=== PATIENT | male | born 1950 | race Caucasian/White ===

== ENCOUNTER 2024-06-04 14:10 | Inpatient (IN) | payer MEDICARE, SELFPAY ==
[2024-06-04] VITALS (9 sets, daily range): BP systolic 153–212; BP diastolic 70–91
--- NOTE | 2024-06-04 12:17 | ED.GENMED ---
History of Present Illness
General
Chief Complaint: Swelling
Source: patient
Exam Limitations: none
Time Seen by Provider: 06/04/24 11:59
History of Present Illness
History of Present Illness:
74-year-old male presents from home with daughter and son. They state that his legs have been more swollen progressively worsening over the past 2 weeks with general decline and weakness. Patient lives with his brother but he has been having
difficulty taking care of himself. He has trouble getting out of the chair and he is sitting for the majority of the day. He has urinary incontinence. He has been known to be noncompliant with medicine. He was prescribed Lasix at 1 point for
lower extremity swelling but does not currently take it. He has a pacemaker history of CABG and follows with cardiology here but has not seen them in a while. Family concerned about his overall wellbeing and inability to take care of himself in
the setting of fluid retention and weakness.
Past History
Past History
ED Past Medical History: CAD, CHF, HTN, Hypercholesterolemia, IDDM and Other (CKD, spinal stenosis)
ED Past Surgical History: Appendectomy and Cardiac (01/2017 pacemaker, cardiac stents, CABG)
Social History
Tobacco: Former smoker
Alcohol: Occasional
Drug: None
Personal:
Living: with roommate
Family History
Family History: Other (reviewed and non-contributory)
Phy Exam
Physical Exam
Physical Exam:
General: Unkempt male no acute respiratory distress
HEENT: Normocephalic atraumatic
Heart: Regular rate and rhythm
Lungs: Clear no obvious wheeze
Abdomen is soft nontender nondistended
Extremities: Significant pitting edema bilateral lower extremities there is weeping at some spots.
Skin is warm no rash
Scores
Heart Failure Risk
Heart Failure Risk Score: Not Applicable
Course
Orders/Labs/Results
Orders:
Orders
06/04/24 12:17
Interrogate Pacemaker- Treatment ONCE
CR Chest - 2 Views Urgent
Comment:
Reason For Exam: weakness, sob
06/04/24 12:26
Complete Blood Count/With Diff Urgent
Comprehensive Metabolic Panel Urgent
NT-proBNP Urgent
06/04/24 13:29
Furosemide [Lasix] 40 mg IV NOW STA
Abnormal Lab Results
06/04/24
12:26
RBC 3.98 L 10^6/uL
(4.70-6.10)
Hgb 11.8 L g/dL
(13.0-18.0)
Hct 34.9 L %
(39.0-52.0)
MPV 11.4 H fL
(7.4-10.4)
Absolute Lymphs (auto) 0.9 L 10^3/uL
(1.2-3.4)
Lymphocytes % 17.1 L %
(20.5-51.1)
Chloride 108 H mmol/L
(98-107)
BUN 40 H mg/dl
(9-20)
Creatinine 2.4 H mg/dL
(0.7-1.3)
Glucose 139 H mg/dl
(70-99)
Total Protein 6.1 L g/dl
(6.3-8.2)
Albumin 3.4 L g/dl
(3.5-5.0)
06/04/24 12:26
06/04/24 12:26
Vital Signs
Initial and Last Documented VS:
Initial Vital Signs
Temp Pulse Resp BP Pulse Ox
98.2 F 60 16 212/87 100
06/04/24 11:38 06/04/24 11:38 06/04/24 11:38 06/04/24 11:38 06/04/24 11:38
Last Documented Vital Signs
Temp Pulse Resp BP Pulse Ox
98.2 F 65 15 187/85 98
06/04/24 11:38 06/04/24 13:00 06/04/24 13:00 06/04/24 13:00 06/04/24 13:00
MDM/Problems Addressed
Differential Diagnosis Includes:
Lower extremity swelling and generalized weakness. Consider CHF versus ambulatory dysfunction versus electrolyte abnormality. There is a newer urinary incontinence will check for UTI chest x-ray to check for pleural effusion or pneumonia.
*Critical Care Note
Total Time (30-74mins, 75-104mins- exclusive of procedures): Not Applicable
Update Note
Update Note:
BNP 14,500 creatinine is 2.4 at both of these are higher than baseline. Chest x-ray shows cardiomegaly with left-sided pleural effusion. Patient is volume overloaded Lasix ordered. He also has worsening kidney dysfunction. Will admit to hospital
for further evaluation.
Echocardiogram from 1 year ago demonstrating ejection fraction of around 60%
ED Attending Note
-
Portions of this chart may have been created with voice recognition software.� Occasional wrong word or��sound alike� substitutions may have occurred due to the inherent limitations of voice recognition software.
Discharge Plan
Departure
Patient Disposition: Admit
Date of Disposition: 06/04/24
Time of Disposition: 13:33
Admit to: Telemetry
Presentation/result/management discussed w/ accepting MD/DO: Hospitalist
Discharge Problem:
CHF (congestive heart failure)
Prescriptions:
No Action
metoprolol succinate 50 mg tablet extended release 24 hr
50 mg PO DAILY
furosemide [Lasix] 20 mg Tablet
20 mg PO DAILYPRN PRN (Reason: FLUID )
insulin glargine [Lantus Solostar U-100 Insulin] 100 unit/mL (3 mL) Insulin Pen
10 unit SC HS
amlodipine 10 mg Tablet
10 mg PO HS Qty: 30 0RF
atorvastatin 80 MG tablet
80 mg PO DAILY Qty: 30 0RF
clopidogrel 75 mg Tablet
75 mg PO DAILY Qty: 30 0RF
aspirin 81 MG tablet,delayed release (DR/EC)
81 mg PO DAILY Qty: 5 0RF
pantoprazole 40 MG tablet,delayed release (DR/EC)
40 mg PO DAILY Qty: 30 0RF
ezetimibe 10 MG tablet
10 mg PO DAILY Qty: 30 0RF
Referrals:
Uriah Roger NP [Family Provider] -
Interventions
Interventions:
*Risk Screen - Suicide Last Done: 06/04/24 11:38
*General Assessment Last Done: 06/04/24 11:38
*Neglect/Abuse Screening Last Done: 06/04/24 11:38
ED- Fall Risk Assessment Last Done: 06/04/24 12:56
*ED COVID-19 Vaccine History Last Done: 06/04/24 11:38
ED- Cardiac Assessment Last Done: 06/04/24 12:56
ED- Pulmonary Assessment Last Done: 06/04/24 12:56
ED-Skin Assessment Last Done: 06/04/24 12:56
Discharge Date and Time
Print Language: SENEGALESE
[2024-06-04 12:38] LABS: % Basophils 0.9 % (0-2); % Eosinophils 3.3 % (0-6); % Immature Granulocytes 0.4 % (0-0.5); % Lymphocytes 17.1 % (20.5-51.1); % Monocytes 7.3 % (1.7-9.3); Absolute Basophils 0.1 10^3/uL (0-0.2); Absolute Eosinophils 0.2 10^3/uL (0-0.7); Absolute Lymphocytes 0.9 10^3/uL (1.2-3.4); Absolute Monocytes 0.4 10^3/uL (0.1-0.6); Absolute Neutrophils 3.9 10^3/uL (1.4-6.5); Hematocrit 34.9 % (39.0-52.0); Hemoglobin 11.8 g/dL (13.0-18.0); Mean Corp Hgb Conc. 33.8 g/dL (33.0-37.0); Mean Corpuscular Hgb 29.6 pg (27.0-31.0); Mean Corpuscular Volume 87.7 fL (80.0-94.0); Mean Platelet Volume 11.4 fL (7.4-10.4); Nucleated Red Blood Cells % 0 % (-); Platelet Count 158 10^3/uL (130-400); Red Blood Cell Count 3.98 10^6/uL (4.70-6.10); Red Cell Dist. Width 14.1 % (11.5-14.5); White Blood Cell Count 5.5 10^3/uL (4.8-10.8)
[2024-06-04 12:54] LABS: ALT (SGPT) 15 U/L (0-50); AST (SGOT) 20 U/L (17-59); Albumin 3.4 g/dl (3.5-5.0); Alkaline Phosphatase 94 U/L (38-126); Blood Urea Nitrogen 40 mg/dl (9-20); Calcium 8.9 mg/dl (8.4-10.2); Carbon Dioxide 22 mmol/L (22-30); Chloride 108 mmol/L (98-107); Glucose 139 mg/dl (70-99); Potassium 5.1 mmol/L (3.5-5.1); Sodium 138 mmol/L (135-145); Total Bilirubin 1.2 mg/dl (0.2-1.3); Total Protein 6.1 g/dl (6.3-8.2); eGFR 27.28
[2024-06-04 12:58] LABS: NT-proBNP 14500 pg/ml
--- NOTE | 2024-06-04 13:51 | HPS.HSE ---
Family Physician
-
Family Physician: Uriah Roger NP
Chief Complaint
-
Weakness and Lower Extremity Edema
History of Present Illness
Patient is a 74 y/o male past medical history of CAD, CVA, CHF, HTN, DM, and CKD who presents with weakness and increasing lower extremity edema. Additional history is obtained from patient's daughter and son at the bedside. Patient has been
non-complaint with his medication for the last 6 months. Over the last few weeks patient has developed increasing lower extremity edema associated with increased weakness and low energy. Patient denies any chest pains, palpitations or shortness of
breath. He denies fevers, sweats or chills. He does not weight himself on a regular basis.
Medical History
Past Medical History
Past Medical History: Reports Other
Additional Past Medical History:
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
Coronary Artery Disease s/p CABG and stents
Chronic HFpEF
Essential Hypertension
Hyperlipidemia
Diabetes Mellitus, Type II
CKD Stage III
Chronic Lower Extremity Lymphedema
Spinal Stenosis
GERD
Mild Cognitive Impairment
Past Surgical History: Reports Other
Additional Past Surgical History:
CABG
Cardiac Stents
Permanent Pacemaker
Appendectomy
Social History
Tobacco: Former Smoker
Alcohol: Occasional
Family History
Family History: Not pertinent
Allergies / Home Medications
Allergies reflects when Allergies were last updated in [employer].
Home Medications with original date entered in [employer]
Allergy/Medication List:
Allergies
Allergy/AdvReac Type Severity Reaction Status Date / Time
No Known Allergies Allergy Verified 06/04/24 12:12
Home Medications
amlodipine 10 mg tablet 10 mg PO HS #30 tabs 03/18/23
aspirin 81 mg tablet,delayed release 81 mg PO DAILY #5 tabs 03/18/23
atorvastatin 80 mg tablet 80 mg PO DAILY High Cholesterol #30 tabs 03/18/23
clopidogrel 75 mg tablet 75 mg PO DAILY #30 tabs 03/18/23
ezetimibe 10 mg tablet 10 mg PO DAILY High Cholesterol #30 tabs 03/18/23
pantoprazole 40 mg tablet,delayed release 40 mg PO DAILY Gastrointestinal Issue #30 tabs 03/18/23
furosemide 20 mg tablet (Lasix) 20 mg PO DAILYPRN PRN FLUID 06/04/24
insulin glargine 100 unit/mL (3 mL) subcutaneous pen (Lantus Solostar U-100 Insulin) 10 unit SC HS 06/04/24
metoprolol succinate 50 mg tablet,extended release 24 hr 50 mg PO DAILY 06/04/24
Review of Systems
-
A 12 point ROS was completed and negative except as noted: Yes
Constitutional: Denies Fever or Chills
Respiratory: Denies Cough or Trouble Breathing
Cardiac: Denies Chest Pain or Palpitations
Physical Exam
Vital Signs
Vital Signs
Temp Pulse Resp BP Pulse Ox
98.2 F 65 15 187/85 98
06/04/24 11:38 06/04/24 13:00 06/04/24 13:00 06/04/24 13:00 06/04/24 13:00
Physical Exam
General: Comfortable and Conversant
HEENT: Anicteric and Moist mucous membranes
Respiratory: Rales (Left base) and Non Labored Respirations
Cardiac: S1/S2 and Regular Rhythm
GI: Soft and Non Tender
Rectal: Deferred by Provider
Musculoskeletal: No Clubbing, No Cyanosis and Other (Evidence of chronic lower extremity lymphedema with +2 pitting edema bilaterally)
Skin: Warm and Dry
Neuro: Awake, Alert and Nonfocal/grossly intact
Psych: Other (Flat Affect)
Laboratory Results
-
06/04/24 12:26
06/04/24 12:26
Laboratory Results
Total Bilirubin 1.2 mg/dl (0.2-1.3) 06/04/24 12:26
AST 20 U/L (17-59) 06/04/24 12:26
ALT 15 U/L (0-50) 06/04/24 12:26
Alkaline Phosphatase 94 U/L (38-126) 06/04/24 12:26
Chest X-Ray:
Small bilateral pleural effusions, and left basilar atelectasis versus pneumonia.
Data Reviewed
-
Diagnostic Radiology: Report Reviewed by me
Lab Data: Labs Reviewed by me
Impression/Plan
-
Acute on Chronic HFpEF
-Consult Cardiology
-Check Echocardiogram
-Continue Lasix
-Monitor Is&Os and Daily Weights
Acute Renal Insufficiency on CKD Stage IIIB (Baseline Cr 1.8-2.0)
-Monitor creatinine closely while on diuretics
-Consider Nephrology consult if Creatinine does not improve
Uncontrolled Hypertension due to non-compliance
-Resume metoprolol and amlodipine
-Add hydralazine prn
-Monitor BP closely
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
-Per outpatient records plan was to stop Plavix and continue on Aspirin alone
-Continue aspirin
Coronary Artery Disease s/p CABG and stents
-Continue aspirin
Hyperlipidemia
-Continue atorvastatin and Zetia
Diabetes Mellitus, Type II
-Unclear when patient stopped Lantus
-Hold on long acting insulin for now
-Check HgbA1c
-Monitor sugars and continue coverage insulin
Mild Cognitive Impairment, suspect continued cognitive decline
-Consult Speech Therapy for MOCA/BCAT cognitive testing
DVT proph: SC Heparin
Code Status: Full Code
[2024-06-04] MEDS: LASIX 40 MG IV (13:55)
--- NOTE | 2024-06-04 14:30 | W.PN.UPDATE ---
Update Note
Progress Note Update
This note serves as an addendum to the H&P by tenter frame back tender MARIYA , Divine BOYER
HPI
74M from home . lives with older brother, HX CAD,CABG, PPM implant, CHF, HTN, Hypercholesterolemia, IDDM, CKD3b, chr leg edema pw general debility, weakness, unable to care for himself and non adherence with Meds. On lasix PRN for chr Alok venous
stasis
PHX: as above
Reviewed VS:
Vital Signs
Temp Pulse Resp BP Pulse Ox
98.2 F 63 15 205/76 98
06/04/24 11:38 06/04/24 13:55 06/04/24 13:00 06/04/24 13:55 06/04/24 13:00
PE
Gen: Not toxic
HEENT: anicteric
Neck: supple
Lungs: DTA
Cor: RRR S1 S2 , soft SM at Lt USB
Abdomen: soft benign
MARITIME OFFICER: AA, NFND
MS: b/l large chr venous stasis edema with lymphedem chages
Psych: flat affect
Data
11/09/21 05/11/23 06/04/24
05:12 15:34 12:26
Hgb 11.8 L
BUN 40 H
Creatinine 2.0 H 2.4 H
eGFR 27.28
[id number] Pept 2009 [id number]
03/04/23 TTE
LVEF 55-60
Grade 1 diastolic dysfunction
Normal right ventricular systolic function with right-sided device wire present
Mild mitral regurgitation
Estimated pulmonary artery systolic pressure estimated 25-30 mmHg assuming a right atrial pressure 3 mmHg
CXR: Small bilateral pleural effusions, and left basilar atelectasis versus pneumonia.
ASSESSMENT & PLAN
Acute HF suspect underlying chr HFpEF
Expanded volume
Known chronic venous stasis Alok with lymphedema changes
- IV Lasix 60 daily
- daily Wt, IOs
- Daily BMP
- ECHO
- DCA card consult
HTN urgency/ emergency due to non compliance with OP Rx
Sinus Benjamin
Has PPM implant and paced
- resume Amlodipine and Metoprolol
- add IV Hydralazine PRN fro SBP > 165, DBP > 125
MAEGAN suspect cardiorenal syndrome
HX CKD3b /4
- trend Cr with IV Diuresis
HX CABG and prior stents
IDDM
- add ISS low
- Hold Lantus for now _ questionable complaince
Non adherence with OP Meds suspect cognitive decline with poor judgement
- OT to eval BCAT ( brief cognitive assessment test )
DVT Px: SQH
Code: Full
IP TLM
[2024-06-04] MEDS: TOPROL XL 50 MG PO (14:50)
[2024-06-04 16:56] LABS: Glucose - Point of Care 107 mg/dl (70-99)
[2024-06-04] MEDS: NOVOLOG FLEXPEN-LOW RESISTANCE SC (17:01)
[2024-06-04] MEDS: HEPARIN 5000 UNITS SC ×2 (17:13→23:52)
[2024-06-04] MEDS: APRESOLINE 5 MG IV (17:20)
--- NOTE | 2024-06-04 17:30 | PTCARENOTE ---
recieved pt from ED via stretcher, BP elevated slightly lower from PO Metoprolol in the ED. Asymptomatic no CUELLAR, no dizziness. Family at bedside, ordered dinner, oriented to his room. Call kim within reach.
--- NOTE | 2024-06-04 17:42 | PTOTSP ---
[facility] Cognitive Communication Evaluation
Request was made for cognitive evaluation due to suspected cognitive decline.
Previous BUDGET CLERK Tx:
- Pt had an acute CVA in 02/2023. Pt went to [facility] on d/c for therapy and received subsequently received OP BUDGET CLERK tx at from 04/07/2023 through 05/17/2023. Pt's OP BUDGET CLERK tx was discontinued at pt's request, as he was refusing additional rehab
services. At the time of discharge, pt demonstrated: 'In therapy, processing speech continues to be overall moderately slow. Mid level word retrieval and the use of compensatory strategies has improved and 90% accuracy with minimal cues. Tasks of
mid level problem solving and compensations requires moderate cues. Working memory and short term memory compensations overall requires moderate cues. Attention and concentration for multitasking and divided tasks also requires moderate cues.
Insight and awareness of deficits continues to be poor. The patient also demonstrates significantly impaired safety awareness.' Recommendations: 'Miguel Mcgrath continues to present with mild to moderate cognitive communication deficits. Moderate
deficits are noted in problem solving, safety awareness, attention/concentration, and executive functioning for insight and mental flexibility. Mild deficits are noted in the areas of working memory, recall, word retrieval, and processing speed.
Ongoing treatment to address these issues was recommended. The patient is currently being discharged secondary to his request. The patient continues to demonstrate limited insight and safety awareness. He continues to struggle with medical
management for example remembering to take medication. He requires supervision at both the household and community levels. A review of current deficits was reviewed with the patient's daughter through the outpatient neurologically impaired
rehabilitation program.'
Baseline Information:
- Pt lives at home in an apartment with his brother (80 y/o - has some health issues; fairly independent but has some back problems).
- Pt reports that he drives. Daughter clarified that he does, but that it is likely illegally because his license was reported to [facility] previously (not sure why?) - she said he doesn't forget where he's going but it's more about a concern with his
physical mobility, processing, and reaction time. Pt's family does not want him to drive anymore.
- Pt reports he gets his own groceries - daughter clarifies that this is not true, pt's brother will sometimes get things for him, he gets meals on wheels but he does not eat it, and will go out to [employer] 2x/day.
- Pt reports that he cooks independently - daughter clarified that pt does minimal cooking due to some mobility/coordination issues and reduced motivation.
- Pt reports that he and his brother split the responsibilities of cleaning their apartment - daughter clarified that pt's home was messy at baseline and that it has gotten a lot worse. She elaborated that pt is incontinent, not able to care for his
hygiene, will have soiled pants, and forgets to put on depends.
- Pt reports he does his own laundry - daughter clarified this is not true because he cannot get down the stairs; pt's brother does laundry as needed.
- Pt reports he takes his medications 'sometimes' 'if he thinks about it.' When BUDGET CLERK inquired as to whether he should take medications every day, pt stated 'I think so.' When BUDGET CLERK inquired about the potential consequences of not taking medications, pt
responded, 'nothing.' When BUDGET CLERK inquired about systems to help him remember to take medications, pt declined anything. Pt's daughter clarified that she tried filling pill boxes for him, calling him everyday to remind him, etc. - but he will say he
took them when he really didn't and that he has no interest in taking medications. Per daughter, pt reports that the pt sometimes says 'he feels worse when he takes medications.'
- Pt reports that he is independent with his finances - daughter clarified that he is primarily dependent on SSI, all of his bills are set up on auto-pay, and that his finances are managed by the pt's brother and the pt's son.
- Pt does not report any difficulties hearing, but pt's daughter clarified pt has hx hearing loss and hx of hearing aids that got washed in washing machine and thus are nonfunctional.
- Pt had vision problems previously but no longer needs glasses after cataract sx.
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
Clinical Observations:
- When BUDGET CLERK inquired as to purpose for coming to hospital, pt replied 'because my son and daughter told me to.' When BUDGET CLERK inquired as to why they were concerned, pt shared he did not know. Pt declined leg swelling and solely stated he was not walking
as well lately.
- Pt had no recall of speech/language tx. When BUDGET CLERK inquired about working with someone about his thinking/cognitive function, he replied 'sounds familiar, I'm not sure.'
- Pt was somewhat familiar with hx stroke: 'I think I did.'
- Pt was observed to have difficulties hearing and benefit from elevated vocal volume, over-articulated speech sounds, and pauses between words/phrases.
Family Report (son and daughter outside of room/pt's presence):
- Pt has reportedly been evaluated in the past by neurologist, and pt does surprisingly well on formal/objective tests (e.g. mini mental exam), but clearly has deficits - reduced insight to deficits and impaired judgment.
- Pt was recommended for a neuropsych eval, but they never pursued it.
- Pt reportedly had some difficulties with his cognitive function prior to his CVA, but his cognitive function certainly declined with the CVA. More recently, they report he has had some level of decline that is likely related to medication non
compliance. Pt's overall cognitive presentation occasionally waxes/wanes - he has some days that are better than others.
- Pt has difficulty with executive functioning tasks like managing his cell phone.
- Pt can be very resistant to receiving help - will decline assistance with meds, laundry, groceries, or general hygiene assistance. Pt can be defensive and denies any difficulties completing his ADLs. Pt's response is often mood-dependent. Pt can
become verbally aggressive, but not violent.
- Pt has not expressed/displayed and signs of depression or desire to - he just does not have iraj in/see the benefit of taking medications.
- Pt has one son and one daughter - they are unable to care for him in their homes. They would like to see pt d/c to SNF for a short stay (at least), but they would like to know more about LTC options. They report that he will improve with care
(i.e., someone being on top of him with his meds, PT, etc.), but that he will be resistant. Family mentioned concerns regarding finances - solely receives SSI - working on getting Medicaid. If pt needs to be d/c home (with brother) after SNF, the
only way they could see that happening is if he is d/c with home health care for medication management, hygiene assistance, and household task support.
- Pt does not have an POA paperwork.
Objective Assessment:
- Pt was administered the MOCA - pt received a score of 22/30, which is indicative of a mild cognitive communication impairment. Pt demonstrated deficits in the areas of registration of information, language generation, and short term recall.
- This assessment is deemed NOT an adequate representation of the extent of the pt's cognitive communication deficits and that the pt's insight/judgement are SIGNIFICANTLY impaired per clinical observations.
Pt currently presents with at least moderate cognitive communication deficits characterized by impaired registration of information, impaired short term recall, impaired language generation, impaired insight to deficits, and impaired judgment. Given
that most of these deficits were previously documented back in April of 2023, it is difficult to discern whether pt is demonstrating an acute deviation/worsening of cognitive status without conducting a more formalized/comprehensive assessment.
Recommendations:
- Consider imaging of the brain (CT vs MRI) to rule out any acute neurological conditions that could be contributing to the pt's current cognitive decline.
- Psych evaluation for capacity assessment to make medical decisions for himself/care for himself. Pt can answer most concrete questions without issue but per BUDGET CLERK's clinical observations, pt with significant impaired insight to deficits and impaired
judgment, especially as it pertains to his self-care, role of medications, and need for additional assistance.
- Consider neuropsych evaluation as an OP.
- BUDGET CLERK to f/u re: more comprehensive cognitive linguistic evaluation/tx, if the pt is receptive to receiving it.
- Consult to social work/case management for placement/dispo support.
[2024-06-04] MEDS: NORVASC 10 MG PO (21:12)
[2024-06-04] MEDS: DESENEX/MITRAZOL/ZEASORB 1 APPLIC TOPICAL (21:12)
[2024-06-04 21:35] LABS: Glucose - Point of Care 150 mg/dl (70-99)
[2024-06-05] VITALS (9 sets, daily range): BP systolic 147–170; BP diastolic 65–86; PULSE 55; O2SAT 100
[2024-06-05 06:00] LABS: Hematocrit 36.9 % (39.0-52.0); Hemoglobin 12.1 g/dL (13.0-18.0); Mean Corp Hgb Conc. 32.8 g/dL (33.0-37.0); Mean Corpuscular Hgb 29.6 pg (27.0-31.0); Mean Corpuscular Volume 90.2 fL (80.0-94.0); Mean Platelet Volume 11.7 fL (7.4-10.4); Platelet Count 142 10^3/uL (130-400); Red Blood Cell Count 4.09 10^6/uL (4.70-6.10); Red Cell Dist. Width 14.1 % (11.5-14.5); White Blood Cell Count 5.3 10^3/uL (4.8-10.8)
[2024-06-05 06:08] LABS: Blood Urea Nitrogen 42 mg/dl (9-20); Calcium 8.7 mg/dl (8.4-10.2); Carbon Dioxide 21 mmol/L (22-30); Chloride 106 mmol/L (98-107); Glucose 124 mg/dl (70-99); HDL Cholesterol 51 mg/dl; LDL Cholesterol, Calculated 182 mg/dl; Magnesium 1.9 mg/dl (1.6-2.3); Potassium 4.5 mmol/L (3.5-5.1); Sodium 139 mmol/L (135-145); Total Cholesterol 256 mg/dl (50-199); Triglyceride 118 mg/dl (10-149); Very Low Density Lipoprotein 23 mg/dl (0-30); eGFR 28.71
[2024-06-05 06:36] LABS: TSH Reflex To Free T4 2.38 uIU/ml (0.47-4.68)
--- NOTE | 2024-06-05 07:47 | CON.CAR ---
Addendum entered and electronically signed by Maria Roberts MD 06/05/24 09:20:
I saw and examined the patient.
The Database Programmer's note was reviewed and I agree with the note.
Comment: Most of the history obtained from inpatient and outpatient records given that patient has significant cognitive decline. He is pleasant but unable to give an accurate assessment. He does deny chest pain, palpitations and dizziness and
feels that his edema has been present for 1 year. He now presents with acute on chronic heart failure with preserved ejection fraction and volume overload in the setting of renal insufficiency, hypertensive urgency and coronary artery disease with
CABG. By report he has not been taking his medications for 6 months likely related to advancing cognitive decline. Cognitive decline had been noted at our last office visit in 2021 in addition. He also has pacemaker in place(2016). He has h/o CVA
02/2023 (no afib seen on PPM but poss abisai Erickson)
Heart failure with preserved ejection fraction and volume overload, proBNP 14,500 and exam consistent with heart failure with significant lower extremity edema
-Agree with diuresing with IV Lasix. Watch input/output, daily weights. Watch electrolytes and renal insufficiency.
-Echo
-EKG
-Monitor tele
-Sodium and fluid restricted diet
-Also venous insufficiency with erythema and skin changes of legs. Compression when able, leg elevation. Defer to primary service.
PPM (2017)
-Check
CVA
-Antiplt therapy per primary service
CAD s/p CABG 2017
-Check EKG
-Risk modification
-Restart lipid lowering
HTN with BP uncontrolled due to medication noncompliance.
-Continue Toprol XL 50 mg daily
-Continue amlodipine 10 mg at bedtime
-Add hydralazine 25mg TID and follow
Given continued cognitive decline and inability to consistently take medications at home and care for himself likely will need higher level care at facility.
Original Note:
Consultation
Consultation Request
Date/Time Consultation Requested: 06/04/24 at 1536
Date/Time Consultation Performed: 06/05/24 at 0725
Requesting Provider: Dr. Palomares
Performing Provider: Dr. Maria Roberts
Reason for Consultation: Acute HF
Medical History
-
History of Present Illness:
Patient came to [facility] yesterday with increased edema and was admitted with acute HF and consult to cardiology. Patient has a h/o significant noncompliance with medications and medical follow up. Patient was last seen in the cardiology office 05/15/22
and at that point his daughter was filling his pill boxes to help increase compliance. Patient then had a CVE 04/2023 and went to rehab at [place], but is now living with his brother. Patient is no longer taking Lasix. Patient had a preserved EF at
last echo 02/2023 in the setting of CVA. Patient has a h/o pAfib seen after his CABG in 2016, but then had a PPM placed in 2016 and on regular device checks there was no Afib and on device check at time of CVA there was not Afib, but he did have
episodes of Atach. Patient was not recommended OAC by neurology at that time, but was placed on aspirin and Plavix. No chest pain, but his legs are more edematous.
PMH:
Chronic HFpEF
CKD 3b
h/o HTN
Medication noncompliance
CAD s/p CABG with NESBITT-LAD and SVG-OM 2016
s/p Medtronic dual chamber PPM for 7 second conversion pause 2016
Paroxysmal Afib
seen post-CABG, but no documented recurrence on device checks since 2017
h/o CVA 04/2023
Hyperlipidemia
DM 2
h/o proteinuria
h/o venous insufficiency/lymphedema
Past Medical History
Past Medical History: Other (in HPI)
Past Surgical History: Appendectomy, Cardiac (CABG and OOM 2016) and Orthopedic
Social History
Tobacco: Former Smoker
Alcohol: Occasional
Drug: None
Personal:
Living: With Family (lives with his brother)
Family History
Family History: Other (dementia)
Allergies / Home Medications
Allergy/AdvReac Type Severity Reaction Status Date / Time
No Known Allergies Allergy Verified 06/04/24 12:12
�Medication �Instructions �Recorded �Confirmed �Type
amlodipine 10 mg tablet 10 mg PO HS #30 tabs 03/18/23 06/04/24 Rx
aspirin 81 mg tablet,delayed 81 mg PO DAILY #5 tabs 03/18/23 06/04/24 Rx
release
atorvastatin 80 mg tablet 80 mg PO DAILY High Cholesterol 03/18/23 06/04/24 Rx
#30 tabs
clopidogrel 75 mg tablet 75 mg PO DAILY #30 tabs 03/18/23 06/04/24 Rx
ezetimibe 10 mg tablet 10 mg PO DAILY High Cholesterol 03/18/23 06/04/24 Rx
#30 tabs
pantoprazole 40 mg tablet,delayed 40 mg PO DAILY Gastrointestinal 03/18/23 06/04/24 Rx
release Issue #30 tabs
furosemide 20 mg tablet (Lasix) 20 mg PO DAILYPRN PRN FLUID 06/04/24 06/04/24 History
insulin glargine 100 unit/mL (3 10 unit SC HS 06/04/24 06/04/24 History
mL) subcutaneous pen (Lantus
Solostar U-100 Insulin)
metoprolol succinate 50 mg 50 mg PO DAILY 06/04/24 06/04/24 History
tablet,extended release 24 hr
Review of Systems
-
History Source: Patient
All other systems: Negative unless noted
Physical Exam
Vital Signs
Temp Pulse Resp BP Pulse Ox
97.7 F 64 17 170/75 97
06/05/24 03:06 06/05/24 03:06 06/05/24 03:06 06/05/24 03:06 06/05/24 03:06
GEN: NAD. AAO to person, place and situation
HEENT: EOMI, MMM
LUNGS: Dull left base. No wheeze. On RA
CV: AV paced on tele. Reg, S1/S2, 1/6 BSM
ABD: soft, BS+, NT, ND
EXT: +3 pitting B/L LE edema. No clubbing, cyanosis or lesions.
NEURO: No focal or lateralizing weakness
SKIN: Warm, dry and pink. No rash
Lab Results
06/05/24 04:44
06/05/24 04:44
Kix-X-Bjptqvrdcas Pept [id number] pg/ml 06/04/24 12:26
Impression / Plan
-
PCP: Ryan White
Oracle Distribution Consultant: Moody Ortiz
Impression:
Acute on chronic HFpEF
MAEGAN on CKD 3b
HTN urgency
h/o HTN
Medication noncompliance
CAD s/p CABG with NESBITT-LAD and SVG-OM 2016
s/p Medtronic dual chamber PPM for 7 second conversion pause 2016
Paroxysmal Afib
seen post-CABG, but no documented recurrence on device checks since 2017
h/o CVA 04/2023
Hyperlipidemia
DM 2
h/o proteinuria
h/o venous insufficiency/lymphedema
Echo 11/06/2021: Ejection fraction 55% with mild LVH. Aortic valve sclerosis. Mildly dilated right ventricle with PA pressure 32 mmHg.
Echo 03/04/2023: EF 55 to 60%, grade 1 diastolic dysfunction, mild aortic regurgitation, mild to moderate TR with PAP 25 to 30 mmHg
Plan:
-Patient came to [facility] yesterday with increased edema and was admitted with acute HF and consult to cardiology. Patient has a h/o significant noncompliance with medications and medical follow up. Patient was last seen in the cardiology office
05/15/22 and at that point his daughter was filling his pill boxes to help increase compliance. Patient then had a CVE 04/2023 and went to rehab at [place], but is now living with his brother. Patient is no longer taking Lasix. Patient had a preserved
EF at last echo 02/2023 in the setting of CVA. Patient has a h/o pAfib seen after his CABG in 2017, but then had a PPM placed in 2017 and on regular device checks there was no Afib and on device check at time of CVA there was not Afib, but he did
have episodes of Atach. Patient was not recommended OAC by neurology at that time, but was placed on aspirin and Plavix. No chest pain, but his legs are more edematous.
-pro-BNP [id number], CXR with small B/L pleural effusions and patient with marked LE edema. Will diurese with Lasix 60 mg IV daily. Patient was not taking Lasix PO prior to admission due to medication noncompliance.
-EF previously preserved to 55% by echo 03/04/2023. Will recheck echo
-Check ECG, ordered by cardiology this AM. Reviewed by me, AV paced, will order device interrogation.
-BP uncontrolled due to medication noncompliance. Will change hydralazine to 25 mg TID
-Continue Toprol XL 50 mg daily
-Continue amlodipine 10 mg at bedtime
-Continue aspirin 81 mg daily
-Patient with a history of P A-fib at time of CABG in 2016, but no documented recurrence on device checks. As noted above, will recheck device now. Patient had CVA in 04/2023, but was not started on OAC at that time due to unremarkable device
check aside from some Atach. Now the patient will be going to a facility could consider starting OAC if he has any A-fib on device check as there will be a better chance of compliance and increased level of safety in a skilled care environment.
[2024-06-05 08:40] LABS: Glucose - Point of Care 136 mg/dl (70-99)
[2024-06-05] MEDS: NOVOLOG FLEXPEN-LOW RESISTANCE SC ×2 (08:43→14:10)
[2024-06-05] MEDS: LIPITOR 80 MG PO (08:45)
[2024-06-05] MEDS: LASIX 60 MG IV (08:45)
[2024-06-05] MEDS: ZETIA 10 MG PO (08:45)
[2024-06-05] MEDS: PROTONIX 40 MG PO (08:45)
[2024-06-05] MEDS: TOPROL XL 50 MG PO (08:45)
[2024-06-05] MEDS: ASPIR LOW (ENTERIC COATED) 81 MG PO (08:45)
[2024-06-05] MEDS: HEPARIN 5000 UNITS SC ×2 (08:46→16:06)
[2024-06-05] MEDS: DESENEX/MITRAZOL/ZEASORB 1 APPLIC TOPICAL ×2 (08:49→19:47)
[2024-06-05] MEDS: APRESOLINE 25 MG PO ×3 (09:16→22:26)
[2024-06-05 09:30] LABS: Glycohemoglobin (HgbA1c) 7.1 % (4.0-5.6)
--- NOTE | 2024-06-05 12:04 | WOUNDNOTE ---
[facility] RN note: Patient admitted with CHF, cognitive decline
See H&P for complete history.
PMH: CVA 02/2023, pacemaker, diabetic neuropathy, CHF, lymphedema
Wound Location and type/assessment: Patient admitted with MASD/fungal appearing skin to buttocks likely secondary to incontinence. Bilateral audible pulses with lymphedema. Patient has slow speech and is unable to answer questions. Hospitalist
present during assessment and incontinence care provided by this program writer and PCT Charly.
Pressure redistribution devices in place: Versa Care Air, pillow under calves, air cushion to chair.
Plan: Desenex has already been ordered. Barrier ointment also applied to buttocks. Recommended condom cath to RNYanna. ANGELINE compression ordered to bilateral legs by hospitalist. Care plan updated. Will follow as needed.
[2024-06-05 12:14] LABS: Glucose - Point of Care 200 mg/dl (70-99)
--- NOTE | 2024-06-05 13:45 | W.PN.HOSP.TC ---
Today's Communication/Plan
-
IV diuresis
Lower extremity Doppler.
Physical therapy assessment
Assessment / Plan
Assessment / Plan
Impression:
Acute CHF reduced EF.
Hypertensive urgency
General deconditioning and failure to thrive
Ambulatory dysfunction
Conditions prior to admission:
CKD stage IIIb with baseline creatinine 2.5
Essential hypertension
CAD status post CABG with NESBITT�LAD and SVG�OM 2016.
Status post Medtronic dual-chamber PPM 2016
Paroxysmal atrial fibrillation post CABG with no documented preference
History of CVA 05/17.
IDDM
Dyslipidemia.
Chronic lymphedema/venous insufficiency.
Medication noncompliance
Mild cognitive decline
Plan:
Acute CHF reduced EF
Echo 06/18: Mildly reduced LVEF 40-45%. Stage III diastolic dysfunction. Dilated RV with mildly reduced RV systolic function. Severe TR. LVEF reduced from 55 to 60% (03/04/2023) worsened MR and RV function.
Chest x-ray with bilateral small pleural effusion
Volume overload with lower extremity edema acute on chronic/lymphedema.
Stable respiratory status with no requirement for supplemental oxygen at rest.
Continue IV diuresis: Lasix 60 mg IV daily
Monitor renal function and output
Daily weight
Continue preadmission antihypertensive regimen including metoprolol, hydralazine, Norvasc.
With RV dysfunction? Secondary to worsening MR, TR consider pulmonary imaging
Lower extremity Doppler
CAD
Status post CABG
Chest pain-free
ECG paced with no evidence of ischemia.
Continue beta-vazquez, statin
History of CVA
Neurologic status stable.
Outpatient records indicative of discontinuation of Plavix. Continue aspirin
CKD stage IIIb baseline creatinine at baseline
Renal ultrasound 03/17 with no obstruction.
UA with 3+ proteinuria
Monitor renal function with diuresis
IDDM.
Hemoglobin A1c 7.1.
Continue Lantus/basal bolus protocol/carbide controlled diet
Mild Cognitive Impairment, suspect continued cognitive decline
-Consult Speech Therapy for MOCA/BCAT cognitive testing
Physical therapy assessment.
Placement
Anticipated Discharge: 24 - 48 hours
Subjective/Interval History
-
Date of Service: June 05, 2024
Objective Data
-
Labs:
Laboratory Results
06/05/24
04:44
WBC 5.3
Hgb 12.1 L
Hct 36.9 L
Plt Count 142
Sodium 139
Potassium 4.5
Chloride 106
Carbon Dioxide 21 L
BUN 42 H
Creatinine 2.3 H
Glucose 124 H
Calcium 8.7
Vital Signs:
Vital Signs
Temp Pulse Resp BP Pulse Ox
97.5 F 61 17 165/80 98
06/05/24 11:00 06/05/24 11:00 06/05/24 11:00 06/05/24 11:00 06/05/24 11:00
I&O
06/04/24 06/05/24 06/06/24
06:59 06:59 06:59
Intake Total 560 / 560
Balance 560 / 560
Physical Exam
-
General: Well Developed and No Apparent Distress
HEENT: Normocephalic, Atraumatic and Moist Mucous Membranes
Respiratory: Clear to Auscultation
Cardiac: Regular Rhythm and S1/S2; Negative Murmur, Rub or Gallop
GI: Soft, Nontender, Nondistended and Normal Bowel Sounds; Negative Organomegaly
Rectal: Deferred by Provider
Musculoskeletal: No Clubbing, No Cyanosis and Other (Bilateral lower extremity lymphedema with stasis skin changes.)
Skin: Negative Rash
Neuro: Awake, Alert, Oriented, AO x 3 and Nonfocal/Grossly Intact
--- NOTE | 2024-06-05 13:47 | CM ---
Patient seen at bedside. Son Isma at bedside
IA completed
Dx: CHF, cognitive decline
PMH: CVA 03/17. pacemaker, diabetic neuropathy, CHF, lymphedema
Lives with his brother, 1st floor set up, 1 step to enter
PLOF: Independent, no device
PT recommend SNF
Spoke with son Isma & daughter Dina regarding options. Daughter will call CM with referral options
They are also interested in LTC potentially.
PCP: Uriah Roger
Pharmacy: [facility]
PLAN: SNF, pending bed availability.
[2024-06-05] MEDS: NOVOLOG FLEXPEN-LOW RESISTANCE 2 UNITS SC (14:52)
[2024-06-05 17:44] LABS: Glucose - Point of Care 163 mg/dl (70-99)
[2024-06-05] MEDS: NOVOLOG FLEXPEN-LOW RESISTANCE 1 UNITS SC (17:56)
[2024-06-05 21:48] LABS: Glucose - Point of Care 123 mg/dl (70-99)
[2024-06-05] MEDS: LANTUS 0.1 UNITS SC (22:26)
[2024-06-05] MEDS: NORVASC 10 MG PO (22:27)
[2024-06-06] MEDS: HEPARIN 5000 UNITS SC ×4 (00:02→23:21)
[2024-06-06 03:01] VITALS: BP 151/73
[2024-06-06 07:00] LABS: Blood Urea Nitrogen 49 mg/dl (9-20); Calcium 8.5 mg/dl (8.4-10.2); Carbon Dioxide 20 mmol/L (22-30); Chloride 105 mmol/L (98-107); Glucose 122 mg/dl (70-99); Potassium 4.8 mmol/L (3.5-5.1); Sodium 135 mmol/L (135-145); eGFR 27.28
[2024-06-06 07:05] VITALS: BP 162/77
[2024-06-06 07:17] LABS: Glucose - Point of Care 108 mg/dl (70-99)
[2024-06-06] MEDS: NOVOLOG FLEXPEN-LOW RESISTANCE SC ×2 (07:49→13:47)
[2024-06-06] MEDS: TOPROL XL 50 MG PO (07:51)
[2024-06-06] MEDS: LIPITOR 80 MG PO (07:52)
[2024-06-06] MEDS: APRESOLINE 25 MG PO ×3 (07:52→21:04)
[2024-06-06] MEDS: ZETIA 10 MG PO (07:52)
[2024-06-06] MEDS: LASIX 60 MG IV (07:52)
[2024-06-06] MEDS: ASPIR LOW (ENTERIC COATED) 81 MG PO (07:52)
[2024-06-06] MEDS: PROTONIX 40 MG PO (07:52)
[2024-06-06] MEDS: DESENEX/MITRAZOL/ZEASORB 1 APPLIC TOPICAL ×2 (07:56→20:59)
--- NOTE | 2024-06-06 08:35 | W.PN.CARDCBS ---
Addendum entered and electronically signed by Malcolm Guevara MD 06/06/24 11:07:
I saw and examined the patient.
The Wood Car Builder's note was reviewed and I agree with the note.
Comment:
GEN: No distress, awake
HEENT: supple, anicteric, mmm
LUNGS: scatt rhonchi
CV: Reg, S1/S2, 1/6 syst LSB, S3+
ABD: soft, BS+, NT/ND
EXT: No edema
NEURO: Gross non-focal
SKIN: No rash
PLan:
He is diuresing but creatinine up to 2.4. Will continue 60 mg IV Lasix daily.
Echo was reviewed. LVEF is 40%. With his dementia I would treat this conservatively.
Continue metoprolol, amlodipine, and hydralazine. Continue to titrate hydralazine for improved blood pressure control. I encourage compliance.
Will check cost of Farxiga and add if possible.
Continue medical therapy for coronary artery disease. Continue aspirin, atorvastatin, Zetia, and metoprolol. Could add Imdur if blood pressure requires further medication.
Original Note:
Today's Communication / Plan
-
Cont Lasix 60 mg IV daily
EF 40%, adding Farxiga
Impression / Plan
-
PCP: Ryan White
Bag Machine Set Up Operator: Moody Ortiz
Impression:
Acute on chronic HFpEF
MAEGAN on CKD 3b
HTN urgency
h/o HTN
Medication noncompliance
CAD s/p CABG with NESBITT-LAD and SVG-OM 2016
s/p Medtronic dual chamber PPM for 7 second conversion pause 2016
Paroxysmal Afib
seen post-CABG, but no documented recurrence on device checks since 2016
h/o CVA 04/2023
Hyperlipidemia
DM 2
h/o proteinuria
h/o venous insufficiency/lymphedema
Echo 11/06/2021: Ejection fraction 55% with mild LVH. Aortic valve sclerosis. Mildly dilated right ventricle with PA pressure 32 mmHg.
Echo 03/04/2023: EF 55 to 60%, grade 1 diastolic dysfunction, mild aortic regurgitation, mild to moderate TR with PAP 25 to 30 mmHg
Echo 06/05/2024: EF 40 to 45%, mod conc LVH, stage III diastolic dysfunction, dilated RV with mildly reduced RV systolic function, moderate MR, mild aortic regurgitation, severe TR with PAP 35 to 40 mmHg
Plan:
-Weight is down 3 lbs overnight and patient reports improved LE edema. Dry weight unknown. Will cont to diurese with Lasix 60 mg IV daily. Follow Cre. Patient was not taking Lasix PO prior to admission due to medication noncompliance.
-Patient with h/o lymphedema and B/L LE ANGELINE wraps in place.
-EF down to 40-45% by echo 06/05/24 compared to 55% by echo 03/04/2023. This could be due to profound medication noncompliance.
-Device check by me 06/06/24, device with 2 years longevity, no AT/AF.
-Remains HTN despite addition of hydralazine 25 mg TID on 06/06/24. Will increase hydralazine to 50 mg TID.
-BP uncontrolled due to medication noncompliance. Patient was previously on the meds below, but was noncompliant, restarted same meds and doses this admission.
-Continue Toprol XL 50 mg daily
-No ANGELINE/ARB/aldosterone antagonist due to MAEGAN on CKD 3b
-Will add Farxiga 10 mg daily
-Continue amlodipine 10 mg at bedtime
-Continue aspirin 81 mg daily
-Patient with a history of pAfib at time of CABG in 2017, but no documented recurrence on device checks including now. Patient had CVA in 04/2023, but was not started on OAC at that time due to unremarkable device check aside from some Atach.
HPI: Patient [facility] yesterday with increased edema and was admitted with acute HF and consult to cardiology. Patient has a h/o significant noncompliance with medications and medical follow up. Patient was last seen in the cardiology office
05/15/22 and at that point his daughter was filling his pill boxes to help increase compliance. Patient then had a CVE 04/2023 and went to rehab at [place], but is now living with his brother. Patient is no longer taking Lasix. Patient had a preserved
EF at last echo 02/2023 in the setting of CVA. Patient has a h/o pAfib seen after his CABG in 2016, but then had a PPM placed in 2017 and on regular device checks there was no Afib and on device check at time of CVA there was not Afib, but he did
have episodes of Atach. Patient was not recommended OAC by neurology at that time, but was placed on aspirin and Plavix. No chest pain, but his legs are more edematous.
Progress Note - Bag Machine Set Up Operator
Subjective
Date of Service: June 06, 2024
Denies chest pain
Objective
Labs:
06/05/24 04:44
06/06/24 05:11
Labs
Hgb 12.1 g/dL (13.0-18.0) L 06/05/24 04:44
Hct 36.9 % (39.0-52.0) L 06/05/24 04:44
Plt Count 142 10^3/uL (130-400) 06/05/24 04:44
Sodium 135 mmol/L (135-145) 06/06/24 05:11
Potassium 4.8 mmol/L (3.5-5.1) 06/06/24 05:11
BUN 49 mg/dl (9-20) H 06/06/24 05:11
Creatinine 2.4 mg/dL (0.7-1.3) H 06/06/24 05:11
Glucose 122 mg/dl (70-99) H 06/06/24 05:11
Vital Signs and I&O:
Vital Signs
Temp Pulse Resp BP Pulse Ox
97.8 F 62 18 162/77 94
06/06/24 03:04 06/06/24 07:51 06/06/24 03:01 06/06/24 07:52 06/06/24 03:01
Vital Signs
Temp Pulse Resp BP Pulse Ox
97.8 F 62 18 162/77 94
06/06/24 03:04 06/06/24 07:51 06/06/24 03:01 06/06/24 07:52 06/06/24 03:01
Intake & Output
06/04/24 06/05/24 06/06/24 06/07/24
06:59 06:59 06:59 06:59
Intake Total 560 / 560 840 / 840
Output Total 1000 / 1000
Balance 560 / 560 -160 / -160
Physical Exam
Physical Exam
GEN: NAD.
HEENT: EOMI
LUNGS: No audible wheeze. On RA
CV: AV paced on tele.
ABD: ND
EXT: B/L LE ANGELINE wraps. +3 pitting B/L LE edema.
NEURO: No focal or lateralizing weakness
SKIN: No rash
--- NOTE | 2024-06-06 09:38 | W.CARD.DEVCH ---
Cardiac Device Check
-
Device: Pacemaker
Educational Recruiter: Medtronic
The patient's device was interrogated with assistance of the device disability representative followed by a complete physician review. The device had normal function. No abnormalities seen.
No Afib
Battery longevity 2 years
[2024-06-06] MEDS: FARXIGA 10 MG PO (09:57)
[2024-06-06 11:30] VITALS: BP 140/66
[2024-06-06 13:23] LABS: Glucose - Point of Care 153 mg/dl (70-99)
[2024-06-06 15:10] VITALS: BP 145/67
--- NOTE | 2024-06-06 15:36 | W.PN.HOSP.TC ---
Today's Communication/Plan
-
Continue IV diuresis per
Follow daily weights and creatinine.
Physical therapy assessment
Discharge planning likely to detention facility
Assessment / Plan
Assessment / Plan
Impression:
Acute CHF reduced EF.
Hypertensive urgency
General deconditioning and failure to thrive
Ambulatory dysfunction
Conditions prior to admission:
CKD stage IIIb with baseline creatinine 2.5
Essential hypertension
CAD status post CABG with NESBITT�LAD and SVG�OM 2016.
Status post Medtronic dual-chamber PPM 2016
Paroxysmal atrial fibrillation post CABG with no documented preference
History of CVA 05/17.
IDDM
Dyslipidemia.
Chronic lymphedema/venous insufficiency.
Medication noncompliance
Mild cognitive decline
Plan:
Acute CHF reduced EF
Echo 06/18: Mildly reduced LVEF 40-45%. Stage III diastolic dysfunction. Dilated RV with mildly reduced RV systolic function. Severe TR. LVEF reduced from 55 to 60% (03/04/2023) worsened MR and RV function.
Chest x-ray with bilateral small pleural effusion
Volume overload with lower extremity edema acute on chronic/lymphedema.
Stable respiratory status with no requirement for supplemental oxygen at rest.
Continue IV diuresis: Lasix 60 mg IV daily
Monitor renal function and output
Daily weight
Continue preadmission antihypertensive regimen including metoprolol, hydralazine, Norvasc.
With RV dysfunction? Secondary to worsening MR, TR consider pulmonary imaging
Lower extremity Doppler
CAD
Status post CABG
Chest pain-free
ECG paced with no evidence of ischemia.
Continue beta-vazquez, statin
History of CVA
Neurologic status stable.
Outpatient records indicative of discontinuation of Plavix. Continue aspirin
CKD stage IIIb baseline creatinine at baseline
Renal ultrasound 03/17 with no obstruction.
UA with 3+ proteinuria
Monitor renal function with diuresis
IDDM.
Hemoglobin A1c 7.1.
Continue Lantus/basal bolus protocol/carbide controlled diet
Mild Cognitive Impairment, suspect continued cognitive decline
-Consult Speech Therapy for MOCA/BCAT cognitive testing
Physical therapy assessment.
Placement
Anticipated Discharge: 24 - 48 hours
Subjective/Interval History
-
Date of Service: June 06, 2024
Objective Data
-
Labs:
Laboratory Results
06/06/24
05:11
Sodium 135
Potassium 4.8
Chloride 105
Carbon Dioxide 20 L
BUN 49 H
Creatinine 2.4 H
Glucose 122 H
Calcium 8.5
Vital Signs:
Vital Signs
Temp Pulse Resp BP Pulse Ox
98.1 F 61 16 140/66 100
06/06/24 11:30 06/06/24 11:30 06/06/24 11:30 06/06/24 11:30 06/06/24 11:30
I&O
06/05/24 06/06/24 06/07/24
06:59 06:59 06:59
Intake Total 560 / 560 840 / 840
Output Total 1000 / 1000
Balance 560 / 560 -160 / -160
Physical Exam
-
General: Well Developed and No Apparent Distress
HEENT: Normocephalic, Atraumatic and Moist Mucous Membranes
Respiratory: Clear to Auscultation
Cardiac: Regular Rhythm and S1/S2; Negative Murmur, Rub or Gallop
GI: Soft, Nontender, Nondistended and Normal Bowel Sounds; Negative Organomegaly
Rectal: Deferred by Provider
Musculoskeletal: No Clubbing, No Cyanosis and Other (Bilateral lower extremity lymphedema with stasis skin changes.)
Skin: Negative Rash
Neuro: Awake, Alert, Oriented, AO x 3 and Nonfocal/Grossly Intact
--- NOTE | 2024-06-06 16:18 | CM ---
Patient chart reviewed.
Cont diuresis
Spoke with daughter Dina & son Isma options for SNF
Referrals placed in [facility], [facility]ol[facility] Col[facility]
PLAN: SNF, pending bed availability
[2024-06-06 17:56] LABS: Glucose - Point of Care 180 mg/dl (70-99)
[2024-06-06] MEDS: NOVOLOG FLEXPEN-LOW RESISTANCE 1 UNITS SC (18:16)
[2024-06-06 19:22] VITALS: BP 115/66
[2024-06-06] MEDS: NORVASC 10 MG PO (21:06)
[2024-06-06] MEDS: LANTUS 0.1 UNITS SC (21:46)
[2024-06-06 21:48] LABS: Glucose - Point of Care 154 mg/dl (70-99)
[2024-06-06 23:26] VITALS: BP 142/70
[2024-06-07 03:19] VITALS: BP 153/69
[2024-06-07 06:19] LABS: Blood Urea Nitrogen 52 mg/dl (9-20); Calcium 9.1 mg/dl (8.4-10.2); Carbon Dioxide 22 mmol/L (22-30); Chloride 102 mmol/L (98-107); Glucose 119 mg/dl (70-99); Potassium 4.7 mmol/L (3.5-5.1); Sodium 137 mmol/L (135-145); eGFR 22.67
[2024-06-07 07:10] VITALS: BP 158/73
[2024-06-07 07:27] LABS: Glucose - Point of Care 98 mg/dl (70-99)
[2024-06-07] MEDS: NOVOLOG FLEXPEN-LOW RESISTANCE SC ×2 (07:27→16:46)
[2024-06-07] MEDS: APRESOLINE 25 MG PO ×3 (08:14→22:01)
[2024-06-07] MEDS: LIPITOR 80 MG PO (08:14)
[2024-06-07] MEDS: ZETIA 10 MG PO (08:14)
[2024-06-07] MEDS: HEPARIN 5000 UNITS SC ×3 (08:14→23:33)
[2024-06-07] MEDS: PROTONIX 40 MG PO (08:14)
[2024-06-07] MEDS: ASPIR LOW (ENTERIC COATED) 81 MG PO (08:14)
[2024-06-07] MEDS: LASIX 60 MG IV (08:15)
[2024-06-07] MEDS: TOPROL XL 50 MG PO (08:15)
[2024-06-07] MEDS: FARXIGA 10 MG PO (08:15)
[2024-06-07] MEDS: DESENEX/MITRAZOL/ZEASORB 1 APPLIC TOPICAL ×2 (08:16→19:50)
--- NOTE | 2024-06-07 09:09 | W.PN.CARDCBS ---
Addendum entered and electronically signed by Juvenal Garcia MD 06/07/24 15:19:
I saw and examined the patient.
The Photograph Tinter's note was reviewed and I agree with the note.
Comment: Briefly, 74-year-old man past medical history of ischemic cardiomyopathy with prior CABG, CHF, paroxysmal atrial fibrillation, permanent pacemaker, hypertension, CKD 3 as well as dementia presenting in decompensated heart failure. Ejection
fraction is found to be newly reduced at 40-45% this admission.
Has been treated with IV Lasix
Volume status appears reasonable today on exam, on room air at the time of my evaluation
Weight is down significantly
Creatinine has started uptrending, 2.8 today from 2.4 yesterday
Agree with holding further IV Lasix with tentative plan to transition to oral Lasix tomorrow for maintenance
Would stop SGLT2 given renal insufficiency
With reduced ejection fraction continue beta-vazquez and hydralazine. Add Imdur.
Chronic kidney disease limits additional GDMT
Original Note:
Today's Communication / Plan
-
BP 158/73 prior to morning meds of Toprol XL 50 mg and hydralazine 25 mg this AM, will follow BP
Holding Lasix due to MAEGAN, dry weight unknown
Impression / Plan
-
PCP: Ryan White
Core Drilling Supervisor: Moody Ortiz
Impression:
Acute on chronic HFpEF
MAEGAN on CKD 3b
HTN urgency
h/o HTN
Medication noncompliance
CAD s/p CABG with NESBITT-LAD and SVG-OM 2016
s/p Medtronic dual chamber PPM for 7 second conversion pause 2016
Paroxysmal Afib
seen post-CABG, but no documented recurrence on device checks since 2016
h/o CVA 04/2023
Hyperlipidemia
DM 2
h/o proteinuria
h/o venous insufficiency/lymphedema
Echo 11/06/2021: Ejection fraction 55% with mild LVH. Aortic valve sclerosis. Mildly dilated right ventricle with PA pressure 32 mmHg.
Echo 03/04/2023: EF 55 to 60%, grade 1 diastolic dysfunction, mild aortic regurgitation, mild to moderate TR with PAP 25 to 30 mmHg
Echo 06/05/2024: EF 40 to 45%, mod conc LVH, stage III diastolic dysfunction, dilated RV with mildly reduced RV systolic function, moderate MR, mild aortic regurgitation, severe TR with PAP 35 to 40 mmHg
Plan:
-Weight is down 5 lbs overnight and Cre up to 2.8 with Lasix 60 mg IV daily since admission. Will hold Lasix 06/08/24, dose already given 06/07/24 AM.
-Dry weight unknown. Patient was essentially not taking any meds prior to admission, including Lasix.
-Patient with h/o lymphedema and B/L LE ANGELINE wraps in place.
-EF down to 40-45% by echo 06/05/24 compared to 55% by echo 03/04/2023.
-Device check by mt 06/06/24, device with 2 years longevity, no AT/AF.
-BP uncontrolled due to medication noncompliance. Patient was previously on the meds below, but was noncompliant, restarted same meds and doses this admission. BP 158/73 prior to morning meds 06/07/24.
-New to hydralazine. Remains HTN despite increase of hydralazine to 50 mg TID on 06/06/24.
-Continue Toprol XL 50 mg daily. Would not go up on dose due to bradycardia.
-Continue amlodipine 10 mg at bedtime
-No ANGELINE/ARB/aldosterone antagonist due to MAEGAN on CKD 3b
-Will add Farxiga 10 mg daily
-Continue aspirin 81 mg daily
-Patient with a history of pAfib at time of CABG in 2017, but no documented recurrence on device checks including now. Patient had CVA in 04/2023, but was not started on OAC at that time due to unremarkable device check aside from some Atach.
HPI: Patient came to [facility] yesterday with increased edema and was admitted with acute HF and consult to cardiology. Patient has a h/o significant noncompliance with medications and medical follow up. Patient was last seen in the cardiology office
05/15/22 and at that point his daughter was filling his pill boxes to help increase compliance. Patient then had a CVE 04/2023 and went to rehab at [place], but is now living with his brother. Patient is no longer taking Lasix. Patient had a preserved
EF at last echo 02/2023 in the setting of CVA. Patient has a h/o pAfib seen after his CABG in 2016, but then had a PPM placed in 2016 and on regular device checks there was no Afib and on device check at time of CVA there was not Afib, but he did
have episodes of Atach. Patient was not recommended OAC by neurology at that time, but was placed on aspirin and Plavix. No chest pain, but his legs are more edematous.
Progress Note - Core Drilling Supervisor
Subjective
Date of Service: June 07, 2024
No chest pain
Objective
Labs:
06/05/24 04:44
06/07/24 05:10
Labs
Hgb 12.1 g/dL (13.0-18.0) L 06/05/24 04:44
Hct 36.9 % (39.0-52.0) L 06/05/24 04:44
Plt Count 142 10^3/uL (130-400) 06/05/24 04:44
Sodium 137 mmol/L (135-145) 06/07/24 05:10
Potassium 4.7 mmol/L (3.5-5.1) 06/07/24 05:10
BUN 52 mg/dl (9-20) H 06/07/24 05:10
Creatinine 2.8 mg/dL (0.7-1.3) H 06/07/24 05:10
Glucose 119 mg/dl (70-99) H 06/07/24 05:10
Vital Signs and I&O:
Vital Signs
Temp Pulse Resp BP Pulse Ox
97.3 F 61 16 158/73 100
06/07/24 07:10 06/07/24 08:15 06/07/24 07:10 06/07/24 08:15 06/07/24 07:10
Vital Signs
Temp Pulse Resp BP Pulse Ox
97.3 F 61 16 158/73 100
06/07/24 07:10 06/07/24 08:15 06/07/24 07:10 06/07/24 08:15 06/07/24 07:10
Intake & Output
06/05/24 06/06/24 06/07/24 06/08/24
06:59 06:59 06:59 06:59
Intake Total 560 / 560 840 / 840 1500 / 1500
Output Total 1000 / 1000 1750 / 1750
Balance 560 / 560 -160 / -160 -250 / -250
Physical Exam
Physical Exam
GEN: NAD.
HEENT: EOMI
LUNGS: No audible wheeze. On RA
CV: AV paced on tele.
ABD: ND
EXT: B/L LE ANGELINE wraps. +3 pitting B/L LE edema.
NEURO: No focal or lateralizing weakness
SKIN: No rash
[2024-06-07 11:05] VITALS: BP 149/63
--- NOTE | 2024-06-07 12:05 | CM ---
Addendum entered by Luz Maria Rubin 06/07/24 15:38:
transportation forms on chart.
Original Note:
Spoke with Margy at [facility] will accept patient, bed avail tomorrow
Called daughter Dina & updated
spoke with Dr. Palomares
PLAN: [facility]
Report #: [phone]
Fax #: [phone]
[2024-06-07 12:30] LABS: Glucose - Point of Care 261 mg/dl (70-99)
[2024-06-07] MEDS: NOVOLOG FLEXPEN-LOW RESISTANCE 3 UNITS SC (13:17)
--- NOTE | 2024-06-07 14:02 | W.PN.HOSP.TC ---
Today's Communication/Plan
-
Hold Lasix
Follow creatinine
PT.
Placement to long-term nursing facility.
Assessment / Plan
Assessment / Plan
Impression:
Acute CHF reduced EF.
Hypertensive urgency
General deconditioning and failure to thrive
Ambulatory dysfunction
Conditions prior to admission:
CKD stage IIIb with baseline creatinine 2.5
Essential hypertension
CAD status post CABG with NESBITT�LAD and SVG�OM 2016.
Status post Medtronic dual-chamber PPM 2016
Paroxysmal atrial fibrillation post CABG with no documented preference
History of CVA 05/17.
IDDM
Dyslipidemia.
Chronic lymphedema/venous insufficiency.
Medication noncompliance
Mild cognitive decline
Plan:
Acute CHF reduced EF
Echo 06/18: Mildly reduced LVEF 40-45%. Stage III diastolic dysfunction. Dilated RV with mildly reduced RV systolic function. Severe TR. LVEF reduced from 55 to 60% (03/04/2023) worsened MR and RV function.
Chest x-ray with bilateral small pleural effusion
Volume overload with lower extremity edema acute on chronic/lymphedema.
Stable respiratory status with no requirement for supplemental oxygen at rest.
Responding to diuresis with weight reduction 90-84 kg (unknown dry weight)
Bump in creatinine 2.8.
Hold further diuresis monitoring renal function
Monitor renal function and output
Daily weight
Continue preadmission antihypertensive regimen including metoprolol, hydralazine, Norvasc.
With RV dysfunction? Secondary to worsening MR, TR consider pulmonary imaging
Lower extremity Doppler
CAD
Status post CABG
Chest pain-free
ECG paced with no evidence of ischemia.
Continue beta-vazquez, statin
History of CVA
Neurologic status stable.
Outpatient records indicative of discontinuation of Plavix. Continue aspirin
CKD stage IIIb baseline creatinine at baseline
Renal ultrasound 03/17 with no obstruction.
UA with 3+ proteinuria
Monitor renal function with diuresis
IDDM.
Hemoglobin A1c 7.1.
Continue Lantus/basal bolus protocol/carbide controlled diet
Mild Cognitive Impairment, suspect continued cognitive decline
-Consult Speech Therapy for MOCA/BCAT cognitive testing
Physical therapy assessment.
Placement
Anticipated Discharge: 24 - 48 hours
Subjective/Interval History
-
Date of Service: June 07, 2024
Objective Data
-
Labs:
Laboratory Results
06/07/24
05:10
Sodium 137
Potassium 4.7
Chloride 102
Carbon Dioxide 22
BUN 52 H
Creatinine 2.8 H
Glucose 119 H
Calcium 9.1
Vital Signs:
Vital Signs
Temp Pulse Resp BP Pulse Ox
97.7 F 61 14 149/63 100
06/07/24 11:05 06/07/24 11:05 06/07/24 11:05 06/07/24 11:05 06/07/24 11:22
I&O
06/06/24 06/07/24 06/08/24
06:59 06:59 06:59
Intake Total 840 / 840 1500 / 1500
Output Total 1000 / 1000 1750 / 1750
Balance -160 / -160 -250 / -250
Physical Exam
-
General: Well Developed and No Apparent Distress
HEENT: Normocephalic, Atraumatic and Moist Mucous Membranes
Respiratory: Clear to Auscultation
Cardiac: Regular Rhythm and S1/S2; Negative Murmur, Rub or Gallop
GI: Soft, Nontender, Nondistended and Normal Bowel Sounds; Negative Organomegaly
Rectal: Deferred by Provider
Musculoskeletal: No Clubbing, No Cyanosis and Other (Bilateral lower extremity lymphedema with stasis skin changes.)
Skin: Negative Rash
Neuro: Awake, Alert, Oriented, AO x 3 and Nonfocal/Grossly Intact
[2024-06-07 15:10] VITALS: BP 160/69
[2024-06-07 16:42] LABS: Glucose - Point of Care 134 mg/dl (70-99)
[2024-06-07 19:21] VITALS: BP 159/67
[2024-06-07 22:01] LABS: Glucose - Point of Care 98 mg/dl (70-99)
[2024-06-07] MEDS: LANTUS 0.1 UNITS SC (22:01)
[2024-06-07] MEDS: NORVASC 10 MG PO (22:01)
[2024-06-07 23:30] VITALS: BP 154/64
[2024-06-08] VITALS (8 sets, daily range): BP systolic 138–160; BP diastolic 62–70; PULSE 60; O2SAT 100
[2024-06-08 06:48] LABS: Blood Urea Nitrogen 57 mg/dl (9-20); Calcium 9.4 mg/dl (8.4-10.2); Carbon Dioxide 23 mmol/L (22-30); Chloride 99 mmol/L (98-107); Glucose 69 mg/dl (70-99); Potassium 4.4 mmol/L (3.5-5.1); Sodium 137 mmol/L (135-145); eGFR 20.07
[2024-06-08 07:24] LABS: Glucose - Point of Care 73 mg/dl (70-99)
[2024-06-08] MEDS: NOVOLOG FLEXPEN-LOW RESISTANCE SC ×3 (07:24→17:11)
--- NOTE | 2024-06-08 07:25 | W.PN.CARDCBS ---
Addendum entered and electronically signed by Malcolm Guevara MD 06/08/24 10:55:
I saw and examined the patient.
The Support Dba's note was reviewed and I agree with the note.
Comment:
GEN: No distress, awake, Ox3
HEENT: supple, anicteric, mmm
LUNGS: CTA, no wheezes/rales
CV: Reg, S1/S2, 1/6 syst LSB, no gallop
ABD: soft, BS+, NT/ND
EXT: +1 edema
NEURO: Gross non-focal
SKIN: No rash
Plan:
Creatinine up to 3.1. Continue to hold diuretics. If stabilizes consider restarting 40 mg daily in AM.
Continue Toprol, amlodipine, Imdur, and hydralazine.
Continue aspirin and atorvastatin
Discussed with brother.
Original Note:
Today's Communication / Plan
-
Continue to hold lasix with creat up to 3.1
Consider transition to PO lasix 40mg daily in AM if creat improving.
BMP in 1 week
Continue hydralazine, Toprol, amlodipine, and Imdur
Continue aspirin, atorvastatin
Follow up arranged.
Impression / Plan
-
PCP: Ryan White
Theatrical Performer: Moody Ortiz
Impression:
Acute on chronic HFpEF
MAEGAN on CKD 3b
HTN urgency
h/o HTN
Medication noncompliance
CAD s/p CABG with NESBITT-LAD and SVG-OM 2016
s/p Medtronic dual chamber PPM for 7 second conversion pause 2016
Paroxysmal Afib
seen post-CABG, but no documented recurrence on device checks since 2016
h/o CVA 04/2023
Hyperlipidemia
DM 2
h/o proteinuria
h/o venous insufficiency/lymphedema
Echo 11/06/2021: Ejection fraction 55% with mild LVH. Aortic valve sclerosis. Mildly dilated right ventricle with PA pressure 32 mmHg.
Echo 03/04/2023: EF 55 to 60%, grade 1 diastolic dysfunction, mild aortic regurgitation, mild to moderate TR with PAP 25 to 30 mmHg
Echo 06/05/2024: EF 40 to 45%, mod conc LVH, stage III diastolic dysfunction, dilated RV with mildly reduced RV systolic function, moderate MR, mild aortic regurgitation, severe TR with PAP 35 to 40 mmHg
Plan:
-Presented with increased edema, admitted with acute heart failure exacerbation.
-Diuresed with IV lasix, however creat started to bump up 06/07. Now up to 3.1 06/08. Lasix on hold.
-If creat improved, would consider transitioning to PO in AM. Patient was noncompliant as OP prior to admission, not taking any medications.
-Weight down to 184 lbs, down 14 lbs this admission. Unknown dry weight.
-Known h/o lymphedema, continue ANGELINE wraps.
-EF down to 40-45% by echo 06/05/24 compared to 55% by echo 03/04/2023.
-Continue Toprol, Imdur, Hydralazine, and amlodipine
-BP remains elevated 06/08 prior to AM meds, follow throughout the day, may need to increase hydralazine to 50mg TID.
-No ANGELINE/ARB/aldosterone antagonist and Farxiga stopped due to renal insufficiency.
-Continue aspirin 81mg daily. Atorvastatin 80mg daily restarted this admission.
-Patient with a history of pAfib at time of CABG in 2017, but no documented recurrence on device checks including now. Patient had CVA in 04/2023, but was not started on OAC at that time due to unremarkable device check aside from some Atach.
-Follow up arranged.
HPI: Patient came to [facility] yesterday with increased edema and was admitted with acute HF and consult to cardiology. Patient has a h/o significant noncompliance with medications and medical follow up. Patient was last seen in the cardiology office
10/21/22 and at that point his daughter was filling his pill boxes to help increase compliance. Patient then had a CVE 04/2023 and went to rehab at [place], but is now living with his brother. Patient is no longer taking Lasix. Patient had a preserved
EF at last echo 02/2023 in the setting of CVA. Patient has a h/o pAfib seen after his CABG in 2016, but then had a PPM placed in 2017 and on regular device checks there was no Afib and on device check at time of CVA there was not Afib, but he did
have episodes of Atach. Patient was not recommended OAC by neurology at that time, but was placed on aspirin and Plavix. No chest pain, but his legs are more edematous.
Progress Note - Theatrical Performer
Subjective
Date of Service: June 08, 2024
No complaints. Denies SOB or chest pain.
Objective
Labs:
06/05/24 04:44
06/08/24 05:33
Labs
Hgb 12.1 g/dL (13.0-18.0) L 06/05/24 04:44
Hct 36.9 % (39.0-52.0) L 06/05/24 04:44
Plt Count 142 10^3/uL (130-400) 06/05/24 04:44
Sodium 137 mmol/L (135-145) 06/08/24 05:33
Potassium 4.4 mmol/L (3.5-5.1) 06/08/24 05:33
BUN 57 mg/dl (9-20) H 06/08/24 05:33
Creatinine 3.1 mg/dL (0.7-1.3) H 06/08/24 05:33
Glucose 69 mg/dl (70-99) L 06/08/24 05:33
Vital Signs and I&O:
Vital Signs
Temp Pulse Resp BP Pulse Ox
98.5 F 61 16 146/68 95
06/08/24 03:35 06/08/24 03:35 06/08/24 03:35 06/08/24 03:35 06/08/24 03:35
Vital Signs
Temp Pulse Resp BP Pulse Ox
98.5 F 61 16 146/68 95
06/08/24 03:35 06/08/24 03:35 06/08/24 03:35 06/08/24 03:35 06/08/24 03:35
Intake & Output
06/06/24 06/07/24 06/08/24 06/09/24
06:59 06:59 06:59 06:59
Intake Total 840 / 840 1500 / 1500 810 / 810
Output Total 1000 / 1000 1750 / 1750 2175 / 2175
Balance -160 / -160 -250 / -250 -1365 / -1365
Physical Exam
Physical Exam
GEN: No distress, awake, lying in bed
HEENT: supple, anicteric, mmm
LUNGS: CTA b/l, no wheezes/rales
CV: Reg, S1/S2, no murmur
EXT: No clubbing or cyanosis, +2 edema b/l LE
NEURO: Gross non-focal
SKIN: Warm, dry, no rash
[2024-06-08] MEDS: PROTONIX 40 MG PO (07:49)
[2024-06-08] MEDS: APRESOLINE 25 MG PO ×3 (07:49→22:17)
[2024-06-08] MEDS: LIPITOR 80 MG PO (07:49)
[2024-06-08] MEDS: ZETIA 10 MG PO (07:49)
[2024-06-08] MEDS: TOPROL XL 50 MG PO (07:49)
[2024-06-08] MEDS: ASPIR LOW (ENTERIC COATED) 81 MG PO (07:49)
[2024-06-08] MEDS: IMDUR (EXTENDED RELEASE) 30 MG PO (07:49)
[2024-06-08] MEDS: DESENEX/MITRAZOL/ZEASORB 1 APPLIC TOPICAL ×2 (07:50→20:25)
[2024-06-08] MEDS: HEPARIN 5000 UNITS SC ×2 (07:50→15:03)
[2024-06-08 12:01] LABS: Glucose - Point of Care 131 mg/dl (70-99)
--- NOTE | 2024-06-08 13:59 | STATUS ---
SITUATION:
BACKGROUND:
ASSESSMENT:
RECOMMENDATION:
--- NOTE | 2024-06-08 13:59 | CM ---
Patient seen at bedside.
BUN 57, Creat 3.1
Notified Tanika at [facility] & updated.
Transportation forms on chart.
PLAN: [facility]
Report #: [phone]
Fax #: [phone]
--- NOTE | 2024-06-08 16:05 | W.PN.HOSP.TC ---
Today's Communication/Plan
-
Hold diuretics.
Follow creatinine
Physical therapy
Discharge plan
Assessment / Plan
Assessment / Plan
Impression:
Acute CHF reduced EF.
Hypertensive urgency
General deconditioning and failure to thrive
Ambulatory dysfunction
Conditions prior to admission:
CKD stage IIIb with baseline creatinine 2.5
Essential hypertension
CAD status post CABG with NESBITT�LAD and SVG�OM 2016.
Status post Medtronic dual-chamber PPM 2016
Paroxysmal atrial fibrillation post CABG with no documented preference
History of CVA 05/17.
IDDM
Dyslipidemia.
Chronic lymphedema/venous insufficiency.
Medication noncompliance
Mild cognitive decline
Plan:
Acute CHF reduced EF
Echo 06/18: Mildly reduced LVEF 40-45%. Stage III diastolic dysfunction. Dilated RV with mildly reduced RV systolic function. Severe TR. LVEF reduced from 55 to 60% (03/04/2023) worsened MR and RV function.
Chest x-ray with bilateral small pleural effusion
Volume overload with lower extremity edema acute on chronic/lymphedema.
Stable respiratory status with no requirement for supplemental oxygen at rest.
Responding to diuresis with weight reduction 90-84 kg (unknown dry weight)
Bump in creatinine 2.8-3.1
Hold further diuresis monitoring renal function
Monitor renal function and output
Daily weight
Continue preadmission antihypertensive regimen including metoprolol, hydralazine, Norvasc.
With RV dysfunction? Secondary to worsening MR, TR consider pulmonary imaging
Lower extremity Doppler
CAD
Status post CABG
Chest pain-free
ECG paced with no evidence of ischemia.
Continue beta-vazquez, statin
History of CVA
Neurologic status stable.
Outpatient records indicative of discontinuation of Plavix. Continue aspirin
CKD stage IIIb baseline creatinine at baseline
Renal ultrasound 03/17 with no obstruction.
UA with 3+ proteinuria
Monitor renal function with diuresis
IDDM.
Hemoglobin A1c 7.1.
Continue Lantus/basal bolus protocol/carbide controlled diet
Mild Cognitive Impairment, suspect continued cognitive decline
-Consult Speech Therapy for MOCA/BCAT cognitive testing
Physical therapy assessment.
Placement
Anticipated Discharge: 24 - 48 hours
Subjective/Interval History
-
Date of Service: June 08, 2024
Objective Data
-
Labs:
Laboratory Results
06/08/24
05:33
Sodium 137
Potassium 4.4
Chloride 99
Carbon Dioxide 23
BUN 57 H
Creatinine 3.1 H
Glucose 69 L
Calcium 9.4
Vital Signs:
Vital Signs
Temp Pulse Resp BP Pulse Ox
98.0 F 61 16 160/70 99
06/08/24 15:10 06/08/24 15:10 06/08/24 15:10 06/08/24 15:10 06/08/24 15:10
I&O
06/07/24 06/08/24 06/09/24
06:59 06:59 06:59
Intake Total 1500 / 1500 810 / 810
Output Total 1750 / 1750 2175 / 2175
Balance -250 / -250 -1365 / -1365
Physical Exam
-
General: Well Developed and No Apparent Distress
HEENT: Normocephalic, Atraumatic and Moist Mucous Membranes
Respiratory: Clear to Auscultation
Cardiac: Regular Rhythm and S1/S2; Negative Murmur, Rub or Gallop
GI: Soft, Nontender, Nondistended and Normal Bowel Sounds; Negative Organomegaly
Rectal: Deferred by Provider
Musculoskeletal: No Clubbing, No Cyanosis and Other (Bilateral lower extremity lymphedema with stasis skin changes.)
Skin: Negative Rash
Neuro: Awake, Alert, Oriented, AO x 3 and Nonfocal/Grossly Intact
[2024-06-08 16:14] LABS: Glucose - Point of Care 131 mg/dl (70-99)
[2024-06-08 21:32] LABS: Glucose - Point of Care 162 mg/dl (70-99)
[2024-06-08] MEDS: LANTUS 0.1 UNITS SC (22:14)
[2024-06-08] MEDS: NORVASC 10 MG PO (22:17)
[2024-06-09] MEDS: HEPARIN 5000 UNITS SC ×3 (01:00→17:19)
[2024-06-09 03:08] VITALS: BP 136/65
[2024-06-09 07:12] LABS: Glucose - Point of Care 94 mg/dl (70-99)
[2024-06-09 07:15] VITALS: BP 140/63
--- NOTE | 2024-06-09 07:24 | W.PN.CARDCBS ---
Addendum entered and electronically signed by Malcolm Guevara MD 06/09/24 12:38:
I saw and examined the patient.
The Supervisor Cell Efficiency's note was reviewed and I agree with the note.
Comment:
GEN: No distress, awake, Ox3
HEENT: supple, anicteric, mmm
LUNGS: CTA, no wheezes/rales
CV: Reg, S1/S2, 1/6 syst LSB, no gallop
ABD: soft, BS+, NT/ND
EXT: No edema
NEURO: Gross non-focal
SKIN: No rash
Plan:
Creatinine overall stable at 3.0. Will continue to hold Lasix today and then restart in a.m. tomorrow 40 mg daily.
Continue metoprolol, Imdur, hydralazine, and amlodipine.
Check BMP in 1 week will arrange follow-up.
Continue medical therapy for CAD. Continue aspirin, atorvastatin, Zetia, Toprol.
Original Note:
Today's Communication / Plan
-
Continue to hold lasix today.
Creat improving. restart PO lasix 40mg daily in AM.
BMP in 1 week
Continue amlodipine, metoprolol, Imdur, hydralazine
Continue aspirin, atorvastatin, zetia
Follow up arranged
Impression / Plan
-
PCP: Ryan White
Blow Molding Machine Tender: Moody Ortiz
Impression:
Acute on chronic HFpEF
MAEGAN on CKD 3b
HTN urgency
h/o HTN
Medication noncompliance
CAD s/p CABG with NESBITT-LAD and SVG-OM 2016
s/p Medtronic dual chamber PPM for 7 second conversion pause 2016
Paroxysmal Afib
seen post-CABG, but no documented recurrence on device checks since 2016
h/o CVA 04/2023
Hyperlipidemia
DM 2
h/o proteinuria
h/o venous insufficiency/lymphedema
Echo 11/06/2021: Ejection fraction 55% with mild LVH. Aortic valve sclerosis. Mildly dilated right ventricle with PA pressure 32 mmHg.
Echo 03/04/2023: EF 55 to 60%, grade 1 diastolic dysfunction, mild aortic regurgitation, mild to moderate TR with PAP 25 to 30 mmHg
Echo 06/05/2024: EF 40 to 45%, mod conc LVH, stage III diastolic dysfunction, dilated RV with mildly reduced RV systolic function, moderate MR, mild aortic regurgitation, severe TR with PAP 35 to 40 mmHg
Plan:
-Admitted with acute heart failure exacerbation. Diuresed with IV lasix, however creat was as high as 3.1 on 06/08. Lasix now on hold.
-Creat improved 06/09, down to 3.0. Would continue to hold lasix for today and resume lasix 40mg daily in AM. Check BMP in 1 week.
-Weight stable overnight, down 14lbs this admission at 184 lbs 06/09
-EF down to 40-45% by echo 06/05/24 compared to 55% by echo 03/04/2023.
-Continue Toprol, Imdur, Hydralazine, and amlodipine. BP stable.
-No ANGELINE/ARB/aldosterone antagonist and Farxiga stopped due to renal insufficiency.
-Continue ANGELINE wraps.
-Continue aspirin 81mg daily, atorvastatin 80mg daily, and zetia 10mg daily.
-Patient with a history of pAfib at time of CABG in 2016, but no documented recurrence on device checks including now. Patient had CVA in 04/2023, but was not started on OAC at that time due to unremarkable device check aside from some Atach.
-Follow up arranged.
HPI: Patient came to [facility] yesterday with increased edema and was admitted with acute HF and consult to cardiology. Patient has a h/o significant noncompliance with medications and medical follow up. Patient was last seen in the cardiology office
05/15/22 and at that point his daughter was filling his pill boxes to help increase compliance. Patient then had a CVE 04/2023 and went to rehab at [place], but is now living with his brother. Patient is no longer taking Lasix. Patient had a preserved
EF at last echo 02/2023 in the setting of CVA. Patient has a h/o pAfib seen after his CABG in 2016, but then had a PPM placed in 2017 and on regular device checks there was no Afib and on device check at time of CVA there was not Afib, but he did
have episodes of Atach. Patient was not recommended OAC by neurology at that time, but was placed on aspirin and Plavix. No chest pain, but his legs are more edematous.
Progress Note - Blow Molding Machine Tender
Subjective
Date of Service: June 09, 2024
No complaints. No SOB
Objective
Labs:
06/05/24 04:44
Labs
Hgb 12.1 g/dL (13.0-18.0) L 06/05/24 04:44
Hct 36.9 % (39.0-52.0) L 06/05/24 04:44
Plt Count 142 10^3/uL (130-400) 06/05/24 04:44
Sodium 137 mmol/L (135-145) 06/08/24 05:33
Potassium 4.4 mmol/L (3.5-5.1) 06/08/24 05:33
BUN 57 mg/dl (9-20) H 06/08/24 05:33
Creatinine 3.1 mg/dL (0.7-1.3) H 06/08/24 05:33
Glucose 69 mg/dl (70-99) L 06/08/24 05:33
Vital Signs and I&O:
Vital Signs
Temp Pulse Resp BP Pulse Ox
98.4 F 61 19 136/65 96
06/09/24 03:08 06/09/24 03:08 06/09/24 03:08 06/09/24 03:08 06/09/24 03:08
Vital Signs
Temp Pulse Resp BP Pulse Ox
98.4 F 61 19 136/65 96
06/09/24 03:08 06/09/24 03:08 06/09/24 03:08 06/09/24 03:08 06/09/24 03:08
Intake & Output
06/07/24 06/08/24 06/09/24 06/10/24
06:59 06:59 06:59 06:59
Intake Total 1500 / 1500 810 / 810 1240 / 1240
Output Total 1750 / 1750 2175 / 2175 1150 / 1150
Balance -250 / -250 -1365 / -1365 90 / 90
Physical Exam
Physical Exam
GEN: No distress, awake, lying in bed
HEENT: supple, anicteric, mmm
LUNGS: CTA b/l, no wheezes/rales
CV: Reg, S1/S2, no murmur
EXT: No clubbing or cyanosis, +2 edema b/l LE
NEURO: Gross non-focal
SKIN: Warm, dry, no rash
[2024-06-09 07:48] LABS: Blood Urea Nitrogen 62 mg/dl (9-20); Calcium 8.7 mg/dl (8.4-10.2); Carbon Dioxide 23 mmol/L (22-30); Chloride 98 mmol/L (98-107); Glucose 88 mg/dl (70-99); Potassium 4.5 mmol/L (3.5-5.1); Sodium 134 mmol/L (135-145); eGFR 20.87
[2024-06-09] MEDS: NOVOLOG FLEXPEN-LOW RESISTANCE SC ×2 (08:57→17:23)
[2024-06-09] MEDS: IMDUR (EXTENDED RELEASE) 30 MG PO (08:57)
[2024-06-09] MEDS: TOPROL XL 50 MG PO (08:57)
[2024-06-09] MEDS: LIPITOR 80 MG PO (08:58)
[2024-06-09] MEDS: APRESOLINE 25 MG PO ×2 (08:59→17:18)
[2024-06-09] MEDS: PROTONIX 40 MG PO (08:59)
[2024-06-09] MEDS: ZETIA 10 MG PO (08:59)
[2024-06-09] MEDS: DESENEX/MITRAZOL/ZEASORB 1 APPLIC TOPICAL (08:59)
[2024-06-09] MEDS: ASPIR LOW (ENTERIC COATED) 81 MG PO (08:59)
[2024-06-09 11:05] VITALS: BP 131/59
[2024-06-09 11:52] LABS: Glucose - Point of Care 259 mg/dl (70-99)
[2024-06-09] MEDS: NOVOLOG FLEXPEN-LOW RESISTANCE 3 UNITS SC (12:57)
--- NOTE | 2024-06-09 13:44 | CM ---
Spoke with Tanika at [facility] & updated
tt Dr. Palomares who stated will discharge today.
Left message with daughter Dina
transportation forms on chart-time TBD
PLAN: [facility]
Report #: [phone]
Fax #: [phone]
--- NOTE | 2024-06-09 14:00 | W.DS.TRANS ---
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
-
Discharge Instructions:
Discharge Diagnosis/Procedures Impression:
Acute CHF reduced EF.
Hypertensive urgency
General deconditioning and failure to thrive
Ambulatory dysfunction
Conditions prior to admission:
CKD stage IIIb with baseline creatinine 2.5
Essential hypertension
CAD status post CABG with NESBITT�LAD and SVG�OM
2017.
Status post Medtronic dual-chamber PPM 2016
Paroxysmal atrial fibrillation post CABG with no
documented preference
History of CVA 05/17.
IDDM
Dyslipidemia.
Chronic lymphedema/venous insufficiency.
Medication noncompliance
Mild cognitive decline
Diet 2 Gram Sodium,Restrict fluids to 48 oz
Blood Work BMP in 1 week
Specialty Instructions Weigh Daily
Instructions: *DCA Heart Failure Instructions
Stand-Alone Forms:
Changes to Home Medications: Yes
Discharge Medications:
DC Medications w/original date entered in [facility]
amlodipine 10 mg tablet 10 mg PO HS #30 tabs 03/18/23
aspirin 81 mg tablet,delayed release 81 mg PO DAILY #5 tabs 03/18/23
atorvastatin 80 mg tablet 80 mg PO DAILY High Cholesterol #30 tabs 03/18/23
clopidogrel 75 mg tablet 75 mg PO DAILY #30 tabs 03/18/23
ezetimibe 10 mg tablet 10 mg PO DAILY High Cholesterol #30 tabs 03/18/23
pantoprazole 40 mg tablet,delayed release 40 mg PO DAILY Gastrointestinal Issue #30 tabs 03/18/23
insulin glargine 100 unit/mL (3 mL) subcutaneous pen (Lantus Solostar U-100 Insulin) 10 unit SC HS 06/04/24
metoprolol succinate 50 mg tablet,extended release 24 hr 50 mg PO DAILY 06/04/24
furosemide 40 mg tablet 40 mg PO DAILY #40 tabs 06/09/24
hydralazine 25 mg tablet 25 mg PO TID #90 tabs 06/09/24
isosorbide mononitrate 30 mg tablet,extended release 24 hr 30 mg PO DAILY #30 tabs 06/09/24
Home Medication Changes
Lasix changed to 40mg daily
Initiated on hydralazine and Imdur
Pending Results: No
[2024-06-09] MEDS: FLUAD (65 yr+) 2024-2025 FORMULA 0.5 ML IM (14:51)
[2024-06-09 15:02] VITALS: BP 146/62
[2024-06-09 17:24] LABS: Glucose - Point of Care 146 mg/dl (70-99)
--- NOTE | 2024-06-09 18:30 | PTCARENOTE ---
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
--- NOTE | 2024-06-12 09:48 | W.HF.CON ---
Heart Failure
- LV Function
Left ventricular function study result: LV Ejection fraction 41-49%
Ejection Fraction Percentage: 40-45
- ARNI
Patient already on ARNI: No
Heart Failure ARNI Not Indicated: LV Ejection Fraction >/= 40%
- ACEI/ARB
Patient already on ACEI/ARB: No
Heart Failure ACEI/ARB Not Indicated: LV Ejection Fraction > 40%
- Beta [place]
Patient already on Evidence Based Beta [place]: Yes
- Mineralocorticord Receptor Antagonist
Patient already on MRA: No
Heart Failure MRA Not Indicated: LV Ejection Fraction > 40%
- SGLT-2 Inhibitor
Patient already on SGLT-2 Inhibitor: No
Heart Failure SGLT-2 Inhibitor Not Indicated: LV Ejection Fraction >40%
- NYHA CHF Classification
NYHA CHF Classification Level: Class III - Symptoms w/ min exertion, interferes w/ nml daily activity
- ACC/AHA Stage
ACC/AHA Stage: Stage C: Symptomatic Heart Failure
== END 2024-06-09 18:49 | DRG 291 ==
LOC: 2 NORTH 14:10
PROVIDERS: Physician Assistant; Physician Assistant Medical; ADMITTING PHYSICIAN Internal Medicine; ATTENDING PHYSICIAN Internal Medicine; CONSULT PHYSICIAN Internal Medicine Cardiovascular Disease; EMERGENCY PHYSICIAN Emergency Medicine; FAMILY PHYSICIAN Nurse Practitioner Family
PROC: 3E02340 Introduction of Influenza Vaccine into Muscle, Percutaneous Approach (ICD-10-PCS; 2024-06-09)
DX: I13.0 Hypertensive heart and chronic kidney disease with heart failure and stage 1 through stage 4 chronic kidney disease, or unspecified chronic kidney disease (principal); I50.23 Acute on chronic systolic (congestive) heart failure; N17.9 Acute kidney failure, unspecified; E11.22 Type 2 diabetes mellitus with diabetic chronic kidney disease; E78.00 Pure hypercholesterolemia, unspecified; I25.10 Atherosclerotic heart disease of native coronary artery without angina pectoris; I48.0 Paroxysmal atrial fibrillation; T50.1X6A Underdosing of loop [high-ceiling] diuretics, initial encounter; N18.32 Chronic kidney disease, stage 3b; K21.9 Gastro-esophageal reflux disease without esophagitis; I89.0 Lymphedema, not elsewhere classified; R62.7 Adult failure to thrive; R32 Unspecified urinary incontinence; F01.50 Vascular dementia, unspecified severity, without behavioral disturbance, psychotic disturbance, mood disturbance, and anxiety; I87.2 Venous insufficiency (chronic) (peripheral); I16.0 Hypertensive urgency; Z87.891 Personal history of nicotine dependence; Z95.5 Presence of coronary angioplasty implant and graft; Z95.1 Presence of aortocoronary bypass graft; Z95.0 Presence of cardiac pacemaker; Z79.82 Long term (current) use of aspirin; Z79.4 Long term (current) use of insulin; Z79.02 Long term (current) use of antithrombotics/antiplatelets; Z79.899 Other long term (current) drug therapy; Z86.73 Personal history of transient ischemic attack (TIA), and cerebral infarction without residual deficits; Z91.128 Patient's intentional underdosing of medication regimen for other reason; Z23 Encounter for immunization
CPT/HCPCS: 71046; 80048; 80053; 80061; 82962; 83036; 83735; 83880; 84443; 85025; 85027; 87070; 90662; 92523; 93005; 93306; 93970; 96374; 97116; 97163; 97167; 97535; 99285; G0008

== ENCOUNTER 2024-06-13 20:46 | Inpatient (IN) | payer MEDICARE, SELFPAY ==
[2024-06-13 18:07] VITALS: BP 148/68
[2024-06-13 18:34] VITALS: BMI 28.0
[2024-06-13 18:35] VITALS: BP 184/66
--- NOTE | 2024-06-13 18:52 | ED.GENMED ---
History of Present Illness
General
Chief Complaint: Abnormal Lab Value
Source: patient and halfway records
Exam Limitations: none
Time Seen by Provider: 06/13/24 18:41
Nursing documentation reviewed up to this point in time: agreed with
History of Present Illness
History of Present Illness:
74-year-old male with history of mild cognitive impairment, CHF, CKD 3, GERD, IDDM, HTN, CVA presents from [facility] for elevated BUN and creatinine. The lab result from earlier today is with the patient and his BUN/creat 75/3.7.
Patient states 'they think there is something wrong with my kidneys or heart.' Patient states he feels 'fine.' He denies pain, shortness of breath, nausea. He denies difficulty urinating.
Past History
Past History
ED Past Medical History: CAD, CHF, HTN, Hypercholesterolemia, IDDM and Other (CKD, spinal stenosis)
ED Past Surgical History: Appendectomy and Cardiac (01/2017 pacemaker, cardiac stents, CABG)
Social History
Tobacco: Former smoker
Alcohol: Occasional
Drug: None
Personal:
Living: with roommate
Family History
Family History: Other (reviewed and non-contributory)
Review of Systems
Review of Systems
Allergies reviewed?: Yes
All Other Systems: ROS reviewed and negative except as documented in HPI and ROS
Constitutional: Denies fever or fatigue
Respiratory: Denies trouble breathing
Cardiac: Denies chest pain
ABD/GI: Denies abdominal pain, nausea, vomiting or diarrhea
: Denies dysuria or difficulty voiding
Musculoskeletal: Reports no symptoms; Denies edema
Skin: Reports no symptoms
Neurological: Reports no symptoms
Phy Exam
Physical Exam
Physical Exam:
GENERAL: No acute distress. A&Ox3.
CONSTITUTIONAL: Afebrile.
EYES: Clear, conjunctivae normal
ENMT: moist mucus membranes, Pharynx nl
RESPIRATORY: Regular respirations, nonlabored, lungs clear.
CARDIOVASCULAR: Regular rate and rhythm, no murmurs, no rubs.
GI: Soft, nontender, normal BS
MUSCULOSKELETAL: Well perfused. Devante wraps on both lower extremities from knees to feet he states for swelling.
SKIN: Warm, dry, pale
PSYCH: Normal mood and affect. Well kept, interactive and appropriate
NEUROLOGIC: Awake, alert and oriented x 3. No focal neurological deficits
Course
Orders/Labs/Results
Orders:
Orders
06/13/24 18:45
Complete Blood Count/With Diff Urgent
Comprehensive Metabolic Panel Urgent
06/13/24 18:49
Pro-BNP [NT-proBNP] Urgent
Urinalysis Reflex To Culture Urgent
Date Specimen was Collected: 06/13/24
Time Specimen was Collected: 18:47
Urine Microscopic Reflex Cult Urgent
06/13/24 20:23
Admit/Transfer Patient As Directed
Co-Sign Provider:
Level of Care: Inpatient admission
Assign to:: Telemetry
Physician / Group: kaia
Diagnosis: damion
Reason for Telemetry: Arrhythmia
Date to Stop Telemetry: 06/16/24
Time to Stop Telemetry: 11:00
Reason for Hospitalization: damion
Expected length of stay greater than two midnights?: Yes
ELOS- Estimated Length of Stay in days: 3
I certify the patient meets the requirements for IP care: Yes
06/13/24 20:25
Code Status As Directed
Resuscitation Status: Full Code
06/16/24 11:00
DC Protocol for Telemetry ONCE
Abnormal Lab Results
06/13/24 06/13/24
18:45 18:49
RBC 4.05 L 10^6/uL
(4.70-6.10)
Hgb 12.0 L g/dL
(13.0-18.0)
Hct 36.8 L %
(39.0-52.0)
MCHC 32.6 L g/dL
(33.0-37.0)
RDW 14.6 H %
(11.5-14.5)
MPV 11.8 H fL
(7.4-10.4)
Absolute Neuts (auto) 6.7 H 10^3/uL
(1.4-6.5)
Absolute Lymphs (auto) 0.8 L 10^3/uL
(1.2-3.4)
Neutrophils % 80.5 H %
(42.2-75.2)
Lymphocytes % 9.3 L %
(20.5-51.1)
Carbon Dioxide 21 L mmol/L
(22-30)
BUN 80 H mg/dl
(9-20)
Creatinine 3.7 H mg/dL
(0.7-1.3)
Glucose 292 H mg/dl
(70-99)
Alkaline Phosphatase 136 H U/L
(38-126)
Urine Bacteria (Reflex) Few A
(Negative)
Urine Glucose 3+ A
(Negative)
Urine Albumin (Reflex) 2+ A
(Neg - Trace)
06/13/24 18:45
06/13/24 18:45
Vital Signs
Initial and Last Documented VS:
Initial Vital Signs
Temp Pulse Resp BP Pulse Ox
98 F 66 20 148/68 98
06/13/24 18:07 06/13/24 18:07 06/13/24 18:07 06/13/24 18:07 06/13/24 18:07
Last Documented Vital Signs
Temp Pulse Resp BP Pulse Ox
98 F 73 14 156/61 96
06/13/24 18:07 06/13/24 22:00 06/13/24 22:00 06/13/24 21:01 06/13/24 22:00
MDM/Problems Addressed
MDM/Problems Addressed:
74-year-old male with history of mild cognitive impairment, CHF, CKD 3, GERD, IDDM, HTN, CVA presents from [facility] for elevated BUN and creatinine. The lab result from earlier today is with the patient and his BUN/creat 75/3.7.
Patient states 'they think there is something wrong with my kidneys or heart.' Patient states he feels 'fine.' He denies pain, shortness of breath, nausea. He denies difficulty urinating.
Afebrile, NAD
Admitted here 06/04-06/09 for
Acute CHF, reduced EF
Hypertensive urgency
General deconditioning, ambulatory dysfunction
According to records, Lasix was held due to Creat bumping to 3.1 from baseline 2.5, held Lasix and Creat plateaued at 3.0 and Lasix was restarted 40 mg daily to have labs checked as an out pt.
So today as out pt. BUN/Creat up
7:45 p.m.
CBC with no clinically significant abnormality
CMP: BUN/creat 88/3.7 otherwise no clinically significant abnormality. Glucose 292
U/A neg. for infection, 3+ glucose, 2+ albumin
BNP 9450 improved from last
Plan: Admit: Acute on chronic kidney failure.
Hospitalist notified of admission.
*Critical Care Note
Total Time (30-74mins, 75-104mins- exclusive of procedures): Not Applicable
ED Attending Note
-
Portions of this chart may have been created with voice recognition software.� Occasional wrong word or��sound alike� substitutions may have occurred due to the inherent limitations of voice recognition software.
Discharge Plan
Departure
Patient Disposition: Admit
Date of Disposition: 06/13/24
Time of Disposition: 19:53
Admit to: Med/Surg
Presentation/result/management discussed w/ accepting MD/DO: Hospitalist
Condition: Fair
Discharge Problem:
Acute on chronic kidney failure
Interventions
Interventions:
*Risk Screen - Suicide Last Done: 06/13/24 18:07
*General Assessment Last Done: 06/13/24 18:07
*Neglect/Abuse Screening Last Done: 06/13/24 18:07
ED- Fall Risk Assessment Last Done: 06/13/24 18:34
*ED COVID-19 Vaccine History Last Done: 06/13/24 18:34
[2024-06-13 18:57] LABS: % Basophils 0.7 % (0-2); % Eosinophils 2.1 % (0-6); % Immature Granulocytes 0.5 % (0-0.5); % Lymphocytes 9.3 % (20.5-51.1); % Monocytes 6.9 % (1.7-9.3); % Neutrophils 80.5 % (42.2-75.2); Absolute Basophils 0.1 10^3/uL (0-0.2); Absolute Eosinophils 0.2 10^3/uL (0-0.7); Absolute Lymphocytes 0.8 10^3/uL (1.2-3.4); Absolute Monocytes 0.6 10^3/uL (0.1-0.6); Absolute Neutrophils 6.7 10^3/uL (1.4-6.5); Hematocrit 36.8 % (39.0-52.0); Mean Corp Hgb Conc. 32.6 g/dL (33.0-37.0); Mean Corpuscular Hgb 29.6 pg (27.0-31.0); Mean Corpuscular Volume 90.9 fL (80.0-94.0); Mean Platelet Volume 11.8 fL (7.4-10.4); Nucleated Red Blood Cells % 0 % (-); Platelet Count 167 10^3/uL (130-400); Red Blood Cell Count 4.05 10^6/uL (4.70-6.10); Red Cell Dist. Width 14.6 % (11.5-14.5); White Blood Cell Count 8.3 10^3/uL (4.8-10.8)
[2024-06-13 19:00] VITALS: BP 172/68
[2024-06-13 19:11] LABS: ALT (SGPT) 28 U/L (0-50); AST (SGOT) 30 U/L (17-59); Alkaline Phosphatase 136 U/L (38-126); Blood Urea Nitrogen 80 mg/dl (9-20); Calcium 8.6 mg/dl (8.4-10.2); Carbon Dioxide 21 mmol/L (22-30); Chloride 107 mmol/L (98-107); Estimated Creatinine Clearance 18 ml/min; Glucose 292 mg/dl (70-99); Sodium 143 mmol/L (135-145); Total Bilirubin 0.6 mg/dl (0.2-1.3); Total Protein 6.7 g/dl (6.3-8.2); eGFR 16.23
[2024-06-13 19:20] LABS: NT-proBNP 9450 pg/ml
--- NOTE | 2024-06-13 19:53 | HPS.HSE ---
Family Physician
-
Family Physician: NOT KNOW UNKNOWN - PT DOES
Chief Complaint
-
abnormal labs
History of Present Illness
74-year-old male with history of mild cognitive impairment, CHF, CKD 3, GERD, IDDM, HTN, CVA presents from [facility] for elevated BUN and creatinine. patient denied any CUELLAR,dizzy or syncopal episode.denied fever, chills, chest pain,
sob. denied abdominal pain,n,v,d. denied dysuria or hematuria.
upon arrival cr of 3.7. admitting for further management.
Medical History
Past Medical History
Past Medical History: Reports Other
Additional Past Medical History:
Paroxysmal A-fib
Coronary artery disease
Type 2 diabetes
Lipidemia
GERD
Stage III BC
Hypertension
Hyperlipidemia
His venous stasis dermatitis
Past Surgical History: Reports Other
Additional Past Surgical History:
Appendectomy
coronary artery bypass
Pacemaker
Social History
Tobacco: Former Smoker
Alcohol: Occasional
Drug: None
Personal: Single
Living: Assisted Living
Family History
Family History: Not pertinent
Allergies / Home Medications
Allergies reflects when Allergies were last updated in [facility].
Home Medications with original date entered in [facility]
Allergy/Medication List:
Allergies
Allergy/AdvReac Type Severity Reaction Status Date / Time
No Known Allergies Allergy Verified 06/13/24 18:10
Home Medications
amlodipine 10 mg tablet 10 mg PO HS #30 tabs 03/18/23
aspirin 81 mg tablet,delayed release 81 mg PO DAILY #5 tabs 03/18/23
atorvastatin 80 mg tablet 80 mg PO DAILY High Cholesterol #30 tabs 03/18/23
clopidogrel 75 mg tablet 75 mg PO DAILY #30 tabs 03/18/23
ezetimibe 10 mg tablet 10 mg PO DAILY High Cholesterol #30 tabs 03/18/23
pantoprazole 40 mg tablet,delayed release 40 mg PO DAILY Gastrointestinal Issue #30 tabs 03/18/23
insulin glargine 100 unit/mL (3 mL) subcutaneous pen (Lantus Solostar U-100 Insulin) 10 unit SC HS 06/04/24
metoprolol succinate 50 mg tablet,extended release 24 hr 50 mg PO DAILY 06/04/24
furosemide 40 mg tablet 40 mg PO DAILY #40 tabs 06/09/24
hydralazine 25 mg tablet 25 mg PO TID #90 tabs 06/09/24
isosorbide mononitrate 30 mg tablet,extended release 24 hr 30 mg PO DAILY #30 tabs 06/09/24
Review of Systems
-
Constitutional: Reports No Symptoms
EENT: Reports No Symptoms
Respiratory: Reports No Symptoms
Cardiac: Reports No Symptoms
Abdomen/GI: Reports No Symptoms
: Reports No Symptoms
Musculoskeletal: Reports No Symptoms
Skin: Reports No Symptoms
Neurological: Reports No Symptoms
Endocrine: Reports No Symptoms
Hematologic/Lymphatic: Reports No Symptoms
Psych: Reports No Symptoms
Physical Exam
Vital Signs
Vital Signs
Temp Pulse Resp BP Pulse Ox
98 F 61 16 172/68 98
06/13/24 18:07 06/13/24 19:41 06/13/24 19:41 06/13/24 19:00 06/13/24 19:45
Physical Exam
General: Well Developed, Well Nourished and No Apparent Distress
HEENT: NormoCephalic, Moist mucous membranes and Atraumatic
Respiratory: Clear
Cardiac: S1/S2 and Regular Rhythm; No Murmur or Rub
GI: Soft, Non Tender, Non Distended and Normal Bowel Sounds; No Organomegaly
Rectal: Deferred by Provider
Musculoskeletal: No Clubbing, No Cyanosis and Other (chronic lymphedema)
Skin: No Rash
Neuro: Nonfocal/grossly intact
Psych: Calm
Laboratory Results
-
06/13/24 18:45
06/13/24 18:45
Laboratory Results
Total Bilirubin 0.6 mg/dl (0.2-1.3) 06/13/24 18:45
AST 30 U/L (17-59) 06/13/24 18:45
ALT 28 U/L (0-50) 06/13/24 18:45
Alkaline Phosphatase 136 U/L (38-126) H 06/13/24 18:45
Data Reviewed
-
Lab Data: Labs Reviewed by me
Impression/Plan
-
#acute kidney injury superimposed on CKD3b likely from recent diuretics
-cr 3.7
-hold Lasix
-nephrology consulted
# Chronic heart failure
-Echo 06/05/2024: EF 40 to 45%, mod conc LVH, stage III diastolic dysfunction, dilated RV with mildly reduced RV systolic function, moderate MR, mild aortic regurgitation, severe TR with PAP 35 to 40 mmHg
-not in acute exacerbation
-strict I &O
-daily weight
-fluid restriction
-hold Lasix
#Hypertension
-hydralazine, Imdur, Neovasc continued with hold parameter
#CAD s/p CABG
-asa continued
#s/p Medtronic dual chamber PPM
#Paroxysmal Afib
-metoprolol continued
#h/o CVA 04/2023
#Hyperlipidemia
-Zetia and statin continued
#DM 2
-Lantus 10u at hs
sliding scale
-cho diet
#h/o venous insufficiency/lymphedema
#Mild Cognitive Impairment, suspect continued cognitive decline
#DVT prophylaxis
-heparin sq
#CODE status
-full code
[2024-06-13 20:00] VITALS: BP 121/49
[2024-06-13 20:05] LABS: Urine Albumin 2+ (Neg - Trace); Urine Bilirubin Negative (Negative); Urine Character Clear (Clear); Urine Color Yellow; Urine Glucose 3+ (Negative); Urine Ketone Negative (Negative); Urine Leukocyte Negative (Negative); Urine Nitrite Negative (Negative); Urine Occult Blood Negative (Negative); Urine Specific Gravity 1.015 (<1.030); Urine Urobilinogen Negative (Neg - 1+)
[2024-06-13 20:17] LABS: Urine Bacteria Few (Negative); Urine Red Blood Cell 0-2 /HPF (0-2); Urine White Cell 0-2 /HPF (0-5)
--- NOTE | 2024-06-13 20:29 | W.PN.UPDATE ---
Update Note
Progress Note Update
This is addendum to the H&P written by Ashley Naidu on 06/13/2024. Patient seen and examined independently with [employer].
74-year-old male past medical history of CAD status post CABG, HFrEF, paroxysmal atrial fibrillation with Medtronic dual-chamber pacemaker, hypertension, CKD 3B baseline creatinine 2.5, CVA, diabetes, hyperlipidemia, chronic lymphedema with venous
insufficiency, dementia, sent in for normal labs with creatinine of 3.
Patient was recently admitted for CHF exacerbation. He was diuresed with increase in his creatinine up to 3. Outpatient labs today creatinine 3.7.
Patient appears euvolemic on examination. He denies any symptoms. No historical events to suggest prerenal component of MAEGAN. Worsening of renal function likely from recent diuretics. Hold Lasix. Nephrology consulted.
[2024-06-13 21:01] VITALS: BP 156/61
[2024-06-13 22:53] VITALS: BP 162/70
[2024-06-13 22:54] VITALS: BMI 26.9
[2024-06-13 23:30] VITALS: BMI 26.9
[2024-06-13 23:48] LABS: Glucose - Point of Care 187 mg/dl (70-99)
[2024-06-13] MEDS: NORVASC 10 MG PO (23:48)
[2024-06-13] MEDS: LANTUS 0.1 UNITS SC (23:48)
[2024-06-13] MEDS: LIPITOR 80 MG PO (23:48)
[2024-06-13] MEDS: APRESOLINE 25 MG PO (23:48)
[2024-06-14 03:55] VITALS: BP 172/73
[2024-06-14 06:00] VITALS: BMI 26.3
--- NOTE | 2024-06-14 06:28 | PTCARENOTE ---
Patient arrive on unit @2230 via stretcher from ED. Patient stand and pivot at bedside with assist x1 to get into bed. Patient forgetful, denies any pain or discomfort. Skin assessment completed, med rec incomplete, patient is forgetful. Patient
oriented to unit, call kim within reach.
[2024-06-14 06:52] LABS: Hematocrit 36.7 % (39.0-52.0); Mean Corp Hgb Conc. 32.7 g/dL (33.0-37.0); Mean Corpuscular Hgb 29.5 pg (27.0-31.0); Mean Corpuscular Volume 90.2 fL (80.0-94.0); Mean Platelet Volume 11.5 fL (7.4-10.4); Platelet Count 144 10^3/uL (130-400); Red Blood Cell Count 4.07 10^6/uL (4.70-6.10); Red Cell Dist. Width 14.3 % (11.5-14.5); White Blood Cell Count 10.3 10^3/uL (4.8-10.8)
[2024-06-14 07:10] VITALS: BP 149/67
[2024-06-14 07:21] LABS: Glucose - Point of Care 145 mg/dl (70-99)
[2024-06-14 07:46] LABS: Blood Urea Nitrogen 85 mg/dl (9-20); Calcium 8.4 mg/dl (8.4-10.2); Carbon Dioxide 22 mmol/L (22-30); Chloride 108 mmol/L (98-107); Estimated Creatinine Clearance 18 ml/min; Glucose 155 mg/dl (70-99); Potassium 4.7 mmol/L (3.5-5.1); Sodium 144 mmol/L (135-145); eGFR 16.23
[2024-06-14] MEDS: NOVOLOG FLEXPEN-LOW RESISTANCE SC ×3 (08:36→16:32)
[2024-06-14] MEDS: ASPIR LOW (ENTERIC COATED) 81 MG PO (08:38)
[2024-06-14] MEDS: PROTONIX 40 MG PO (08:38)
[2024-06-14] MEDS: ZETIA 10 MG PO (08:39)
[2024-06-14] MEDS: TOPROL XL 50 MG PO (08:39)
[2024-06-14] MEDS: PLAVIX 75 MG PO (08:39)
[2024-06-14] MEDS: IMDUR (EXTENDED RELEASE) 30 MG PO (08:39)
[2024-06-14] MEDS: APRESOLINE 25 MG PO ×3 (08:39→23:27)
[2024-06-14] MEDS: HEPARIN 5000 UNITS SC ×2 (08:39→23:25)
--- NOTE | 2024-06-14 10:48 | W.CON.NEPH ---
Consultation
-
Date/Time Consultation Requested: 06/14/2024 7 AM
Date/Time Consultation Performed: 06/14/2024 10 AM
Requesting Provider: Dr. Shah
Performing Provider: Dr. Preciado
Reason for Consultation: MAEAGN
Medical History
-
Chief Complaint: Abnormal labs
History of Present Illness:
This is a 74-year-old gentleman who lives at [facility] and was sent to the emergency room because of abnormal blood work that was performed yesterday. His creatinine was noted to be 3.7 up from a baseline of 2.0. He does have heart
failure with reduced ejection fraction presumably on diuretic therapy, hypertension on a multidrug regimen, coronary disease on antiplatelet therapy. He was recently in the hospital a little over a week ago with presumed heart failure. At that
time it was noted that while he was living with his brother he was not taking his medications. He was treated for his heart failure and subsequently discharged to [facility]. His creatinine at the time of discharge however was 3.1 up
from his baseline already at that time.
Past Medical History
CKD 3B/4, heart failure reduced ejection fraction, coronary artery disease, bypass grafting, pacemaker, paroxysmal atrial fibrillation, stroke, hyperlipidemia, diabetes mellitus type II, venous insufficiency, appendectomy
Social History
Tobacco: Non-Smoker and Former Smoker
Alcohol: None
Family History
Family History: Not Pertinent
Allergies / Home Medications
Allergy/AdvReac Type Severity Reaction Status Date / Time
No Known Allergies Allergy Verified 06/13/24 18:10
�Medication �Instructions �Recorded �Confirmed �Type
amlodipine 10 mg tablet 10 mg PO HS #30 tabs 03/18/23 06/13/24 Rx
aspirin 81 mg tablet,delayed 81 mg PO DAILY #5 tabs 03/18/23 06/13/24 Rx
release
clopidogrel 75 mg tablet 75 mg PO DAILY #30 tabs 03/18/23 06/13/24 Rx
ezetimibe 10 mg tablet 10 mg PO DAILY High Cholesterol 03/18/23 06/13/24 Rx
#30 tabs
pantoprazole 40 mg tablet,delayed 40 mg PO DAILY Gastrointestinal 03/18/23 06/13/24 Rx
release Issue #30 tabs
insulin glargine 100 unit/mL (3 10 unit SC HS 06/04/24 06/13/24 History
mL) subcutaneous pen (Lantus
Solostar U-100 Insulin)
metoprolol succinate 50 mg 50 mg PO DAILY 06/04/24 06/13/24 History
tablet,extended release 24 hr
furosemide 40 mg tablet 40 mg PO DAILY #40 tabs 06/09/24 06/13/24 Rx
hydralazine 25 mg tablet 25 mg PO TID #90 tabs 06/09/24 06/13/24 Rx
isosorbide mononitrate 30 mg 30 mg PO DAILY #30 tabs 06/09/24 06/13/24 Rx
tablet,extended release 24 hr
acetaminophen 325 mg tablet 650 mg PO Q6HPRN PRN mild 06/13/24 06/13/24 History
pain/temp>100
atorvastatin 80 mg tablet 80 mg PO HS High Cholesterol 06/13/24 06/13/24 History
bisacodyl 10 mg rectal suppository 10 mg IN DAILYPRN PRN no bm 3 days 06/13/24 06/13/24 History
(Dulcolax (bisacodyl))
magnesium hydroxide 400 mg/5 mL 30 ml PO Y70PRPP PRN no bm 2 days 06/13/24 06/13/24 History
oral suspension (Milk of Magnesia)
sodium phosphates 19 gram-7 118 ml IN DAILYPRN PRN no bm 4 days 06/13/24 06/13/24 History
gram/118 mL enema (Fleet Enema)
Review of Systems
-
He denies shortness of breath, chest pain, worsening edema. He has no problems with appetite by his report.
Unable to obtain full review of systems at this time due to: Other (Unreliable historian)
All other systems: Negative unless noted
Physical Exam
Vital Signs
Vital Signs
Temp Pulse Resp BP Pulse Ox
99.2 F 69 16 149/67 96
06/14/24 07:10 06/14/24 08:39 06/14/24 07:10 06/14/24 08:39 06/14/24 07:10
Lab Results
WBC 10.3 10^3/uL (4.8-10.8) 06/14/24 06:23
RBC 4.07 10^6/uL (4.70-6.10) L 06/14/24 06:23
Hgb 12.0 g/dL (13.0-18.0) L 06/14/24 06:23
Hct 36.7 % (39.0-52.0) L 06/14/24 06:23
Plt Count 144 10^3/uL (130-400) 06/14/24 06:23
Sodium 144 mmol/L (135-145) 06/14/24 06:23
Potassium 4.7 mmol/L (3.5-5.1) 06/14/24 06:23
Chloride 108 mmol/L (98-107) H 06/14/24 06:23
Carbon Dioxide 22 mmol/L (22-30) 06/14/24 06:23
BUN 85 mg/dl (9-20) H 06/14/24 06:23
Creatinine 3.7 mg/dL (0.7-1.3) H 06/14/24 06:23
eGFR 16.23 06/14/24 06:23
Glucose 155 mg/dl (70-99) H 06/14/24 06:23
Calcium 8.4 mg/dl (8.4-10.2) 06/14/24 06:23
Lsp-V-[id number] Pept 9450 pg/ml 06/13/24 18:49
Albumin 4.0 g/dl (3.5-5.0) 06/13/24 18:45
Laboratory Tests
05/11/23 06/13/24
15:34 06:30
Hgb 10.9 L
BUN 75 H
Creatinine 2.0 H 3.7 H
Physical Exam
Patient is awake alert oriented and in no distress. Mood and affect were pleasant, insight and judgment were good. Pupils are equal round and reactive to light, extraocular movements are intact, sclera were anicteric. Hearing was normal, ears and
nose are intact. Oropharynx was clear. Neck was supple with trachea midline and no thyromegaly. Heart was regular rate and rhythm without rubs. Lower extremities without edema. Lungs were clear to auscultation bilaterally and with normal
excursion. Abdomen was soft, nontender, with normal active bowel sounds, and no hepatosplenomegaly. Skin was without rash and with normal turgor.
Data Reviewed
-
Radiology: Image Personally Visualized and interpreted (Chest x-ray on 06/04/2024 by my reading shows left lower lung opacity)
Medical Tests (Nuc Med, Echo etc): Image Personally Visualized and interpreted (EKG on 06/05/2024 by reading shows AV paced rhythm)
Labs: Labs Reviewed by me
Old Records: Reviewed
Assessment/Plan
-
Assessment
MAEGAN
CKD4, progressive
Coronary artery disease with bypass
Paroxysmal atrial fibrillation
Hypertension
Edema/venous stasis diabetes mellitus type 2
Cognitive impairment
Plan
He does not appear to be in overt heart failure.
Repeat chest x-ray
Check BNP
Follow BMP
Check urine studies
Check renal ultrasound
Check bladder scan
Hold Lasix for now
Urine with hyaline casts as well as albumin. He likely has underlying diabetic nephropathy which has been progressive over time
[2024-06-14 11:21] VITALS: BP 175/55
[2024-06-14 11:31] LABS: Glucose - Point of Care 131 mg/dl (70-99)
[2024-06-14 14:37] LABS: Body Fluid for Eosinophils No Eosinophils seen
--- NOTE | 2024-06-14 14:44 | W.PN.HOSP.TC ---
Today's Communication/Plan
-
Hold Lasix
Monitor volume status closely
Follow BMP
Assessment / Plan
Assessment / Plan
Impression:
MAEGAN.
CKD stage IV progressive
Diarrhea
Conditions prior to admission:
CHF reduced EF.
-Echo 06/18: Mildly reduced LVEF 40-45%. Stage III diastolic dysfunction. Dilated RV with mildly reduced RV systolic function. Severe TR. LVEF reduced from 55 to 60% (03/04/2023) worsened MR and RV function.
CKD stage IV.
Essential hypertension
CAD with history of CABG 2016
Paroxysmal atrial fibrillation
AICD
History of CVA in 2022
Insulin requiring diabetes
Dyslipidemia
Chronic lower extremity edema due to lymphedema and venous insufficiency
Dementia suspected vascular type.
Plan
MAEGAN on CKD 4
Likely due to diuresis
UA consistent with proteinuria suspected diabetic nephropathy
Recent sonogram with no obstruction
Noted with intermittent retention requiring straight cath upon admission.
Hold Lasix.
Bladder scan.
Follow BMP.
Nephrology input appreciated
Diarrheal illness.
Check stool for C. difficile
Monitor oral intake
Keep I's and O's even
CHF reduced EF.
CAD
Ischemic anemia
No evidence for decompensation.
Stable respiratory status.
Pro CHF BNP below baseline
Chest x-ray with no evidence of pulmonary edema.
Monitor volume status closely while off Lasix
Continue preadmission regimen including metoprolol, Imdur, hydralazine, Lipitor, Norvasc, aspirin
IDDM.
Recent hemoglobin A one 7.1 to
Continue Lantus 10 units
Continue basal protocol.
Monitor for hypoglycemia in the settings of decreased renal clearance.
Physical therapy assessment
Anticipated Discharge: 24 - 48 hours
Subjective/Interval History
-
Date of Service: June 14, 2024
Objective Data
-
Labs:
Laboratory Results
06/14/24
06:23
WBC 10.3
Hgb 12.0 L
Hct 36.7 L
Plt Count 144
Sodium 144
Potassium 4.7
Chloride 108 H
Carbon Dioxide 22
BUN 85 H
Creatinine 3.7 H
Glucose 155 H
Calcium 8.4
Vital Signs:
Vital Signs
Temp Pulse Resp BP Pulse Ox
99.6 F 60 16 175/55 96
06/14/24 11:21 06/14/24 11:21 06/14/24 11:21 06/14/24 11:21 06/14/24 11:21
I&O
06/13/24 06/14/24 06/15/24
06:59 06:59 06:59
Output Total 580 / 580
Balance -580 / -580
Physical Exam
-
General: Well Developed and No Apparent Distress
HEENT: Normocephalic, Atraumatic and Moist Mucous Membranes
Respiratory: Clear to Auscultation
Cardiac: Regular Rhythm and S1/S2; Negative Murmur, Rub or Gallop
GI: Soft, Nontender, Nondistended and Normal Bowel Sounds; Negative Organomegaly
Rectal: Deferred by Provider
Musculoskeletal: No Clubbing, No Cyanosis and No Edema
Skin: Negative Rash
Neuro: Nonfocal/Grossly Intact
[2024-06-14 15:28] VITALS: BP 158/59
[2024-06-14 15:56] LABS: Urine Sodium 31 mmol/L (30-90)
[2024-06-14 16:12] LABS: Protein/creatinine Ratio 4.9; Urine Protein 419 mg/dl
[2024-06-14 16:24] LABS: Glucose - Point of Care 113 mg/dl (70-99)
[2024-06-14 19:05] VITALS: BP 146/59
[2024-06-14 21:21] LABS: Glucose - Point of Care 97 mg/dl (70-99)
[2024-06-14 23:24] VITALS: BP 142/60
[2024-06-14] MEDS: LIPITOR 80 MG PO (23:28)
[2024-06-14] MEDS: NORVASC 10 MG PO (23:30)
[2024-06-14] MEDS: LANTUS 0.1 UNITS SC (23:36)
[2024-06-15 03:08] VITALS: BP 146/58
[2024-06-15 03:09] LABS: Glucose - Point of Care 124 mg/dl (70-99)
[2024-06-15 05:39] VITALS: BMI 26.3
[2024-06-15 06:41] LABS: Hematocrit 35.1 % (39.0-52.0); Hemoglobin 11.1 g/dL (13.0-18.0); Mean Corp Hgb Conc. 31.6 g/dL (33.0-37.0); Mean Corpuscular Hgb 29.1 pg (27.0-31.0); Mean Corpuscular Volume 91.9 fL (80.0-94.0); Platelet Count 117 10^3/uL (130-400); Red Blood Cell Count 3.82 10^6/uL (4.70-6.10); Red Cell Dist. Width 14.6 % (11.5-14.5); White Blood Cell Count 4.6 10^3/uL (4.8-10.8)
[2024-06-15 07:07] LABS: Blood Urea Nitrogen 87 mg/dl (9-20); Calcium 8.7 mg/dl (8.4-10.2); Carbon Dioxide 21 mmol/L (22-30); Chloride 109 mmol/L (98-107); Estimated Creatinine Clearance 19 ml/min; Glucose 104 mg/dl (70-99); Potassium 4.2 mmol/L (3.5-5.1); Sodium 145 mmol/L (135-145); eGFR 17.96
[2024-06-15 07:42] VITALS: BP 157/65
[2024-06-15 07:55] LABS: Glucose - Point of Care 140 mg/dl (70-99)
[2024-06-15] MEDS: NOVOLOG FLEXPEN-LOW RESISTANCE SC ×3 (08:46→16:37)
[2024-06-15] MEDS: ZETIA 10 MG PO (08:46)
[2024-06-15] MEDS: PROTONIX 40 MG PO (08:46)
[2024-06-15] MEDS: IMDUR (EXTENDED RELEASE) 30 MG PO (08:46)
[2024-06-15] MEDS: ASPIR LOW (ENTERIC COATED) 81 MG PO (08:46)
[2024-06-15] MEDS: APRESOLINE 25 MG PO ×3 (08:47→21:52)
[2024-06-15] MEDS: PLAVIX 75 MG PO (08:47)
[2024-06-15] MEDS: TOPROL XL 50 MG PO (08:47)
[2024-06-15] MEDS: HEPARIN 5000 UNITS SC ×2 (08:48→21:53)
[2024-06-15 11:28] VITALS: BP 147/69
--- NOTE | 2024-06-15 11:29 | W.PN.NEPH.PH ---
Today's Communication / Plan
-
follow BMP
Assessment/Plan
-
Assessment
MAEGAN
CKD4, progressive
Coronary artery disease with bypass
Paroxysmal atrial fibrillation
Hypertension
Edema/venous stasis diabetes mellitus type 2
Cognitive impairment
Plan
holding lasix
follow BMP
check serologies
-
-
Date of Service: June 15, 2024
CC / HPI / ROS
-
Chief Complaint:
MAEGAN
History of Present Illness:
MAEGAN/Cr down to 3.4
BP stable high
hgb stable
Review of Systems:
no CP/SOB
Labs
-
Labs:
WBC 4.6 10^3/uL (4.8-10.8) L 06/15/24 06:08
RBC 3.82 10^6/uL (4.70-6.10) L 06/15/24 06:08
Hgb 11.1 g/dL (13.0-18.0) L 06/15/24 06:08
Hct 35.1 % (39.0-52.0) L 06/15/24 06:08
Plt Count 117 10^3/uL (130-400) L 06/15/24 06:08
Sodium 145 mmol/L (135-145) 06/15/24 06:08
Potassium 4.2 mmol/L (3.5-5.1) 06/15/24 06:08
Chloride 109 mmol/L (98-107) H 06/15/24 06:08
Carbon Dioxide 21 mmol/L (22-30) L 06/15/24 06:08
BUN 87 mg/dl (9-20) H 06/15/24 06:08
Creatinine 3.4 mg/dL (0.7-1.3) H 06/15/24 06:08
eGFR 17.96 06/15/24 06:08
Glucose 104 mg/dl (70-99) H 06/15/24 06:08
Calcium 8.7 mg/dl (8.4-10.2) 06/15/24 06:08
Iwz-B-Iheoeorzwmr Pept 9450 pg/ml 06/13/24 18:49
Albumin 4.0 g/dl (3.5-5.0) 06/13/24 18:45
Physical Exam
-
Vital Signs:
Vital Signs
Temp Pulse Resp BP Pulse Ox
98.1 F 61 17 147/69 96
06/15/24 11:28 06/15/24 11:28 06/15/24 11:28 06/15/24 11:28 06/15/24 11:28
Cardiovascular:: Regular rate and rhythm
Respiratory:: Bilateral: Coarse
Lung Excursion:: Normal
Abdomen:: Nontender and Soft
Bowel Sounds:: Normal
Extremity Edema:: +3: Bilateral:
[2024-06-15 11:42] LABS: Glucose - Point of Care 109 mg/dl (70-99)
[2024-06-15 13:01] LABS: Complement C3 118 mg/dl (88-165)
[2024-06-15 14:26] LABS: Anti Streptolysin Negative (Negative)
--- NOTE | 2024-06-15 14:35 | CM ---
Reviewed chart, placed a call to patient's daughter to obtain information for discharge. Patients daughter answered and stated that patient has been at [facility] for the past almost week since she was discharged from a week ago.
Patient's daughter stated that patient is not a bed hold currently but she would like for patient to return to [facility] if bed is still available. She stated that she will talk to patient's son, and determine what alternate facilities he feels patient
can transfer if [facility] is unable to provide a bed.
Patient's daughter stated that currently patient is receiving assistance with ADLs and personal care.
He is ambulating with a walker short distances and needs assistance with transfers.
Will send referral to [facility] and await alternate choices.
Plan: Case management will continue to follow and assist with discharge planning. Back to [facility] upon medical clearance.
[2024-06-15 15:43] VITALS: BP 135/58
--- NOTE | 2024-06-15 15:49 | W.PN.HOSP.TC ---
Today's Communication/Plan
-
Creatinine improving
Continue holding Lasix.
Follow BMP.
Assessment / Plan
Assessment / Plan
Impression:
MAEGAN.
CKD stage IV progressive
Diarrhea
Conditions prior to admission:
CHF reduced EF.
-Echo 06/18: Mildly reduced LVEF 40-45%. Stage III diastolic dysfunction. Dilated RV with mildly reduced RV systolic function. Severe TR. LVEF reduced from 55 to 60% (03/04/2023) worsened MR and RV function.
CKD stage IV.
Essential hypertension
CAD with history of CABG 2016
Paroxysmal atrial fibrillation
AICD
History of CVA in 2022
Insulin requiring diabetes
Dyslipidemia
Chronic lower extremity edema due to lymphedema and venous insufficiency
Dementia suspected vascular type.
Plan
MAEGAN on CKD 4
Likely due to diuresis
UA consistent with proteinuria suspected diabetic nephropathy
Recent sonogram with no obstruction
Noted with intermittent retention requiring straight cath upon admission.
Hold Lasix.
Bladder scan.
Follow BMP.
Nephrology input appreciated
Diarrheal illness.
Check stool for C. difficile
Monitor oral intake
Keep I's and O's even
CHF reduced EF.
CAD
Ischemic anemia
No evidence for decompensation.
Stable respiratory status.
Pro CHF BNP below baseline
Chest x-ray with no evidence of pulmonary edema.
Monitor volume status closely while off Lasix
Continue preadmission regimen including metoprolol, Imdur, hydralazine, Lipitor, Norvasc, aspirin
IDDM.
Recent hemoglobin A one 7.1 to
Continue Lantus 10 units
Continue basal protocol.
Monitor for hypoglycemia in the settings of decreased renal clearance.
Physical therapy assessment
Anticipated Discharge: 24 - 48 hours
Subjective/Interval History
-
Date of Service: June 15, 2024
Objective Data
-
Labs:
Laboratory Results
06/15/24
06:08
WBC 4.6 L
Hgb 11.1 L
Hct 35.1 L
Plt Count 117 L
Sodium 145
Potassium 4.2
Chloride 109 H
Carbon Dioxide 21 L
BUN 87 H
Creatinine 3.4 H
Glucose 104 H
Calcium 8.7
Vital Signs:
Vital Signs
Temp Pulse Resp BP Pulse Ox
98.2 F 61 17 135/58 95
06/15/24 15:43 06/15/24 15:43 06/15/24 15:43 06/15/24 15:43 06/15/24 15:43
I&O
06/14/24 06/15/24 06/16/24
06:59 06:59 06:59
Intake Total 1060 / 1060
Output Total 580 / 580
Balance 480 / 480
Physical Exam
-
General: Well Developed and No Apparent Distress
HEENT: Normocephalic, Atraumatic and Moist Mucous Membranes
Respiratory: Clear to Auscultation
Cardiac: Regular Rhythm and S1/S2; Negative Murmur, Rub or Gallop
GI: Soft, Nontender, Nondistended and Normal Bowel Sounds; Negative Organomegaly
Rectal: Deferred by Provider
Musculoskeletal: No Clubbing, No Cyanosis and No Edema
Skin: Negative Rash
Neuro: Awake, Alert, Oriented and Nonfocal/Grossly Intact
[2024-06-15 16:30] LABS: Glucose - Point of Care 91 mg/dl (70-99)
--- NOTE | 2024-06-15 16:39 | PTCARENOTE ---
patient confused to time and place, forgetful, tolerating diet, incontinent of urine and stool, not able to obtain stool specimen, turned with assist x2, vss, will continue to monitor.
[2024-06-15 19:45] VITALS: BP 141/59
[2024-06-15 21:10] LABS: Glucose - Point of Care 99 mg/dl (70-99)
[2024-06-15] MEDS: LIPITOR 80 MG PO (21:52)
[2024-06-15] MEDS: NORVASC 10 MG PO (21:54)
[2024-06-15] MEDS: LANTUS 0.1 UNITS SC (23:37)
[2024-06-16] VITALS (9 sets, daily range): BP systolic 132–158; BP diastolic 57–69; PULSE 61; O2SAT 97; BMI 26.3
[2024-06-16 07:52] LABS: Hematocrit 34.3 % (39.0-52.0); Hemoglobin 11.3 g/dL (13.0-18.0); Mean Corp Hgb Conc. 32.9 g/dL (33.0-37.0); Mean Platelet Volume 11.6 fL (7.4-10.4); Platelet Count 121 10^3/uL (130-400); Red Blood Cell Count 3.77 10^6/uL (4.70-6.10); Red Cell Dist. Width 14.6 % (11.5-14.5); White Blood Cell Count 6.3 10^3/uL (4.8-10.8)
[2024-06-16 07:59] LABS: Glucose - Point of Care 71 mg/dl (70-99)
[2024-06-16] MEDS: NOVOLOG FLEXPEN-LOW RESISTANCE SC ×3 (08:05→16:59)
[2024-06-16 08:23] LABS: Blood Urea Nitrogen 88 mg/dl (9-20); Calcium 8.2 mg/dl (8.4-10.2); Carbon Dioxide 20 mmol/L (22-30); Chloride 111 mmol/L (98-107); Estimated Creatinine Clearance 18 ml/min; Glucose 72 mg/dl (70-99); Potassium 4.2 mmol/L (3.5-5.1); Sodium 145 mmol/L (135-145); eGFR 16.77
[2024-06-16] MEDS: PLAVIX 75 MG PO (09:42)
[2024-06-16] MEDS: HEPARIN 5000 UNITS SC ×2 (09:42→20:32)
[2024-06-16] MEDS: ASPIR LOW (ENTERIC COATED) 81 MG PO (09:42)
[2024-06-16] MEDS: IMDUR (EXTENDED RELEASE) 30 MG PO (09:42)
[2024-06-16] MEDS: ZETIA 10 MG PO (09:42)
[2024-06-16] MEDS: APRESOLINE 25 MG PO ×3 (09:42→21:17)
[2024-06-16] MEDS: PROTONIX 40 MG PO (09:42)
[2024-06-16] MEDS: TOPROL XL 50 MG PO (09:43)
--- NOTE | 2024-06-16 10:46 | W.PN.NEPH.PH ---
Today's Communication / Plan
-
Observe off Lasix
Follow BMP
Serologies pending
Assessment/Plan
-
Assessment
MAEGAN
CKD4, progressive
Coronary artery disease with bypass
Paroxysmal atrial fibrillation
Hypertension
Edema/venous stasis diabetes mellitus type 2
Cognitive impairment
Plan
holding lasix
uop not recorded,weights unchanged
creatinine at 3.6/BUN 88
follow BMP
Hemodynamically stable
check serologies
Urine eosinophils negative
-
-
Date of Service: June 16, 2024
CC / HPI / ROS
-
Chief Complaint:
MAEGAN
History of Present Illness:
MAEGAN/Cr to 3.6
BUN at 88
BP stable high
hgb stable
Review of Systems:
no CP/SOB
uop not recorded
weighs stable
Labs
-
Labs:
WBC 6.3 10^3/uL (4.8-10.8) 06/16/24 07:00
RBC 3.77 10^6/uL (4.70-6.10) L 06/16/24 07:00
Hgb 11.3 g/dL (13.0-18.0) L 06/16/24 07:00
Hct 34.3 % (39.0-52.0) L 06/16/24 07:00
Plt Count 121 10^3/uL (130-400) L 06/16/24 07:00
Sodium 145 mmol/L (135-145) 06/16/24 07:00
Potassium 4.2 mmol/L (3.5-5.1) 06/16/24 07:00
Chloride 111 mmol/L (98-107) H 06/16/24 07:00
Carbon Dioxide 20 mmol/L (22-30) L 06/16/24 07:00
BUN 88 mg/dl (9-20) H 06/16/24 07:00
Creatinine 3.6 mg/dL (0.7-1.3) H 06/16/24 07:00
eGFR 16.77 06/16/24 07:00
Glucose 72 mg/dl (70-99) 06/16/24 07:00
Calcium 8.2 mg/dl (8.4-10.2) L 06/16/24 07:00
Odc-I-Obaubckvagh Pept 9450 pg/ml 06/13/24 18:49
Albumin 4.0 g/dl (3.5-5.0) 06/13/24 18:45
Physical Exam
-
Vital Signs:
Vital Signs
Temp Pulse Resp BP Pulse Ox
98.5 F 62 17 158/69 96
06/16/24 07:15 06/16/24 09:43 06/16/24 07:15 06/16/24 09:43 06/16/24 07:15
Cardiovascular:: Regular rate and rhythm
Respiratory:: Bilateral: Coarse
Lung Excursion:: Normal
Abdomen:: Nontender and Soft
Bowel Sounds:: Normal
Extremity Edema:: +3: Bilateral:
--- NOTE | 2024-06-16 11:42 | CM ---
Chart reviewed. Pt admitted from [facility]
Per CM yesterday, pt's daughter would like for pt to return to [place] at d/c to resume rehab
Spoke w/ Tanika/Ramone, pt's daughter has been noncooperative w/ signing paperwork and nonresponsive w/ outreach since pt left facility. Considering this, the facility is unable to accept pt back
CM attempted call to pt daughter to explore other facilities for d/c planning. No answer, left vm
PT/OT pending for updated eval
Plan: SNF- Will send additional referrals once decided
CM will cont. to follow up w/ family
[2024-06-16 11:51] LABS: Glucose - Point of Care 106 mg/dl (70-99)
[2024-06-16 16:51] LABS: Glucose - Point of Care 102 mg/dl (70-99)
--- NOTE | 2024-06-16 17:00 | W.PN.HOSP.TC ---
Today's Communication/Plan
-
Hold Lasix baseline monitor volume status closely
Assessment / Plan
Assessment / Plan
Impression:
MAEGAN.
CKD stage IV progressive
Diarrhea
Conditions prior to admission:
CHF reduced EF.
-Echo 06/18: Mildly reduced LVEF 40-45%. Stage III diastolic dysfunction. Dilated RV with mildly reduced RV systolic function. Severe TR. LVEF reduced from 55 to 60% (03/04/2023) worsened MR and RV function.
CKD stage IV.
Essential hypertension
CAD with history of CABG 2016
Paroxysmal atrial fibrillation
AICD
History of CVA in 2022
Insulin requiring diabetes
Dyslipidemia
Chronic lower extremity edema due to lymphedema and venous insufficiency
Dementia suspected vascular type.
Plan
MAEGAN on CKD 4
Likely due to diuresis
Suspect cardiorenal state
UA consistent with proteinuria suspected diabetic nephropathy
Recent sonogram with no obstruction
Noted with intermittent retention requiring straight cath upon admission. Continue to monitor closely for recurrence.
Creatinine up to 3.6
Continue hold Lasix.
Bladder scan.
Follow BMP.
If rising creatinine with evidence of volume overload, cardiorenal state should be suspected with consideration of resumption of diuresis
Diarrheal illness reported.
Currently no symptoms.
CHF reduced EF.
CAD
Ischemic anemia
No evidence for decompensation.
Stable respiratory status.
Pro CHF BNP below baseline
Chest x-ray with no evidence of pulmonary edema, although with small to moderate left pleural effusion
Monitor volume status closely while off Lasix
Continue preadmission regimen including metoprolol, Imdur, hydralazine, Lipitor, Norvasc, aspirin
IDDM.
Recent hemoglobin A one 7.1
Euglycemic with fasting blood glucose at 71
Reduce Lantus to 5 units at bedtime
Continue basal protocol.
Monitor for hypoglycemia in the settings of decreased renal clearance.
Physical therapy assessment
Anticipated Discharge: 24 - 48 hours
Subjective/Interval History
-
Date of Service: June 16, 2024
Objective Data
-
Labs:
Laboratory Results
06/16/24
07:00
WBC 6.3
Hgb 11.3 L
Hct 34.3 L
Plt Count 121 L
Sodium 145
Potassium 4.2
Chloride 111 H
Carbon Dioxide 20 L
BUN 88 H
Creatinine 3.6 H
Glucose 72
Calcium 8.2 L
Vital Signs:
Vital Signs
Temp Pulse Resp BP Pulse Ox
97.5 F 61 17 137/57 99
06/16/24 15:06 06/16/24 15:06 06/16/24 15:06 06/16/24 15:06 06/16/24 15:06
I&O
06/15/24 06/16/24 06/17/24
06:59 06:59 06:59
Intake Total 1060 / 1060 460 / 460
Output Total 580 / 580
Balance 480 / 480 460 / 460
Physical Exam
-
General: Well Developed and No Apparent Distress
HEENT: Normocephalic, Atraumatic and Moist Mucous Membranes
Respiratory: Clear to Auscultation
Cardiac: Regular Rhythm and S1/S2; Negative Murmur, Rub or Gallop
GI: Soft, Nontender, Nondistended and Normal Bowel Sounds; Negative Organomegaly
Rectal: Deferred by Provider
Musculoskeletal: No Clubbing, No Cyanosis and No Edema
Skin: Negative Rash
Neuro: Awake, Alert, Oriented and Nonfocal/Grossly Intact
[2024-06-16 21:11] LABS: Glucose - Point of Care 125 mg/dl (70-99)
[2024-06-16] MEDS: LIPITOR 80 MG PO (21:16)
[2024-06-16] MEDS: LANTUS 0.05 UNITS SC (21:16)
[2024-06-16] MEDS: NORVASC 10 MG PO (21:17)
[2024-06-17 03:00] VITALS: BP 142/60
[2024-06-17 06:00] VITALS: BMI 26.4
[2024-06-17 07:12] LABS: Hematocrit 34.5 % (39.0-52.0); Mean Corp Hgb Conc. 31.9 g/dL (33.0-37.0); Mean Corpuscular Hgb 28.9 pg (27.0-31.0); Mean Corpuscular Volume 90.6 fL (80.0-94.0); Mean Platelet Volume 10.7 fL (7.4-10.4); Platelet Count 122 10^3/uL (130-400); Red Blood Cell Count 3.81 10^6/uL (4.70-6.10); Red Cell Dist. Width 14.5 % (11.5-14.5); White Blood Cell Count 6.2 10^3/uL (4.8-10.8)
[2024-06-17 07:53] LABS: Blood Urea Nitrogen 83 mg/dl (9-20); Calcium 8.2 mg/dl (8.4-10.2); Carbon Dioxide 22 mmol/L (22-30); Chloride 109 mmol/L (98-107); Estimated Creatinine Clearance 19 ml/min; Glucose 86 mg/dl (70-99); Potassium 4.2 mmol/L (3.5-5.1); Sodium 142 mmol/L (135-145); eGFR 17.96
[2024-06-17 08:09] LABS: Glucose - Point of Care 88 mg/dl (70-99)
[2024-06-17] MEDS: TOPROL XL 50 MG PO (08:22)
[2024-06-17] MEDS: NOVOLOG FLEXPEN-LOW RESISTANCE SC ×3 (08:23→18:11)
[2024-06-17] MEDS: HEPARIN 5000 UNITS SC ×2 (08:23→20:29)
[2024-06-17] MEDS: ASPIR LOW (ENTERIC COATED) 81 MG PO (08:23)
[2024-06-17] MEDS: APRESOLINE 25 MG PO ×3 (08:23→22:00)
[2024-06-17] MEDS: PROTONIX 40 MG PO (08:23)
[2024-06-17] MEDS: PLAVIX 75 MG PO (08:23)
[2024-06-17] MEDS: IMDUR (EXTENDED RELEASE) 30 MG PO (08:25)
[2024-06-17 08:26] VITALS: BP 143/64
[2024-06-17] MEDS: ZETIA 10 MG PO (08:26)
--- NOTE | 2024-06-17 11:16 | W.PN.NEPH.PH ---
Today's Communication / Plan
-
follow labs
Assessment/Plan
-
Assessment
MAEGAN
CKD4, progressive
Coronary artery disease with bypass
Paroxysmal atrial fibrillation
Hypertension
Edema/venous stasis diabetes mellitus type 2
Cognitive impairment
Plan
holding lasix
uop not recorded,weights relatively stable
creatinine improving slowly 3.4/BUN 83
UA bland, U PCR 4.9gm/gm of cr, neg U eosinophils, pending serologies, normal complements
follow BMP
Hemodynamically stable
monitor bladder scan, had SC before
avoid nephrotoxins
lasix on hold, resume if needed
-
-
Date of Service: June 17, 2024
CC / HPI / ROS
-
Chief Complaint:
MAEGAN
History of Present Illness:
MAEGAN/Cr to 3.4
BUN at 83
BP stable
hgb stable
Review of Systems:
no CP/SOB
uop not recorded
weighs stable
Labs
-
Labs:
WBC 6.2 10^3/uL (4.8-10.8) 06/17/24 06:57
RBC 3.81 10^6/uL (4.70-6.10) L 06/17/24 06:57
Hgb 11.0 g/dL (13.0-18.0) L 06/17/24 06:57
Hct 34.5 % (39.0-52.0) L 06/17/24 06:57
Plt Count 122 10^3/uL (130-400) L 06/17/24 06:57
Sodium 142 mmol/L (135-145) 06/17/24 06:57
Potassium 4.2 mmol/L (3.5-5.1) 06/17/24 06:57
Chloride 109 mmol/L (98-107) H 06/17/24 06:57
Carbon Dioxide 22 mmol/L (22-30) 06/17/24 06:57
BUN 83 mg/dl (9-20) H 06/17/24 06:57
Creatinine 3.4 mg/dL (0.7-1.3) H 06/17/24 06:57
eGFR 17.96 06/17/24 06:57
Glucose 86 mg/dl (70-99) 06/17/24 06:57
Calcium 8.2 mg/dl (8.4-10.2) L 06/17/24 06:57
Bpw-O-Ixuqckobtxu Pept 9450 pg/ml 06/13/24 18:49
Albumin 4.0 g/dl (3.5-5.0) 06/13/24 18:45
Physical Exam
-
Vital Signs:
Vital Signs
Temp Pulse Resp BP Pulse Ox
97.6 F 61 19 143/64 96
06/17/24 08:26 06/17/24 08:26 06/17/24 08:26 06/17/24 08:26 06/17/24 08:26
Cardiovascular:: Regular rate and rhythm
Respiratory:: Bilateral: CTA (decreased)
Lung Excursion:: Normal
Abdomen:: Nontender and Soft
Extremity Edema:: +2: Bilateral: (chr skin changes)
Haas Catheter: No
--- NOTE | 2024-06-17 12:17 | W.PN.HOSP.TC ---
Today's Communication/Plan
-
PT/OT
apprec renal
check C. diff
Assessment / Plan
Assessment / Plan
Impression:
MAEGAN.
CKD stage IV progressive
Diarrhea
Conditions prior to admission:
CHF reduced EF.
-Echo 06/18: Mildly reduced LVEF 40-45%. Stage III diastolic dysfunction. Dilated RV with mildly reduced RV systolic function. Severe TR. LVEF reduced from 55 to 60% (03/04/2023) worsened MR and RV function.
CKD stage IV.
Essential hypertension
CAD with history of CABG 2016
Paroxysmal atrial fibrillation
AICD
History of CVA in 2022
Insulin requiring diabetes
Dyslipidemia
Chronic lower extremity edema due to lymphedema and venous insufficiency
Dementia suspected vascular type.
Plan
06/17/24 --pt c/o diarrhea--on precautions--would check C. diff if not done--does not appear to be checked--anemia of chronic disease--no signs of bleeding--creat without improvement--holding lasix, apprec renal, cardiorenal state suspected
MAEGAN on CKD 4
Likely due to diuresis
Suspect cardiorenal state
UA consistent with proteinuria suspected diabetic nephropathy
Recent sonogram with no obstruction
Noted with intermittent retention requiring straight cath upon admission. Continue to monitor closely for recurrence.
Creatinine up to 3.6
Continue hold Lasix.
Bladder scan.
Follow BMP.
If rising creatinine with evidence of volume overload, cardiorenal state should be suspected with consideration of resumption of diuresis
Diarrheal illness reported.
Currently no symptoms.
CHF reduced EF.
CAD
Ischemic anemia
No evidence for decompensation.
Stable respiratory status.
Pro CHF BNP below baseline
Chest x-ray with no evidence of pulmonary edema, although with small to moderate left pleural effusion
Monitor volume status closely while off Lasix
Continue preadmission regimen including metoprolol, Imdur, hydralazine, Lipitor, Norvasc, aspirin
IDDM.
Recent hemoglobin A one 7.1
Euglycemic with fasting blood glucose at 71
Reduce Lantus to 5 units at bedtime
Continue basal protocol.
Monitor for hypoglycemia in the settings of decreased renal clearance.
Physical therapy assessment
Anticipated Discharge: > 48 hours
Subjective/Interval History
-
Date of Service: June 17, 2024
pt does not want to get out of bed per nursing
he is c/o diarrhea
Objective Data
-
Labs:
Laboratory Results
06/17/24
06:57
WBC 6.2
Hgb 11.0 L
Hct 34.5 L
Plt Count 122 L
Sodium 142
Potassium 4.2
Chloride 109 H
Carbon Dioxide 22
BUN 83 H
Creatinine 3.4 H
Glucose 86
Calcium 8.2 L
Vital Signs:
max temp for 24 hours
06/16/24
23:00
Temp 98.7 F
Vital Signs
Temp Pulse Resp BP Pulse Ox
97.6 F 61 19 143/64 96
06/17/24 08:26 06/17/24 08:26 06/17/24 08:26 06/17/24 08:26 06/17/24 08:26
I&O
06/16/24 06/17/24 06/18/24
06:59 06:59 06:59
Intake Total 460 / 460 1370 / 1370
Balance 460 / 460 1370 / 1370
Review of Systems
-
All other systems: Reviewed and negative
Abdomen/GI: Reports Diarrhea
Physical Exam
-
General: Well Developed, Well Nourished and No Apparent Distress
HEENT: Normocephalic and Atraumatic
Respiratory: Clear to Auscultation; Negative Wheezes or Rhonchi
Cardiac: Regular Rhythm and S1/S2; Negative Murmur
GI: Soft, Nontender, Nondistended and Normal Bowel Sounds
Musculoskeletal: No Clubbing and No Cyanosis; Negative No Edema (2+ LE edema bilaterally)
Skin: Warm
Neuro: Awake
Psych: Calm
[2024-06-17 13:17] VITALS: BP 145/64
[2024-06-17 13:26] LABS: Glucose - Point of Care 69 mg/dl (70-99)
[2024-06-17 13:52] LABS: Glucose - Point of Care 96 mg/dl (70-99)
--- NOTE | 2024-06-17 14:48 | PTCARENOTE ---
patient continues to have episodes of diarrhea, however, stool dante into diaper and unable to be collected for specimen, tolerating diet, turns with max assist x2, refusing to get oob, vss, will continue to monitor.
--- NOTE | 2024-06-17 14:50 | PTCARENOTE ---
at 1338, patient's accucheck 69, on s/s of hypoglycemia. a: 4 ounces juice administered per hypoglycemic protocol. r: at 1350, accucheck rechecked and was 96, will continue to monitor.
--- NOTE | 2024-06-17 15:00 | PTCARENOTE ---
patient refusing to wear scd's as ordered. on sq heparin. Dr. Cruz made aware, no new orders obtained, will continue to monitor.
[2024-06-17 16:15] VITALS: BP 140/63
[2024-06-17 18:07] LABS: Glucose - Point of Care 138 mg/dl (70-99)
[2024-06-17 19:28] LABS: ANA, IgG Reflex to HEp-2 None Detected (None Detected)
[2024-06-17 19:56] VITALS: BP 148/62
[2024-06-17] MEDS: LANTUS 0.05 UNITS SC (22:00)
[2024-06-17] MEDS: LIPITOR 80 MG PO (22:00)
[2024-06-17] MEDS: NORVASC 10 MG PO (22:03)
[2024-06-17 22:08] LABS: Glucose - Point of Care 113 mg/dl (70-99)
[2024-06-17 23:33] VITALS: BP 152/65
[2024-06-18] VITALS (7 sets, daily range): BP systolic 135–155; BP diastolic 58–70; PULSE 61; BMI 26.5
[2024-06-18 03:12] LABS: Glucose - Point of Care 80 mg/dl (70-99)
[2024-06-18 06:43] LABS: Hematocrit 35.7 % (39.0-52.0); Hemoglobin 11.6 g/dL (13.0-18.0); Mean Corp Hgb Conc. 32.5 g/dL (33.0-37.0); Mean Corpuscular Hgb 29.3 pg (27.0-31.0); Mean Corpuscular Volume 90.2 fL (80.0-94.0); Mean Platelet Volume 11.3 fL (7.4-10.4); Platelet Count 130 10^3/uL (130-400); Red Blood Cell Count 3.96 10^6/uL (4.70-6.10); White Blood Cell Count 7.3 10^3/uL (4.8-10.8)
[2024-06-18 07:14] LABS: ALT (SGPT) 23 U/L (0-50); AST (SGOT) 37 U/L (17-59); Albumin 3.1 g/dl (3.5-5.0); Alkaline Phosphatase 94 U/L (38-126); Blood Urea Nitrogen 75 mg/dl (9-20); Calcium 8.1 mg/dl (8.4-10.2); Carbon Dioxide 21 mmol/L (22-30); Chloride 106 mmol/L (98-107); Estimated Creatinine Clearance 20 ml/min; Glucose 69 mg/dl (70-99); Magnesium 2.4 mg/dl (1.6-2.3); Potassium 4.2 mmol/L (3.5-5.1); Sodium 138 mmol/L (135-145); Total Bilirubin 0.7 mg/dl (0.2-1.3); Total Protein 5.6 g/dl (6.3-8.2); eGFR 19.32
[2024-06-18 08:26] LABS: Glucose - Point of Care 67 mg/dl (70-99)
[2024-06-18 08:55] LABS: Glucose - Point of Care 92 mg/dl (70-99)
--- NOTE | 2024-06-18 09:00 | PTCARENOTE ---
BG 67. 4 oz orange juice given per protocol. BG 92 after 15 min check. pt breakfast arrived. will continue to monitor per hypoglycemic protocol.
[2024-06-18] MEDS: NOVOLOG FLEXPEN-LOW RESISTANCE SC (09:58)
[2024-06-18] MEDS: HEPARIN 5000 UNITS SC ×2 (10:01→20:41)
[2024-06-18] MEDS: IMDUR (EXTENDED RELEASE) 30 MG PO (10:01)
[2024-06-18] MEDS: PROTONIX 40 MG PO (10:01)
[2024-06-18] MEDS: APRESOLINE 25 MG PO ×3 (10:02→21:59)
[2024-06-18] MEDS: ZETIA 10 MG PO (10:02)
[2024-06-18] MEDS: PLAVIX 75 MG PO (10:03)
[2024-06-18] MEDS: TOPROL XL 50 MG PO (10:03)
[2024-06-18] MEDS: ASPIR LOW (ENTERIC COATED) 81 MG PO (10:03)
[2024-06-18 11:06] LABS: Glucose - Point of Care 171 mg/dl (70-99)
--- NOTE | 2024-06-18 11:42 | W.PN.NEPH.PH ---
Today's Communication / Plan
-
follow labs
Assessment/Plan
-
Assessment
MAEGAN
CKD4, progressive
Coronary artery disease with bypass
Paroxysmal atrial fibrillation
Hypertension
Edema/venous stasis diabetes mellitus type 2
Cognitive impairment
Plan
holding lasix
uop not recorded,weights relatively stable
creatinine improving slowly 3.2/BUN 75
UA bland, U PCR 4.9gm/gm of cr, neg U eosinophils, pending serologies, normal complements
follow BMP
Hemodynamically stable
monitor bladder scan, had SC before
avoid nephrotoxins
lasix on hold, resume if needed
-
-
Date of Service: June 18, 2024
CC / HPI / ROS
-
Chief Complaint:
MAEGAN
History of Present Illness:
MAEGAN/Cr to 3.2
BUN at 75
BP stable
hgb stable
Review of Systems:
no CP/SOB
uop not recorded
diarrhea still ?
weighs stable, not weighed today
Labs
-
Labs:
WBC 7.3 10^3/uL (4.8-10.8) 06/18/24 06:11
RBC 3.96 10^6/uL (4.70-6.10) L 06/18/24 06:11
Hgb 11.6 g/dL (13.0-18.0) L 06/18/24 06:11
Hct 35.7 % (39.0-52.0) L 06/18/24 06:11
Plt Count 130 10^3/uL (130-400) 06/18/24 06:11
Sodium 138 mmol/L (135-145) 06/18/24 06:11
Potassium 4.2 mmol/L (3.5-5.1) 06/18/24 06:11
Chloride 106 mmol/L (98-107) 06/18/24 06:11
Carbon Dioxide 21 mmol/L (22-30) L 06/18/24 06:11
BUN 75 mg/dl (9-20) H 06/18/24 06:11
Creatinine 3.2 mg/dL (0.7-1.3) H 06/18/24 06:11
eGFR 19.32 06/18/24 06:11
Glucose 69 mg/dl (70-99) L 06/18/24 06:11
Calcium 8.1 mg/dl (8.4-10.2) L 06/18/24 06:11
Cdh-A-Edijlqzyrgb Pept 9450 pg/ml 06/13/24 18:49
Albumin 3.1 g/dl (3.5-5.0) L 06/18/24 06:11
Physical Exam
-
Vital Signs:
Vital Signs
Temp Pulse Resp BP Pulse Ox
97.5 F 61 18 155/66 95
06/18/24 08:33 06/18/24 10:03 06/18/24 08:33 06/18/24 10:03 06/18/24 08:33
Cardiovascular:: Regular rate and rhythm
Respiratory:: Bilateral: CTA (anteriorly)
Lung Excursion:: Normal
Abdomen:: Nontender and Soft
Extremity Edema:: +2: Bilateral:
Haas Catheter: No
[2024-06-18 13:23] LABS: Glucose - Point of Care 158 mg/dl (70-99)
[2024-06-18] MEDS: NOVOLOG FLEXPEN-LOW RESISTANCE 1 UNITS SC ×2 (13:41→17:39)
--- NOTE | 2024-06-18 15:23 | W.PN.HOSP.TC ---
Today's Communication/Plan
-
unclear d/c plan.....
Assessment / Plan
Assessment / Plan
Impression:
MAEGAN.
CKD stage IV progressive
Diarrhea
Conditions prior to admission:
CHF reduced EF.
-Echo 06/18: Mildly reduced LVEF 40-45%. Stage III diastolic dysfunction. Dilated RV with mildly reduced RV systolic function. Severe TR. LVEF reduced from 55 to 60% (03/04/2023) worsened MR and RV function.
CKD stage IV.
Essential hypertension
CAD with history of CABG 2016
Paroxysmal atrial fibrillation
AICD
History of CVA in 2022
Insulin requiring diabetes
Dyslipidemia
Chronic lower extremity edema due to lymphedema and venous insufficiency
Dementia suspected vascular type.
Plan
06/18/24--pt now is in denial he was having diarrhea despite telling me to the contrary yesterday--C. diff ordered but not resulted--perhaps if NO diarrhea can take off Enhanced precautions.....no improvement of creat...
06/17/24 --pt c/o diarrhea--on precautions--would check C. diff if not done--does not appear to be checked--anemia of chronic disease--no signs of bleeding--creat without improvement--holding lasix, apprec renal, cardiorenal state suspected
MAEGAN on CKD 4
Likely due to diuresis
Suspect cardiorenal state
UA consistent with proteinuria suspected diabetic nephropathy
Recent sonogram with no obstruction
Noted with intermittent retention requiring straight cath upon admission. Continue to monitor closely for recurrence.
Creatinine up to 3.6
Continue hold Lasix.
Bladder scan.
Follow BMP.
If rising creatinine with evidence of volume overload, cardiorenal state should be suspected with consideration of resumption of diuresis
Diarrheal illness reported.
Currently no symptoms.
CHF reduced EF.
CAD
Ischemic anemia
No evidence for decompensation.
Stable respiratory status.
Pro CHF BNP below baseline
Chest x-ray with no evidence of pulmonary edema, although with small to moderate left pleural effusion
Monitor volume status closely while off Lasix
Continue preadmission regimen including metoprolol, Imdur, hydralazine, Lipitor, Norvasc, aspirin
IDDM.
Recent hemoglobin A one 7.1
Euglycemic with fasting blood glucose at 71
Reduce Lantus to 5 units at bedtime
Continue basal protocol.
Monitor for hypoglycemia in the settings of decreased renal clearance.
Physical therapy assessment
Anticipated Discharge: > 48 hours
Subjective/Interval History
-
Date of Service: June 18, 2024
suspect some dementia--asked how his diarrhea was, he said 'I am having diarrhea?', then asked why he isn't wearing his SCDs (nursing has reported he is refusing), he then said, 'I am wearing them.'
Objective Data
-
Labs:
Laboratory Results
06/18/24
06:11
WBC 7.3
Hgb 11.6 L
Hct 35.7 L
Plt Count 130
Sodium 138
Potassium 4.2
Chloride 106
Carbon Dioxide 21 L
BUN 75 H
Creatinine 3.2 H
Glucose 69 L
Calcium 8.1 L
Total Bilirubin 0.7
AST 37
ALT 23
Alkaline Phosphatase 94
Vital Signs:
max temp for 24 hours
06/17/24
23:33
Temp 98.2 F
Vital Signs
Temp Pulse Resp BP Pulse Ox
97.3 F 63 18 151/68 96
06/18/24 12:45 06/18/24 12:45 06/18/24 12:45 06/18/24 12:45 06/18/24 12:45
I&O
06/17/24 06/18/24 06/19/24
06:59 06:59 06:59
Intake Total 1370 / 1370
Balance 1370 / 1370
Review of Systems
-
All other systems: Reviewed and negative
Physical Exam
-
General: Well Developed, Well Nourished and No Apparent Distress
HEENT: Normocephalic and Atraumatic
Respiratory: Clear to Auscultation; Negative Wheezes or Rhonchi
Cardiac: Regular Rhythm and S1/S2; Negative Murmur
GI: Soft, Nontender, Nondistended and Normal Bowel Sounds
Musculoskeletal: No Clubbing and No Cyanosis; Negative No Edema (3+ LE edema)
Neuro: Awake and Alert
Psych: Calm
[2024-06-18 16:20] LABS: Myeloperoxidase Antibody 0 AU/mL (0-19); Serine Protease-3, IgG 0 AU/mL (0-19)
[2024-06-18 21:41] LABS: Glucose - Point of Care 187 mg/dl (70-99)
[2024-06-18] MEDS: NORVASC 10 MG PO (22:03)
[2024-06-18] MEDS: LIPITOR 80 MG PO (22:03)
[2024-06-18] MEDS: LANTUS 0.05 UNITS SC (22:03)
[2024-06-19 03:02] LABS: Glucose - Point of Care 153 mg/dl (70-99)
[2024-06-19 06:00] VITALS: BMI 26.2
[2024-06-19 07:03] LABS: Hematocrit 35.5 % (39.0-52.0); Hemoglobin 11.8 g/dL (13.0-18.0); Mean Corp Hgb Conc. 33.2 g/dL (33.0-37.0); Mean Corpuscular Hgb 29.7 pg (27.0-31.0); Mean Corpuscular Volume 89.4 fL (80.0-94.0); Mean Platelet Volume 11.1 fL (7.4-10.4); Platelet Count 111 10^3/uL (130-400); Red Blood Cell Count 3.97 10^6/uL (4.70-6.10); Red Cell Dist. Width 13.9 % (11.5-14.5); White Blood Cell Count 6.6 10^3/uL (4.8-10.8)
[2024-06-19 07:15] VITALS: BP 148/59
[2024-06-19 07:24] LABS: NT-proBNP 9940 pg/ml
[2024-06-19 07:51] LABS: Glucose - Point of Care 131 mg/dl (70-99)
[2024-06-19] MEDS: NOVOLOG FLEXPEN-LOW RESISTANCE SC (08:18)
[2024-06-19 08:33] LABS: ALT (SGPT) 31 U/L (0-50); AST (SGOT) 42 U/L (17-59); Albumin 3.2 g/dl (3.5-5.0); Alkaline Phosphatase 107 U/L (38-126); Blood Urea Nitrogen 72 mg/dl (9-20); Calcium 8.1 mg/dl (8.4-10.2); Carbon Dioxide 21 mmol/L (22-30); Chloride 105 mmol/L (98-107); Estimated Creatinine Clearance 20 ml/min; Glucose 130 mg/dl (70-99); Magnesium 2.4 mg/dl (1.6-2.3); Potassium 4.4 mmol/L (3.5-5.1); Sodium 136 mmol/L (135-145); Total Bilirubin 0.8 mg/dl (0.2-1.3); Total Protein 5.7 g/dl (6.3-8.2); eGFR 19.32
[2024-06-19] MEDS: PLAVIX 75 MG PO (10:42)
[2024-06-19] MEDS: IMDUR (EXTENDED RELEASE) 30 MG PO (10:42)
[2024-06-19] MEDS: APRESOLINE 25 MG PO ×3 (10:42→22:22)
[2024-06-19] MEDS: ZETIA 10 MG PO (10:42)
[2024-06-19] MEDS: ASPIR LOW (ENTERIC COATED) 81 MG PO (10:42)
[2024-06-19] MEDS: HEPARIN 5000 UNITS SC ×2 (10:43→20:34)
[2024-06-19] MEDS: PROTONIX 40 MG PO (10:45)
[2024-06-19] MEDS: TOPROL XL 50 MG PO (10:45)
--- NOTE | 2024-06-19 11:03 | W.PN.NEPH.PH ---
Today's Communication / Plan
-
Observe
Holding lasix
Assessment/Plan
-
Assessment
MAEGAN
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
Coronary artery disease with bypass
Paroxysmal atrial fibrillation
Hypertension
Edema/venous stasis diabetes mellitus type 2
Cognitive impairment
Plan
holding lasix
uop not recorded,weights relatively stable
creatinine improving slowly 3.2/BUN 72
UA bland, U PCR 4.9gm/gm of cr, neg U eosinophils, pending serologies, normal complements
follow BMP
Hemodynamically stable
monitor bladder scan, had SC before
avoid nephrotoxins
lasix on hold, resume if needed , re: weights increase
There are no further interventions in regards to his acute kidney injury
-
-
Date of Service: June 19, 2024
CC / HPI / ROS
-
Chief Complaint:
MAEGAN
History of Present Illness:
MAEGAN/Cr to 3.2
BUN at 72
BP stable
hgb stable
Review of Systems:
no CP/SOB
uop not recorded
diarrhea still ?, patient denies ever having diarrhea
weights stable
Labs
-
Labs:
WBC 6.6 10^3/uL (4.8-10.8) 06/19/24 06:23
RBC 3.97 10^6/uL (4.70-6.10) L 06/19/24 06:23
Hgb 11.8 g/dL (13.0-18.0) L 06/19/24 06:23
Hct 35.5 % (39.0-52.0) L 06/19/24 06:23
Plt Count 111 10^3/uL (130-400) L 06/19/24 06:23
Sodium 136 mmol/L (135-145) 11/25/24 06:24
Potassium 4.4 mmol/L (3.5-5.1) 06/19/24 06:24
Chloride 105 mmol/L (98-107) 06/19/24 06:24
Carbon Dioxide 21 mmol/L (22-30) L 06/19/24 06:24
BUN 72 mg/dl (9-20) H 06/19/24 06:24
Creatinine 3.2 mg/dL (0.7-1.3) H 06/19/24 06:24
eGFR 19.32 06/19/24 06:24
Glucose 130 mg/dl (70-99) H 06/19/24 06:24
Calcium 8.1 mg/dl (8.4-10.2) L 06/19/24 06:24
Kta-H-Vivtoxmjtuo Pept 9940 pg/ml 06/19/24 06:24
Albumin 3.2 g/dl (3.5-5.0) L 06/19/24 06:24
Physical Exam
-
Vital Signs:
Vital Signs
Temp Pulse Resp BP Pulse Ox
98.3 F 61 17 148/59 97
06/19/24 07:15 06/19/24 10:45 06/19/24 07:15 06/19/24 10:45 06/19/24 07:15
Cardiovascular:: Regular rate and rhythm
Respiratory:: Bilateral: CTA (anteriorly)
Lung Excursion:: Normal
Abdomen:: Nontender and Soft
Extremity Edema:: +2: Bilateral:
Haas Catheter: No
[2024-06-19 11:41] LABS: Glucose - Point of Care 155 mg/dl (70-99)
[2024-06-19] MEDS: NOVOLOG FLEXPEN-LOW RESISTANCE 1 UNITS SC ×2 (13:41→17:48)
--- NOTE | 2024-06-19 14:51 | CM ---
Reviewed chart, still no return call has been received from patient's daughter. Placed a call back to patient's daughter however there was no answer. Left voice mail. Encouraged return call. Placed a call to patient's brother however had to leave a
voice mail message. Will attempt to get a hold of family so that new SNF can be chosen as patient is unable to return to [place].
Plan: Case management will continue to follow and assist with discharge planning. SNF once family returns communication and patient is stable.
[2024-06-19 15:15] VITALS: BP 150/72
[2024-06-19 16:38] LABS: Glucose - Point of Care 152 mg/dl (70-99)
--- NOTE | 2024-06-19 16:55 | W.PN.HOSP.TC ---
Today's Communication/Plan
-
Creatinine has been improving and plateau at 3.2
Stable respiratory status.
Monitor.
Ongoing disposition efforts
Assessment / Plan
Assessment / Plan
Impression:
MAEGAN.
CKD stage IV progressive
Diarrhea
Conditions prior to admission:
CHF reduced EF.
-Echo 06/18: Mildly reduced LVEF 40-45%. Stage III diastolic dysfunction. Dilated RV with mildly reduced RV systolic function. Severe TR. LVEF reduced from 55 to 60% (03/04/2023) worsened MR and RV function.
CKD stage IV.
Essential hypertension
CAD with history of CABG 2016
Paroxysmal atrial fibrillation
AICD
History of CVA in 2022
Insulin requiring diabetes
Dyslipidemia
Chronic lower extremity edema due to lymphedema and venous insufficiency
Dementia suspected vascular type.
Plan
MAEGAN on CKD 4
Likely due to diuresis
Suspect cardiorenal state
UA consistent with proteinuria suspected diabetic nephropathy
Recent sonogram with no obstruction
Noted with intermittent retention requiring straight cath upon admission. Continue to monitor closely for recurrence.
Creatinine up to 3.6-3.2
Continue hold Lasix.
Bladder scan.
Follow BMP.
If rising creatinine with evidence of volume overload, cardiorenal state should be suspected with consideration of resumption of diuresis
Diarrheal illness reported.
If recurrent, check stool for C. difficile
CHF reduced EF.
CAD
Ischemic anemia
No evidence for decompensation.
Stable respiratory status.
Pro CHF BNP below baseline
Chest x-ray with no evidence of pulmonary edema, although with small to moderate left pleural effusion
Monitor volume status closely while off Lasix
Continue preadmission regimen including metoprolol, Imdur, hydralazine, Lipitor, Norvasc, aspirin
IDDM.
Recent hemoglobin A one 7.1
Euglycemic with fasting blood glucose at 71
Reduce Lantus to 5 units at bedtime
Continue basal protocol.
Monitor for hypoglycemia in the settings of decreased renal clearance.
Physical therapy assessment
Anticipated Discharge: 24 - 48 hours
Subjective/Interval History
-
Date of Service: June 19, 2024
Objective Data
-
Labs:
Laboratory Results
06/19/24 06/19/24
06:23 06:24
WBC 6.6
Hgb 11.8 L
Hct 35.5 L
Plt Count 111 L
Sodium 136
Potassium 4.4
Chloride 105
Carbon Dioxide 21 L
BUN 72 H
Creatinine 3.2 H
Glucose 130 H
Calcium 8.1 L
Total Bilirubin 0.8
AST 42
ALT 31
Alkaline Phosphatase 107
Vital Signs:
Vital Signs
Temp Pulse Resp BP Pulse Ox
97.8 F 61 17 150/72 99
06/19/24 15:15 06/19/24 15:15 06/19/24 15:15 06/19/24 15:15 06/19/24 15:15
I&O
06/18/24 06/19/24 06/20/24
06:59 06:59 06:59
Intake Total 240 / 240
Balance 240 / 240
Physical Exam
-
General: Well Developed, Well Nourished and No Apparent Distress
HEENT: Normocephalic and Atraumatic
Respiratory: Clear to Auscultation; Negative Wheezes or Rhonchi
Cardiac: Regular Rhythm and S1/S2; Negative Murmur
GI: Soft, Nontender, Nondistended and Normal Bowel Sounds
Musculoskeletal: No Clubbing, No Cyanosis and No Edema (3+ LE edema)
Neuro: Awake and Alert
Psych: Calm
[2024-06-19 21:19] LABS: Glucose - Point of Care 177 mg/dl (70-99)
[2024-06-19] MEDS: LIPITOR 80 MG PO (22:19)
[2024-06-19] MEDS: NORVASC 10 MG PO (22:19)
[2024-06-19] MEDS: LANTUS 0.05 UNITS SC (22:19)
[2024-06-19 22:26] VITALS: BP 144/59
[2024-06-20 06:00] VITALS: BMI 27.1
[2024-06-20 07:10] VITALS: BP 147/61
[2024-06-20 07:21] LABS: Glucose - Point of Care 116 mg/dl (70-99)
[2024-06-20 07:26] LABS: Blood Urea Nitrogen 68 mg/dl (9-20); Calcium 8.2 mg/dl (8.4-10.2); Carbon Dioxide 19 mmol/L (22-30); Chloride 105 mmol/L (98-107); Estimated Creatinine Clearance 22 ml/min; Glucose 114 mg/dl (70-99); Potassium 4.3 mmol/L (3.5-5.1); Sodium 136 mmol/L (135-145); eGFR 20.87
[2024-06-20] MEDS: NOVOLOG FLEXPEN-LOW RESISTANCE SC ×2 (08:08→13:09)
[2024-06-20] MEDS: IMDUR (EXTENDED RELEASE) 30 MG PO (08:09)
[2024-06-20] MEDS: APRESOLINE 25 MG PO ×3 (08:09→20:21)
[2024-06-20] MEDS: ZETIA 10 MG PO (08:09)
[2024-06-20] MEDS: PLAVIX 75 MG PO (08:09)
[2024-06-20] MEDS: PROTONIX 40 MG PO (08:09)
[2024-06-20] MEDS: ASPIR LOW (ENTERIC COATED) 81 MG PO (08:09)
[2024-06-20] MEDS: TOPROL XL 50 MG PO (08:10)
[2024-06-20] MEDS: HEPARIN 5000 UNITS SC ×2 (08:10→20:19)
[2024-06-20 12:44] LABS: Albumin 2.97 g/dL (3.75-5.01); Alpha 1 Globulin 0.38 g/dL (0.19-0.46); Alpha 2 Globulin 0.75 g/dL (0.48-1.05); SPEP IFE Reflex Not Done; Total Protein-Electrophoresis 5.6 g/dL (6.3-8.2)
[2024-06-20 12:52] LABS: Glucose - Point of Care 111 mg/dl (70-99)
--- NOTE | 2024-06-20 15:05 | W.PN.NEPH.PH ---
Today's Communication / Plan
-
Add Lasix 20 mg daily
Follow BMP
Assessment/Plan
-
Assessment
MAEGAN
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
Coronary artery disease with bypass
Paroxysmal atrial fibrillation
Hypertension
Edema/venous stasis diabetes mellitus type 2
Cognitive impairment
Plan
Will add back Lasix at 20 mg for rising weight (outpatient dose is 40mg daily)
creatinine improving slowly 3.0/BUN 68
UA bland, U PCR 4.9gm/gm of cr, neg U eosinophils, pending serologies, normal complements
follow BMP
Hemodynamically stable
monitor bladder scan, had SC before
avoid nephrotoxins
There are no further interventions in regards to his acute kidney injury
I think the patient is having progressive CKD
Discussed with primary team
-
-
Date of Service: June 20, 2024
CC / HPI / ROS
-
Chief Complaint:
MAEGAN
History of Present Illness:
MAEGAN/Cr to 3.
BUN at 68
BP stable
hgb stable
Review of Systems:
no CP/SOB
uop not recorded
diarrhea still ?, patient denies ever having diarrhea
weights up
Patient eating some of his meal
Labs
-
Labs:
WBC 6.6 10^3/uL (4.8-10.8) 06/19/24 06:23
RBC 3.97 10^6/uL (4.70-6.10) L 06/19/24 06:23
Hgb 11.8 g/dL (13.0-18.0) L 06/19/24 06:23
Hct 35.5 % (39.0-52.0) L 06/19/24 06:23
Plt Count 111 10^3/uL (130-400) L 06/19/24 06:23
Sodium 136 mmol/L (135-145) 06/20/24 06:30
Potassium 4.3 mmol/L (3.5-5.1) 06/20/24 06:30
Chloride 105 mmol/L (98-107) 06/20/24 06:30
Carbon Dioxide 19 mmol/L (22-30) L 06/20/24 06:30
BUN 68 mg/dl (9-20) H 06/20/24 06:30
Creatinine 3.0 mg/dL (0.7-1.3) H 06/20/24 06:30
eGFR 20.87 06/20/24 06:30
Glucose 114 mg/dl (70-99) H 06/20/24 06:30
Calcium 8.2 mg/dl (8.4-10.2) L 06/20/24 06:30
Llc-H-Rlktqpvblqj Pept 9940 pg/ml 06/19/24 06:24
Albumin 3.2 g/dl (3.5-5.0) L 06/19/24 06:24
Physical Exam
-
Vital Signs:
Vital Signs
Temp Pulse Resp BP Pulse Ox
97.5 F 61 16 147/61 96
06/20/24 07:10 06/20/24 08:09 06/20/24 07:10 06/20/24 08:09 06/20/24 07:10
Cardiovascular:: Regular rate and rhythm
Respiratory:: Bilateral: CTA (anteriorly)
Lung Excursion:: Normal
Abdomen:: Nontender and Soft
Extremity Edema:: +2: Bilateral:
Haas Catheter: No
[2024-06-20 15:20] VITALS: BP 142/64
--- NOTE | 2024-06-20 16:02 | W.PN.HOSP.TC ---
Today's Communication/Plan
-
Reinstated on oral Lasix
Follow BMP
Placement
Assessment / Plan
Assessment / Plan
Impression:
MAEGAN.
CKD stage IV progressive
Diarrhea
Conditions prior to admission:
CHF reduced EF.
-Echo 06/18: Mildly reduced LVEF 40-45%. Stage III diastolic dysfunction. Dilated RV with mildly reduced RV systolic function. Severe TR. LVEF reduced from 55 to 60% (03/04/2023) worsened MR and RV function.
CKD stage IV.
Essential hypertension
CAD with history of CABG 2016
Paroxysmal atrial fibrillation
AICD
History of CVA in 2022
Insulin requiring diabetes
Dyslipidemia
Chronic lower extremity edema due to lymphedema and venous insufficiency
Dementia suspected vascular type.
Plan
MAEGAN on CKD 4
Likely due to diuresis
Suspect cardiorenal state
UA consistent with proteinuria suspected diabetic nephropathy
Recent sonogram with no obstruction
Noted with intermittent retention requiring straight cath upon admission. Continue to monitor closely for recurrence.
Creatinine up to 3.6-3.0
Bladder scan.
Follow BMP.
Reinstated on oral Lasix. Follow BMP
Diarrheal illness reported.
If recurrent, check stool for C. difficile
CHF reduced EF.
CAD
Ischemic anemia
No evidence for decompensation.
Stable respiratory status.
Pro CHF BNP below baseline
Chest x-ray with no evidence of pulmonary edema, although with small to moderate left pleural effusion
Monitor volume status closely while off Lasix
Continue preadmission regimen including metoprolol, Imdur, hydralazine, Lipitor, Norvasc, aspirin
IDDM.
Recent hemoglobin A one 7.1
Euglycemic with fasting blood glucose at 71
Reduce Lantus to 5 units at bedtime
Continue basal protocol.
Monitor for hypoglycemia in the settings of decreased renal clearance.
Physical therapy assessment
Anticipated Discharge: 24 - 48 hours
Subjective/Interval History
-
Date of Service: June 20, 2024
Objective Data
-
Labs:
Laboratory Results
06/20/24
06:30
Sodium 136
Potassium 4.3
Chloride 105
Carbon Dioxide 19 L
BUN 68 H
Creatinine 3.0 H
Glucose 114 H
Calcium 8.2 L
Vital Signs:
Vital Signs
Temp Pulse Resp BP Pulse Ox
97.5 F 61 16 147/61 96
06/20/24 07:10 06/20/24 08:09 06/20/24 07:10 06/20/24 08:09 06/20/24 07:10
I&O
06/19/24 06/20/24 06/21/24
06:59 06:59 06:59
Intake Total 240 / 240 1740 / 1740
Balance 240 / 240 1740 / 1740
Physical Exam
-
General: Well Developed, Well Nourished and No Apparent Distress
HEENT: Normocephalic and Atraumatic
Respiratory: Clear to Auscultation; Negative Wheezes or Rhonchi
Cardiac: Regular Rhythm and S1/S2; Negative Murmur
GI: Soft, Nontender, Nondistended and Normal Bowel Sounds
Musculoskeletal: No Clubbing, No Cyanosis and No Edema (3+ LE edema)
Neuro: Awake and Alert
Psych: Calm
[2024-06-20 16:48] VITALS: BP 136/55; PULSE 61; O2SAT 94
--- NOTE | 2024-06-20 17:05 | CM ---
[facility] said no bed.
LM with with dgt Dina to request more SNF to [facility] in [facility].
Medicare pt.
PLAN To SNf after located and medically ready
[2024-06-20] MEDS: LASIX 20 MG PO (17:18)
[2024-06-20 17:21] LABS: Glucose - Point of Care 155 mg/dl (70-99)
[2024-06-20] MEDS: NOVOLOG FLEXPEN-LOW RESISTANCE 1 UNITS SC (17:23)
[2024-06-20] MEDS: NORVASC 10 MG PO (20:18)
[2024-06-20] MEDS: LIPITOR 80 MG PO (20:18)
[2024-06-20 21:33] LABS: Glucose - Point of Care 162 mg/dl (70-99)
[2024-06-20] MEDS: LANTUS 0.05 UNITS SC (22:43)
[2024-06-20 23:58] VITALS: BP 152/64
--- NOTE | 2024-06-21 04:11 | DOWNTIME ---
There was a [employer] Client Gate Operator Downtime on 06/21/2024 from 0100 to 06/21/2024 at 0350. Downtime documentation of patient's care, including medication administrations, has been reconciled in the electronic record per guidelines. Refer to the
patient's paper chart under the miscellaneous tab to see printed paper medication records and downtime forms.
[2024-06-21 05:37] VITALS: BMI 27.3
[2024-06-21 07:00] VITALS: BP 144/70
[2024-06-21 07:25] LABS: Glucose - Point of Care 92 mg/dl (70-99)
[2024-06-21] MEDS: NOVOLOG FLEXPEN-LOW RESISTANCE SC ×3 (08:34→17:03)
[2024-06-21] MEDS: TOPROL XL 50 MG PO (08:35)
[2024-06-21] MEDS: IMDUR (EXTENDED RELEASE) 30 MG PO (08:36)
[2024-06-21] MEDS: LASIX 20 MG PO ×2 (08:36→13:03)
[2024-06-21] MEDS: PLAVIX 75 MG PO (08:36)
[2024-06-21] MEDS: APRESOLINE 25 MG PO ×3 (08:36→20:39)
[2024-06-21] MEDS: ZETIA 10 MG PO (08:36)
[2024-06-21] MEDS: PROTONIX 40 MG PO (08:36)
[2024-06-21] MEDS: HEPARIN 5000 UNITS SC ×2 (08:37→20:39)
[2024-06-21] MEDS: ASPIR LOW (ENTERIC COATED) 81 MG PO (08:37)
[2024-06-21 11:20] LABS: Blood Urea Nitrogen 66 mg/dl (9-20); Carbon Dioxide 20 mmol/L (22-30); Chloride 103 mmol/L (98-107); Estimated Creatinine Clearance 21 ml/min; Glucose 84 mg/dl (70-99); Potassium 4.3 mmol/L (3.5-5.1); Sodium 133 mmol/L (135-145); eGFR 20.07
--- NOTE | 2024-06-21 12:00 | W.PN.NEPH.PH ---
Today's Communication / Plan
-
increase lasix to 40mg daily
Assessment/Plan
-
Assessment
MAEGAN
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
Coronary artery disease with bypass
Paroxysmal atrial fibrillation
Hypertension
Edema/venous stasis diabetes mellitus type 2
Cognitive impairment
Plan
MAEGAN-cr relatively stable at 3.1
I think the patient is having progressive CKD
increase Lasix to 40 mg for rising weight (outpatient dose is 40mg daily)
UA bland, U PCR 4.9gm/gm of cr, neg U eosinophils, pending serologies, normal complements
follow BMP
Hemodynamically stable
monitor bladder scan, had SC before
hyponatremia-FR 48 ounces/day
avoid nephrotoxins
follow labs
-
-
Date of Service: June 21, 2024
CC / HPI / ROS
-
Chief Complaint:
MAEGAN
History of Present Illness:
MAEGAN/Cr to 3.1, sodium low 133
BUN at 66
BP stable
hgb stable
Review of Systems:
no CP/SOB
uop not recorded
diarrhea still ?, patient denies ever having diarrhea
weights up
Labs
-
Labs:
WBC 6.6 10^3/uL (4.8-10.8) 06/19/24 06:23
RBC 3.97 10^6/uL (4.70-6.10) L 06/19/24 06:23
Hgb 11.8 g/dL (13.0-18.0) L 06/19/24 06:23
Hct 35.5 % (39.0-52.0) L 06/19/24 06:23
Plt Count 111 10^3/uL (130-400) L 06/19/24 06:23
Sodium 133 mmol/L (135-145) L 06/21/24 09:36
Potassium 4.3 mmol/L (3.5-5.1) 06/21/24 09:36
Chloride 103 mmol/L (98-107) 06/21/24 09:36
Carbon Dioxide 20 mmol/L (22-30) L 06/21/24 09:36
BUN 66 mg/dl (9-20) H 06/21/24 09:36
Creatinine 3.1 mg/dL (0.7-1.3) H 06/21/24 09:36
eGFR 20.07 06/21/24 09:36
Glucose 84 mg/dl (70-99) 06/21/24 09:36
Calcium 8.0 mg/dl (8.4-10.2) L 06/21/24 09:36
Pcm-C-Wemonswhhjz Pept 9940 pg/ml 06/19/24 06:24
Albumin 3.2 g/dl (3.5-5.0) L 06/19/24 06:24
Physical Exam
-
Vital Signs:
Vital Signs
Temp Pulse Resp BP Pulse Ox
98.1 F 67 17 144/70 96
06/21/24 07:00 06/21/24 08:36 06/21/24 07:00 06/21/24 08:36 06/21/24 07:00
Cardiovascular:: Regular rate and rhythm
Respiratory:: Bilateral: CTA (anteriorly)
Lung Excursion:: Normal
Abdomen:: Nontender and Soft
Extremity Edema:: +1: Bilateral:
Haas Catheter: No
[2024-06-21 12:15] LABS: Glucose - Point of Care 86 mg/dl (70-99)
--- NOTE | 2024-06-21 13:23 | CM ---
Reviewed chart, spoke with YULY who was on case yesterday who stated that she called patient's daughter, however, she had to leave a voice mail. Placed another call to patient's daughter to obtain further SNF choices however again had to leave a
message. Placed a call to patient's brother, who was advised that patient is unable to return to [place]. He stated that he would like to keep patient in the [place] area but wanted to defer to patient's daughter, Dina.
Received a call back from Dina who stated that she would like referrals sent to, [facility].
Will send referrals through [employer] and discuss determinations with patient's daughter. She was also advised that she may have to choose more SNF in the event that [facility] are unable to accommodate. She is agreeable.
[facility]errals sent to [facility].
Plan: Case management will continue to follow and assist with discharge planning. SNF when stable.
[2024-06-21 15:00] VITALS: BP 150/60
--- NOTE | 2024-06-21 15:07 | W.PN.HOSP.TC ---
Today's Communication/Plan
-
Continue oral Lasix
Monitor daily weight.
Monitor creatinine
Placement
Assessment / Plan
Assessment / Plan
Impression:
MAEGAN.
CKD stage IV progressive
Diarrhea
Conditions prior to admission:
CHF reduced EF.
-Echo 06/18: Mildly reduced LVEF 40-45%. Stage III diastolic dysfunction. Dilated RV with mildly reduced RV systolic function. Severe TR. LVEF reduced from 55 to 60% (03/04/2023) worsened MR and RV function.
CKD stage IV.
Essential hypertension
CAD with history of CABG 2016
Paroxysmal atrial fibrillation
AICD
History of CVA in 2022
Insulin requiring diabetes
Dyslipidemia
Chronic lower extremity edema due to lymphedema and venous insufficiency
Dementia suspected vascular type.
Plan
MAEGAN on CKD 4
Likely due to diuresis
Suspect cardiorenal state
UA consistent with proteinuria suspected diabetic nephropathy
Recent sonogram with no obstruction
Noted with intermittent retention requiring straight cath upon admission. Continue to monitor closely for recurrence.
Creatinine up to 3.6-3.0
Bladder scan.
Follow BMP.
Reinstated on oral Lasix. Follow BMP
Diarrheal illness reported.
If recurrent, check stool for C. difficile
CHF reduced EF.
CAD
Ischemic anemia
No evidence for decompensation.
Stable respiratory status.
Pro CHF BNP below baseline
Chest x-ray with no evidence of pulmonary edema, although with small to moderate left pleural effusion
Monitor volume status closely while off Lasix
Continue preadmission regimen including metoprolol, Imdur, hydralazine, Lipitor, Norvasc, aspirin
IDDM.
Recent hemoglobin A one 7.1
Euglycemic with fasting blood glucose at 71
Reduce Lantus to 5 units at bedtime
Continue basal protocol.
Monitor for hypoglycemia in the settings of decreased renal clearance.
Physical therapy assessment
Anticipated Discharge: 24 - 48 hours
Subjective/Interval History
-
Date of Service: June 21, 2024
Objective Data
-
Labs:
Laboratory Results
06/21/24
09:36
Sodium 133 L
Potassium 4.3
Chloride 103
Carbon Dioxide 20 L
BUN 66 H
Creatinine 3.1 H
Glucose 84
Calcium 8.0 L
Vital Signs:
Vital Signs
Temp Pulse Resp BP Pulse Ox
98.1 F 62 17 136/62 96
06/21/24 07:00 06/21/24 13:03 06/21/24 07:00 06/21/24 13:03 06/21/24 07:00
I&O
06/20/24 06/21/24 06/22/24
06:59 06:59 06:59
Intake Total 1740 / 1740 720 / 720
Balance 1740 / 1740 720 / 720
Physical Exam
-
General: Well Developed, Well Nourished and No Apparent Distress
HEENT: Normocephalic and Atraumatic
Respiratory: Clear to Auscultation; Negative Wheezes or Rhonchi
Cardiac: Regular Rhythm and S1/S2; Negative Murmur
GI: Soft, Nontender, Nondistended and Normal Bowel Sounds
Musculoskeletal: No Clubbing, No Cyanosis and No Edema (3+ LE edema)
Neuro: Awake and Alert
Psych: Calm
[2024-06-21 16:53] LABS: Glucose - Point of Care 141 mg/dl (70-99)
[2024-06-21] MEDS: LIPITOR 80 MG PO (20:39)
[2024-06-21] MEDS: NORVASC 10 MG PO (20:39)
[2024-06-21 21:18] LABS: Glucose - Point of Care 204 mg/dl (70-99)
[2024-06-21] MEDS: LANTUS 0.05 UNITS SC (22:30)
[2024-06-21 23:47] VITALS: BP 151/63
[2024-06-22 05:43] VITALS: BMI 27.6
[2024-06-22 06:00] VITALS: BMI 27.6
[2024-06-22 07:15] VITALS: BP 158/67
[2024-06-22 07:40] LABS: Glucose - Point of Care 139 mg/dl (70-99)
[2024-06-22] MEDS: NOVOLOG FLEXPEN-LOW RESISTANCE SC ×2 (08:05→16:38)
[2024-06-22 08:20] LABS: Blood Urea Nitrogen 64 mg/dl (9-20); Calcium 8.2 mg/dl (8.4-10.2); Carbon Dioxide 20 mmol/L (22-30); Chloride 102 mmol/L (98-107); Estimated Creatinine Clearance 21 ml/min; Glucose 134 mg/dl (70-99); Potassium 4.6 mmol/L (3.5-5.1); Sodium 133 mmol/L (135-145); eGFR 20.07
[2024-06-22] MEDS: ASPIR LOW (ENTERIC COATED) 81 MG PO (09:16)
[2024-06-22] MEDS: TOPROL XL 50 MG PO (09:17)
[2024-06-22] MEDS: LASIX 40 MG PO (09:17)
[2024-06-22] MEDS: PLAVIX 75 MG PO (09:17)
[2024-06-22] MEDS: HEPARIN 5000 UNITS SC ×2 (09:17→21:35)
[2024-06-22] MEDS: PROTONIX 40 MG PO (09:17)
[2024-06-22] MEDS: IMDUR (EXTENDED RELEASE) 30 MG PO (09:19)
[2024-06-22] MEDS: APRESOLINE 25 MG PO (09:20)
[2024-06-22] MEDS: ZETIA 10 MG PO (09:20)
--- NOTE | 2024-06-22 09:29 | W.PN.HOSP.TC ---
Today's Communication/Plan
-
Bladder scan BID
Low plts, check CBC in am
f/w daily BMP
Assessment / Plan
Assessment / Plan
Impression:
MAEGAN.
CKD stage IV progressive
Diarrhea
Conditions prior to admission:
CHF reduced EF.
-Echo 06/18: Mildly reduced LVEF 40-45%. Stage III diastolic dysfunction. Dilated RV with mildly reduced RV systolic function. Severe TR. LVEF reduced from 55 to 60% (03/04/2023) worsened MR and RV function.
CKD stage IV.
Essential hypertension
CAD with history of CABG 2016
Paroxysmal atrial fibrillation
AICD
History of CVA in 2022
Insulin requiring diabetes
Dyslipidemia
Chronic lower extremity edema due to lymphedema and venous insufficiency
Dementia suspected vascular type.
Plan
MAEGAN on CKD 4, progressive (2-2.4)
Due to cardiorenal state
UA bland, U PCR 4.9gm/gm of cr, neg U eosinophils, pending serologies, normal complements
UA consistent with proteinuria suspected diabetic nephropathy
Recent sonogram with no obstruction
Noted with intermittent retention requiring straight cath upon admission. Continue to monitor closely for recurrence.
Creatinine up to 3.6-3.0
Bladder scan, I do not see results in chart since 06/14. WIll request it as BID
Follow BMP.
Reinstated on oral Lasix. Follow BMP
Diarrheal illness reported.
If recurrent, check stool for C. difficile
CHF reduced EF.
CAD
Ischemic anemia
No evidence for decompensation.
Stable respiratory status.
Pro CHF BNP below baseline
Chest x-ray with no evidence of pulmonary edema, although with small to moderate left pleural effusion
Monitor volume status closely while off Lasix
Continue preadmission regimen including metoprolol, Imdur, hydralazine, Lipitor, Norvasc, aspirin
# thrombocytopenia
Borderline low
Patient is on aspirin, Plavix.
No active bleeding.
# hyponatremia, mild
No confusion
# IDDM.
Recent hemoglobin A one 7.1
Euglycemic with fasting blood glucose was 71
Reduced Lantus to 5 units at bedtime
Continue basal protocol.
Monitor for hypoglycemia in the settings of decreased renal clearance.
Physical therapy assessment
Total time spent to see the patient, examine the patient, review data and lab results, discuss treatment plan with patient, nursing staff around 55 minutes
Anticipated Discharge: > 48 hours
Subjective/Interval History
-
Date of Service: June 22, 2024
He denies chest pain or sob
Objective Data
-
Labs:
Laboratory Results
06/22/24
07:41
Sodium 133 L
Potassium 4.6
Chloride 102
Carbon Dioxide 20 L
BUN 64 H
Creatinine 3.1 H
Glucose 134 H
Calcium 8.2 L
Vital Signs:
Vital Signs
Temp Pulse Resp BP Pulse Ox
97.5 F 60 17 158/67 96
06/22/24 07:15 06/22/24 07:15 06/22/24 07:15 06/22/24 07:15 06/22/24 07:15
I&O
06/21/24 06/22/24 06/23/24
06:59 06:59 06:59
Intake Total 720 / 720
Balance 720 / 720
[2024-06-22 11:54] LABS: Glucose - Point of Care 186 mg/dl (70-99)
[2024-06-22] MEDS: NOVOLOG FLEXPEN-LOW RESISTANCE 1 UNITS SC (13:45)
--- NOTE | 2024-06-22 13:55 | W.PN.NEPH.PH ---
Today's Communication / Plan
-
cont lasix, check daily wts
add po bicarb
Assessment/Plan
-
Assessment
MAEGAN
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
Coronary artery disease with bypass
Paroxysmal atrial fibrillation
Hypertension
Edema/venous stasis diabetes mellitus type 2
Cognitive impairment
Plan
MAEGAN-cr relatively stable at 3.1
I think the patient is having progressive CKD
increased Lasix to 40 mg for rising weight on 06/21 (outpatient dose is 40mg daily)
UA bland, U PCR 4.9gm/gm of cr, neg U eosinophils, pending serologies, normal complements
BP high, increase hydralazine to 50 TID
Hemodynamically stable
monitor bladder scan, had SC before
hyponatremia-stable, cotn FR 48 ounces/day
add po bicarb for met acidosis
avoid nephrotoxins
follow labs
-
-
Date of Service: June 22, 2024
CC / HPI / ROS
-
Chief Complaint:
MAEGAN
History of Present Illness:
MAEGAN/Cr to 3.1-stable , sodium low 133
BUN at 64
BP stable
hgb stable
Review of Systems:
no CP/SOB
uop not recorded
weights not checked
Labs
-
Labs:
WBC 6.6 10^3/uL (4.8-10.8) 06/19/24 06:23
RBC 3.97 10^6/uL (4.70-6.10) L 06/19/24 06:23
Hgb 11.8 g/dL (13.0-18.0) L 06/19/24 06:23
Hct 35.5 % (39.0-52.0) L 06/19/24 06:23
Plt Count 111 10^3/uL (130-400) L 06/19/24 06:23
Sodium 133 mmol/L (135-145) L 06/22/24 07:41
Potassium 4.6 mmol/L (3.5-5.1) 06/22/24 07:41
Chloride 102 mmol/L (98-107) 06/22/24 07:41
Carbon Dioxide 20 mmol/L (22-30) L 06/22/24 07:41
BUN 64 mg/dl (9-20) H 06/22/24 07:41
Creatinine 3.1 mg/dL (0.7-1.3) H 06/22/24 07:41
eGFR 20.07 06/22/24 07:41
Glucose 134 mg/dl (70-99) H 06/22/24 07:41
Calcium 8.2 mg/dl (8.4-10.2) L 06/22/24 07:41
Hkz-J-Atvbfekxxbt Pept 9940 pg/ml 06/19/24 06:24
Albumin 3.2 g/dl (3.5-5.0) L 06/19/24 06:24
Physical Exam
-
Vital Signs:
Vital Signs
Temp Pulse Resp BP Pulse Ox
97.5 F 60 17 158/67 96
06/22/24 07:15 06/22/24 09:17 06/22/24 07:15 06/22/24 09:17 06/22/24 07:15
Cardiovascular:: Regular rate and rhythm
Respiratory:: Bilateral: CTA
Lung Excursion:: Normal
Abdomen:: Nontender and Soft
Extremity Edema:: +1: Bilateral:
Haas Catheter: No
[2024-06-22 15:10] VITALS: BP 142/66
[2024-06-22 16:37] LABS: Glucose - Point of Care 122 mg/dl (70-99)
[2024-06-22] MEDS: APRESOLINE 50 MG PO ×2 (17:17→21:40)
[2024-06-22 21:33] LABS: Glucose - Point of Care 185 mg/dl (70-99)
[2024-06-22] MEDS: LIPITOR 80 MG PO (21:37)
[2024-06-22] MEDS: SODIUM BICARBONATE 325 MG PO (21:37)
[2024-06-22] MEDS: NORVASC 10 MG PO (21:41)
[2024-06-22] MEDS: LANTUS 0.05 UNITS SC (21:41)
[2024-06-22 23:40] VITALS: BP 153/63
[2024-06-23 06:00] VITALS: BMI 27.7
[2024-06-23] MEDS: NOVOLOG FLEXPEN-LOW RESISTANCE SC ×2 (07:27→12:55)
[2024-06-23 07:33] LABS: Glucose - Point of Care 145 mg/dl (70-99)
[2024-06-23 07:53] VITALS: BP 149/63
[2024-06-23 08:17] LABS: Hematocrit 33.2 % (39.0-52.0); Hemoglobin 11.2 g/dL (13.0-18.0); Mean Corp Hgb Conc. 33.7 g/dL (33.0-37.0); Mean Corpuscular Hgb 29.6 pg (27.0-31.0); Mean Corpuscular Volume 87.8 fL (80.0-94.0); Mean Platelet Volume 10.8 fL (7.4-10.4); Platelet Count 175 10^3/uL (130-400); Red Blood Cell Count 3.78 10^6/uL (4.70-6.10); Red Cell Dist. Width 13.6 % (11.5-14.5); White Blood Cell Count 8.4 10^3/uL (4.8-10.8)
[2024-06-23 08:34] LABS: Blood Urea Nitrogen 64 mg/dl (9-20); Calcium 8.2 mg/dl (8.4-10.2); Carbon Dioxide 21 mmol/L (22-30); Chloride 103 mmol/L (98-107); Estimated Creatinine Clearance 20 ml/min; Glucose 143 mg/dl (70-99); Potassium 4.6 mmol/L (3.5-5.1); Sodium 134 mmol/L (135-145); eGFR 18.62
[2024-06-23] MEDS: IMDUR (EXTENDED RELEASE) 30 MG PO (09:29)
[2024-06-23] MEDS: ASPIR LOW (ENTERIC COATED) 81 MG PO (09:29)
[2024-06-23] MEDS: PROTONIX 40 MG PO (09:30)
[2024-06-23] MEDS: TOPROL XL 50 MG PO (09:30)
[2024-06-23] MEDS: ZETIA 10 MG PO (09:30)
[2024-06-23] MEDS: APRESOLINE 50 MG PO ×3 (09:30→21:27)
[2024-06-23] MEDS: LASIX 40 MG PO (09:30)
[2024-06-23] MEDS: SODIUM BICARBONATE 325 MG PO ×2 (09:31→21:28)
[2024-06-23] MEDS: HEPARIN 5000 UNITS SC ×2 (09:31→21:29)
[2024-06-23] MEDS: PLAVIX 75 MG PO (09:31)
[2024-06-23 13:10] VITALS: BP 145/63; BP 150/65; PULSE 58; PULSE 60; PULSE 63; O2SAT 99
--- NOTE | 2024-06-23 13:29 | W.PN.HOSP.TC ---
Today's Communication/Plan
-
f/w nephrology recommendations
Assessment / Plan
Assessment / Plan
Impression:
MAEGAN.
CKD stage IV progressive
Diarrhea
Conditions prior to admission:
CHF reduced EF.
-Echo 06/18: Mildly reduced LVEF 40-45%. Stage III diastolic dysfunction. Dilated RV with mildly reduced RV systolic function. Severe TR. LVEF reduced from 55 to 60% (03/04/2023) worsened MR and RV function.
CKD stage IV.
Essential hypertension
CAD with history of CABG 2016
Paroxysmal atrial fibrillation
AICD
History of CVA in 2022
Insulin requiring diabetes
Dyslipidemia
Chronic lower extremity edema due to lymphedema and venous insufficiency
Dementia suspected vascular type.
Plan
MAEGAN on CKD 4, progressive (2-2.4)
Due to cardiorenal state
UA bland, U PCR 4.9gm/gm of cr, neg U eosinophils, pending serologies, normal complements
UA consistent with proteinuria suspected diabetic nephropathy
Recent sonogram with no obstruction
Noted with intermittent retention requiring straight cath upon admission. Continue to monitor closely for recurrence.
Creatinine up to 3.6-3.0
Bladder scan, I do not see results in chart since 06/14. WIll request it as BID
Follow BMP. Added oral sodium bicarbonate for metabolic acidosis
Reinstated on oral Lasix. Follow BMP
Diarrheal illness reported.
If recurrent, check stool for C. difficile
CHF reduced EF.
CAD
Ischemic anemia
No evidence for decompensation.
Stable respiratory status.
Pro CHF BNP below baseline
Chest x-ray with no evidence of pulmonary edema, although with small to moderate left pleural effusion
Monitor volume status closely while off Lasix
Continue preadmission regimen including metoprolol, Imdur, hydralazine, Lipitor, Norvasc, aspirin
# thrombocytopenia
Borderline low
Patient is on aspirin, Plavix.
No active bleeding.
# hyponatremia, mild
No confusion
# IDDM.
Recent hemoglobin A one 7.1
Euglycemic with fasting blood glucose was 71
Reduced Lantus to 5 units at bedtime
Continue basal protocol.
Monitor for hypoglycemia in the settings of decreased renal clearance.
Physical therapy assessment
Total time spent to see the patient, examine the patient, review data and lab results, discuss treatment plan with patient, nursing staff around 45 minutes
Anticipated Discharge: > 48 hours
Subjective/Interval History
-
Date of Service: June 23, 2024
no pain issues
Objective Data
-
Labs:
Laboratory Results
06/23/24
07:39
WBC 8.4
Hgb 11.2 L
Hct 33.2 L
Plt Count 175 D
Sodium 134 L
Potassium 4.6
Chloride 103
Carbon Dioxide 21 L
BUN 64 H
Creatinine 3.3 H
Glucose 143 H
Calcium 8.2 L
Vital Signs:
Vital Signs
Temp Pulse Resp BP Pulse Ox
97.9 F 61 16 149/63 97
06/23/24 07:53 06/23/24 09:30 06/23/24 07:53 06/23/24 09:30 06/23/24 07:53
I&O
06/22/24 06/23/24 06/24/24
06:59 06:59 06:59
Intake Total 960 / 960
Balance 960 / 960
--- NOTE | 2024-06-23 14:19 | W.PN.NEPH.PH ---
Today's Communication / Plan
-
hold laisx after re weighing
Assessment/Plan
-
Assessment
MAEGAN
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
Coronary artery disease with bypass
Paroxysmal atrial fibrillation
Hypertension
Edema/venous stasis diabetes mellitus type 2
Cognitive impairment
Plan
MAEGAN-cr up at 3.3
I think the patient is having progressive CKD
UA bland, U PCR 4.9gm/gm of cr, neg U eosinophils, neg serologies, normal complements, SPEP
follow bladder scan , 281cc
wt is up but edema improving, recheck wt standing scale
likely hold lasix if wt better
BP high end, increased hydralazine to 50 TID 06/22
hyponatremia-stable, cotn FR 48 ounces/day
cont po bicarb for met acidosis
avoid nephrotoxins
follow labs
d/w nursing
-
-
Date of Service: June 23, 2024
CC / HPI / ROS
-
Chief Complaint:
MAEGAN
History of Present Illness:
MAEGAN/Cr to 3.3, sodium low 134
BUN at 64
BP stable
hgb stable
Review of Systems:
no CP/SOB
uop not recorded
weights is up but not accurate
Labs
-
Labs:
WBC 8.4 10^3/uL (4.8-10.8) 06/23/24 07:39
RBC 3.78 10^6/uL (4.70-6.10) L 06/23/24 07:39
Hgb 11.2 g/dL (13.0-18.0) L 06/23/24 07:39
Hct 33.2 % (39.0-52.0) L 06/23/24 07:39
Plt Count 175 10^3/uL (130-400) D 06/23/24 07:39
Sodium 134 mmol/L (135-145) L 06/23/24 07:39
Potassium 4.6 mmol/L (3.5-5.1) 06/23/24 07:39
Chloride 103 mmol/L (98-107) 06/23/24 07:39
Carbon Dioxide 21 mmol/L (22-30) L 06/23/24 07:39
BUN 64 mg/dl (9-20) H 06/23/24 07:39
Creatinine 3.3 mg/dL (0.7-1.3) H 06/23/24 07:39
eGFR 18.62 06/23/24 07:39
Glucose 143 mg/dl (70-99) H 06/23/24 07:39
Calcium 8.2 mg/dl (8.4-10.2) L 06/23/24 07:39
Vga-U-Chzvjqlnfvn Pept 9940 pg/ml 06/19/24 06:24
Albumin 3.2 g/dl (3.5-5.0) L 06/19/24 06:24
Physical Exam
-
Vital Signs:
Vital Signs
Temp Pulse Resp BP Pulse Ox
97.9 F 61 16 149/63 97
06/23/24 07:53 06/23/24 09:30 06/23/24 07:53 06/23/24 09:30 06/23/24 07:53
Cardiovascular:: Regular rate and rhythm
Respiratory:: Bilateral: CTA
Lung Excursion:: Normal
Abdomen:: Nontender and Soft
Extremity Edema:: +1: Bilateral:
Haas Catheter: No
[2024-06-23 15:11] VITALS: BP 146/66
--- NOTE | 2024-06-23 15:24 | CM ---
Reviewed chart, have not as of yet received confirmation from requested facilities that they can offer a bed. Will f/u with admissions by phone.
Plan: Case management will continue to follow and assist with discharge planning. SNF when stable and bed is found at facility.
[2024-06-23 16:40] LABS: Glucose - Point of Care 151 mg/dl (70-99)
[2024-06-23] MEDS: NOVOLOG FLEXPEN-LOW RESISTANCE 1 UNITS SC (16:42)
[2024-06-23] MEDS: NORVASC 10 MG PO (21:23)
[2024-06-23] MEDS: LIPITOR 80 MG PO (21:23)
[2024-06-23] MEDS: LANTUS 0.05 UNITS SC (21:29)
[2024-06-23 21:31] LABS: Glucose - Point of Care 235 mg/dl (70-99)
[2024-06-23 23:00] VITALS: BP 152/62
[2024-06-24 06:00] VITALS: BMI 27.1
[2024-06-24 07:00] VITALS: BP 150/65
[2024-06-24 08:00] LABS: Glucose - Point of Care 135 mg/dl (70-99)
[2024-06-24 08:29] LABS: Blood Urea Nitrogen 64 mg/dl (9-20); Calcium 8.5 mg/dl (8.4-10.2); Carbon Dioxide 22 mmol/L (22-30); Chloride 103 mmol/L (98-107); Estimated Creatinine Clearance 21 ml/min; Glucose 145 mg/dl (70-99); Potassium 4.5 mmol/L (3.5-5.1); Sodium 136 mmol/L (135-145); eGFR 20.07
[2024-06-24] MEDS: IMDUR (EXTENDED RELEASE) 30 MG PO (09:00)
[2024-06-24] MEDS: PLAVIX 75 MG PO (09:00)
[2024-06-24] MEDS: ZETIA 10 MG PO (09:00)
[2024-06-24] MEDS: TOPROL XL 50 MG PO (09:01)
[2024-06-24] MEDS: APRESOLINE 50 MG PO ×3 (09:01→21:27)
[2024-06-24] MEDS: ASPIR LOW (ENTERIC COATED) 81 MG PO (09:01)
[2024-06-24] MEDS: PROTONIX 40 MG PO (09:01)
[2024-06-24] MEDS: SODIUM BICARBONATE 325 MG PO ×2 (09:02→19:46)
[2024-06-24] MEDS: NOVOLOG FLEXPEN-LOW RESISTANCE SC ×2 (09:03→12:49)
[2024-06-24] MEDS: HEPARIN 5000 UNITS SC ×2 (09:03→19:45)
[2024-06-24 11:09] LABS: Glucose - Point of Care 135 mg/dl (70-99)
--- NOTE | 2024-06-24 11:41 | W.PN.HOSP.TC ---
Today's Communication/Plan
-
f/w nephrology recommendation
c/w bladder scan protocol and chart results
Assessment / Plan
Assessment / Plan
Impression:
MAEGAN.
CKD stage IV progressive
Diarrhea
Conditions prior to admission:
CHF reduced EF.
-Echo 06/18: Mildly reduced LVEF 40-45%. Stage III diastolic dysfunction. Dilated RV with mildly reduced RV systolic function. Severe TR. LVEF reduced from 55 to 60% (03/04/2023) worsened MR and RV function.
CKD stage IV.
Essential hypertension
CAD with history of CABG 2016
Paroxysmal atrial fibrillation
AICD
History of CVA in 2022
Insulin requiring diabetes
Dyslipidemia
Chronic lower extremity edema due to lymphedema and venous insufficiency
Dementia suspected vascular type.
Plan
MAEGAN on CKD 4, progressive (2-2.4)
Due to cardiorenal state
UA bland, U PCR 4.9gm/gm of cr, neg U eosinophils, pending serologies, normal complements
UA consistent with proteinuria suspected diabetic nephropathy
Recent sonogram with no obstruction
Noted with intermittent retention requiring straight cath upon admission. Continue to monitor closely for recurrence.
Creatinine up to 3.6-3.0
Bladder scan, I do not see results in chart since 06/14. Will request it.
Follow BMP. Added oral sodium bicarbonate for metabolic acidosis
Reinstated on oral Lasix, held by nephrology on 06/24. Follow BMP
Diarrheal illness reported.
If recurrent, check stool for C. difficile
CHF reduced EF.
CAD
Ischemic anemia
No evidence for decompensation.
Stable respiratory status.
Pro CHF BNP below baseline
Chest x-ray with no evidence of pulmonary edema, although with small to moderate left pleural effusion
Monitor volume status closely while off Lasix
Continue preadmission regimen including metoprolol, Imdur, hydralazine, Lipitor, Norvasc, aspirin
# thrombocytopenia
Borderline low
Patient is on aspirin, Plavix.
No active bleeding.
# hyponatremia, mild
No confusion
# IDDM.
Recent hemoglobin A one 7.1
Euglycemic with fasting blood glucose was 71
Reduced Lantus to 5 units at bedtime
Continue basal protocol.
Monitor for hypoglycemia in the settings of decreased renal clearance.
Physical therapy assessment
Total time spent to see the patient, examine the patient, review data and lab results, discuss treatment plan with patient, nursing staff around 45 minutes
Anticipated Discharge: 24 - 48 hours
Subjective/Interval History
-
Date of Service: June 24, 2024
Objective Data
-
Labs:
Laboratory Results
06/24/24
06:54
Sodium 136
Potassium 4.5
Chloride 103
Carbon Dioxide 22
BUN 64 H
Creatinine 3.1 H
Glucose 145 H
Calcium 8.5
Vital Signs:
Vital Signs
Temp Pulse Resp BP Pulse Ox
97.9 F 61 14 150/65 96
06/24/24 07:00 06/24/24 07:00 06/24/24 07:00 06/24/24 07:00 06/24/24 07:00
I&O
06/23/24 06/24/24 06/25/24
06:59 06:59 06:59
Intake Total 960 / 960 210 / 210
Output Total 725 / 725
Balance 960 / 960 -515 / -515
--- NOTE | 2024-06-24 11:49 | W.PN.NEPH.PH ---
Today's Communication / Plan
-
Bladder scan
Follow BMP
Holding Lasix
Assessment/Plan
-
Assessment
MAEGAN
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
Coronary artery disease with bypass
Paroxysmal atrial fibrillation
Hypertension
Edema/venous stasis diabetes mellitus type 2
Cognitive impairment
Plan
MAEGAN-cr at 3.1
I think the patient is having progressive CKD
UA bland, U PCR 4.9gm/gm of cr, neg U eosinophils, neg serologies, normal complements, SPEP
follow bladder scan , 700cc, the straight cathed for 720cc last night
wt is up but edema improving, recheck wt standing scale
lasix held right now
BP high end, increased hydralazine to 50 TID 06/22
hyponatremia-stable, maintain FR 48 ounces/day,weights down
cont po bicarb for met acidosis
avoid nephrotoxins
follow labs
d/w nursing
-
-
Date of Service: June 24, 2024
CC / HPI / ROS
-
Chief Complaint:
MAEGAN
History of Present Illness:
MAEGAN/Cr to 3.1, sodium improved 136
BUN at 64
BP stable
hgb stable
Review of Systems:
no CP/SOB
uop not recorded
Weights down
High postvoid scan last evening of 700
Labs
-
Labs:
WBC 8.4 10^3/uL (4.8-10.8) 06/23/24 07:39
RBC 3.78 10^6/uL (4.70-6.10) L 06/23/24 07:39
Hgb 11.2 g/dL (13.0-18.0) L 06/23/24 07:39
Hct 33.2 % (39.0-52.0) L 06/23/24 07:39
Plt Count 175 10^3/uL (130-400) D 06/23/24 07:39
Sodium 136 mmol/L (135-145) 06/24/24 06:54
Potassium 4.5 mmol/L (3.5-5.1) 06/24/24 06:54
Chloride 103 mmol/L (98-107) 06/24/24 06:54
Carbon Dioxide 22 mmol/L (22-30) 06/24/24 06:54
BUN 64 mg/dl (9-20) H 06/24/24 06:54
Creatinine 3.1 mg/dL (0.7-1.3) H 06/24/24 06:54
eGFR 20.07 06/24/24 06:54
Glucose 145 mg/dl (70-99) H 06/24/24 06:54
Calcium 8.5 mg/dl (8.4-10.2) 06/24/24 06:54
Twz-H-Icokjukcjej Pept 9940 pg/ml 06/19/24 06:24
Albumin 3.2 g/dl (3.5-5.0) L 06/19/24 06:24
Physical Exam
-
Vital Signs:
Vital Signs
Temp Pulse Resp BP Pulse Ox
97.9 F 61 14 150/65 96
06/24/24 07:00 06/24/24 07:00 06/24/24 07:00 06/24/24 07:00 06/24/24 07:00
Cardiovascular:: Regular rate and rhythm
Respiratory:: Bilateral: CTA
Lung Excursion:: Normal
Abdomen:: Nontender and Soft
Extremity Edema:: +1: Bilateral:
Haas Catheter: No
[2024-06-24 15:00] VITALS: BP 137/63
[2024-06-24 17:28] LABS: Glucose - Point of Care 185 mg/dl (70-99)
[2024-06-24] MEDS: NOVOLOG FLEXPEN-LOW RESISTANCE 1 UNITS SC (17:52)
[2024-06-24 21:24] LABS: Glucose - Point of Care 163 mg/dl (70-99)
[2024-06-24] MEDS: LANTUS 0.05 UNITS SC (21:26)
[2024-06-24] MEDS: LIPITOR 80 MG PO (21:26)
[2024-06-24] MEDS: NORVASC 10 MG PO (21:26)
[2024-06-24 23:36] VITALS: BP 142/54
[2024-06-25 06:00] VITALS: BMI 27.0
[2024-06-25 07:00] VITALS: BP 143/56
[2024-06-25 08:07] LABS: Glucose - Point of Care 101 mg/dl (70-99)
[2024-06-25 08:40] LABS: Chloride 104 mmol/L (98-107); Potassium 4.8 mmol/L (3.5-5.1); Sodium 136 mmol/L (135-145)
[2024-06-25 08:50] LABS: Blood Urea Nitrogen 64 mg/dl (9-20); Calcium 8.6 mg/dl (8.4-10.2); Carbon Dioxide 22 mmol/L (22-30); Estimated Creatinine Clearance 21 ml/min; Glucose 98 mg/dl (70-99); eGFR 20.07
[2024-06-25] MEDS: TOPROL XL 50 MG PO (09:10)
[2024-06-25] MEDS: APRESOLINE 50 MG PO ×3 (09:11→22:15)
[2024-06-25] MEDS: SODIUM BICARBONATE 325 MG PO ×2 (09:48→22:18)
[2024-06-25] MEDS: PROTONIX 40 MG PO (09:49)
[2024-06-25] MEDS: ASPIR LOW (ENTERIC COATED) 81 MG PO (09:49)
[2024-06-25] MEDS: IMDUR (EXTENDED RELEASE) 30 MG PO ×2 (09:49→09:50)
[2024-06-25] MEDS: ZETIA 10 MG PO (09:49)
[2024-06-25] MEDS: PLAVIX 75 MG PO (09:49)
[2024-06-25] MEDS: HEPARIN 5000 UNITS SC ×2 (09:50→22:19)
[2024-06-25] MEDS: NOVOLOG FLEXPEN-LOW RESISTANCE SC (09:51)
[2024-06-25 12:08] LABS: Glucose - Point of Care 209 mg/dl (70-99)
--- NOTE | 2024-06-25 12:58 | W.PN.HOSP.TC ---
Today's Communication/Plan
-
f/w nephrology recommendations
Assessment / Plan
Assessment / Plan
Impression:
MAEGAN.
CKD stage IV progressive
Diarrhea
Conditions prior to admission:
CHF reduced EF.
-Echo 06/18: Mildly reduced LVEF 40-45%. Stage III diastolic dysfunction. Dilated RV with mildly reduced RV systolic function. Severe TR. LVEF reduced from 55 to 60% (03/04/2023) worsened MR and RV function.
CKD stage IV.
Essential hypertension
CAD with history of CABG 2016
Paroxysmal atrial fibrillation
AICD
History of CVA in 2022
Insulin requiring diabetes
Dyslipidemia
Chronic lower extremity edema due to lymphedema and venous insufficiency
Dementia suspected vascular type.
Plan
MAEGAN on CKD 4, progressive (2-2.4)
Due to cardiorenal state
UA bland, U PCR 4.9gm/gm of cr, neg U eosinophils, pending serologies, normal complements
UA consistent with proteinuria suspected diabetic nephropathy
Recent sonogram with no obstruction
Noted with intermittent retention requiring straight cath upon admission. Continue to monitor closely for recurrence.
Creatinine up to 3.6-3.0
Bladder scan protocol. Haas catheter was placed 06/24.
Follow BMP. Added oral sodium bicarbonate for metabolic acidosis
Reinstated on oral Lasix, held by nephrology on 06/24. Follow BMP
Diarrheal illness reported.
Resolved.
Chronic HFrEF.
CAD
Ischemic anemia
No evidence for decompensation.
Stable respiratory status.
Pro CHF BNP below baseline
Chest x-ray with no evidence of pulmonary edema, although with small to moderate left pleural effusion
Monitor volume status closely while off Lasix
Continue preadmission regimen including metoprolol, Imdur, hydralazine, Lipitor, Norvasc, aspirin
# thrombocytopenia
Borderline low
Patient is on aspirin, Plavix.
No active bleeding.
# hyponatremia, mild
No confusion
# IDDM.
Recent hemoglobin A one 7.1
Euglycemic with fasting blood glucose was 71
Reduced Lantus to 5 units at bedtime
Continue basal protocol.
Monitor for hypoglycemia in the settings of decreased renal clearance.
Physical therapy assessment
Total time spent to see the patient, examine the patient, review data and lab results, discuss treatment plan with patient, nursing staff around 45 minutes
Anticipated Discharge: > 48 hours
Subjective/Interval History
-
Date of Service: June 25, 2024
No chest pain
No sob
Objective Data
-
Labs:
Laboratory Results
06/25/24
07:34
Sodium 136
Potassium 4.8
Chloride 104
Carbon Dioxide 22
BUN 64 H
Creatinine 3.1 H
Glucose 98
Calcium 8.6
Vital Signs:
Vital Signs
Temp Pulse Resp BP Pulse Ox
98.6 F 60 17 143/56 95
06/25/24 07:00 06/25/24 09:11 06/25/24 07:00 06/25/24 09:11 06/25/24 07:00
I&O
06/24/24 06/25/24 06/26/24
06:59 06:59 06:59
Intake Total 210 / 210 1020 / 1020
Output Total 725 / 725 720 / 720
Balance -515 / -515 300 / 300
--- NOTE | 2024-06-25 13:22 | W.PN.NEPH.PH ---
Today's Communication / Plan
-
Haas catheter now in
Reinitiate Lasix 40 mg daily
Follow BMP
Assessment/Plan
-
Assessment
MAEGAN
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
Coronary artery disease with bypass
Paroxysmal atrial fibrillation
Hypertension
Edema/venous stasis diabetes mellitus type 2
Cognitive impairment
Plan
MAEGAN-cr at 3.1
Haas placed for continuous high postvoid residual, 720 cc of urine over past 24 hrs
Will now add back Lasix 40 mg daily
I think the patient is having progressive CKD
PCR 4.9gm/gm of cr, neg U eosinophils, neg serologies, normal complements, SPEP
BP high end, increased hydralazine to 50 TID 06/22, noted improvement
hyponatremia-stable, maintain FR 48 ounces/day,weights down
continue po bicarb for met acidosis
avoid nephrotoxins
follow labs
d/w nursing
-
-
Date of Service: June 25, 2024
CC / HPI / ROS
-
Chief Complaint:
MAEGAN
History of Present Illness:
MAEGAN/Cr to 3.1, sodium improved 136
BUN at 64
BP stable
hgb stable
Review of Systems:
no CP/SOB
Haas catheter
Weights unchanged
Labs
-
Labs:
WBC 8.4 10^3/uL (4.8-10.8) 06/23/24 07:39
RBC 3.78 10^6/uL (4.70-6.10) L 06/23/24 07:39
Hgb 11.2 g/dL (13.0-18.0) L 06/23/24 07:39
Hct 33.2 % (39.0-52.0) L 06/23/24 07:39
Plt Count 175 10^3/uL (130-400) D 06/23/24 07:39
Sodium 136 mmol/L (135-145) 06/25/24 07:34
Potassium 4.8 mmol/L (3.5-5.1) 06/25/24 07:34
Chloride 104 mmol/L (98-107) 06/25/24 07:34
Carbon Dioxide 22 mmol/L (22-30) 06/25/24 07:34
BUN 64 mg/dl (9-20) H 06/25/24 07:34
Creatinine 3.1 mg/dL (0.7-1.3) H 06/25/24 07:34
eGFR 20.07 06/25/24 07:34
Glucose 98 mg/dl (70-99) 06/25/24 07:34
Calcium 8.6 mg/dl (8.4-10.2) 06/25/24 07:34
Zmd-R-Uxfmeamvstx Pept 9940 pg/ml 06/19/24 06:24
Albumin 3.2 g/dl (3.5-5.0) L 06/19/24 06:24
Physical Exam
-
Vital Signs:
Vital Signs
Temp Pulse Resp BP Pulse Ox
98.6 F 60 17 143/56 95
06/25/24 07:00 06/25/24 09:11 06/25/24 07:00 06/25/24 09:11 06/25/24 07:00
Cardiovascular:: Regular rate and rhythm
Respiratory:: Bilateral: Coarse
Lung Excursion:: Normal
Abdomen:: Nontender and Soft
Bowel Sounds:: Normal
Extremity Edema:: +2: Bilateral:
Haas Catheter: Yes
[2024-06-25] MEDS: NOVOLOG FLEXPEN-LOW RESISTANCE 2 UNITS SC (13:57)
[2024-06-25 15:00] VITALS: BP 139/62
[2024-06-25] MEDS: LASIX 40 MG PO (15:06)
[2024-06-25 16:11] LABS: Glucose - Point of Care 186 mg/dl (70-99)
[2024-06-25] MEDS: NOVOLOG FLEXPEN-LOW RESISTANCE 1 UNITS SC (18:01)
[2024-06-25 21:19] LABS: Glucose - Point of Care 153 mg/dl (70-99)
[2024-06-25] MEDS: LIPITOR 80 MG PO (22:15)
[2024-06-25] MEDS: NORVASC 10 MG PO (22:18)
[2024-06-25] MEDS: LANTUS 0.05 UNITS SC (22:19)
[2024-06-25 23:06] VITALS: BP 143/59
[2024-06-26 06:00] VITALS: BMI 26.5
[2024-06-26 07:24] VITALS: BP 147/59
[2024-06-26 07:38] LABS: Glucose - Point of Care 127 mg/dl (70-99)
[2024-06-26] MEDS: NOVOLOG FLEXPEN-LOW RESISTANCE SC ×2 (07:39→16:20)
[2024-06-26] MEDS: ZETIA 10 MG PO (08:56)
[2024-06-26] MEDS: ASPIR LOW (ENTERIC COATED) 81 MG PO (08:57)
[2024-06-26] MEDS: IMDUR (EXTENDED RELEASE) 30 MG PO (08:57)
[2024-06-26] MEDS: SODIUM BICARBONATE 325 MG PO ×2 (08:57→21:53)
[2024-06-26] MEDS: LASIX 40 MG PO (08:57)
[2024-06-26] MEDS: PROTONIX 40 MG PO (08:57)
[2024-06-26] MEDS: APRESOLINE 50 MG PO ×3 (08:58→21:49)
[2024-06-26] MEDS: PLAVIX 75 MG PO (08:58)
[2024-06-26] MEDS: TOPROL XL 50 MG PO (08:58)
[2024-06-26] MEDS: HEPARIN 5000 UNITS SC ×2 (08:59→21:49)
[2024-06-26 09:21] LABS: Hematocrit 34.1 % (39.0-52.0); Hemoglobin 11.5 g/dL (13.0-18.0); Mean Corp Hgb Conc. 33.7 g/dL (33.0-37.0); Mean Corpuscular Hgb 29.6 pg (27.0-31.0); Mean Corpuscular Volume 87.9 fL (80.0-94.0); Mean Platelet Volume 10.3 fL (7.4-10.4); Platelet Count 210 10^3/uL (130-400); Red Blood Cell Count 3.88 10^6/uL (4.70-6.10); Red Cell Dist. Width 14.2 % (11.5-14.5); White Blood Cell Count 8.6 10^3/uL (4.8-10.8)
[2024-06-26 09:48] LABS: Blood Urea Nitrogen 61 mg/dl (9-20); Calcium 8.6 mg/dl (8.4-10.2); Carbon Dioxide 23 mmol/L (22-30); Chloride 103 mmol/L (98-107); Estimated Creatinine Clearance 20 ml/min; Glucose 139 mg/dl (70-99); Potassium 4.6 mmol/L (3.5-5.1); Sodium 138 mmol/L (135-145); eGFR 18.62
[2024-06-26 11:27] LABS: Glucose - Point of Care 182 mg/dl (70-99)
[2024-06-26] MEDS: NOVOLOG FLEXPEN-LOW RESISTANCE 1 UNITS SC (11:41)
[2024-06-26 14:48] VITALS: BP 145/66
--- NOTE | 2024-06-26 14:54 | W.PN.NEPH.PH ---
Today's Communication / Plan
-
hold lasix
Assessment/Plan
-
Assessment
MAEGAN
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
Coronary artery disease with bypass
Paroxysmal atrial fibrillation
Hypertension
Edema/venous stasis diabetes mellitus type 2
Cognitive impairment
Plan
MAEGAN-cr up at 3.3, hold lasix
wts are not accurate on bed scale, edema is much better
keep Haas for U retention
I think the patient is having progressive CKD
PCR 4.9gm/gm of cr, neg U eosinophils, neg serologies, normal complements, SPEP
BP high end, increased hydralazine to 50 TID 06/22, noted improvement
hyponatremia-stable, maintain FR 48 ounces/day,weights down
continue po bicarb for met acidosis
avoid nephrotoxins
follow labs
d/w nursing
care home renal prognosis is poor and unlikely candidate for [employer]HE[employer] with frail state and multiple medical problems
d.w primary who is planning to call the daughter
-
-
Date of Service: June 26, 2024
CC / HPI / ROS
-
Chief Complaint:
MAEGAN
History of Present Illness:
MAEGAN/Cr to 3.3, sodium improved 138
BUN at 61
BP stable
hgb stable
Review of Systems:
no CP/SOB
Haas catheter
Weights decreasing
Labs
-
Labs:
WBC 8.6 10^3/uL (4.8-10.8) 06/26/24 08:41
RBC 3.88 10^6/uL (4.70-6.10) L 06/26/24 08:41
Hgb 11.5 g/dL (13.0-18.0) L 06/26/24 08:41
Hct 34.1 % (39.0-52.0) L 06/26/24 08:41
Plt Count 210 10^3/uL (130-400) 06/26/24 08:41
Sodium 138 mmol/L (135-145) 06/26/24 08:41
Potassium 4.6 mmol/L (3.5-5.1) 06/26/24 08:41
Chloride 103 mmol/L (98-107) 06/26/24 08:41
Carbon Dioxide 23 mmol/L (22-30) 06/26/24 08:41
BUN 61 mg/dl (9-20) H 06/26/24 08:41
Creatinine 3.3 mg/dL (0.7-1.3) H 06/26/24 08:41
eGFR 18.62 06/26/24 08:41
Glucose 139 mg/dl (70-99) H 06/26/24 08:41
Calcium 8.6 mg/dl (8.4-10.2) 06/26/24 08:41
Khi-R-Ldrhzemqhss Pept 9940 pg/ml 06/19/24 06:24
Albumin 3.2 g/dl (3.5-5.0) L 06/19/24 06:24
Physical Exam
-
Vital Signs:
Vital Signs
Temp Pulse Resp BP Pulse Ox
97.6 F 61 17 145/66 98
06/26/24 14:48 06/26/24 14:48 06/26/24 14:48 06/26/24 14:48 06/26/24 14:48
Cardiovascular:: Regular rate and rhythm
Respiratory:: Bilateral: CTA (decreased at bases)
Lung Excursion:: Normal
Abdomen:: Nontender and Soft
Extremity Edema:: +1: Bilateral:
Haas Catheter: Yes
--- NOTE | 2024-06-26 15:45 | CM ---
Placed a call to admissions at [facility] but had to leave a voice mail message. Requested return call about bed status. Placed a call to Kamaljit in admissions at [facility] who stated that she may have a bed for patient towards the end of the week. Sent
updated information via [employer] to [facility] and [facility].
Plan: Case management will continue to follow and assist with discharge planning. SNF when stable.
[2024-06-26 16:18] LABS: Glucose - Point of Care 138 mg/dl (70-99)
[2024-06-26 16:21] VITALS: BP 144/59; BP 146/71; PULSE 62; O2SAT 95
--- NOTE | 2024-06-26 16:40 | W.PN.HOSP.TC ---
Today's Communication/Plan
-
Continue Haas catheter per
Hold Lasix
Monitor volume status closely (improved peripheral edema and stable respiratory status)
Assessment / Plan
Assessment / Plan
Impression:
MAEGAN.
CKD stage IV progressive
Diarrhea
Conditions prior to admission:
CHF reduced EF.
-Echo 06/18: Mildly reduced LVEF 40-45%. Stage III diastolic dysfunction. Dilated RV with mildly reduced RV systolic function. Severe TR. LVEF reduced from 55 to 60% (03/04/2023) worsened MR and RV function.
CKD stage IV.
Essential hypertension
CAD with history of CABG 2016
Paroxysmal atrial fibrillation
AICD
History of CVA in 2022
Insulin requiring diabetes
Dyslipidemia
Chronic lower extremity edema due to lymphedema and venous insufficiency
Dementia suspected vascular type.
Plan
MAEGAN on CKD 4, progressive (2-2.4)
Due to cardiorenal state
UA bland, U PCR 4.9gm/gm of cr, neg U eosinophils, pending serologies, normal complements
UA consistent with proteinuria suspected diabetic nephropathy
Recent sonogram with no obstruction
Noted with intermittent retention requiring straight cath upon admission. Continue to monitor closely for recurrence.
Creatinine up to 3.6-3.0
Bladder scan protocol. Haas catheter was placed 06/24.
Follow BMP. Added oral sodium bicarbonate for metabolic acidosis
Reinstated on oral Lasix, held by nephrology on 06/24. Follow BMP
Diarrheal illness reported.
Resolved.
Chronic HFrEF.
CAD
Ischemic anemia
No evidence for decompensation.
Stable respiratory status.
Pro CHF BNP below baseline
Chest x-ray with no evidence of pulmonary edema, although with small to moderate left pleural effusion
With rising creatinine at 3.3 hold Lasix.
Continue preadmission regimen including metoprolol, Imdur, hydralazine, Lipitor, Norvasc, aspirin
# thrombocytopenia
Borderline low
Patient is on aspirin, Plavix.
No active bleeding.
# hyponatremia, mild
No confusion
# IDDM.
Recent hemoglobin A one 7.1
Euglycemic with fasting blood glucose was 71
Reduced Lantus to 5 units at bedtime
Continue basal protocol.
Monitor for hypoglycemia in the settings of decreased renal clearance.
Physical therapy assessment
Anticipated Discharge: 24 - 48 hours
Subjective/Interval History
-
Date of Service: June 26, 2024
Objective Data
-
Labs:
Laboratory Results
06/26/24
08:41
WBC 8.6
Hgb 11.5 L
Hct 34.1 L
Plt Count 210
Sodium 138
Potassium 4.6
Chloride 103
Carbon Dioxide 23
BUN 61 H
Creatinine 3.3 H
Glucose 139 H
Calcium 8.6
Vital Signs:
Vital Signs
Temp Pulse Resp BP Pulse Ox
97.6 F 61 17 145/66 98
06/26/24 14:48 06/26/24 14:48 06/26/24 14:48 06/26/24 14:48 06/26/24 14:48
I&O
06/25/24 06/26/24 06/27/24
06:59 06:59 06:59
Intake Total 1020 / 1020 1620 / 1620
Output Total 720 / 720 950 / 950
Balance 300 / 300 670 / 670
Physical Exam
-
General: Well Developed, Well Nourished and No Apparent Distress
HEENT: Normocephalic and Atraumatic
Respiratory: Clear to Auscultation; Negative Wheezes or Rhonchi
Cardiac: Regular Rhythm and S1/S2; Negative Murmur
GI: Soft, Nontender, Nondistended and Normal Bowel Sounds
Musculoskeletal: No Clubbing, No Cyanosis and No Edema (3+ LE edema)
Neuro: Awake and Alert
Psych: Calm
[2024-06-26 21:37] LABS: Glucose - Point of Care 243 mg/dl (70-99)
[2024-06-26] MEDS: NORVASC 10 MG PO (21:48)
[2024-06-26] MEDS: LIPITOR 80 MG PO (21:49)
[2024-06-26] MEDS: LANTUS 0.05 UNITS SC (21:50)
[2024-06-26 23:17] VITALS: BP 138/78
[2024-06-27 06:00] VITALS: BMI 27.0
[2024-06-27 07:45] VITALS: BP 153/60
[2024-06-27 08:06] LABS: Glucose - Point of Care 149 mg/dl (70-99)
[2024-06-27 08:17] LABS: Blood Urea Nitrogen 63 mg/dl (9-20); Calcium 8.7 mg/dl (8.4-10.2); Carbon Dioxide 24 mmol/L (22-30); Chloride 102 mmol/L (98-107); Estimated Creatinine Clearance 19 ml/min; Glucose 133 mg/dl (70-99); Potassium 4.8 mmol/L (3.5-5.1); Sodium 135 mmol/L (135-145); eGFR 17.96
[2024-06-27] MEDS: NOVOLOG FLEXPEN-LOW RESISTANCE SC ×2 (09:12→19:45)
[2024-06-27] MEDS: HEPARIN 5000 UNITS SC ×2 (09:14→22:14)
[2024-06-27] MEDS: IMDUR (EXTENDED RELEASE) 30 MG PO (09:14)
[2024-06-27] MEDS: PROTONIX 40 MG PO (09:14)
[2024-06-27] MEDS: ASPIR LOW (ENTERIC COATED) 81 MG PO (09:15)
[2024-06-27] MEDS: ZETIA 10 MG PO (09:15)
[2024-06-27] MEDS: SODIUM BICARBONATE 325 MG PO ×2 (09:15→22:17)
[2024-06-27] MEDS: APRESOLINE 50 MG PO ×3 (09:15→22:19)
[2024-06-27] MEDS: PLAVIX 75 MG PO (09:17)
[2024-06-27] MEDS: TOPROL XL 50 MG PO (09:17)
[2024-06-27 11:40] LABS: Glucose - Point of Care 206 mg/dl (70-99)
--- NOTE | 2024-06-27 14:33 | W.PN.HOSP.TC ---
Today's Communication/Plan
-
Haas has been in place.
While off Lasix creatinine 3.3�3.4.
Monitor renal function
Assessment / Plan
Assessment / Plan
Impression:
MAEGAN.
CKD stage IV progressive
Diarrhea
Conditions prior to admission:
CHF reduced EF.
-Echo 06/18: Mildly reduced LVEF 40-45%. Stage III diastolic dysfunction. Dilated RV with mildly reduced RV systolic function. Severe TR. LVEF reduced from 55 to 60% (03/04/2023) worsened MR and RV function.
CKD stage IV.
Essential hypertension
CAD with history of CABG 2016
Paroxysmal atrial fibrillation
AICD
History of CVA in 2022
Insulin requiring diabetes
Dyslipidemia
Chronic lower extremity edema due to lymphedema and venous insufficiency
Dementia suspected vascular type.
Plan
MAEGAN on CKD 4, progressive (2-2.4)
Due to cardiorenal state
UA bland, U PCR 4.9gm/gm of cr, neg U eosinophils, pending serologies, normal complements
UA consistent with proteinuria suspected diabetic nephropathy
Recent sonogram with no obstruction
Noted with intermittent retention requiring straight cath upon admission. Continue to monitor closely for recurrence.
Creatinine up to 3.6-3.0
Bladder scan protocol. Haas catheter was placed 06/24.
Follow BMP. Added oral sodium bicarbonate for metabolic acidosis
Reinstated on oral Lasix, held by nephrology on 06/24. Follow BMP
Diarrheal illness reported.
Resolved.
Chronic HFrEF.
CAD
Ischemic anemia
No evidence for decompensation.
Stable respiratory status.
Pro CHF BNP below baseline
Chest x-ray with no evidence of pulmonary edema, although with small to moderate left pleural effusion
With rising creatinine at 3.3 hold Lasix.
Continue preadmission regimen including metoprolol, Imdur, hydralazine, Lipitor, Norvasc, aspirin
# thrombocytopenia
Borderline low
Patient is on aspirin, Plavix.
No active bleeding.
# hyponatremia, mild
No confusion
# IDDM.
Recent hemoglobin A one 7.1
Euglycemic with fasting blood glucose was 71
Reduced Lantus to 5 units at bedtime
Continue basal protocol.
Monitor for hypoglycemia in the settings of decreased renal clearance.
Physical therapy assessment
Anticipated Discharge: > 48 hours
Subjective/Interval History
-
Date of Service: June 27, 2024
Objective Data
-
Labs:
Laboratory Results
06/27/24
06:24
Sodium 135
Potassium 4.8
Chloride 102
Carbon Dioxide 24
BUN 63 H
Creatinine 3.4 H
Glucose 133 H
Calcium 8.7
Vital Signs:
Vital Signs
Temp Pulse Resp BP Pulse Ox
98.0 F 60 17 153/60 95
06/27/24 07:45 06/27/24 09:17 06/27/24 07:45 06/27/24 09:17 06/27/24 08:20
I&O
06/26/24 06/27/24 06/28/24
06:59 06:59 06:59
Intake Total 1620 / 1620 600 / 600
Output Total 950 / 950 1000 / 1000 575 / 575
Balance 670 / 670 -400 / -400 -575 / -575
Physical Exam
-
General: Well Developed, Well Nourished and No Apparent Distress
HEENT: Normocephalic and Atraumatic
Respiratory: Clear to Auscultation; Negative Wheezes or Rhonchi
Cardiac: Regular Rhythm and S1/S2; Negative Murmur
GI: Soft, Nontender, Nondistended and Normal Bowel Sounds
Musculoskeletal: No Clubbing, No Cyanosis and No Edema (3+ LE edema)
Neuro: Awake and Alert
Psych: Calm
[2024-06-27 15:13] VITALS: BP 146/64
[2024-06-27] MEDS: NOVOLOG FLEXPEN-LOW RESISTANCE 2 UNITS SC (15:26)
--- NOTE | 2024-06-27 15:59 | W.PN.NEPH.PH ---
Today's Communication / Plan
-
hold lasix and follow labs
Assessment/Plan
-
Assessment
MAEGAN
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
Coronary artery disease with bypass
Paroxysmal atrial fibrillation
Hypertension
Edema/venous stasis diabetes mellitus type 2
Cognitive impairment
Plan
MAEGAN-cr up at 3.4, hold lasix , last dose 06/26
wts are not accurate on bed scale, edema is much better
keep Haas for U retention
I think the patient is having progressive CKD
PCR 4.9gm/gm of cr, neg U eosinophils, neg serologies, normal complements, SPEP
BP high end, increased hydralazine to 50 TID 06/22
hyponatremia-imrpvoed, maintain FR 48 ounces/day
continue po bicarb for met acidosis
avoid nephrotoxins
follow labs
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
-
-
Date of Service: June 27, 2024
CC / HPI / ROS
-
Chief Complaint:
MAEGAN
History of Present Illness:
MAEGAN/Cr to 3.4,
BUN at 63
BP stable on high end
hgb stable
Review of Systems:
no CP/SOB
Haas catheter
Weights not accurate on bed scale
Labs
-
Labs:
WBC 8.6 10^3/uL (4.8-10.8) 06/26/24 08:41
RBC 3.88 10^6/uL (4.70-6.10) L 06/26/24 08:41
Hgb 11.5 g/dL (13.0-18.0) L 06/26/24 08:41
Hct 34.1 % (39.0-52.0) L 06/26/24 08:41
Plt Count 210 10^3/uL (130-400) 06/26/24 08:41
Sodium 135 mmol/L (135-145) 06/27/24 06:24
Potassium 4.8 mmol/L (3.5-5.1) 06/27/24 06:24
Chloride 102 mmol/L (98-107) 06/27/24 06:24
Carbon Dioxide 24 mmol/L (22-30) 06/27/24 06:24
BUN 63 mg/dl (9-20) H 06/27/24 06:24
Creatinine 3.4 mg/dL (0.7-1.3) H 06/27/24 06:24
eGFR 17.96 06/27/24 06:24
Glucose 133 mg/dl (70-99) H 06/27/24 06:24
Calcium 8.7 mg/dl (8.4-10.2) 06/27/24 06:24
Tyc-S-Akatgjfogtn Pept 9940 pg/ml 06/19/24 06:24
Albumin 3.2 g/dl (3.5-5.0) L 06/19/24 06:24
Physical Exam
-
Vital Signs:
Vital Signs
Temp Pulse Resp BP Pulse Ox
97.6 F 60 17 146/64 95
06/27/24 15:13 06/27/24 15:28 06/27/24 15:13 06/27/24 15:28 06/27/24 15:13
Cardiovascular:: Regular rate and rhythm
Respiratory:: Bilateral: CTA
Lung Excursion:: Normal
Abdomen:: Nontender and Soft
Extremity Edema:: +1: Bilateral:
Haas Catheter: Yes
[2024-06-27 16:21] LABS: Glucose - Point of Care 254 mg/dl (70-99)
--- NOTE | 2024-06-27 17:38 | CM ---
Reviewed chart, provided update to Kamaljit at [facility] who stated that she would discuss with her team when and if they can accommodate patient as he may be LTC and right now there are no LTC beds, only short term. Kamaljit has attempted several times
to talk to patient's family but has not yet received a return call. She stated that she would return call in the morning.
Plan: Case management will continue to follow and assist with discharge planning. SNF/LTC when stable.
[2024-06-27 22:17] LABS: Glucose - Point of Care 229 mg/dl (70-99)
[2024-06-27] MEDS: NORVASC 10 MG PO (22:18)
[2024-06-27] MEDS: LIPITOR 80 MG PO (22:18)
[2024-06-27] MEDS: LANTUS 0.05 UNITS SC (22:19)
[2024-06-27 23:00] VITALS: BP 156/81
[2024-06-28 06:00] VITALS: BMI 26.6
[2024-06-28 07:15] VITALS: BP 150/59
[2024-06-28 07:36] LABS: Blood Urea Nitrogen 62 mg/dl (9-20); Calcium 8.4 mg/dl (8.4-10.2); Carbon Dioxide 23 mmol/L (22-30); Chloride 102 mmol/L (98-107); Estimated Creatinine Clearance 19 ml/min; Glucose 144 mg/dl (70-99); Potassium 4.8 mmol/L (3.5-5.1); Sodium 135 mmol/L (135-145); eGFR 17.35
[2024-06-28 08:09] LABS: Glucose - Point of Care 138 mg/dl (70-99)
[2024-06-28] MEDS: NOVOLOG FLEXPEN-LOW RESISTANCE SC (09:28)
--- NOTE | 2024-06-28 09:30 | PTCARENOTE ---
TT to hospitalist and nephro to clarify d/c sin cath. Manager Video [employer] still 3.5. Per hospitalist, will leave sin in place for now
[2024-06-28] MEDS: ASPIR LOW (ENTERIC COATED) 81 MG PO (09:32)
[2024-06-28] MEDS: APRESOLINE 50 MG PO ×3 (09:32→21:18)
[2024-06-28] MEDS: HEPARIN 5000 UNITS SC ×2 (09:32→21:15)
[2024-06-28] MEDS: PLAVIX 75 MG PO (09:32)
[2024-06-28] MEDS: TOPROL XL 50 MG PO (09:33)
[2024-06-28] MEDS: SODIUM BICARBONATE 325 MG PO ×2 (09:33→21:17)
[2024-06-28] MEDS: PROTONIX 40 MG PO (09:33)
[2024-06-28] MEDS: ZETIA 10 MG PO (09:34)
[2024-06-28 11:06] VITALS: BP 139/59; PULSE 63; O2SAT 94
[2024-06-28 12:03] LABS: Glucose - Point of Care 206 mg/dl (70-99)
--- NOTE | 2024-06-28 12:48 | W.PN.NEPH.PH ---
Today's Communication / Plan
-
Continue to follow basic metabolic panel
Diuretics are held
Maintain Haas
Unfortunately kidney function continues to decline and there does not appear to be a reversible component to his renal failure
Assessment/Plan
-
Assessment
MAEGAN
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
Coronary artery disease with bypass
Paroxysmal atrial fibrillation
Hypertension
Edema/venous stasis diabetes mellitus type 2
Cognitive impairment
Plan
MAEGAN-cr up at 3.5 hold lasix , last dose 06/26
wts are not accurate on bed scale, edema is much better
keep Haas for U retention
I think the patient is having progressive CKD
PCR 4.9gm/gm of cr, neg U eosinophils, neg serologies, normal complements, SPEP
BP high end, increased hydralazine to 50 TID 06/22
hyponatremia-stable at 135 maintain FR 48 ounces/day
continue po bicarb for met acidosis
avoid nephrotoxins
follow labs
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
-
-
Date of Service: June 28, 2024
CC / HPI / ROS
-
Chief Complaint:
MAEGAN
History of Present Illness:
MAEGAN/Cr to 3.5
BUN at 63
BP stable on high end
hgb stable
Review of Systems:
no CP/SOB
Haas catheter
Weights not accurate on bed scale
Labs
-
Labs:
WBC 8.6 10^3/uL (4.8-10.8) 06/26/24 08:41
RBC 3.88 10^6/uL (4.70-6.10) L 06/26/24 08:41
Hgb 11.5 g/dL (13.0-18.0) L 06/26/24 08:41
Hct 34.1 % (39.0-52.0) L 06/26/24 08:41
Plt Count 210 10^3/uL (130-400) 06/26/24 08:41
Sodium 135 mmol/L (135-145) 06/28/24 06:32
Potassium 4.8 mmol/L (3.5-5.1) 06/28/24 06:32
Chloride 102 mmol/L (98-107) 06/28/24 06:32
Carbon Dioxide 23 mmol/L (22-30) 06/28/24 06:32
BUN 62 mg/dl (9-20) H 06/28/24 06:32
Creatinine 3.5 mg/dL (0.7-1.3) H 06/28/24 06:32
eGFR 17.35 06/28/24 06:32
Glucose 144 mg/dl (70-99) H 06/28/24 06:32
Calcium 8.4 mg/dl (8.4-10.2) 06/28/24 06:32
Qwi-G-Bnmmgszmjzl Pept 9940 pg/ml 06/19/24 06:24
Albumin 3.2 g/dl (3.5-5.0) L 06/19/24 06:24
Physical Exam
-
Vital Signs:
Vital Signs
Temp Pulse Resp BP Pulse Ox
97.9 F 61 18 150/59 95
06/28/24 07:15 06/28/24 07:15 06/28/24 07:15 06/28/24 07:15 06/28/24 07:15
Cardiovascular:: Regular rate and rhythm
Respiratory:: Bilateral: CTA
Lung Excursion:: Normal
Abdomen:: Nontender and Soft
Extremity Edema:: +1: Bilateral:
Haas Catheter: Yes
[2024-06-28 12:53] VITALS: BP 163/63; PULSE 65; O2SAT 98
[2024-06-28 14:32] LABS: Glucose - Point of Care 177 mg/dl (70-99)
[2024-06-28] MEDS: NOVOLOG FLEXPEN-LOW RESISTANCE 1 UNITS SC (15:02)
[2024-06-28] MEDS: FLOMAX 0.4 MG PO (15:06)
[2024-06-28 15:09] VITALS: BP 157/66
--- NOTE | 2024-06-28 16:24 | W.PN.HOSP.TC ---
Today's Communication/Plan
-
Monitor creatinine while off Lasix with Haas catheter in place.
Assessment / Plan
Assessment / Plan
Impression:
MAEGAN.
CKD stage IV progressive
Diarrhea
Conditions prior to admission:
CHF reduced EF.
-Echo 06/18: Mildly reduced LVEF 40-45%. Stage III diastolic dysfunction. Dilated RV with mildly reduced RV systolic function. Severe TR. LVEF reduced from 55 to 60% (03/04/2023) worsened MR and RV function.
CKD stage IV.
Essential hypertension
CAD with history of CABG 2016
Paroxysmal atrial fibrillation
AICD
History of CVA in 2022
Insulin requiring diabetes
Dyslipidemia
Chronic lower extremity edema due to lymphedema and venous insufficiency
Dementia suspected vascular type.
Plan
MAEGAN on CKD 4, progressive (2-2.4)
Due to cardiorenal state
UA bland, U PCR 4.9gm/gm of cr, neg U eosinophils, pending serologies, normal complements
UA consistent with proteinuria suspected diabetic nephropathy
Recent sonogram with no obstruction
Noted with intermittent retention requiring straight cath upon admission. Continue to monitor closely for recurrence.
Creatinine up to 3.6-3.0
Bladder scan protocol. Haas catheter was placed 06/24.
Follow BMP. Added oral sodium bicarbonate for metabolic acidosis
Reinstated on oral Lasix, held by nephrology on 06/24. Follow BMP
Diarrheal illness reported.
Resolved.
Chronic HFrEF.
CAD
Ischemic anemia
No evidence for decompensation.
Stable respiratory status.
Pro CHF BNP below baseline
Chest x-ray with no evidence of pulmonary edema, although with small to moderate left pleural effusion
Creatinine is up to 3.[address] and has been off Lasix since 06/26
Continue preadmission regimen including metoprolol, Imdur, hydralazine, Lipitor, Norvasc, aspirin
# thrombocytopenia
Borderline low
Patient is on aspirin, Plavix.
No active bleeding.
# hyponatremia, mild
No confusion
# IDDM.
Recent hemoglobin A one 7.1
Euglycemic with fasting blood glucose was 71
Reduced Lantus to 5 units at bedtime
Continue basal protocol.
Monitor for hypoglycemia in the settings of decreased renal clearance.
Physical therapy assessment
Anticipated Discharge: > 48 hours
Subjective/Interval History
-
Date of Service: June 28, 2024
Objective Data
-
Labs:
Laboratory Results
06/28/24
06:32
Sodium 135
Potassium 4.8
Chloride 102
Carbon Dioxide 23
BUN 62 H
Creatinine 3.5 H
Glucose 144 H
Calcium 8.4
Vital Signs:
Vital Signs
Temp Pulse Resp BP Pulse Ox
98.0 F 62 17 157/66 98
06/28/24 15:09 06/28/24 15:09 06/28/24 15:09 06/28/24 15:09 06/28/24 15:09
I&O
06/27/24 06/28/24 06/29/24
06:59 06:59 06:59
Intake Total 600 / 600 480 / 480
Output Total 1000 / 1000 1225 / 1225
Balance -400 / -400 -745 / -745
Physical Exam
-
General: Well Developed, Well Nourished and No Apparent Distress
HEENT: Normocephalic and Atraumatic
Respiratory: Clear to Auscultation; Negative Wheezes or Rhonchi
Cardiac: Regular Rhythm and S1/S2; Negative Murmur
GI: Soft, Nontender, Nondistended and Normal Bowel Sounds
Musculoskeletal: No Clubbing, No Cyanosis and No Edema (3+ LE edema)
Neuro: Awake and Alert
Psych: Calm
[2024-06-28 16:52] LABS: Glucose - Point of Care 265 mg/dl (70-99)
[2024-06-28] MEDS: NOVOLOG FLEXPEN-LOW RESISTANCE 3 UNITS SC (17:42)
[2024-06-28] MEDS: LIPITOR 80 MG PO (21:18)
[2024-06-28] MEDS: NORVASC 10 MG PO (21:18)
[2024-06-28 21:27] LABS: Glucose - Point of Care 202 mg/dl (70-99)
[2024-06-28] MEDS: LANTUS 0.05 UNITS SC (21:27)
[2024-06-28 23:57] VITALS: BP 124/50
[2024-06-29 06:19] VITALS: BMI 26.7
[2024-06-29 07:21] VITALS: BP 141/59
[2024-06-29 07:30] LABS: Glucose - Point of Care 150 mg/dl (70-99)
[2024-06-29] MEDS: IMDUR (EXTENDED RELEASE) 30 MG PO (08:12)
[2024-06-29] MEDS: FLOMAX 0.4 MG PO (08:12)
[2024-06-29] MEDS: ASPIR LOW (ENTERIC COATED) 81 MG PO (08:13)
[2024-06-29] MEDS: ZETIA 10 MG PO (08:13)
[2024-06-29] MEDS: APRESOLINE 50 MG PO ×3 (08:13→21:36)
[2024-06-29] MEDS: PROTONIX 40 MG PO (08:13)
[2024-06-29] MEDS: PLAVIX 75 MG PO (08:13)
[2024-06-29] MEDS: SODIUM BICARBONATE 325 MG PO ×2 (08:13→21:37)
[2024-06-29] MEDS: TOPROL XL 50 MG PO (08:14)
[2024-06-29] MEDS: NOVOLOG FLEXPEN-LOW RESISTANCE 1 UNITS SC ×2 (08:14→12:09)
[2024-06-29] MEDS: HEPARIN 5000 UNITS SC ×2 (08:14→21:32)
[2024-06-29 09:13] LABS: Blood Urea Nitrogen 63 mg/dl (9-20); Calcium 8.5 mg/dl (8.4-10.2); Carbon Dioxide 24 mmol/L (22-30); Chloride 101 mmol/L (98-107); Estimated Creatinine Clearance 20 ml/min; Glucose 140 mg/dl (70-99); Potassium 4.9 mmol/L (3.5-5.1); Sodium 135 mmol/L (135-145); eGFR 18.62
[2024-06-29 11:10] LABS: Glucose - Point of Care 161 mg/dl (70-99)
--- NOTE | 2024-06-29 13:45 | W.PN.NEPH.PH ---
Today's Communication / Plan
-
observe
Dialysis discussion with patient today
Assessment/Plan
-
Assessment
MAEGAN
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
Coronary artery disease with bypass
Paroxysmal atrial fibrillation
Hypertension
Edema/venous stasis diabetes mellitus type 2
Cognitive impairment
Plan
MAEGAN-cr down to 3.3 holding lasix , last dose 06/26
wts stable
keep Haas for U retention
I think the patient is having progressive CKD
PCR 4.9gm/gm of cr, neg U eosinophils, neg serologies, normal complements, SPEP
BP high end, increased hydralazine to 50 TID 06/22
hyponatremia-stable at 135 maintain FR 48 ounces/day
continue po bicarb for met acidosis
avoid nephrotoxins
follow labs
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
I did discuss this with the patient today who stated he would do dialysis if needed
No acute need at this point but we are likely heading there
-
-
Date of Service: June 29, 2024
CC / HPI / ROS
-
Chief Complaint:
MAEGAN
History of Present Illness:
MAEGAN/Cr down to 3.3
BUN at 63
BP stable on high end
hgb stable
Review of Systems:
no CP/SOB
Haas catheter
Weights not accurate on bed scale
Labs
-
Labs:
WBC 8.6 10^3/uL (4.8-10.8) 06/26/24 08:41
RBC 3.88 10^6/uL (4.70-6.10) L 06/26/24 08:41
Hgb 11.5 g/dL (13.0-18.0) L 06/26/24 08:41
Hct 34.1 % (39.0-52.0) L 06/26/24 08:41
Plt Count 210 10^3/uL (130-400) 06/26/24 08:41
Sodium 135 mmol/L (135-145) 06/29/24 07:31
Potassium 4.9 mmol/L (3.5-5.1) 06/29/24 07:31
Chloride 101 mmol/L (98-107) 06/29/24 07:31
Carbon Dioxide 24 mmol/L (22-30) 06/29/24 07:31
BUN 63 mg/dl (9-20) H 06/29/24 07:31
Creatinine 3.3 mg/dL (0.7-1.3) H 06/29/24 07:31
eGFR 18.62 06/29/24 07:31
Glucose 140 mg/dl (70-99) H 06/29/24 07:31
Calcium 8.5 mg/dl (8.4-10.2) 06/29/24 07:31
Ujy-F-Crhaknltkbd Pept 9940 pg/ml 06/19/24 06:24
Albumin 3.2 g/dl (3.5-5.0) L 06/19/24 06:24
Physical Exam
-
Vital Signs:
Vital Signs
Temp Pulse Resp BP Pulse Ox
98.6 F 62 17 141/59 97
06/29/24 07:21 06/29/24 07:21 06/29/24 07:21 06/29/24 07:21 06/29/24 07:21
Cardiovascular:: Regular rate and rhythm
Respiratory:: Bilateral: CTA
Lung Excursion:: Normal
Abdomen:: Nontender and Soft
Extremity Edema:: +1: Bilateral:
Haas Catheter: Yes
[2024-06-29 14:43] VITALS: BP 143/80
--- NOTE | 2024-06-29 14:43 | W.PN.HOSP.TC ---
Today's Communication/Plan
-
Has been off Lasix.
Monitor volume status
Follow creatinine
Ongoing discussions in terms of goals of care and possible option for renal replacement therapy.
Assessment / Plan
Assessment / Plan
Impression:
MAEGAN.
CKD stage IV progressive
Diarrhea
Conditions prior to admission:
CHF reduced EF.
-Echo 06/18: Mildly reduced LVEF 40-45%. Stage III diastolic dysfunction. Dilated RV with mildly reduced RV systolic function. Severe TR. LVEF reduced from 55 to 60% (03/04/2023) worsened MR and RV function.
CKD stage IV.
Essential hypertension
CAD with history of CABG 2016
Paroxysmal atrial fibrillation
AICD
History of CVA in 2022
Insulin requiring diabetes
Dyslipidemia
Chronic lower extremity edema due to lymphedema and venous insufficiency
Dementia suspected vascular type.
Plan
MAEGAN on CKD 4, progressive (2-2.4)
Due to cardiorenal state
UA bland, U PCR 4.9gm/gm of cr, neg U eosinophils, pending serologies, normal complements
UA consistent with proteinuria suspected diabetic nephropathy
Recent sonogram with no obstruction
Noted with intermittent retention requiring straight cath upon admission. Continue to monitor closely for recurrence.
Creatinine up to 3.6-3.0
Bladder scan protocol. Haas catheter was placed 06/24.
Follow BMP. Added oral sodium bicarbonate for metabolic acidosis
Reinstated on oral Lasix, held by nephrology on 06/24. Follow BMP
Diarrheal illness reported.
Resolved.
Chronic HFrEF.
CAD
Ischemic anemia
No evidence for decompensation.
Stable respiratory status.
Pro CHF BNP below baseline
Chest x-ray with no evidence of pulmonary edema, although with small to moderate left pleural effusion
Creatinine is up to 3.[address] and has been off Lasix since 06/26
Continue preadmission regimen including metoprolol, Imdur, hydralazine, Lipitor, Norvasc, aspirin
# thrombocytopenia
Borderline low
Patient is on aspirin, Plavix.
No active bleeding.
# hyponatremia, observe along with volume status.
# IDDM.
Recent hemoglobin A one 7.1
Euglycemic with fasting blood glucose was 71
Reduced Lantus to 5 units at bedtime
Continue basal protocol.
Monitor for hypoglycemia in the settings of decreased renal clearance.
Physical therapy assessment
Anticipated Discharge: 24 - 48 hours
Subjective/Interval History
-
Date of Service: June 29, 2024
Objective Data
-
Labs:
Laboratory Results
06/29/24
07:31
Sodium 135
Potassium 4.9
Chloride 101
Carbon Dioxide 24
BUN 63 H
Creatinine 3.3 H
Glucose 140 H
Calcium 8.5
Vital Signs:
Vital Signs
Temp Pulse Resp BP Pulse Ox
98.6 F 62 17 141/59 97
06/29/24 07:21 06/29/24 07:21 06/29/24 07:21 06/29/24 07:21 06/29/24 07:21
I&O
06/28/24 06/29/24 06/30/24
06:59 06:59 06:59
Intake Total 480 / 480 1180 / 1180
Output Total 1225 / 1225 700 / 700
Balance -745 / -745 480 / 480
Physical Exam
-
General: Well Developed, Well Nourished and No Apparent Distress
HEENT: Normocephalic and Atraumatic
Respiratory: Clear to Auscultation; Negative Wheezes or Rhonchi
Cardiac: Regular Rhythm and S1/S2; Negative Murmur
GI: Soft, Nontender, Nondistended and Normal Bowel Sounds
Musculoskeletal: No Clubbing, No Cyanosis and No Edema (3+ LE edema)
Neuro: Awake and Alert
Psych: Calm
--- NOTE | 2024-06-29 16:20 | CM ---
Addendum entered by SHELLY Christensen 06/30/24 10:58:
Received call from Lauren in admissions stating that she will most likely will have a bed for patient pending day of discharge. Will call to give continual updates.
Original Note:
Reviewed chart, have not as of yet received confirmation regarding whether patient is accepted by [facility]. Placed a call to Lauren in admissions at [facility] [place] who stated that she will review patient's referral and will return call with a determination
regarding acceptance.
Plan: Case management will continue to follow and assist with discharge planning. SNF when cleared.
[2024-06-29 16:32] LABS: Glucose - Point of Care 192 mg/dl (70-99)
[2024-06-29] MEDS: NOVOLOG FLEXPEN-LOW RESISTANCE 2 UNITS SC (17:02)
[2024-06-29 21:14] LABS: Glucose - Point of Care 195 mg/dl (70-99)
[2024-06-29] MEDS: NORVASC 10 MG PO (21:34)
[2024-06-29] MEDS: LANTUS 0.05 UNITS SC (21:34)
[2024-06-29] MEDS: LIPITOR 80 MG PO (21:34)
[2024-06-29 23:00] VITALS: BP 140/57
[2024-06-30 06:00] VITALS: BMI 26.9
[2024-06-30 07:00] VITALS: BP 153/66
[2024-06-30 07:04] LABS: Glucose - Point of Care 135 mg/dl (70-99)
[2024-06-30 07:52] LABS: Blood Urea Nitrogen 62 mg/dl (9-20); Calcium 8.4 mg/dl (8.4-10.2); Carbon Dioxide 24 mmol/L (22-30); Chloride 101 mmol/L (98-107); Estimated Creatinine Clearance 19 ml/min; Glucose 122 mg/dl (70-99); Potassium 4.9 mmol/L (3.5-5.1); Sodium 134 mmol/L (135-145); eGFR 17.35
[2024-06-30] MEDS: NOVOLOG FLEXPEN-LOW RESISTANCE SC (08:58)
[2024-06-30] MEDS: APRESOLINE 50 MG PO ×3 (09:00→21:36)
[2024-06-30] MEDS: ASPIR LOW (ENTERIC COATED) 81 MG PO (09:00)
[2024-06-30] MEDS: SODIUM BICARBONATE 325 MG PO ×2 (09:01→21:36)
[2024-06-30] MEDS: IMDUR (EXTENDED RELEASE) 30 MG PO (09:01)
[2024-06-30] MEDS: PROTONIX 40 MG PO (09:01)
[2024-06-30] MEDS: FLOMAX 0.4 MG PO (09:01)
[2024-06-30] MEDS: ZETIA 10 MG PO (09:01)
[2024-06-30] MEDS: TOPROL XL 50 MG PO (09:02)
[2024-06-30] MEDS: PLAVIX 75 MG PO (09:02)
[2024-06-30] MEDS: HEPARIN 5000 UNITS SC ×2 (09:02→21:36)
[2024-06-30 11:48] LABS: Glucose - Point of Care 153 mg/dl (70-99)
[2024-06-30 12:10] VITALS: BP 135/55; BP 140/61; PULSE 61
[2024-06-30] MEDS: NOVOLOG FLEXPEN-LOW RESISTANCE 1 UNITS SC ×2 (12:54→17:54)
[2024-06-30 15:11] VITALS: BP 128/54
--- NOTE | 2024-06-30 16:07 | W.PN.NEPH.PH ---
Today's Communication / Plan
-
hold lasix and follow labs
Assessment/Plan
-
Assessment
MAEGAN
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
Coronary artery disease with bypass
Paroxysmal atrial fibrillation
Hypertension
Edema/venous stasis diabetes mellitus type 2
Cognitive impairment
Plan
MAEGAN-cr up at 3.5 holding lasix , last dose 06/26
wts stable over all and he is on RA
keep Haas for U retention
I think the patient is having progressive CKD
PCR 4.9gm/gm of cr, neg U eosinophils, neg serologies, normal complements, SPEP
BP stable, increased hydralazine to 50 TID 06/22
hyponatremia-stable at 134 maintain FR 48 ounces/day
continue po bicarb for met acidosis
avoid nephrotoxins
follow labs
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
I did discuss this with the patient today in detail and reviewed the increased burden and limiting QOL-not sure if he understands recommended to speak to his daughter
he states he would do dialysis if needed
No acute need at this point but we are likely heading there
-
-
Date of Service: June 30, 2024
CC / HPI / ROS
-
Chief Complaint:
MAEGAN
History of Present Illness:
MAEGAN/Cr up at 3.5
BUN at 62
BP stable
hgb stable
Review of Systems:
no CP/SOB
no n/v
Haas catheter, barely non oliguric
Weights not accurate on bed scale
Labs
-
Labs:
WBC 8.6 10^3/uL (4.8-10.8) 06/26/24 08:41
RBC 3.88 10^6/uL (4.70-6.10) L 06/26/24 08:41
Hgb 11.5 g/dL (13.0-18.0) L 06/26/24 08:41
Hct 34.1 % (39.0-52.0) L 06/26/24 08:41
Plt Count 210 10^3/uL (130-400) 06/26/24 08:41
Sodium 134 mmol/L (135-145) L 06/30/24 06:43
Potassium 4.9 mmol/L (3.5-5.1) 06/30/24 06:43
Chloride 101 mmol/L (98-107) 06/30/24 06:43
Carbon Dioxide 24 mmol/L (22-30) 06/30/24 06:43
BUN 62 mg/dl (9-20) H 06/30/24 06:43
Creatinine 3.5 mg/dL (0.7-1.3) H 06/30/24 06:43
eGFR 17.35 06/30/24 06:43
Glucose 122 mg/dl (70-99) H 06/30/24 06:43
Calcium 8.4 mg/dl (8.4-10.2) 06/30/24 06:43
Jpl-E-Piponkkjtub Pept 9940 pg/ml 06/19/24 06:24
Albumin 3.2 g/dl (3.5-5.0) L 06/19/24 06:24
Physical Exam
-
Vital Signs:
Vital Signs
Temp Pulse Resp BP Pulse Ox
97.7 F 61 17 128/54 95
06/30/24 15:11 06/30/24 15:11 06/30/24 15:11 06/30/24 15:11 06/30/24 15:11
Cardiovascular:: Regular rate and rhythm
Respiratory:: Bilateral: CTA (decreased)
Lung Excursion:: Normal
Abdomen:: Nontender and Soft
Extremity Edema:: +1: Bilateral:
Haas Catheter: Yes
[2024-06-30 16:23] LABS: Glucose - Point of Care 205 mg/dl (70-99)
--- NOTE | 2024-06-30 16:53 | W.PN.HOSP.TC ---
Today's Communication/Plan
-
Creatinine plateaued between 3.3�3.5
maintain Haas catheter
hold Lasix
Monitor renal function
Assessment / Plan
Assessment / Plan
Impression:
MAEGAN.
CKD stage IV progressive
Diarrhea
Conditions prior to admission:
CHF reduced EF.
-Echo 06/18: Mildly reduced LVEF 40-45%. Stage III diastolic dysfunction. Dilated RV with mildly reduced RV systolic function. Severe TR. LVEF reduced from 55 to 60% (03/04/2023) worsened MR and RV function.
CKD stage IV.
Essential hypertension
CAD with history of CABG 2016
Paroxysmal atrial fibrillation
AICD
History of CVA in 2022
Insulin requiring diabetes
Dyslipidemia
Chronic lower extremity edema due to lymphedema and venous insufficiency
Dementia suspected vascular type.
Plan
MAEGAN on CKD 4, progressive (2-2.4)
Due to cardiorenal state
UA bland, U PCR 4.9gm/gm of cr, neg U eosinophils, pending serologies, normal complements
UA consistent with proteinuria suspected diabetic nephropathy
Recent sonogram with no obstruction
Noted with intermittent retention requiring straight cath upon admission. Continue to monitor closely for recurrence.
Creatinine up to 3.6-3.0-3.5
Bladder scan protocol. Haas catheter was placed 06/24.
Follow BMP. Added oral sodium bicarbonate for metabolic acidosis
Reinstated on oral Lasix, held by nephrology on 06/24. Follow BMP
Diarrheal illness reported.
Resolved.
Chronic HFrEF.
CAD
Ischemic anemia
No evidence for decompensation.
Stable respiratory status.
Pro CHF BNP below baseline
Chest x-ray with no evidence of pulmonary edema, although with small to moderate left pleural effusion
Creatinine is up to 3.[address] and has been off Lasix since 06/26
Continue preadmission regimen including metoprolol, Imdur, hydralazine, Lipitor, Norvasc, aspirin
# thrombocytopenia
Borderline low
Patient is on aspirin, Plavix.
No active bleeding.
# hyponatremia, observe along with volume status.
# IDDM.
Recent hemoglobin A one 7.1
Euglycemic with fasting blood glucose was 71
Reduced Lantus to 5 units at bedtime
Continue basal protocol.
Monitor for hypoglycemia in the settings of decreased renal clearance.
Physical therapy assessment
Anticipated Discharge: 24 - 48 hours
Subjective/Interval History
-
Date of Service: June 30, 2024
Objective Data
-
Labs:
Laboratory Results
06/30/24
06:43
Sodium 134 L
Potassium 4.9
Chloride 101
Carbon Dioxide 24
BUN 62 H
Creatinine 3.5 H
Glucose 122 H
Calcium 8.4
Vital Signs:
Vital Signs
Temp Pulse Resp BP Pulse Ox
97.7 F 61 17 128/54 95
06/30/24 15:11 06/30/24 15:11 06/30/24 15:11 06/30/24 15:11 06/30/24 15:11
I&O
06/29/24 06/30/24 07/01/24
06:59 06:59 06:59
Intake Total 1180 / 1180 600 / 600
Output Total 700 / 700 450 / 450
Balance 480 / 480 150 / 150
Physical Exam
-
General: Well Developed, Well Nourished and No Apparent Distress
HEENT: Normocephalic and Atraumatic
Respiratory: Clear to Auscultation; Negative Wheezes or Rhonchi
Cardiac: Regular Rhythm and S1/S2; Negative Murmur
GI: Soft, Nontender, Nondistended and Normal Bowel Sounds
Musculoskeletal: No Clubbing, No Cyanosis and No Edema (3+ LE edema)
Neuro: Awake and Alert
Psych: Calm
[2024-06-30 21:16] LABS: Glucose - Point of Care 230 mg/dl (70-99)
[2024-06-30] MEDS: LIPITOR 80 MG PO (21:36)
[2024-06-30] MEDS: NORVASC 10 MG PO (21:36)
[2024-06-30] MEDS: LANTUS 0.05 UNITS SC (21:37)
[2024-06-30 23:20] VITALS: BP 138/56
[2024-07-01 06:00] VITALS: BMI 26.9
[2024-07-01 07:00] VITALS: BP 137/57
[2024-07-01 07:19] LABS: Blood Urea Nitrogen 66 mg/dl (9-20); Calcium 8.4 mg/dl (8.4-10.2); Carbon Dioxide 25 mmol/L (22-30); Chloride 101 mmol/L (98-107); Estimated Creatinine Clearance 19 ml/min; Glucose 129 mg/dl (70-99); Potassium 5.2 mmol/L (3.5-5.1); Sodium 135 mmol/L (135-145); eGFR 17.35
--- NOTE | 2024-07-01 07:30 | W.PN.HOSP.TC ---
Today's Communication/Plan
-
Penis discomfort, erythema and swelling on left upper area, patient had Haas, consulted urology, appreciate their evaluation and recommendations
Creatinine plateaued between 3.3�3.5
Maintain Haas catheter pending urology evaluation
Hold Lasix
Monitor renal function. Monitor potassium.
Assessment / Plan
Assessment / Plan
Physical Exam
General: Not in acute distress
HEENT: Normocephalic and Atraumatic
Respiratory: Clear to Auscultation Bilaterally
Cardiac: Regular Rhythm and S1/S2
GI: Soft, Nontender, Nondistended and Normal Bowel Sounds
Musculoskeletal: No Cyanosis. Edema (3+ LE edema)
Neuro: Awake and Alert
Psych: Calm
Assessment/Plan
Impression:
MAEGAN.
CKD stage IV progressive
Diarrhea
Acute Retention
Subjective Penis Pain redness and swelling only on the left later upper penis tip
Conditions prior to admission:
CHF reduced EF.
-Echo 06/18: Mildly reduced LVEF 40-45%. Stage III diastolic dysfunction. Dilated RV with mildly reduced RV systolic function. Severe TR. LVEF reduced from 55 to 60% (03/04/2023) worsened MR and RV function.
CKD stage IV.
Essential hypertension
CAD with history of CABG 2016
Paroxysmal atrial fibrillation
AICD
History of CVA in 2022
Insulin requiring diabetes
Dyslipidemia
Chronic lower extremity edema due to lymphedema and venous insufficiency
Dementia suspected vascular type.
Plan
MAEGAN on CKD 4, progressive (2-2.4)
Due to cardiorenal state
UA bland, U PCR 4.9gm/gm of cr, neg U eosinophils, pending serologies, normal complements -- nephrotic range proteinuria likely moving towards hemodialysis
UA consistent with proteinuria suspected diabetic nephropathy
Recent sonogram with no obstruction
Noted with intermittent retention requiring straight cath upon admission. Continue to monitor closely for recurrence.
Creatinine up to 3.6-3.0-3.5
Bladder scan protocol. Haas catheter was placed 06/24.
Follow BMP. Added oral sodium bicarbonate for metabolic acidosis
Reinstated on oral Lasix, held by nephrology on 06/24, then resumed but held again after 06/26. Follow BMP
Hopefully can resume Lasix in the near future
Acute urinary retention
Subjective Penis Pain redness and swelling only on the left later upper penis tip
-Continue Haas catheter
-Consulted urology given the penis discomfort and signs of inflammation on a portion of the penis, appreciate their evaluation and recommendations
Diarrheal illness reported.
Resolved.
Chronic HFrEF.
CAD
Ischemic anemia
No evidence for decompensation.
Stable respiratory status.
Pro CHF BNP below baseline
Chest x-ray with no evidence of pulmonary edema, although with small to moderate left pleural effusion
Creatinine is up to 3.[address] and has been off Lasix after 06/26
Continue preadmission regimen including metoprolol, Imdur, hydralazine, Lipitor, Norvasc, aspirin
# thrombocytopenia
Borderline low
Patient is on aspirin, Plavix.
No active bleeding.
# Mild hypokalemia
-K 5.2 on 07/01/24
-Monitor BMP
# hyponatremia, observe along with volume status.
# IDDM.
Recent hemoglobin A one 7.1
Euglycemic with fasting blood glucose was 71
Reduced Lantus to 5 units at bedtime
Continue basal protocol.
Monitor for hypoglycemia in the settings of decreased renal clearance.
Physical therapy assessment
Anticipated Discharge: > 48 hours
Subjective/Interval History
-
Date of Service: July 01, 2024
Patient was seen and examined. He denied any complaints when he was seen, later in the day he reported that his penis hurts.
Objective Data
-
Labs:
Laboratory Results
12/07/24
06:04
Sodium 135
Potassium 5.2 H
Chloride 101
Carbon Dioxide 25
BUN 66 H
Creatinine 3.5 H
Glucose 129 H
Calcium 8.4
Vital Signs:
Vital Signs
Temp Pulse Resp BP Pulse Ox
98.3 F 65 18 138/56 95
06/30/24 23:20 06/30/24 23:20 06/30/24 23:20 06/30/24 23:20 06/30/24 23:20
I&O
06/30/24 07/01/24 07/02/24
06:59 06:59 06:59
Intake Total 600 / 600 240 / 240
Output Total 450 / 450 700 / 700
Balance 150 / 150 -460 / -460
[2024-07-01] MEDS: TYLENOL PO (08:36)
[2024-07-01] MEDS: MIRALAX 17 GRAMS PO (08:36)
[2024-07-01] MEDS: APRESOLINE 50 MG PO ×3 (08:37→21:27)
[2024-07-01] MEDS: ASPIR LOW (ENTERIC COATED) 81 MG PO (08:37)
[2024-07-01] MEDS: PLAVIX 75 MG PO (08:37)
[2024-07-01] MEDS: FLOMAX 0.4 MG PO (08:37)
[2024-07-01] MEDS: PROTONIX 40 MG PO (08:37)
[2024-07-01] MEDS: SODIUM BICARBONATE 325 MG PO ×2 (08:37→21:27)
[2024-07-01] MEDS: TOPROL XL 50 MG PO (08:37)
[2024-07-01 08:38] LABS: Glucose - Point of Care 125 mg/dl (70-99)
[2024-07-01] MEDS: HEPARIN 5000 UNITS SC ×2 (08:38→21:27)
[2024-07-01] MEDS: ZETIA 10 MG PO (08:41)
[2024-07-01] MEDS: NOVOLOG FLEXPEN-LOW RESISTANCE SC (08:41)
[2024-07-01] MEDS: IMDUR (EXTENDED RELEASE) 30 MG PO (08:41)
--- NOTE | 2024-07-01 11:36 | PTCARENOTE ---
pt alert to self disoriented to place and time. drowsey withdrawn and flat. pt denies any pain at this time. Lungs cta on room air,BP 137/67. pt had all meds. PT with HR iregular weak pedal pulses, PPM, with +1-2 BLE edema with penile edema and
generalized dependent edema on back of body. Fluid restrictions maintained weight 187 and yesterday was same weight, scrotal and penile edema. PT ate 75% of breakfast independently,. Haas draining blood tinged natalie urine with visible blood cots
and sediment,d raining well. flowmax given a prescribed. SCDs on, heels elevated on pillow. Skin very dry flaky, cream applied. PT refused to get oob . Pt turned and repositined q2 hours. Pt incontinet of semi soft small amount of stool. Pt now
resting with call kim in hand. PT on fall risk makes no attempts to get OOB . pt verbalized he would call if he needed something
[2024-07-01 12:43] LABS: Glucose - Point of Care 174 mg/dl (70-99)
[2024-07-01] MEDS: NOVOLOG FLEXPEN-LOW RESISTANCE 1 UNITS SC (13:43)
[2024-07-01 15:00] VITALS: BP 130/57
--- NOTE | 2024-07-01 15:04 | W.PN.NEPH.PH ---
Today's Communication / Plan
-
follow labs
Assessment/Plan
-
Assessment
MAEGAN
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
Coronary artery disease with bypass
Paroxysmal atrial fibrillation
Hypertension
Edema/venous stasis diabetes mellitus type 2
Cognitive impairment
Plan
MAEGAN-cr up at 3.5 holding lasix , last dose 06/26
wts stable over all and he is on RA
keep Haas for U retention
mild hyperkalemia-start low potassium diet
I think the patient is having progressive CKD
PCR 4.9gm/gm of cr, neg U eosinophils, neg serologies, normal complements, SPEP
BP stable, increased hydralazine to 50 TID 06/22
hyponatremia-stable at 135 maintain FR 48 ounces/day
continue po bicarb for met acidosis
avoid nephrotoxins
follow labs
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
I did discuss this with the patient today and 06/30 in detail and reviewed the increased burden and limiting QOL-not sure if he understands says he spoke to his daughter
he states he would do dialysis if needed
No acute need at this point but we are likely heading there
-
-
Date of Service: July 01, 2024
CC / HPI / ROS
-
Chief Complaint:
MAEGAN
History of Present Illness:
MAEGAN/Cr up at 3.5 no change ,k 5.2
BUN at 66
BP stable
hgb stable
Review of Systems:
no CP/SOB
no n/v
Haas catheter, barely non oliguric
Weights unchanged
Labs
-
Labs:
WBC 8.6 10^3/uL (4.8-10.8) 06/26/24 08:41
RBC 3.88 10^6/uL (4.70-6.10) L 06/26/24 08:41
Hgb 11.5 g/dL (13.0-18.0) L 06/26/24 08:41
Hct 34.1 % (39.0-52.0) L 06/26/24 08:41
Plt Count 210 10^3/uL (130-400) 06/26/24 08:41
Sodium 135 mmol/L (135-145) 07/01/24 06:04
Potassium 5.2 mmol/L (3.5-5.1) H 07/01/24 06:04
Chloride 101 mmol/L (98-107) 07/01/24 06:04
Carbon Dioxide 25 mmol/L (22-30) 07/01/24 06:04
BUN 66 mg/dl (9-20) H 07/01/24 06:04
Creatinine 3.5 mg/dL (0.7-1.3) H 07/01/24 06:04
eGFR 17.35 07/01/24 06:04
Glucose 129 mg/dl (70-99) H 07/01/24 06:04
Calcium 8.4 mg/dl (8.4-10.2) 07/01/24 06:04
Tqz-O-Yopfdgekebc Pept 9940 pg/ml 06/19/24 06:24
Albumin 3.2 g/dl (3.5-5.0) L 06/19/24 06:24
Physical Exam
-
Vital Signs:
Vital Signs
Temp Pulse Resp BP Pulse Ox
98.3 F 61 16 137/57 94
07/01/24 07:00 07/01/24 07:00 07/01/24 07:00 07/01/24 07:00 07/01/24 07:00
Cardiovascular:: Regular rate and rhythm
Respiratory:: Bilateral: CTA
Lung Excursion:: Normal
Abdomen:: Nontender and Soft
Extremity Edema:: +2: Bilateral:
Ahas Catheter: Yes
[2024-07-01] MEDS: TYLENOL 650 MG PO (15:43)
[2024-07-01 15:51] VITALS: BP 132/74
[2024-07-01 16:22] LABS: Glucose - Point of Care 200 mg/dl (70-99)
--- NOTE | 2024-07-01 16:23 | CON.MD ---
Consultation - Medical
-
see dictated note
pt with multiple medical problems including dementia/chf and advancing renal insuff
has essentially been hospitalized for the last month
primary issue now is renal insufficiency and volume status
has had rneal u/s- no evid of obstruction
during most recent hospitalization was noted to have increasing residuals- eventually sin placed and started on flomax
urine clear with occ hematuria
today c/o of penile pain- cath in good position/mild penile edema (likely due to volume status)- no evid of infection
rec
continue flomax
may attempt TOV prior to discharge- but unlikely that pt will urinate independently
lido cream to gland/meatus
[2024-07-01] MEDS: NOVOLOG FLEXPEN-LOW RESISTANCE 2 UNITS SC (17:53)
--- NOTE | 2024-07-01 18:20 | PTCARENOTE ---
PT found holding penis head multiple times throughout this shift. Pt stated ' my carmel hurts' Pt was educated not to touch the catheter to reduce infection but he keeps playing with the meatus. Tip of penis is red warm swollen and painful. Pt
received tylenol without effectivness. Urology was consulted and ordered lidocain to meatus but to start at 8 pm. I did call and got a verbal for first dose now. Cath care re done for third time today and pharmacy to send lidicain stat. Waldo
drining yellow natalie with sediment and few blood clots. Pt eating diner at this time.
[2024-07-01] MEDS: EMLA CREAM 5 GRAM TOPICAL (18:35)
[2024-07-01 21:21] LABS: Glucose - Point of Care 193 mg/dl (70-99)
[2024-07-01] MEDS: LIPITOR 80 MG PO (21:27)
[2024-07-01] MEDS: NORVASC 10 MG PO (21:27)
[2024-07-01] MEDS: LANTUS 0.05 UNITS SC (21:28)
[2024-07-01 23:00] VITALS: BP 141/67
[2024-07-02 05:58] VITALS: BMI 27.3
[2024-07-02 07:31] LABS: Blood Urea Nitrogen 69 mg/dl (9-20); Calcium 8.5 mg/dl (8.4-10.2); Carbon Dioxide 24 mmol/L (22-30); Chloride 100 mmol/L (98-107); Estimated Creatinine Clearance 18 ml/min; Glucose 113 mg/dl (70-99); Potassium 5.3 mmol/L (3.5-5.1); Sodium 132 mmol/L (135-145); eGFR 16.23
--- NOTE | 2024-07-02 07:50 | W.PN.UPDATE ---
Update Note
Progress Note Update
pt reports penile pain improved with topical lido
exam unchanged- sin appears to be well positioned- urine clear- mild penile edema but no redness/erythema and shaft is not tender
continue sin and emla cream today
increase flomax to bid
if stable- will try sin removal for TOV tomorrow
[2024-07-02 08:27] LABS: Glucose - Point of Care 110 mg/dl (70-99)
[2024-07-02] MEDS: APRESOLINE 50 MG PO ×3 (08:34→21:54)
[2024-07-02] MEDS: PLAVIX 75 MG PO (08:34)
[2024-07-02] MEDS: PROTONIX 40 MG PO (08:35)
[2024-07-02] MEDS: TOPROL XL 50 MG PO (08:35)
[2024-07-02] MEDS: ASPIR LOW (ENTERIC COATED) 81 MG PO (08:35)
[2024-07-02] MEDS: FLOMAX 0.4 MG PO ×2 (08:35→21:53)
[2024-07-02] MEDS: HEPARIN 5000 UNITS SC (08:35)
[2024-07-02] MEDS: EMLA CREAM 5 GRAM TOPICAL ×2 (08:35→21:54)
[2024-07-02] MEDS: SODIUM BICARBONATE 325 MG PO ×2 (08:35→21:53)
[2024-07-02] MEDS: NOVOLOG FLEXPEN-LOW RESISTANCE SC (08:36)
[2024-07-02] MEDS: ZETIA 10 MG PO (08:39)
[2024-07-02] MEDS: IMDUR (EXTENDED RELEASE) 30 MG PO (08:39)
[2024-07-02 08:55] VITALS: BP 159/66
[2024-07-02 11:26] VITALS: BP 132/62
[2024-07-02 12:07] LABS: Glucose - Point of Care 158 mg/dl (70-99)
[2024-07-02] MEDS: NOVOLOG FLEXPEN-LOW RESISTANCE 1 UNITS SC ×2 (12:30→17:23)
--- NOTE | 2024-07-02 16:22 | W.PN.NEPH.PH ---
Today's Communication / Plan
-
lasix
Assessment/Plan
-
Assessment
MAEGAN
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
Coronary artery disease with bypass
Paroxysmal atrial fibrillation
Hypertension
Edema/venous stasis diabetes mellitus type 2
Cognitive impairment
Plan
MAEGAN-cr up at 3.7
keep Haas for U retention
hematuria noted, follows
penile irritation per nursing using topical lido
mild hyperkalemia, low potassium diet \\
increasing edema today-will dose lasix 40mg IV x1
I think the patient is having progressive CKD
PCR 4.9gm/gm of cr, neg U eosinophils, neg serologies, normal complements, SPEP
BP stable, increased hydralazine to 50 TID 06/22
hyponatremia-worse at 132 maintain FR 48 ounces/day
continue po bicarb for met acidosis
avoid nephrotoxins
follow labs
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
I did discuss this with the patient today and 06/30 in detail and reviewed the increased burden and limiting QOL-not sure if he understands says he spoke to his daughter
he states he would do dialysis if needed
No acute need at this point but we are likely heading there
-
-
Date of Service: July 02, 2024
CC / HPI / ROS
-
Chief Complaint:
MAEGAN
History of Present Illness:
MAEGAN/Cr up at 3.7 ,k 5.3
BUN at 69
BP stable
hgb stable 07/01
Review of Systems:
no CP/SOB
no n/v
Haas catheter, barely non oliguric, hematuria noted
Weights up
Labs
-
Labs:
WBC 8.6 10^3/uL (4.8-10.8) 06/26/24 08:41
RBC 3.88 10^6/uL (4.70-6.10) L 06/26/24 08:41
Hgb 11.5 g/dL (13.0-18.0) L 06/26/24 08:41
Hct 34.1 % (39.0-52.0) L 06/26/24 08:41
Plt Count 210 10^3/uL (130-400) 06/26/24 08:41
Sodium 132 mmol/L (135-145) L 07/02/24 06:07
Potassium 5.3 mmol/L (3.5-5.1) H 07/02/24 06:07
Chloride 100 mmol/L (98-107) 07/02/24 06:07
Carbon Dioxide 24 mmol/L (22-30) 07/02/24 06:07
BUN 69 mg/dl (9-20) H 07/02/24 06:07
Creatinine 3.7 mg/dL (0.7-1.3) H 07/02/24 06:07
eGFR 16.23 07/02/24 06:07
Glucose 113 mg/dl (70-99) H 07/02/24 06:07
Calcium 8.5 mg/dl (8.4-10.2) 07/02/24 06:07
Aep-C-Clxtyxtjsgb Pept 9940 pg/ml 06/19/24 06:24
Albumin 3.2 g/dl (3.5-5.0) L 06/19/24 06:24
Physical Exam
-
Vital Signs:
Vital Signs
Temp Pulse Resp BP Pulse Ox
97.5 F 61 16 132/62 96
07/02/24 08:55 07/02/24 08:55 07/02/24 08:55 07/02/24 11:26 07/02/24 08:55
Cardiovascular:: Regular rate and rhythm
Respiratory:: Bilateral: CTA
Lung Excursion:: Normal
Abdomen:: Nontender and Soft
Extremity Edema:: +2: Bilateral:
Haas Catheter: Yes
[2024-07-02 16:33] VITALS: BP 130/61
[2024-07-02 17:09] LABS: Glucose - Point of Care 169 mg/dl (70-99)
[2024-07-02] MEDS: DESENEX/MITRAZOL/ZEASORB 1 APPLIC TOPICAL ×2 (17:22→21:55)
[2024-07-02] MEDS: LASIX 40 MG IV (17:22)
--- NOTE | 2024-07-02 17:27 | W.PN.HOSP.TC ---
Today's Communication/Plan
-
Cr up to 3.7, patient also with more edema -- so 1x dose of IV Lasix 40 mg today
Continue emla cream and sin catheter -- possible trial of void tomorrow
Low potassium diet for mild hyperkalemia, appreciate nephro
Assessment / Plan
Assessment / Plan
Physical Exam
General: Not in acute distress
HEENT: Normocephalic and Atraumatic
Respiratory: Clear to Auscultation Bilaterally
Cardiac: Regular Rhythm and S1/S2
GI: Soft, Nontender, Nondistended and Normal Bowel Sounds
Musculoskeletal: No Cyanosis. Edema (3+ LE edema)
Neuro: Awake and Alert
Psych: Calm
Assessment/Plan
Impression:
MAEGAN.
CKD stage IV progressive
Diarrhea
Acute Retention
Subjective Penis Pain redness and swelling only on the left later upper penis tip (reported on 07/01/24)
Conditions prior to admission:
CHF reduced EF.
-Echo 06/18: Mildly reduced LVEF 40-45%. Stage III diastolic dysfunction. Dilated RV with mildly reduced RV systolic function. Severe TR. LVEF reduced from 55 to 60% (03/04/2023) worsened MR and RV function.
CKD stage IV.
Essential hypertension
CAD with history of CABG 2016
Paroxysmal atrial fibrillation
AICD
History of CVA in 2022
Insulin requiring diabetes
Dyslipidemia
Chronic lower extremity edema due to lymphedema and venous insufficiency
Dementia suspected vascular type.
Plan
MAEGAN on CKD 4, progressive (2-2.4)
Due to cardiorenal state
UA bland, U PCR 4.9gm/gm of cr, neg U eosinophils, pending serologies, normal complements -- nephrotic range proteinuria likely moving towards hemodialysis
UA consistent with proteinuria suspected diabetic nephropathy
Recent sonogram with no obstruction
Noted with intermittent retention requiring straight cath upon admission. Continue to monitor closely for recurrence.
Creatinine up to 3.6-3.0-3.5-3.7
Bladder scan protocol. Sin catheter was placed 06/24.
Follow BMP. Added oral sodium bicarbonate for metabolic acidosis
Reinstated on oral Lasix, held by nephrology on 06/24, then resumed but held again after 06/26. Another Lasix dose on 07/02/24 given increasing edema. Follow BMP
Hopefully can resume Lasix in the near future
Acute urinary retention
Subjective Penis Pain redness and swelling only on the left later upper penis tip
-Continue Sin catheter -- increase Flomax to BID -- Trial of Void tomorrow if stable
-Consulted urology given the penis discomfort and signs of inflammation on a portion of the penis, appreciate their evaluation and recommendations
-Continue emla cream as per urology
Diarrheal illness reported.
Resolved.
Chronic HFrEF.
CAD
Ischemic anemia
No evidence for decompensation.
Stable respiratory status.
Pro CHF BNP below baseline
Chest x-ray with no evidence of pulmonary edema, although with small to moderate left pleural effusion
Creatinine is up to 3.[address]
Continue preadmission regimen including metoprolol, Imdur, hydralazine, Lipitor, Norvasc, aspirin
# thrombocytopenia - RESOLVED
Borderline low
Patient is on aspirin, Plavix.
No active bleeding.
# Mild hypokalemia
-K 5.2 on 07/01/24 then up to 5.3
-Low potassium diet
-Monitor BMP
-Nephrology following
# hyponatremia, observe along with volume status.
# IDDM.
Recent hemoglobin A one 7.1
Euglycemic with fasting blood glucose was 71
Reduced Lantus to 5 units at bedtime
Continue basal protocol.
Monitor for hypoglycemia in the settings of decreased renal clearance.
Physical therapy assessment
Anticipated Discharge: > 48 hours
Subjective/Interval History
-
Date of Service: July 02, 2024
Patient was seen and examined. He reported no new significant symptoms or complaints.
Objective Data
-
Labs:
Laboratory Results
07/02/24
06:07
Sodium 132 L
Potassium 5.3 H
Chloride 100
Carbon Dioxide 24
BUN 69 H
Creatinine 3.7 H
Glucose 113 H
Calcium 8.5
Vital Signs:
Vital Signs
Temp Pulse Resp BP Pulse Ox
97.3 F 61 16 130/61 94
07/02/24 16:33 07/02/24 16:33 07/02/24 16:33 07/02/24 16:33 07/02/24 16:33
I&O
07/01/24 07/02/24 07/03/24
06:59 06:59 06:59
Intake Total 240 / 240 420 / 420
Output Total 700 / 700 700 / 700
Balance -460 / -460 -280 / -280
[2024-07-02 21:19] LABS: Glucose - Point of Care 209 mg/dl (70-99)
[2024-07-02] MEDS: LIPITOR 80 MG PO (21:53)
[2024-07-02] MEDS: NORVASC 10 MG PO (21:53)
[2024-07-02] MEDS: LANTUS 0.05 UNITS SC (21:54)
[2024-07-02] MEDS: HEPARIN SC (22:03)
[2024-07-02 23:59] VITALS: BP 142/55
[2024-07-03 06:00] VITALS: BMI 27.2
--- NOTE | 2024-07-03 06:53 | W.PN.UPDATE ---
Update Note
Progress Note Update
no sig change
reported some occ blood in sin bag- urine yellow this am
still says penis hurts- no exam change
on flomax bid
plan for sin removal for TOV today
will continue asa and plavix- but hold sub q heparin for 24hrs until cath status/need established
[2024-07-03 07:03] LABS: Blood Urea Nitrogen 72 mg/dl (9-20); Calcium 8.4 mg/dl (8.4-10.2); Carbon Dioxide 24 mmol/L (22-30); Chloride 100 mmol/L (98-107); Estimated Creatinine Clearance 18 ml/min; Glucose 125 mg/dl (70-99); Potassium 4.8 mmol/L (3.5-5.1); Sodium 132 mmol/L (135-145); eGFR 16.77
[2024-07-03 07:20] VITALS: BP 141/59
[2024-07-03 07:55] LABS: Glucose - Point of Care 138 mg/dl (70-99)
[2024-07-03] MEDS: NOVOLOG FLEXPEN-LOW RESISTANCE SC (08:41)
[2024-07-03] MEDS: ZETIA 10 MG PO (08:42)
[2024-07-03] MEDS: IMDUR (EXTENDED RELEASE) 30 MG PO (08:42)
[2024-07-03] MEDS: ASPIR LOW (ENTERIC COATED) 81 MG PO (08:42)
[2024-07-03] MEDS: SODIUM BICARBONATE 325 MG PO ×2 (08:42→20:48)
[2024-07-03] MEDS: PLAVIX 75 MG PO (08:43)
[2024-07-03] MEDS: FLOMAX 0.4 MG PO ×2 (08:43→20:48)
[2024-07-03] MEDS: TOPROL XL 50 MG PO (08:44)
[2024-07-03] MEDS: APRESOLINE 50 MG PO ×3 (08:45→22:38)
[2024-07-03] MEDS: PROTONIX 40 MG PO (08:47)
[2024-07-03] MEDS: EMLA CREAM 5 GRAM TOPICAL ×2 (08:47→20:49)
[2024-07-03] MEDS: DESENEX/MITRAZOL/ZEASORB 1 APPLIC TOPICAL ×2 (08:48→20:49)
[2024-07-03 09:29] VITALS: BP 135/55; BP 136/56; PULSE 60; O2SAT 97
--- NOTE | 2024-07-03 10:36 | W.PN.NEPH.PH ---
Today's Communication / Plan
-
follow bmp
dialysis discussions
Assessment/Plan
-
Assessment
MAEGAN
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
Coronary artery disease with bypass
Paroxysmal atrial fibrillation
Hypertension
Edema/venous stasis diabetes mellitus type 2
Cognitive impairment
Plan
MAEGAN-cr up at 3.6 , but BUN up to 72
keep Haas for Urine retention
hematuria noted, follows
penile irritation per nursing using topical lido
mild hyperkalemia, low potassium diet \\
I think the patient is having progressive CKD
PCR 4.9gm/gm of cr, neg U eosinophils, neg serologies, normal complements, SPEP
BP stable, increased hydralazine to 50 TID 06/22
hyponatremia-worse at 132 maintain FR 48 ounces/day
continue po bicarb for met acidosis
avoid nephrotoxins
follow labs
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
I did discuss this with the patient today and 06/30 in detail and reviewed the increased burden and limiting QOL-not sure if he understands says he spoke to his daughter
he states he would do dialysis if needed
No acute need at this point but we are likely heading there
-
-
Date of Service: July 03, 2024
CC / HPI / ROS
-
Chief Complaint:
MAEGAN
History of Present Illness:
MAEGAN/Cr up at 3.6 ,k 4.8
BUN up to 72
BP stable
hgb stable 07/01
Review of Systems:
no CP/SOB
no n/v
Haas catheter, barely non oliguric, hematuria noted
Weights stable
Labs
-
Labs:
WBC 8.6 10^3/uL (4.8-10.8) 06/26/24 08:41
RBC 3.88 10^6/uL (4.70-6.10) L 06/26/24 08:41
Hgb 11.5 g/dL (13.0-18.0) L 06/26/24 08:41
Hct 34.1 % (39.0-52.0) L 06/26/24 08:41
Plt Count 210 10^3/uL (130-400) 06/26/24 08:41
Sodium 132 mmol/L (135-145) L 07/03/24 06:10
Potassium 4.8 mmol/L (3.5-5.1) 07/03/24 06:10
Chloride 100 mmol/L (98-107) 07/03/24 06:10
Carbon Dioxide 24 mmol/L (22-30) 07/03/24 06:10
BUN 72 mg/dl (9-20) H 07/03/24 06:10
Creatinine 3.6 mg/dL (0.7-1.3) H 07/03/24 06:10
eGFR 16.77 07/03/24 06:10
Glucose 125 mg/dl (70-99) H 07/03/24 06:10
Calcium 8.4 mg/dl (8.4-10.2) 07/03/24 06:10
Hgy-W-Ydpuawxjaxj Pept 9940 pg/ml 06/19/24 06:24
Albumin 3.2 g/dl (3.5-5.0) L 06/19/24 06:24
Physical Exam
-
Vital Signs:
Vital Signs
Temp Pulse Resp BP Pulse Ox
98.1 F 61 17 141/59 94
07/03/24 07:20 07/03/24 07:20 07/03/24 07:20 07/03/24 08:45 07/03/24 07:20
Cardiovascular:: Regular rate and rhythm
Respiratory:: Bilateral: CTA
Lung Excursion:: Normal
Abdomen:: Nontender and Soft
Extremity Edema:: +2: Bilateral:
Haas Catheter: Yes
[2024-07-03 11:40] LABS: Glucose - Point of Care 195 mg/dl (70-99)
[2024-07-03] MEDS: NOVOLOG FLEXPEN-LOW RESISTANCE 1 UNITS SC ×2 (12:36→17:49)
[2024-07-03 15:08] VITALS: BP 131/61
--- NOTE | 2024-07-03 16:08 | PTCARENOTE ---
patient's Haas removed at 0900 and has had no urinary output or report of feeling need to void. bladder scanned for 260mls. Dr. Lantigua updated, will continue to monitor.
[2024-07-03 16:28] LABS: Glucose - Point of Care 197 mg/dl (70-99)
--- NOTE | 2024-07-03 17:00 | PTCARENOTE ---
Dr. Lantigua up on floor. He placed #16 FR [place] on patient. Patient tolerated well, urine light pink colored, will continue to monitor.
--- NOTE | 2024-07-03 18:24 | W.PN.HOSP.TC ---
Today's Communication/Plan
-
Unable to urinate
Haas catheter to be replaced.
Continue monitoring hemoglobin
Monitor for recurrent hematuria with penile trauma while on DAPT. Hold subcu heparin.
Assessment / Plan
Assessment / Plan
Assessment/Plan
Impression:
MAEGAN.
CKD stage IV progressive
Diarrhea
Acute Retention
Subjective Penis Pain redness and swelling only on the left later upper penis tip (reported on 07/01/24)
Conditions prior to admission:
CHF reduced EF.
-Echo 06/18: Mildly reduced LVEF 40-45%. Stage III diastolic dysfunction. Dilated RV with mildly reduced RV systolic function. Severe TR. LVEF reduced from 55 to 60% (03/04/2023) worsened MR and RV function.
CKD stage IV.
Essential hypertension
CAD with history of CABG 2016
Paroxysmal atrial fibrillation
AICD
History of CVA in 2022
Insulin requiring diabetes
Dyslipidemia
Chronic lower extremity edema due to lymphedema and venous insufficiency
Dementia suspected vascular type.
Plan
MAEGAN on CKD 4, progressive (2-2.4)
Due to cardiorenal state
UA bland, U PCR 4.9gm/gm of cr, neg U eosinophils, pending serologies, normal complements -- nephrotic range proteinuria likely moving towards hemodialysis
UA consistent with proteinuria suspected diabetic nephropathy
Recent sonogram with no obstruction
Noted with intermittent retention requiring straight cath upon admission. Continue to monitor closely for recurrence.
Creatinine up to 3.6-3.0-3.5-3.7
Bladder scan protocol. Haas catheter was placed 06/24.
Failed trial of voiding on 06/30 Haas catheter to be replaced by urology.
With penile trauma while on DAPT monitor for recurrent hematuria
Hold heparin subcu
Diarrheal illness reported.
Resolved.
Chronic HFrEF.
CAD
No evidence for decompensation.
Stable respiratory status.
Pro CHF BNP below baseline
Chest x-ray with no evidence of pulmonary edema, although with small to moderate left pleural effusion
Continue preadmission regimen including metoprolol, Imdur, hydralazine, Lipitor, Norvasc, aspirin/Plavix
# thrombocytopenia - RESOLVED
Borderline low
Patient is on aspirin, Plavix.
No active bleeding.
# Mild hypokalemia
-K 5.2 on 07/01/24 then up to 5.3
-Low potassium diet
-Monitor BMP
-Nephrology following
# hyponatremia, observe along with volume status.
# IDDM.
Recent hemoglobin A one 7.1
Euglycemic with fasting blood glucose was 71
Reduced Lantus to 5 units at bedtime
Continue basal protocol.
Monitor for hypoglycemia in the settings of decreased renal clearance.
Physical therapy assessment
Anticipated Discharge: > 48 hours
Subjective/Interval History
-
Date of Service: July 03, 2024
Objective Data
-
Labs:
Laboratory Results
07/03/24
06:10
Sodium 132 L
Potassium 4.8
Chloride 100
Carbon Dioxide 24
BUN 72 H
Creatinine 3.6 H
Glucose 125 H
Calcium 8.4
Vital Signs:
Vital Signs
Temp Pulse Resp BP Pulse Ox
97.4 F 65 18 131/61 96
07/03/24 15:08 07/03/24 15:08 07/03/24 15:08 07/03/24 17:49 07/03/24 15:08
I&O
07/02/24 07/03/24 07/04/24
06:59 06:59 06:59
Intake Total 420 / 420 800 / 800
Output Total 700 / 700 1255 / 1255
Balance -280 / -280 -455 / -455
Physical Exam
-
General: Well Developed, Well Nourished and No Apparent Distress
HEENT: Normocephalic and Atraumatic
Respiratory: Clear to Auscultation; Negative Wheezes or Rhonchi
Cardiac: Regular Rhythm and S1/S2; Negative Murmur
GI: Soft, Nontender, Nondistended and Normal Bowel Sounds
Musculoskeletal: No Clubbing, No Cyanosis and No Edema (3+ LE edema)
Neuro: Awake and Alert
Psych: Calm
[2024-07-03 21:42] LABS: Glucose - Point of Care 252 mg/dl (70-99)
[2024-07-03] MEDS: LIPITOR 80 MG PO (22:38)
[2024-07-03] MEDS: LANTUS 0.05 UNITS SC (22:38)
[2024-07-03] MEDS: NORVASC 10 MG PO (22:39)
[2024-07-03 23:15] VITALS: BP 143/63
[2024-07-04 06:00] VITALS: BMI 27.3
[2024-07-04 07:09] LABS: Blood Urea Nitrogen 69 mg/dl (9-20); Calcium 8.5 mg/dl (8.4-10.2); Carbon Dioxide 23 mmol/L (22-30); Chloride 99 mmol/L (98-107); Estimated Creatinine Clearance 19 ml/min; Glucose 129 mg/dl (70-99); Potassium 4.4 mmol/L (3.5-5.1); Sodium 132 mmol/L (135-145); eGFR 17.35
[2024-07-04 07:40] VITALS: BP 137/60
[2024-07-04 07:55] LABS: Glucose - Point of Care 131 mg/dl (70-99)
[2024-07-04] MEDS: NOVOLOG FLEXPEN-LOW RESISTANCE SC ×2 (07:56→11:42)
[2024-07-04] MEDS: FLOMAX 0.4 MG PO ×2 (07:57→20:31)
[2024-07-04] MEDS: PROTONIX 40 MG PO (07:57)
[2024-07-04] MEDS: ASPIR LOW (ENTERIC COATED) 81 MG PO (07:57)
[2024-07-04] MEDS: PLAVIX 75 MG PO (07:57)
[2024-07-04] MEDS: IMDUR (EXTENDED RELEASE) 30 MG PO (07:57)
[2024-07-04] MEDS: ZETIA 10 MG PO (07:57)
[2024-07-04] MEDS: SODIUM BICARBONATE 325 MG PO ×2 (07:58→20:31)
[2024-07-04] MEDS: APRESOLINE 50 MG PO ×3 (07:58→22:40)
[2024-07-04] MEDS: TOPROL XL 50 MG PO (08:00)
[2024-07-04] MEDS: EMLA CREAM 5 GRAM TOPICAL ×2 (08:03→20:31)
[2024-07-04] MEDS: DESENEX/MITRAZOL/ZEASORB 1 APPLIC TOPICAL ×2 (08:03→20:30)
[2024-07-04 10:44] LABS: Glucose - Point of Care 125 mg/dl (70-99)
--- NOTE | 2024-07-04 14:32 | W.PN.NEPH.PH ---
Today's Communication / Plan
-
Restart Lasix but only 20 mg to start as weights up
Follow-up BMP
Assessment/Plan
-
Assessment
MAEGAN
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
Coronary artery disease with bypass
Paroxysmal atrial fibrillation
Hypertension
Edema/venous stasis diabetes mellitus type 2
Cognitive impairment
Plan
MAEGAN-cr at 3.5 , but BUN at 69
keep Haas for Urine retention
hematuria noted, follows
Will restart Lasix at a lower dosage of 20 mg daily
I think the patient is having progressive CKD
PCR 4.9gm/gm of cr, neg U eosinophils, neg serologies, normal complements, SPEP
BP stable, increased hydralazine to 50 TID 06/22
hyponatremia-worse at 132 maintain FR 48 ounces/day
continue po bicarb for met acidosis
avoid nephrotoxins
follow labs
nursing home renal prognosis is poor and unlikely candidate for [facility] with frail state and multiple medical problems , this was discussed with the patient's daughter 06/[address] Medellin
I did discuss this with the patient today and 06/30 and 07/03 in detail and reviewed the increased burden and limiting QOL-not sure if he understands says he spoke to his daughter
he states he would do dialysis if needed
No acute need at this point but we are likely heading there, hopefully we will have an endpoint by the end of this week
-
-
Date of Service: July 04, 2024
CC / HPI / ROS
-
Chief Complaint:
MAEGAN
History of Present Illness:
MAEGAN/Cr up at 3.5 ,k 4.4
BUN up to 69
BP stable
Review of Systems:
no CP/SOB
no n/v
Haas catheter, non oliguric, hematuria noted
Weights up
Labs
-
Labs:
WBC 8.6 10^3/uL (4.8-10.8) 06/26/24 08:41
RBC 3.88 10^6/uL (4.70-6.10) L 06/26/24 08:41
Hgb 11.5 g/dL (13.0-18.0) L 06/26/24 08:41
Hct 34.1 % (39.0-52.0) L 06/26/24 08:41
Plt Count 210 10^3/uL (130-400) 06/26/24 08:41
Sodium 132 mmol/L (135-145) L 07/04/24 06:07
Potassium 4.4 mmol/L (3.5-5.1) 07/04/24 06:07
Chloride 99 mmol/L (98-107) 07/04/24 06:07
Carbon Dioxide 23 mmol/L (22-30) 07/04/24 06:07
BUN 69 mg/dl (9-20) H 07/04/24 06:07
Creatinine 3.5 mg/dL (0.7-1.3) H 07/04/24 06:07
eGFR 17.35 07/04/24 06:07
Glucose 129 mg/dl (70-99) H 07/04/24 06:07
Calcium 8.5 mg/dl (8.4-10.2) 07/04/24 06:07
Mvs-E-Vavdsfkrvum Pept 9940 pg/ml 06/19/24 06:24
Albumin 3.2 g/dl (3.5-5.0) L 06/19/24 06:24
Physical Exam
-
Vital Signs:
Vital Signs
Temp Pulse Resp BP Pulse Ox
98.0 F 61 16 137/60 95
07/04/24 07:40 07/04/24 07:40 07/04/24 07:40 07/04/24 07:40 07/04/24 07:40
Cardiovascular:: Regular rate and rhythm
Respiratory:: Bilateral: CTA
Lung Excursion:: Normal
Abdomen:: Nontender and Soft
Extremity Edema:: +2: Bilateral:
Haas Catheter: Yes
--- NOTE | 2024-07-04 15:08 | W.PN.HOSP.TC ---
Today's Communication/Plan
-
Haas has been replaced yesterday.
Clear urine.
Creatinine plateaued at 3.5.
Monitor while off Lasix. Daily weights.
Assessment / Plan
Assessment / Plan
Assessment/Plan
Impression:
MAEGAN.
CKD stage IV progressive
Diarrhea
Acute Retention
Subjective Penis Pain redness and swelling only on the left later upper penis tip (reported on 07/01/24)
Conditions prior to admission:
CHF reduced EF.
-Echo 06/18: Mildly reduced LVEF 40-45%. Stage III diastolic dysfunction. Dilated RV with mildly reduced RV systolic function. Severe TR. LVEF reduced from 55 to 60% (03/04/2023) worsened MR and RV function.
CKD stage IV.
Essential hypertension
CAD with history of CABG 2016
Paroxysmal atrial fibrillation
AICD
History of CVA in 2022
Insulin requiring diabetes
Dyslipidemia
Chronic lower extremity edema due to lymphedema and venous insufficiency
Dementia suspected vascular type.
Plan
MAEGAN on CKD 4, progressive (2-2.4)
Due to cardiorenal state
UA bland, U PCR 4.9gm/gm of cr, neg U eosinophils, pending serologies, normal complements -- nephrotic range proteinuria likely moving towards hemodialysis
UA consistent with proteinuria suspected diabetic nephropathy
Recent sonogram with no obstruction
Noted with intermittent retention requiring straight cath upon admission. Continue to monitor closely for recurrence.
Creatinine up to 3.6-3.0-3.5-3.7-3.5
Bladder scan protocol. Haas catheter was placed 06/24.
Failed trial of voiding on 06/30 Haas catheter to be replaced by urology.
With penile trauma while on DAPT monitor for recurrent hematuria
Hold heparin subcu
Diarrheal illness reported.
Resolved.
Chronic HFrEF.
CAD
No evidence for decompensation.
Stable respiratory status.
Pro CHF BNP below baseline
Chest x-ray with no evidence of pulmonary edema, although with small to moderate left pleural effusion
Continue preadmission regimen including metoprolol, Imdur, hydralazine, Lipitor, Norvasc, aspirin/Plavix
# thrombocytopenia - RESOLVED
Borderline low
Patient is on aspirin, Plavix.
No active bleeding.
# Mild hypokalemia
-K 5.2 on 07/01/24 then up to 5.3
-Low potassium diet
-Monitor BMP
-Nephrology following
# hyponatremia, observe along with volume status.
# IDDM.
Recent hemoglobin A one 7.1
Euglycemic with fasting blood glucose was 71
Reduced Lantus to 5 units at bedtime
Continue basal protocol.
Monitor for hypoglycemia in the settings of decreased renal clearance.
Physical therapy assessment
Anticipated Discharge: 24 - 48 hours
Subjective/Interval History
-
Date of Service: July 04, 2024
Objective Data
-
Labs:
Laboratory Results
07/04/24
06:07
Sodium 132 L
Potassium 4.4
Chloride 99
Carbon Dioxide 23
BUN 69 H
Creatinine 3.5 H
Glucose 129 H
Calcium 8.5
Vital Signs:
Vital Signs
Temp Pulse Resp BP Pulse Ox
98.0 F 61 16 137/60 95
07/04/24 07:40 07/04/24 07:40 07/04/24 07:40 07/04/24 07:40 07/04/24 07:40
I&O
07/03/24 07/04/24 07/05/24
06:59 06:59 06:59
Intake Total 800 / 800 1020 / 1020
Output Total 1255 / 1255 650 / 650
Balance -455 / -455 370 / 370
Physical Exam
-
General: Well Developed, Well Nourished and No Apparent Distress
HEENT: Normocephalic and Atraumatic
Respiratory: Clear to Auscultation; Negative Wheezes or Rhonchi
Cardiac: Regular Rhythm and S1/S2; Negative Murmur
GI: Soft, Nontender, Nondistended and Normal Bowel Sounds
Musculoskeletal: No Clubbing, No Cyanosis and No Edema (3+ LE edema)
Neuro: Awake and Alert
Psych: Calm
[2024-07-04 15:11] VITALS: BP 131/56
[2024-07-04] MEDS: LASIX 20 MG PO (15:26)
--- NOTE | 2024-07-04 17:26 | CM ---
Patient still requiring acute care. Will call Lauren in admissions at [facility], to provide updates.
Plan: Case management will continue to follow and assist with discharge planning. [facility] when cleared.
[2024-07-04 17:36] LABS: Glucose - Point of Care 290 mg/dl (70-99)
[2024-07-04] MEDS: NOVOLOG FLEXPEN-LOW RESISTANCE 3 UNITS SC (18:54)
[2024-07-04 21:53] LABS: Glucose - Point of Care 231 mg/dl (70-99)
[2024-07-04] MEDS: LANTUS 0.05 UNITS SC (22:39)
[2024-07-04] MEDS: NORVASC 10 MG PO (22:40)
[2024-07-04] MEDS: LIPITOR 80 MG PO (22:40)
[2024-07-04 23:16] VITALS: BP 132/58
[2024-07-05 05:31] VITALS: BMI 27.1
[2024-07-05 07:10] VITALS: BP 128/54
[2024-07-05 07:43] LABS: Glucose - Point of Care 141 mg/dl (70-99)
[2024-07-05 08:07] LABS: Blood Urea Nitrogen 69 mg/dl (9-20); Calcium 8.3 mg/dl (8.4-10.2); Carbon Dioxide 23 mmol/L (22-30); Chloride 99 mmol/L (98-107); Estimated Creatinine Clearance 19 ml/min; Glucose 121 mg/dl (70-99); Potassium 4.1 mmol/L (3.5-5.1); Sodium 132 mmol/L (135-145); eGFR 17.96
[2024-07-05] MEDS: NOVOLOG FLEXPEN-LOW RESISTANCE SC (08:34)
[2024-07-05] MEDS: IMDUR (EXTENDED RELEASE) 30 MG PO (08:35)
[2024-07-05] MEDS: SODIUM BICARBONATE 325 MG PO ×2 (08:35→20:53)
[2024-07-05] MEDS: FLOMAX 0.4 MG PO ×2 (08:35→20:52)
[2024-07-05] MEDS: TOPROL XL 50 MG PO (08:35)
[2024-07-05] MEDS: ZETIA 10 MG PO (08:35)
[2024-07-05] MEDS: ASPIR LOW (ENTERIC COATED) 81 MG PO (08:35)
[2024-07-05] MEDS: LASIX 20 MG PO (08:36)
[2024-07-05] MEDS: APRESOLINE 50 MG PO ×3 (08:36→22:06)
[2024-07-05] MEDS: PROTONIX 40 MG PO (08:36)
[2024-07-05] MEDS: EMLA CREAM 5 GRAM TOPICAL (08:36)
[2024-07-05] MEDS: PLAVIX 75 MG PO (08:36)
[2024-07-05] MEDS: DESENEX/MITRAZOL/ZEASORB 1 APPLIC TOPICAL ×2 (08:44→20:51)
--- NOTE | 2024-07-05 08:54 | W.PN.UPDATE ---
Update Note
Progress Note Update
sin replaced
still with some discomfort
urine yellow with sediment
continue flomax
add proscar
continue sin
depending on clinical course will discuss repeat TOV
--- NOTE | 2024-07-05 09:39 | PN.CDI ---
CDI
- -
CDI:
Physician Documentation Request
Admit Date: 06/13/24 20:46
Dear Doctor Marielle,
Please review the following and provide your response in the progress notes.
Clinical Indicators:
Selected Entries
07/02/24
14:38
Pressure ulcer location comment [Present on admission Bilateral Buttock] stage 1
Physician documentation of the type and location of wounds is required for compliant documentation. Based on the above clinical findings and your assessment, please provide the following in your progress note:
Location of the ulcer/wound, including laterality.
Type (etiology) of ulcer/wound:
- Pressure (decubitus) ulcer
- Other(please specify)
For a pressure ulcer, please also include the stage* of the ulcer:
- Stage 1 - Skin intact, non-blanchable redness
- Stage 2 - Partial thickness loss of dermis, includes intact or open blister
- Stage 3 - Full thickness tissue not including bone, tendon or muscle
- Stage 4 - Full thickness tissue loss, including exposed bone, tendon or muscle
- Unstageable - Full thickness loss in which the base of the ulcer is covered by slough (yellow, collier, golden, green or brown) and/or eschar (collier, brown or black) in the wound bed.
Use of terms such as suspected, likely, concern for, or probable (associated with a specific diagnosis that is being evaluated, monitored, or treated as if it exists) are acceptable and can be coded in the inpatient setting, when documented at the
time of discharge.
Thank you,
Kirsten Rose RN BSN CCDS
CDI Specialist
Please contact via tiger text
Please use your independent medical judgment in providing your response.
*Source: National Pressure Ulcer Advisory Panel (NPUAP)
[2024-07-05 12:01] LABS: Glucose - Point of Care 150 mg/dl (70-99)
[2024-07-05] MEDS: NOVOLOG FLEXPEN-LOW RESISTANCE 1 UNITS SC ×2 (12:09→17:15)
[2024-07-05 12:27] VITALS: BP 121/92; PULSE 60; O2SAT 98
--- NOTE | 2024-07-05 12:51 | W.PN.NEPH.PH ---
Today's Communication / Plan
-
follow BMP
Assessment/Plan
-
Assessment
MAEGAN
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
Coronary artery disease with bypass
Paroxysmal atrial fibrillation
Hypertension
Edema/venous stasis diabetes mellitus type 2
Cognitive impairment
Plan
sin per urology
follow BMP
continue lasix
watch weights
no emergent HD needs currently
He will require dialysis in the future, and he has said previously that he would accept dialysis
-
-
Date of Service: July 05, 2024
CC / HPI / ROS
-
Chief Complaint:
MAEGAN
History of Present Illness:
MAEGAN/Cr stable 3.4
Na 132 stable
BUN up to 69 stable
BP stable
Review of Systems:
no CP/SOB
no n/v
Sin catheter, non oliguric
Labs
-
Labs:
WBC 8.6 10^3/uL (4.8-10.8) 06/26/24 08:41
RBC 3.88 10^6/uL (4.70-6.10) L 06/26/24 08:41
Hgb 11.5 g/dL (13.0-18.0) L 06/26/24 08:41
Hct 34.1 % (39.0-52.0) L 06/26/24 08:41
Plt Count 210 10^3/uL (130-400) 06/26/24 08:41
Sodium 132 mmol/L (135-145) L 07/05/24 06:55
Potassium 4.1 mmol/L (3.5-5.1) 07/05/24 06:55
Chloride 99 mmol/L (98-107) 07/05/24 06:55
Carbon Dioxide 23 mmol/L (22-30) 07/05/24 06:55
BUN 69 mg/dl (9-20) H 07/05/24 06:55
Creatinine 3.4 mg/dL (0.7-1.3) H 07/05/24 06:55
eGFR 17.96 07/05/24 06:55
Glucose 121 mg/dl (70-99) H 07/05/24 06:55
Calcium 8.3 mg/dl (8.4-10.2) L 07/05/24 06:55
Sbl-M-Vntysqgjhxb Pept 9940 pg/ml 06/19/24 06:24
Albumin 3.2 g/dl (3.5-5.0) L 06/19/24 06:24
Physical Exam
-
Vital Signs:
Vital Signs
Temp Pulse Resp BP Pulse Ox
98.2 F 61 17 128/54 95
07/05/24 07:10 07/05/24 07:10 07/05/24 07:10 07/05/24 07:10 07/05/24 07:10
Cardiovascular:: Regular rate and rhythm
Respiratory:: Bilateral: CTA
Lung Excursion:: Normal
Abdomen:: Nontender
Bowel Sounds:: Normal
Extremity Edema:: None: Bilateral:
[2024-07-05 14:46] VITALS: BP 128/55; PULSE 60; O2SAT 98
[2024-07-05 15:10] VITALS: BP 122/56
--- NOTE | 2024-07-05 15:19 | W.PN.HOSP.TC ---
Today's Communication/Plan
-
Monitor creatinine while on Lasix
Assessment / Plan
Assessment / Plan
Assessment/Plan
Impression:
MAEGAN.
CKD stage IV progressive
Diarrhea
Acute Retention
Conditions prior to admission:
CHF reduced EF.
-Echo 06/18: Mildly reduced LVEF 40-45%. Stage III diastolic dysfunction. Dilated RV with mildly reduced RV systolic function. Severe TR. LVEF reduced from 55 to 60% (03/04/2023) worsened MR and RV function.
CKD stage IV.
Essential hypertension
CAD with history of CABG 2016
Paroxysmal atrial fibrillation
AICD
History of CVA in 2022
Insulin requiring diabetes
Dyslipidemia
Chronic lower extremity edema due to lymphedema and venous insufficiency
Dementia suspected vascular type.
Plan
MAEGAN on CKD 4, progressive (2-2.4)
UA bland, U PCR 4.9gm/gm of cr, neg U eosinophils, pending serologies, normal complements -- nephrotic range proteinuria likely moving towards hemodialysis
UA consistent with proteinuria suspected diabetic nephropathy
Recent sonogram with no obstruction
Noted with intermittent retention requiring straight cath upon admission. Continue to monitor closely for recurrence.
Monitor creatinine while on Lasix
Continue bicarb
Bladder scan protocol. Haas catheter was placed 06/24.
Failed trial of voiding on 06/30 Haas catheter to be replaced by urology.
Continue Flomax twice daily with addition of Proscar
With penile trauma while on DAPT monitor for recurrent hematuria
Hold heparin subcu
Diarrheal illness reported.
Resolved.
Chronic HFrEF.
CAD
No evidence for decompensation.
Stable respiratory status.
Pro CHF BNP below baseline
Chest x-ray with no evidence of pulmonary edema, although with small to moderate left pleural effusion
Continue preadmission regimen including metoprolol, Imdur, hydralazine, Lipitor, Norvasc, aspirin/Plavix
# thrombocytopenia - RESOLVED
Borderline low
Patient is on aspirin, Plavix.
No active bleeding.
# Mild hypokalemia
-K 5.2 on 07/01/24 then up to 5.3
-Low potassium diet
-Monitor BMP
-Nephrology following
# hyponatremia, observe along with volume status.
# IDDM.
Recent hemoglobin A one 7.1
Euglycemic with fasting blood glucose was 71
Reduced Lantus to 5 units at bedtime
Continue basal protocol.
Monitor for hypoglycemia in the settings of decreased renal clearance.
Physical therapy assessment
Anticipated Discharge: 24 - 48 hours
Subjective/Interval History
-
Date of Service: July 05, 2024
Objective Data
-
Labs:
Laboratory Results
07/05/24
06:55
Sodium 132 L
Potassium 4.1
Chloride 99
Carbon Dioxide 23
BUN 69 H
Creatinine 3.4 H
Glucose 121 H
Calcium 8.3 L
Vital Signs:
Vital Signs
Temp Pulse Resp BP Pulse Ox
97.6 F 61 17 122/56 98
07/05/24 15:10 07/05/24 15:10 07/05/24 15:10 07/05/24 15:10 07/05/24 15:10
I&O
07/04/24 07/05/24 07/06/24
06:59 06:59 06:59
Intake Total 1020 / 1020 840 / 840
Output Total 650 / 650 850 / 850
Balance 370 / 370 -10
Physical Exam
-
General: Well Developed, Well Nourished and No Apparent Distress
HEENT: Normocephalic and Atraumatic
Respiratory: Clear to Auscultation; Negative Wheezes or Rhonchi
Cardiac: Regular Rhythm and S1/S2; Negative Murmur
GI: Soft, Nontender, Nondistended and Normal Bowel Sounds
Musculoskeletal: No Clubbing, No Cyanosis and No Edema (3+ LE edema)
Neuro: Awake and Alert
Psych: Calm
[2024-07-05 17:01] LABS: Glucose - Point of Care 186 mg/dl (70-99)
[2024-07-05 21:31] LABS: Glucose - Point of Care 217 mg/dl (70-99)
[2024-07-05] MEDS: EMLA CREAM 10 GRAM TOPICAL (22:01)
[2024-07-05] MEDS: LANTUS 0.05 UNITS SC (22:03)
[2024-07-05] MEDS: LIPITOR 80 MG PO (22:04)
[2024-07-05] MEDS: NORVASC 10 MG PO (22:04)
[2024-07-05 22:48] VITALS: BP 133/54
[2024-07-06 06:00] VITALS: BMI 26.9
[2024-07-06 06:39] LABS: Hematocrit 30.9 % (39.0-52.0); Mean Corp Hgb Conc. 32.4 g/dL (33.0-37.0); Mean Corpuscular Hgb 28.9 pg (27.0-31.0); Mean Corpuscular Volume 89.3 fL (80.0-94.0); Platelet Count 143 10^3/uL (130-400); Red Blood Cell Count 3.46 10^6/uL (4.70-6.10); Red Cell Dist. Width 13.9 % (11.5-14.5); White Blood Cell Count 5.4 10^3/uL (4.8-10.8)
[2024-07-06 07:07] LABS: Blood Urea Nitrogen 69 mg/dl (9-20); Calcium 8.4 mg/dl (8.4-10.2); Carbon Dioxide 25 mmol/L (22-30); Chloride 99 mmol/L (98-107); Estimated Creatinine Clearance 19 ml/min; Glucose 153 mg/dl (70-99); Potassium 4.1 mmol/L (3.5-5.1); Sodium 133 mmol/L (135-145); eGFR 17.96
[2024-07-06 08:09] LABS: Glucose - Point of Care 155 mg/dl (70-99)
[2024-07-06] MEDS: NOVOLOG FLEXPEN-LOW RESISTANCE 1 UNITS SC (08:18)
[2024-07-06] MEDS: IMDUR (EXTENDED RELEASE) 30 MG PO (08:19)
[2024-07-06] MEDS: APRESOLINE 50 MG PO ×3 (08:19→22:03)
[2024-07-06] MEDS: FLOMAX 0.4 MG PO ×2 (08:19→21:54)
[2024-07-06] MEDS: SODIUM BICARBONATE 325 MG PO ×2 (08:19→21:52)
[2024-07-06] MEDS: TOPROL XL 50 MG PO (08:19)
[2024-07-06] MEDS: PROTONIX 40 MG PO (08:19)
[2024-07-06] MEDS: ZETIA 10 MG PO (08:19)
[2024-07-06] MEDS: PROSCAR 5 MG PO (08:19)
[2024-07-06] MEDS: PLAVIX 75 MG PO (08:19)
[2024-07-06] MEDS: LASIX 20 MG PO (08:19)
[2024-07-06] MEDS: ASPIR LOW (ENTERIC COATED) 81 MG PO (08:19)
[2024-07-06] MEDS: EMLA CREAM 5 GRAM TOPICAL ×2 (08:20→21:50)
[2024-07-06] MEDS: DESENEX/MITRAZOL/ZEASORB 1 APPLIC TOPICAL ×2 (08:20→21:51)
[2024-07-06 08:23] VITALS: BP 141/56
[2024-07-06 11:47] LABS: Glucose - Point of Care 136 mg/dl (70-99)
[2024-07-06] MEDS: NOVOLOG FLEXPEN-LOW RESISTANCE SC (12:12)
--- NOTE | 2024-07-06 13:23 | W.PN.NEPH.PH ---
Today's Communication / Plan
-
Follow BMP
Assessment/Plan
-
Assessment
MAEGAN
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
Coronary artery disease with bypass
Paroxysmal atrial fibrillation
Hypertension
Edema/venous stasis diabetes mellitus type 2
Cognitive impairment
Plan
sin per urology
follow BMP
continue lasix p.o.
watch weights
no emergent HD needs currently
He will likely require dialysis in the future, and he has said previously that he would accept dialysis.
However, he is stable currently and this may be an opportunity to begin rehab
-
-
Date of Service: July 06, 2024
CC / HPI / ROS
-
Chief Complaint:
MAEGAN
History of Present Illness:
MAEGAN/Cr stable 3.4
Na 133 stable
BUN up to 69 stable
BP stable
Review of Systems:
no CP/SOB
no n/v
Sin catheter, non oliguric
Labs
-
Labs:
WBC 5.4 10^3/uL (4.8-10.8) 07/06/24 06:21
RBC 3.46 10^6/uL (4.70-6.10) L 07/06/24 06:21
Hgb 10.0 g/dL (13.0-18.0) L 07/06/24 06:21
Hct 30.9 % (39.0-52.0) L 07/06/24 06:21
Plt Count 143 10^3/uL (130-400) 07/06/24 06:21
Sodium 133 mmol/L (135-145) L 07/06/24 06:21
Potassium 4.1 mmol/L (3.5-5.1) 07/06/24 06:21
Chloride 99 mmol/L (98-107) 07/06/24 06:21
Carbon Dioxide 25 mmol/L (22-30) 07/06/24 06:21
BUN 69 mg/dl (9-20) H 07/06/24 06:21
Creatinine 3.4 mg/dL (0.7-1.3) H 07/06/24 06:21
eGFR 17.96 07/06/24 06:21
Glucose 153 mg/dl (70-99) H 07/06/24 06:21
Calcium 8.4 mg/dl (8.4-10.2) 07/06/24 06:21
Udh-V-Gyehqwqvsrn Pept 9940 pg/ml 06/19/24 06:24
Albumin 3.2 g/dl (3.5-5.0) L 06/19/24 06:24
Physical Exam
-
Vital Signs:
Vital Signs
Temp Pulse Resp BP Pulse Ox
97.7 F 61 16 141/56 97
07/06/24 08:23 07/06/24 08:23 07/06/24 08:23 07/06/24 08:23 07/06/24 08:23
Cardiovascular:: Regular rate and rhythm
Respiratory:: Bilateral: CTA
Lung Excursion:: Normal
Abdomen:: Nontender and Soft
Bowel Sounds:: Normal
Extremity Edema:: +1: Bilateral:
--- NOTE | 2024-07-06 14:26 | CM ---
Referral sent via [facility] to [facility] for SNF admission. Notified by Lauren Hogue that no beds available through the weekend at this time.
CM will continue to follow for transfer to SNF; will need to identify alternative facilities.
--- NOTE | 2024-07-06 14:51 | W.PN.HOSP.TC ---
Today's Communication/Plan
-
Continue oral Lasix per
Follow creatinine.
Maintain Haas catheter
Discharge planing.
Medically optimized.
Discussed with patient's daughter, nephrology, case management.
Assessment / Plan
Assessment / Plan
Assessment/Plan
Impression:
MAEGAN.
CKD stage IV progressive
Diarrhea
Acute Retention
Conditions prior to admission:
CHF reduced EF.
-Echo 06/18: Mildly reduced LVEF 40-45%. Stage III diastolic dysfunction. Dilated RV with mildly reduced RV systolic function. Severe TR. LVEF reduced from 55 to 60% (03/04/2023) worsened MR and RV function.
CKD stage IV.
Essential hypertension
CAD with history of CABG 2016
Paroxysmal atrial fibrillation
AICD
History of CVA in 2022
Insulin requiring diabetes
Dyslipidemia
Chronic lower extremity edema due to lymphedema and venous insufficiency
Dementia suspected vascular type.
Plan
MAEGAN on CKD 4, progressive (2-2.4)
UA bland, U PCR 4.9gm/gm of cr, neg U eosinophils, pending serologies, normal complements -- nephrotic range proteinuria likely moving towards hemodialysis
UA consistent with proteinuria suspected diabetic nephropathy
Recent sonogram with no obstruction
Noted with intermittent retention requiring straight cath upon admission. Continue to monitor closely for recurrence.
Monitor creatinine while on Lasix
Continue bicarb
Bladder scan protocol. Haas catheter was placed 06/24.
Failed trial of voiding on 06/30 Haas catheter to be replaced by urology.
Continue Flomax twice daily with addition of Proscar
With penile trauma while on DAPT monitor for recurrent hematuria
Hold heparin subcu
Diarrheal illness reported.
Resolved.
Chronic HFrEF.
CAD
No evidence for decompensation.
Stable respiratory status.
Pro CHF BNP below baseline
Chest x-ray with no evidence of pulmonary edema, although with small to moderate left pleural effusion
Continue preadmission regimen including metoprolol, Imdur, hydralazine, Lipitor, Norvasc, aspirin/Plavix
# thrombocytopenia - RESOLVED
Borderline low
Patient is on aspirin, Plavix.
No active bleeding.
# Mild hypokalemia
-K 5.2 on 07/01/24 then up to 5.3
-Low potassium diet
-Monitor BMP
-Nephrology following
# hyponatremia, observe along with volume status.
# IDDM.
Recent hemoglobin A one 7.1
Euglycemic with fasting blood glucose was 71
Reduced Lantus to 5 units at bedtime
Continue basal protocol.
Monitor for hypoglycemia in the settings of decreased renal clearance.
Physical therapy assessment
Anticipated Discharge: Within 24 hours
Subjective/Interval History
-
Date of Service: July 06, 2024
Objective Data
-
Labs:
Laboratory Results
07/06/24
06:21
WBC 5.4
Hgb 10.0 L
Hct 30.9 L
Plt Count 143
Sodium 133 L
Potassium 4.1
Chloride 99
Carbon Dioxide 25
BUN 69 H
Creatinine 3.4 H
Glucose 153 H
Calcium 8.4
Vital Signs:
Vital Signs
Temp Pulse Resp BP Pulse Ox
97.7 F 61 16 141/56 97
07/06/24 08:23 07/06/24 08:23 07/06/24 08:23 07/06/24 08:23 07/06/24 08:23
I&O
07/05/24 07/06/24 07/07/24
06:59 06:59 06:59
Intake Total 840 / 840 1320 / 1320
Output Total 850 / 850 950 / 950
Balance -10 / -10 370 / 370
Physical Exam
-
General: Well Developed, Well Nourished and No Apparent Distress
HEENT: Normocephalic and Atraumatic
Respiratory: Clear to Auscultation; Negative Wheezes or Rhonchi
Cardiac: Regular Rhythm and S1/S2; Negative Murmur
GI: Soft, Nontender, Nondistended and Normal Bowel Sounds
Musculoskeletal: No Clubbing, No Cyanosis and No Edema (3+ LE edema)
Neuro: Awake and Alert
Psych: Calm
--- NOTE | 2024-07-06 14:58 | W.DS.TRANS ---
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
-
Discharge Instructions:
Sleep Apnea Risk Intermediate
Discharge Diagnosis/Procedures Impression:
MAEGAN.
CKD stage IV progressive
Diarrhea
Acute Retention
Conditions prior to admission:
CHF reduced EF.
-Echo 06/18: Mildly reduced LVEF 40-45%. Stage
III diastolic dysfunction. Dilated RV with
mildly reduced RV systolic function. Severe TR.
LVEF reduced from 55 to 60% (03/04/2023)
worsened MR and RV function.
CKD stage IV.
Essential hypertension
CAD with history of CABG 2016
Paroxysmal atrial fibrillation
AICD
History of CVA in 2022
Insulin requiring diabetes
Dyslipidemia
Chronic lower extremity edema due to lymphedema
and venous insufficiency
Dementia suspected vascular type.
Diet Diabetic, Carb Controlled
Blood Work BMP07/10/2025
Instructions:
Stand-Alone Forms:
Changes to Home Medications: Yes
Discharge Medications:
DC Medications w/original date entered in [employer]
amlodipine 10 mg tablet 10 mg PO HS #30 tabs 03/18/23
aspirin 81 mg tablet,delayed release 81 mg PO DAILY #5 tabs 03/18/23
clopidogrel 75 mg tablet 75 mg PO DAILY #30 tabs 03/18/23
ezetimibe 10 mg tablet 10 mg PO DAILY High Cholesterol #30 tabs 03/18/23
pantoprazole 40 mg tablet,delayed release 40 mg PO DAILY Gastrointestinal Issue #30 tabs 03/18/23
metoprolol succinate 50 mg tablet,extended release 24 hr 50 mg PO DAILY Blood Pressure 06/04/24
isosorbide mononitrate 30 mg tablet,extended release 24 hr 30 mg PO DAILY #30 tabs 06/09/24
acetaminophen 325 mg tablet 650 mg PO Q6HPRN PRN mild pain/temp>100 06/13/24
atorvastatin 80 mg tablet 80 mg PO HS High Cholesterol 06/13/24
magnesium hydroxide 400 mg/5 mL oral suspension (Milk of Magnesia) 30 ml PO [id number] PRN no bm 2 days 06/13/24
sodium phosphates 19 gram-7 gram/118 mL enema (Fleet Enema) 118 ml IA DAILYPRN PRN no bm 4 days 06/13/24
bisacodyl 10 mg rectal suppository 10 mg IA [id number] PRN constipation #12 ea 07/06/24
finasteride 5 mg tablet 5 mg PO DAILY #30 tabs 07/06/24
furosemide 20 mg tablet 20 mg PO DAILY #30 tabs 07/06/24
hydralazine 25 mg tablet 50 mg (2 x 25 mg) PO TID #90 tabs 07/06/24
insulin glargine 100 unit/mL (3 mL) subcutaneous pen (Lantus Solostar U-100 Insulin) 5 unit (0.05 mL) SC HS Diabetes #0 mL 07/06/24
polyethylene glycol 3350 17 gram oral powder packet 17 g PO DAILYPRN PRN constipation #14 ea 07/06/24
sodium bicarbonate 650 mg tablet 325 mg (1/2 x 650 mg) PO BID #60 tabs 07/06/24
tamsulosin 0.4 mg capsule 0.4 mg PO BID #60 caps 07/06/24
Home Medication Changes
Hydralazine dose increased.
Lasix dose reduced.
Lantus reduced.
Flomax increased to twice daily
Proscar added
Pending Results: No
[2024-07-06 16:06] VITALS: BP 125/54
[2024-07-06 16:44] LABS: Glucose - Point of Care 207 mg/dl (70-99)
[2024-07-06] MEDS: NOVOLOG FLEXPEN-LOW RESISTANCE 2 UNITS SC (17:34)
[2024-07-06 21:36] LABS: Glucose - Point of Care 227 mg/dl (70-99)
[2024-07-06] MEDS: LIPITOR 80 MG PO (21:54)
[2024-07-06] MEDS: LANTUS 0.05 UNITS SC (21:54)
[2024-07-06] MEDS: NORVASC 10 MG PO (22:03)
[2024-07-06 23:02] VITALS: BP 136/53
[2024-07-07 06:00] VITALS: BMI 27.2
[2024-07-07] MEDS: FLOMAX 0.4 MG PO ×2 (07:42→21:32)
[2024-07-07] MEDS: IMDUR (EXTENDED RELEASE) 30 MG PO (07:42)
[2024-07-07] MEDS: ZETIA 10 MG PO (07:42)
[2024-07-07] MEDS: SODIUM BICARBONATE 325 MG PO ×2 (07:42→21:29)
[2024-07-07] MEDS: PROTONIX 40 MG PO (07:42)
[2024-07-07] MEDS: ASPIR LOW (ENTERIC COATED) 81 MG PO (07:42)
[2024-07-07] MEDS: PLAVIX 75 MG PO (07:43)
[2024-07-07] MEDS: PROSCAR 5 MG PO (07:43)
[2024-07-07] MEDS: APRESOLINE 50 MG PO ×3 (07:44→21:33)
[2024-07-07] MEDS: LASIX 20 MG PO (07:44)
[2024-07-07] MEDS: TOPROL XL 50 MG PO (07:44)
[2024-07-07] MEDS: DESENEX/MITRAZOL/ZEASORB 1 APPLIC TOPICAL ×2 (07:45→21:33)
[2024-07-07] MEDS: EMLA CREAM 5 GRAM TOPICAL ×2 (07:45→21:33)
[2024-07-07 07:51] VITALS: BP 144/60
[2024-07-07 08:04] LABS: Glucose - Point of Care 134 mg/dl (70-99)
[2024-07-07] MEDS: NOVOLOG FLEXPEN-LOW RESISTANCE SC ×2 (08:16→16:49)
--- NOTE | 2024-07-07 10:56 | W.PN.NEPH.PH ---
Today's Communication / Plan
-
Appears stable for discharge
Assessment/Plan
-
Assessment
MAEGAN
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
Coronary artery disease with bypass
Paroxysmal atrial fibrillation
Hypertension
Edema/venous stasis diabetes mellitus type 2
Cognitive impairment
Plan
sin per urology
follow BMP
continue lasix p.o.
Continue p.o. sodium bicarbonate for chronic metabolic acidosis
watch weights
no emergent HD needs currently
He will likely require dialysis in the future, and he has said previously that he would accept dialysis.
However, he is stable currently and this may be an opportunity to begin rehab
-
-
Date of Service: July 07, 2024
CC / HPI / ROS
-
Chief Complaint:
MAEGAN
History of Present Illness:
MAEGAN/Cr stable 3.4
Na 133 stable
BUN up to 69 stable
BP stable
Review of Systems:
no CP/SOB
no n/v
Sin catheter, non oliguric
Labs
-
Labs:
WBC 5.4 10^3/uL (4.8-10.8) 07/06/24 06:21
RBC 3.46 10^6/uL (4.70-6.10) L 07/06/24 06:21
Hgb 10.0 g/dL (13.0-18.0) L 07/06/24 06:21
Hct 30.9 % (39.0-52.0) L 07/06/24 06:21
Plt Count 143 10^3/uL (130-400) 07/06/24 06:21
Sodium 133 mmol/L (135-145) L 07/06/24 06:21
Potassium 4.1 mmol/L (3.5-5.1) 07/06/24 06:21
Chloride 99 mmol/L (98-107) 07/06/24 06:21
Carbon Dioxide 25 mmol/L (22-30) 07/06/24 06:21
BUN 69 mg/dl (9-20) H 07/06/24 06:21
Creatinine 3.4 mg/dL (0.7-1.3) H 07/06/24 06:21
eGFR 17.96 07/06/24 06:21
Glucose 153 mg/dl (70-99) H 07/06/24 06:21
Calcium 8.4 mg/dl (8.4-10.2) 07/06/24 06:21
Ppm-H-Bktxdlgwuff Pept 9940 pg/ml 06/19/24 06:24
Albumin 3.2 g/dl (3.5-5.0) L 06/19/24 06:24
Physical Exam
-
Vital Signs:
Vital Signs
Temp Pulse Resp BP Pulse Ox
97.4 F 61 16 144/60 95
07/07/24 07:51 07/07/24 07:51 07/07/24 07:51 07/07/24 07:51 07/07/24 07:51
Cardiovascular:: Regular rate and rhythm
Respiratory:: Bilateral: CTA
Lung Excursion:: Normal
Abdomen:: Nontender and Soft
Bowel Sounds:: Normal
Extremity Edema:: +1: Bilateral:
--- NOTE | 2024-07-07 12:00 | W.PN.UPDATE ---
Update Note
Progress Note Update
pt stable
urine clear with some sediment- but no hematuria
discharge on flomax bid and proscar
outpt f/u with dr younger for repeat voiding trial
[2024-07-07 12:57] LABS: Glucose - Point of Care 280 mg/dl (70-99)
[2024-07-07] MEDS: NOVOLOG FLEXPEN-LOW RESISTANCE 3 UNITS SC (12:57)
--- NOTE | 2024-07-07 13:33 | CM ---
Addendum entered by SHELLY Christensen 07/07/24 13:51:
Spoke with Kamaljit in admissions at [facility] who stated that she is not sure if she has a bed for for patient, and will consult Margy and return call. Additional referrals sent to [facility] and [facility].
Original Note:
Patient medically stable for discharge per attending. No bed is available at [facility] per admissions yesterday. Patient is unable to get a bed at [facility]. [facility] does not have a bed. Placed a call to patient's daughter to obtain further
options. She stated that she would like referrals sent to [facility], [facility]. Will send referrals in hopes to secure a bed.
Plan: Case management will continue to follow and assist with discharge planning. SNF when accepting facility is found.
--- NOTE | 2024-07-07 15:26 | W.PN.HOSP.TC ---
Today's Communication/Plan
-
Continue oral Lasix per
Continue Haas catheter along with Flomax and Proscar.
Follow renal function
Medically optimized for discharge pending placement
Assessment / Plan
Assessment / Plan
Assessment/Plan
Impression:
MAEGAN.
CKD stage IV progressive
Diarrhea
Acute Retention
Conditions prior to admission:
CHF reduced EF.
-Echo 06/18: Mildly reduced LVEF 40-45%. Stage III diastolic dysfunction. Dilated RV with mildly reduced RV systolic function. Severe TR. LVEF reduced from 55 to 60% (03/04/2023) worsened MR and RV function.
CKD stage IV.
Essential hypertension
CAD with history of CABG 2016
Paroxysmal atrial fibrillation
AICD
History of CVA in 2022
Insulin requiring diabetes
Dyslipidemia
Chronic lower extremity edema due to lymphedema and venous insufficiency
Dementia suspected vascular type.
Plan
MAEGAN on CKD 4, progressive (2-2.4)
UA bland, U PCR 4.9gm/gm of cr, neg U eosinophils, pending serologies, normal complements -- nephrotic range proteinuria likely moving towards hemodialysis
UA consistent with proteinuria suspected diabetic nephropathy
Recent sonogram with no obstruction
Noted with intermittent retention requiring straight cath upon admission. Continue to monitor closely for recurrence.
Monitor creatinine while on Lasix
Continue bicarb
Bladder scan protocol. Haas catheter was placed 06/24.
Failed trial of voiding on 06/30 Haas catheter to be replaced by urology.
Continue Flomax twice daily with addition of Proscar
With penile trauma while on DAPT monitor for recurrent hematuria
Hold heparin subcu
Diarrheal illness reported.
Resolved.
Chronic HFrEF.
CAD
No evidence for decompensation.
Stable respiratory status.
Pro CHF BNP below baseline
Chest x-ray with no evidence of pulmonary edema, although with small to moderate left pleural effusion
Continue preadmission regimen including metoprolol, Imdur, hydralazine, Lipitor, Norvasc, aspirin/Plavix
# thrombocytopenia - RESOLVED
Borderline low
Patient is on aspirin, Plavix.
No active bleeding.
# Mild hypokalemia
-K 5.2 on 07/01/24 then up to 5.3
-Low potassium diet
-Monitor BMP
-Nephrology following
# hyponatremia, observe along with volume status.
# IDDM.
Recent hemoglobin A one 7.1
Euglycemic with fasting blood glucose was 71
Reduced Lantus to 5 units at bedtime
Continue basal protocol.
Monitor for hypoglycemia in the settings of decreased renal clearance.
Physical therapy assessment
Anticipated Discharge: 24 - 48 hours
Subjective/Interval History
-
Date of Service: July 07, 2024
Objective Data
-
Vital Signs:
Vital Signs
Temp Pulse Resp BP Pulse Ox
97.4 F 61 16 144/60 95
07/07/24 07:51 07/07/24 07:51 07/07/24 07:51 07/07/24 07:51 07/07/24 07:51
I&O
07/06/24 07/07/24 07/08/24
06:59 06:59 06:59
Intake Total 1320 / 1320 1380 / 1380
Output Total 950 / 950 775 / 775
Balance 370 / 370 605 / 605
Physical Exam
-
General: Well Developed, Well Nourished and No Apparent Distress
HEENT: Normocephalic and Atraumatic
Respiratory: Clear to Auscultation; Negative Wheezes or Rhonchi
Cardiac: Regular Rhythm and S1/S2; Negative Murmur
GI: Soft, Nontender, Nondistended and Normal Bowel Sounds
Musculoskeletal: No Clubbing and No Cyanosis
Neuro: Awake and Alert
Psych: Calm
--- NOTE | 2024-07-07 15:48 | CM ---
Bed offers received from [facility], [facility], and [facility] (only has a room with 3 patients).
CM called pt's daughter, Dina, but had to leave a voicemail. Provided the main CM phone number to call back - [phone].
CM to continue to follow; awaiting response from Miguel' daughter regarding preference for transfer to one of the above facilities.
Plan: Transfer to SNF pending daughter's response/agreement for one of the above facilities.
[2024-07-07 15:51] VITALS: BP 138/66
[2024-07-07 16:10] VITALS: BP 135/61; PULSE 60; O2SAT 97
[2024-07-07 16:45] LABS: Glucose - Point of Care 147 mg/dl (70-99)
[2024-07-07 21:26] LABS: Glucose - Point of Care 174 mg/dl (70-99)
[2024-07-07] MEDS: LANTUS 0.05 UNITS SC (21:29)
[2024-07-07 21:30] VITALS: BP 122/54
[2024-07-07] MEDS: NORVASC 10 MG PO (21:32)
[2024-07-07] MEDS: LIPITOR 80 MG PO (21:32)
[2024-07-07 23:00] VITALS: BP 130/56
[2024-07-08 06:00] VITALS: BMI 27.2
[2024-07-08 07:00] VITALS: BP 145/59
[2024-07-08 08:20] LABS: Glucose - Point of Care 100 mg/dl (70-99)
[2024-07-08] MEDS: NOVOLOG FLEXPEN-LOW RESISTANCE SC ×3 (08:32→17:04)
[2024-07-08] MEDS: IMDUR (EXTENDED RELEASE) 30 MG PO (08:32)
[2024-07-08] MEDS: PLAVIX 75 MG PO (08:33)
[2024-07-08] MEDS: SODIUM BICARBONATE 325 MG PO ×2 (08:33→22:12)
[2024-07-08] MEDS: FLOMAX 0.4 MG PO ×2 (08:33→22:12)
[2024-07-08] MEDS: ASPIR LOW (ENTERIC COATED) 81 MG PO (08:33)
[2024-07-08] MEDS: PROTONIX 40 MG PO (08:33)
[2024-07-08] MEDS: ZETIA 10 MG PO (08:33)
[2024-07-08] MEDS: PROSCAR 5 MG PO (08:34)
[2024-07-08] MEDS: LASIX 20 MG PO (08:34)
[2024-07-08] MEDS: APRESOLINE 50 MG PO ×3 (08:34→22:12)
[2024-07-08] MEDS: EMLA CREAM 5 GRAM TOPICAL ×2 (08:34→22:13)
[2024-07-08] MEDS: TOPROL XL 50 MG PO (08:34)
[2024-07-08] MEDS: DESENEX/MITRAZOL/ZEASORB 1 APPLIC TOPICAL ×2 (08:38→22:13)
--- NOTE | 2024-07-08 11:27 | W.PN.NEPH.PH ---
Today's Communication / Plan
-
Maintain Lasix
Check BMP in a.m.
Assessment/Plan
-
Assessment
MAEGAN
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
Coronary artery disease with bypass
Paroxysmal atrial fibrillation
Hypertension
Edema/venous stasis diabetes mellitus type 2
Cognitive impairment
Plan
sin per urology
follow BMP
continue lasix p.o.
Continue p.o. sodium bicarbonate for chronic metabolic acidosis
watch weights
no emergent HD needs currently
We will recheck lab work tomorrow morning
He will likely require dialysis in the future, and he has said previously that he would accept dialysis.
However, he is stable currently and this may be an opportunity to begin rehab
-
-
Date of Service: July 08, 2024
CC / HPI / ROS
-
Chief Complaint:
MAEGAN
History of Present Illness:
MAEGAN/Cr stable 3.4
Na 133 stable
BUN up to 69 stable
BP stable
Review of Systems:
no CP/SOB
no n/v
Sin catheter, non oliguric
Labs
-
Labs:
WBC 5.4 10^3/uL (4.8-10.8) 07/06/24 06:21
RBC 3.46 10^6/uL (4.70-6.10) L 07/06/24 06:21
Hgb 10.0 g/dL (13.0-18.0) L 07/06/24 06:21
Hct 30.9 % (39.0-52.0) L 07/06/24 06:21
Plt Count 143 10^3/uL (130-400) 07/06/24 06:21
Sodium 133 mmol/L (135-145) L 07/06/24 06:21
Potassium 4.1 mmol/L (3.5-5.1) 07/06/24 06:21
Chloride 99 mmol/L (98-107) 07/06/24 06:21
Carbon Dioxide 25 mmol/L (22-30) 07/06/24 06:21
BUN 69 mg/dl (9-20) H 07/06/24 06:21
Creatinine 3.4 mg/dL (0.7-1.3) H 07/06/24 06:21
eGFR 17.96 07/06/24 06:21
Glucose 153 mg/dl (70-99) H 07/06/24 06:21
Calcium 8.4 mg/dl (8.4-10.2) 07/06/24 06:21
Azh-S-Crxqodrvfte Pept 9940 pg/ml 06/19/24 06:24
Albumin 3.2 g/dl (3.5-5.0) L 06/19/24 06:24
Physical Exam
-
Vital Signs:
Vital Signs
Temp Pulse Resp BP Pulse Ox
99.4 F 70 12 145/59 93
07/08/24 07:00 07/08/24 08:34 07/08/24 07:00 07/08/24 08:34 07/08/24 07:00
Cardiovascular:: Regular rate and rhythm
Respiratory:: Bilateral: CTA
Lung Excursion:: Normal
Abdomen:: Nontender and Soft
Bowel Sounds:: Normal
Extremity Edema:: +1: Bilateral:
Sin Catheter: Yes
[2024-07-08 12:04] LABS: Glucose - Point of Care 97 mg/dl (70-99)
--- NOTE | 2024-07-08 12:51 | W.PN.HOSP.TC ---
Today's Communication/Plan
-
Maintain Haas catheter
Continue p.o. Lasix to maintain volume status
Follow creatinine
Placement
Assessment / Plan
Assessment / Plan
Assessment/Plan
Impression:
MAEGAN.
CKD stage IV progressive
Diarrhea
Acute Retention
Conditions prior to admission:
CHF reduced EF.
-Echo 06/18: Mildly reduced LVEF 40-45%. Stage III diastolic dysfunction. Dilated RV with mildly reduced RV systolic function. Severe TR. LVEF reduced from 55 to 60% (03/04/2023) worsened MR and RV function.
CKD stage IV.
Essential hypertension
CAD with history of CABG 2016
Paroxysmal atrial fibrillation
AICD
History of CVA in 2022
Insulin requiring diabetes
Dyslipidemia
Chronic lower extremity edema due to lymphedema and venous insufficiency
Dementia suspected vascular type.
Plan
MAEGAN on CKD 4, progressive (2-2.4)
UA bland, U PCR 4.9gm/gm of cr, neg U eosinophils, pending serologies, normal complements -- nephrotic range proteinuria likely moving towards hemodialysis
UA consistent with proteinuria suspected diabetic nephropathy
Recent sonogram with no obstruction
Noted with intermittent retention requiring straight cath upon admission. Continue to monitor closely for recurrence.
Monitor creatinine while on Lasix
Continue bicarb
Bladder scan protocol. Haas catheter was placed 06/24.
Failed trial of voiding on 06/30 Haas catheter to be replaced by urology.
Continue Flomax twice daily with addition of Proscar
With penile trauma while on DAPT monitor for recurrent hematuria
Hold heparin subcu
Diarrheal illness reported.
Resolved.
Chronic HFrEF.
CAD
No evidence for decompensation.
Stable respiratory status.
Pro CHF BNP below baseline
Chest x-ray with no evidence of pulmonary edema, although with small to moderate left pleural effusion
Continue preadmission regimen including metoprolol, Imdur, hydralazine, Lipitor, Norvasc, aspirin/Plavix
# thrombocytopenia - RESOLVED
Borderline low
Patient is on aspirin, Plavix.
No active bleeding.
# Mild hypokalemia
-K 5.2 on 07/01/24 then up to 5.3
-Low potassium diet
-Monitor BMP
-Nephrology following
# hyponatremia, observe along with volume status.
# IDDM.
Recent hemoglobin A one 7.1
Euglycemic with fasting blood glucose was 71
Reduced Lantus to 5 units at bedtime
Continue basal protocol.
Monitor for hypoglycemia in the settings of decreased renal clearance.
Physical therapy assessment
Anticipated Discharge: 24 - 48 hours
Subjective/Interval History
-
Date of Service: July 08, 2024
Objective Data
-
Vital Signs:
Vital Signs
Temp Pulse Resp BP Pulse Ox
99.4 F 70 12 145/59 93
07/08/24 07:00 07/08/24 08:34 07/08/24 07:00 07/08/24 08:34 07/08/24 07:00
I&O
07/07/24 07/08/24 07/09/24
06:59 06:59 06:59
Intake Total 1380 / 1380 840 / 840
Output Total 775 / 775 650 / 650
Balance 605 / 605 190 / 190
Physical Exam
-
General: Well Developed, Well Nourished and No Apparent Distress
HEENT: Normocephalic and Atraumatic
Respiratory: Clear to Auscultation; Negative Wheezes or Rhonchi
Cardiac: Regular Rhythm and S1/S2; Negative Murmur
GI: Soft, Nontender, Nondistended and Normal Bowel Sounds
Musculoskeletal: No Clubbing and No Cyanosis
Neuro: Awake and Alert
Psych: Calm
[2024-07-08 15:45] VITALS: BP 139/55
[2024-07-08 16:38] LABS: Glucose - Point of Care 88 mg/dl (70-99)
[2024-07-08 21:44] LABS: Glucose - Point of Care 109 mg/dl (70-99)
[2024-07-08] MEDS: LANTUS 0.05 UNITS SC (22:00)
[2024-07-08] MEDS: NORVASC 10 MG PO (22:11)
[2024-07-08] MEDS: LIPITOR 80 MG PO (22:11)
[2024-07-08 23:50] VITALS: BP 137/53
[2024-07-09 06:18] VITALS: BMI 27.0
[2024-07-09 07:00] VITALS: BP 136/52
[2024-07-09 07:30] LABS: Blood Urea Nitrogen 69 mg/dl (9-20); Calcium 8.4 mg/dl (8.4-10.2); Carbon Dioxide 24 mmol/L (22-30); Chloride 100 mmol/L (98-107); Estimated Creatinine Clearance 20 ml/min; Glucose 64 mg/dl (70-99); Sodium 134 mmol/L (135-145); eGFR 19.32
[2024-07-09 07:47] LABS: Glucose - Point of Care 68 mg/dl (70-99)
[2024-07-09 08:08] LABS: Glucose - Point of Care 84 mg/dl (70-99)
[2024-07-09] MEDS: NOVOLOG FLEXPEN-LOW RESISTANCE SC ×3 (08:12→16:53)
[2024-07-09] MEDS: PROTONIX 40 MG PO (08:13)
[2024-07-09] MEDS: ASPIR LOW (ENTERIC COATED) 81 MG PO (08:13)
[2024-07-09] MEDS: PLAVIX 75 MG PO (08:14)
[2024-07-09] MEDS: TOPROL XL 50 MG PO (08:14)
[2024-07-09] MEDS: SODIUM BICARBONATE 325 MG PO ×2 (08:14→23:09)
[2024-07-09] MEDS: LASIX 20 MG PO (08:15)
[2024-07-09] MEDS: EMLA CREAM 5 GRAM TOPICAL ×2 (08:15→23:08)
[2024-07-09] MEDS: FLOMAX 0.4 MG PO ×2 (08:15→23:10)
[2024-07-09] MEDS: PROSCAR 5 MG PO (08:15)
[2024-07-09] MEDS: APRESOLINE 50 MG PO ×3 (08:15→23:09)
[2024-07-09] MEDS: ZETIA 10 MG PO (08:18)
[2024-07-09] MEDS: IMDUR (EXTENDED RELEASE) 30 MG PO (08:18)
[2024-07-09] MEDS: DESENEX/MITRAZOL/ZEASORB 1 APPLIC TOPICAL ×2 (08:22→23:07)
--- NOTE | 2024-07-09 09:58 | W.PN.NEPH.PH ---
Today's Communication / Plan
-
Observe on current Lasix administration
Assessment/Plan
-
Assessment
MAEGAN
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
Coronary artery disease with bypass
Paroxysmal atrial fibrillation
Hypertension
Edema/venous stasis diabetes mellitus type 2
Cognitive impairment
Plan
sin per urology
follow BMP
continue lasix p.o. 20 mg
Continue p.o. sodium bicarbonate for chronic metabolic acidosis
watch weights
no emergent HD needs currently
Creatinine stable at 3.2 with BUN of 69
He will likely require dialysis in the future, and he has said previously that he would accept dialysis but at this point he appears to be stable and stable for discharge
-
-
Date of Service: July 09, 2024
CC / HPI / ROS
-
Chief Complaint:
MAEGAN
History of Present Illness:
MAEGAN/Cr stable 3.2
Na 134 stable
BUN up to 69 stable
BP stable
Review of Systems:
no CP/SOB
no n/v
Sin catheter, non oliguric
Labs
-
Labs:
WBC 5.4 10^3/uL (4.8-10.8) 07/06/24 06:21
RBC 3.46 10^6/uL (4.70-6.10) L 07/06/24 06:21
Hgb 10.0 g/dL (13.0-18.0) L 07/06/24 06:21
Hct 30.9 % (39.0-52.0) L 07/06/24 06:21
Plt Count 143 10^3/uL (130-400) 07/06/24 06:21
Sodium 134 mmol/L (135-145) L 07/09/24 06:30
Potassium 4.0 mmol/L (3.5-5.1) 07/09/24 06:30
Chloride 100 mmol/L (98-107) 07/09/24 06:30
Carbon Dioxide 24 mmol/L (22-30) 07/09/24 06:30
BUN 69 mg/dl (9-20) H 07/09/24 06:30
Creatinine 3.2 mg/dL (0.7-1.3) H 07/09/24 06:30
eGFR 19.32 07/09/24 06:30
Glucose 64 mg/dl (70-99) L 07/09/24 06:30
Calcium 8.4 mg/dl (8.4-10.2) 07/09/24 06:30
Rwn-I-Pqsphrtiwab Pept 9940 pg/ml 06/19/24 06:24
Albumin 3.2 g/dl (3.5-5.0) L 06/19/24 06:24
Physical Exam
-
Vital Signs:
Vital Signs
Temp Pulse Resp BP Pulse Ox
97.9 F 66 12 136/52 94
07/09/24 07:00 07/09/24 08:14 07/09/24 07:00 07/09/24 08:14 07/09/24 07:00
Cardiovascular:: Regular rate and rhythm
Respiratory:: Bilateral: CTA
Lung Excursion:: Normal
Abdomen:: Nontender and Soft
Bowel Sounds:: Normal
Extremity Edema:: +1: Bilateral:
Sin Catheter: Yes
[2024-07-09 10:08] LABS: Glucose - Point of Care 75 mg/dl (70-99)
[2024-07-09 12:09] LABS: Glucose - Point of Care 75 mg/dl (70-99)
--- NOTE | 2024-07-09 13:40 | W.PN.HOSP.TC ---
Today's Communication/Plan
-
Maintain Haas catheter
Continue Lasix
Placement
Assessment / Plan
Assessment / Plan
Assessment/Plan
Impression:
MAEGAN.
CKD stage IV progressive
Diarrhea
Acute Retention
Conditions prior to admission:
CHF reduced EF.
-Echo 06/18: Mildly reduced LVEF 40-45%. Stage III diastolic dysfunction. Dilated RV with mildly reduced RV systolic function. Severe TR. LVEF reduced from 55 to 60% (03/04/2023) worsened MR and RV function.
CKD stage IV.
Essential hypertension
CAD with history of CABG 2016
Paroxysmal atrial fibrillation
AICD
History of CVA in 2022
Insulin requiring diabetes
Dyslipidemia
Chronic lower extremity edema due to lymphedema and venous insufficiency
Dementia suspected vascular type.
Plan
MAEGAN on CKD 4, progressive (2-2.4)
UA bland, U PCR 4.9gm/gm of cr, neg U eosinophils, pending serologies, normal complements -- nephrotic range proteinuria likely moving towards hemodialysis
UA consistent with proteinuria suspected diabetic nephropathy
Recent sonogram with no obstruction
Noted with intermittent retention requiring straight cath upon admission. Continue to monitor closely for recurrence.
Monitor creatinine while on Lasix
Continue bicarb
Bladder scan protocol. Haas catheter was placed 06/24.
Failed trial of voiding on 06/30 Haas catheter to be replaced by urology.
Continue Flomax twice daily with addition of Proscar
With penile trauma while on DAPT monitor for recurrent hematuria
Hold heparin subcu
Diarrheal illness reported.
Resolved.
Chronic HFrEF.
CAD
No evidence for decompensation.
Stable respiratory status.
Pro CHF BNP below baseline
Chest x-ray with no evidence of pulmonary edema, although with small to moderate left pleural effusion
Continue preadmission regimen including metoprolol, Imdur, hydralazine, Lipitor, Norvasc, aspirin/Plavix
# thrombocytopenia - RESOLVED
Borderline low
Patient is on aspirin, Plavix.
No active bleeding.
# Mild hypokalemia
-K 5.2 on 07/01/24 then up to 5.3
-Low potassium diet
-Monitor BMP
-Nephrology following
# hyponatremia, observe along with volume status.
# IDDM.
Recent hemoglobin A one 7.1
Euglycemic with fasting blood glucose was 71
Reduced Lantus to 5 units at bedtime
Continue basal protocol.
Monitor for hypoglycemia in the settings of decreased renal clearance.
Physical therapy assessment
Anticipated Discharge: 24 - 48 hours
Subjective/Interval History
-
Date of Service: July 09, 2024
Objective Data
-
Labs:
Laboratory Results
07/09/24
06:30
Sodium 134 L
Potassium 4.0
Chloride 100
Carbon Dioxide 24
BUN 69 H
Creatinine 3.2 H
Glucose 64 L
Calcium 8.4
Vital Signs:
Vital Signs
Temp Pulse Resp BP Pulse Ox
97.9 F 66 12 136/52 94
07/09/24 07:00 07/09/24 08:14 07/09/24 07:00 07/09/24 08:14 07/09/24 07:00
I&O
07/08/24 07/09/24 07/10/24
06:59 06:59 06:59
Intake Total 840 / 840 1040 / 1040
Output Total 650 / 650 875 / 875
Balance 190 / 190 165 / 165
Physical Exam
-
General: Well Developed, Well Nourished and No Apparent Distress
HEENT: Normocephalic and Atraumatic
Respiratory: Clear to Auscultation; Negative Wheezes or Rhonchi
Cardiac: Regular Rhythm and S1/S2; Negative Murmur
GI: Soft, Nontender, Nondistended and Normal Bowel Sounds
Musculoskeletal: No Clubbing and No Cyanosis
Neuro: Awake and Alert
Psych: Calm
[2024-07-09 15:00] VITALS: BP 116/60
[2024-07-09 16:38] LABS: Glucose - Point of Care 142 mg/dl (70-99)
[2024-07-09 21:27] LABS: Glucose - Point of Care 140 mg/dl (70-99)
[2024-07-09] MEDS: LANTUS 0.05 UNITS SC (23:05)
[2024-07-09] MEDS: LIPITOR 80 MG PO (23:09)
[2024-07-09 23:39] VITALS: BP 134/60
[2024-07-09] MEDS: NORVASC 10 MG PO (23:59)
[2024-07-10 03:38] LABS: Glucose - Point of Care 120 mg/dl (70-99)
[2024-07-10 05:46] VITALS: BMI 27.1
[2024-07-10 07:30] VITALS: BP 141/58
[2024-07-10] MEDS: ZETIA 10 MG PO (08:08)
[2024-07-10] MEDS: IMDUR (EXTENDED RELEASE) 30 MG PO (08:08)
[2024-07-10] MEDS: PROTONIX 40 MG PO (08:08)
[2024-07-10] MEDS: APRESOLINE 50 MG PO ×3 (08:08→22:39)
[2024-07-10] MEDS: SODIUM BICARBONATE 325 MG PO ×2 (08:09→22:28)
[2024-07-10] MEDS: TOPROL XL 50 MG PO (08:09)
[2024-07-10] MEDS: PROSCAR 5 MG PO (08:09)
[2024-07-10] MEDS: PLAVIX 75 MG PO (08:09)
[2024-07-10] MEDS: FLOMAX 0.4 MG PO ×2 (08:09→22:29)
[2024-07-10] MEDS: ASPIR LOW (ENTERIC COATED) 81 MG PO (08:09)
[2024-07-10] MEDS: LASIX 20 MG PO (08:09)
[2024-07-10] MEDS: EMLA CREAM 5 GRAM TOPICAL ×2 (08:10→22:28)
[2024-07-10] MEDS: DESENEX/MITRAZOL/ZEASORB 1 APPLIC TOPICAL ×2 (08:10→22:39)
[2024-07-10] MEDS: NOVOLOG FLEXPEN-LOW RESISTANCE SC ×2 (08:15→12:34)
[2024-07-10 08:16] LABS: Glucose - Point of Care 98 mg/dl (70-99)
[2024-07-10 12:25] LABS: Glucose - Point of Care 99 mg/dl (70-99)
--- NOTE | 2024-07-10 12:32 | CM ---
Received a call from Kamaljit in admissions at [facility] who stated that she can accept patient tomorrow after 14:00. Attending updated.
# For report [phone]
Will set patient up for transfer so he is ready to transfer tomorrow if still stable.
Plan: Case management will continue to follow and assist with discharge planning. [facility] when cleared.
--- NOTE | 2024-07-10 14:32 | W.PN.HOSP.TC ---
Today's Communication/Plan
-
Maintain Haas catheter
Continue Lasix
Discharge planning
Assessment / Plan
Assessment / Plan
Assessment/Plan
Impression:
MAEGAN.
CKD stage IV progressive
Diarrhea
Acute Retention
Conditions prior to admission:
CHF reduced EF.
-Echo 06/18: Mildly reduced LVEF 40-45%. Stage III diastolic dysfunction. Dilated RV with mildly reduced RV systolic function. Severe TR. LVEF reduced from 55 to 60% (03/04/2023) worsened MR and RV function.
CKD stage IV.
Essential hypertension
CAD with history of CABG 2016
Paroxysmal atrial fibrillation
AICD
History of CVA in 2022
Insulin requiring diabetes
Dyslipidemia
Chronic lower extremity edema due to lymphedema and venous insufficiency
Dementia suspected vascular type.
Bilateral buttock pressure ulcer stage I present on admission
Plan
MAEGAN on CKD 4, progressive (2-2.4)
UA bland, U PCR 4.9gm/gm of cr, neg U eosinophils, pending serologies, normal complements -- nephrotic range proteinuria likely moving towards hemodialysis
UA consistent with proteinuria suspected diabetic nephropathy
Recent sonogram with no obstruction
Noted with intermittent retention requiring straight cath upon admission. Continue to monitor closely for recurrence.
Monitor creatinine while on Lasix
Continue bicarb
Bladder scan protocol. Haas catheter was placed 06/24.
Failed trial of voiding on 06/30 Haas catheter to be replaced by urology.
Continue Flomax twice daily with addition of Proscar
With penile trauma while on DAPT monitor for recurrent hematuria
Hold heparin subcu
Diarrheal illness reported.
Resolved.
Chronic HFrEF.
CAD
No evidence for decompensation.
Stable respiratory status.
Pro CHF BNP below baseline
Chest x-ray with no evidence of pulmonary edema, although with small to moderate left pleural effusion
Continue preadmission regimen including metoprolol, Imdur, hydralazine, Lipitor, Norvasc, aspirin/Plavix
# thrombocytopenia - RESOLVED
Borderline low
Patient is on aspirin, Plavix.
No active bleeding.
# Mild hypokalemia
-K 5.2 on 07/01/24 then up to 5.3
-Low potassium diet
-Monitor BMP
-Nephrology following
# hyponatremia, observe along with volume status.
# IDDM.
Recent hemoglobin A one 7.1
Euglycemic with fasting blood glucose was 71
Reduced Lantus to 5 units at bedtime
Continue basal protocol.
Monitor for hypoglycemia in the settings of decreased renal clearance.
Physical therapy assessment
Anticipated Discharge: Within 24 hours
Subjective/Interval History
-
Date of Service: July 10, 2024
Objective Data
-
Vital Signs:
Vital Signs
Temp Pulse Resp BP Pulse Ox
97.6 F 60 16 141/58 95
07/10/24 07:30 07/10/24 08:09 07/10/24 07:30 07/10/24 08:09 07/10/24 08:00
I&O
07/09/24 07/10/24 07/11/24
06:59 06:59 06:59
Intake Total 1040 / 1040 960 / 960
Output Total 875 / 875 975 / 975
Balance 165 / 165 -15 / -15
Physical Exam
-
General: Well Developed, Well Nourished and No Apparent Distress
HEENT: Normocephalic and Atraumatic
Respiratory: Clear to Auscultation; Negative Wheezes or Rhonchi
Cardiac: Regular Rhythm and S1/S2; Negative Murmur
GI: Soft, Nontender, Nondistended and Normal Bowel Sounds
Musculoskeletal: No Clubbing and No Cyanosis
Neuro: Awake and Alert
Psych: Calm
--- NOTE | 2024-07-10 15:05 | W.PN.NEPH.PH ---
Today's Communication / Plan
-
HPI
Assessment/Plan
-
Assessment
MAEGAN
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
Coronary artery disease with bypass
Paroxysmal atrial fibrillation
Hypertension
Edema/venous stasis diabetes mellitus type 2
Cognitive impairment
Plan
sin per urology
follow BMP
continue lasix p.o. 20 mg
Continue p.o. sodium bicarbonate for chronic metabolic acidosis
watch weights
no emergent HD needs currently
creatinine peaked at 3.5 now Creatinine stable at 3.2 with BUN of 69/ no new labs today
He will likely require dialysis in the future, and he has said previously that he would accept dialysis in discussion with my associates
no changes made at today and otherwise stable
-
-
Date of Service: July 10, 2024
CC / HPI / ROS
-
Chief Complaint:
MAEGAN
History of Present Illness:
acute onchronic kidney disease stable
Review of Systems:
no CP/SOB
no n/v
Sin catheter, non oliguric
Labs
-
Labs:
WBC 5.4 10^3/uL (4.8-10.8) 07/06/24 06:21
RBC 3.46 10^6/uL (4.70-6.10) L 07/06/24 06:21
Hgb 10.0 g/dL (13.0-18.0) L 07/06/24 06:21
Hct 30.9 % (39.0-52.0) L 07/06/24 06:21
Plt Count 143 10^3/uL (130-400) 07/06/24 06:21
Sodium 134 mmol/L (135-145) L 07/09/24 06:30
Potassium 4.0 mmol/L (3.5-5.1) 07/09/24 06:30
Chloride 100 mmol/L (98-107) 07/09/24 06:30
Carbon Dioxide 24 mmol/L (22-30) 07/09/24 06:30
BUN 69 mg/dl (9-20) H 07/09/24 06:30
Creatinine 3.2 mg/dL (0.7-1.3) H 07/09/24 06:30
eGFR 19.32 07/09/24 06:30
Glucose 64 mg/dl (70-99) L 07/09/24 06:30
Calcium 8.4 mg/dl (8.4-10.2) 07/09/24 06:30
Cyj-N-Uvmbepkklsh Pept 9940 pg/ml 06/19/24 06:24
Albumin 3.2 g/dl (3.5-5.0) L 06/19/24 06:24
Physical Exam
-
Vital Signs:
Vital Signs
Temp Pulse Resp BP Pulse Ox
97.6 F 60 16 141/58 95
07/10/24 07:30 07/10/24 08:09 07/10/24 07:30 07/10/24 08:09 07/10/24 08:00
Respiratory:: Bilateral: CTA
Lung Excursion:: Normal
Abdomen:: Soft
Bowel Sounds:: Normal
Extremity Edema:: +1: Bilateral:
Sin Catheter: Yes
[2024-07-10 15:45] VITALS: BP 123/53
[2024-07-10 17:26] LABS: Glucose - Point of Care 164 mg/dl (70-99)
[2024-07-10] MEDS: NOVOLOG FLEXPEN-LOW RESISTANCE 1 UNITS SC (18:44)
[2024-07-10 22:06] LABS: Glucose - Point of Care 148 mg/dl (70-99)
[2024-07-10] MEDS: LANTUS 0.05 UNITS SC (22:27)
[2024-07-10] MEDS: LIPITOR 80 MG PO (22:28)
[2024-07-10] MEDS: NORVASC 10 MG PO (22:40)
[2024-07-10 23:30] VITALS: BP 131/61
[2024-07-11 06:11] VITALS: BMI 26.9
[2024-07-11 07:46] VITALS: BP 129/61
[2024-07-11 08:04] LABS: Glucose - Point of Care 95 mg/dl (70-99)
[2024-07-11] MEDS: NOVOLOG FLEXPEN-LOW RESISTANCE SC ×2 (08:40→11:53)
[2024-07-11] MEDS: PROTONIX 40 MG PO (08:43)
[2024-07-11] MEDS: SODIUM BICARBONATE 325 MG PO (08:43)
[2024-07-11] MEDS: PLAVIX 75 MG PO (08:44)
[2024-07-11] MEDS: ASPIR LOW (ENTERIC COATED) 81 MG PO (08:44)
[2024-07-11] MEDS: PROSCAR 5 MG PO (08:44)
[2024-07-11] MEDS: APRESOLINE 50 MG PO (08:44)
[2024-07-11] MEDS: LASIX 20 MG PO (08:44)
[2024-07-11] MEDS: TOPROL XL 50 MG PO (08:44)
[2024-07-11] MEDS: ZETIA 10 MG PO (08:45)
[2024-07-11] MEDS: IMDUR (EXTENDED RELEASE) 30 MG PO (08:45)
[2024-07-11] MEDS: DESENEX/MITRAZOL/ZEASORB 1 APPLIC TOPICAL (08:45)
[2024-07-11] MEDS: EMLA CREAM 5 GRAM TOPICAL (08:45)
[2024-07-11] MEDS: FLOMAX 0.4 MG PO (08:45)
[2024-07-11 11:51] LABS: Glucose - Point of Care 112 mg/dl (70-99)
[2024-07-11 11:52] LABS: ALT (SGPT) 22 U/L (0-50); AST (SGOT) 28 U/L (17-59); Albumin 3.1 g/dl (3.5-5.0); Alkaline Phosphatase 112 U/L (38-126); Blood Urea Nitrogen 67 mg/dl (9-20); Calcium 8.5 mg/dl (8.4-10.2); Carbon Dioxide 24 mmol/L (22-30); Chloride 102 mmol/L (98-107); Estimated Creatinine Clearance 21 ml/min; Glucose 88 mg/dl (70-99); Potassium 3.7 mmol/L (3.5-5.1); Sodium 137 mmol/L (135-145); Total Protein 5.8 g/dl (6.3-8.2); eGFR 20.07
--- NOTE | 2024-07-11 12:20 | CM ---
Spoke with attending who stated that patient is medically stable for discharge. Spoke with Kamaljit in admissions at [facility] who confirmed ability to accept today. # for report and fax in previous CM note. Called patient's daughter to update.
Reviewed IMM. She is agreeable to discharge. IMM on chart. Medical necessity and transfer sheet completed for [employer] to arrange for transportation.
Plan: Case management will continue to follow and assist with discharge planning. [facility] for [facility].
[2024-07-11 15:00] VITALS: BP 134/57
== END 2024-07-11 15:01 | DRG 683 ==
LOC: 3 WEST ACU 20:46
PROVIDERS: Hospitalist; Internal Medicine; Internal Medicine Nephrology; Registered Nurse; Specialist; ADMITTING PHYSICIAN Hospitalist; ATTENDING PHYSICIAN Internal Medicine; CONSULT PHYSICIAN Specialist; EMERGENCY PHYSICIAN Emergency Medicine; FAMILY PHYSICIAN Family Medicine; OTHER PHYSICIAN Specialist
DX: N17.9 Acute kidney failure, unspecified (principal); E87.1 Hypo-osmolality and hyponatremia; I13.0 Hypertensive heart and chronic kidney disease with heart failure and stage 1 through stage 4 chronic kidney disease, or unspecified chronic kidney disease; I50.22 Chronic systolic (congestive) heart failure; E87.20 Acidosis, unspecified; N18.4 Chronic kidney disease, stage 4 (severe); E11.22 Type 2 diabetes mellitus with diabetic chronic kidney disease; E11.21 Type 2 diabetes mellitus with diabetic nephropathy; R33.8 Other retention of urine; I48.0 Paroxysmal atrial fibrillation; E78.00 Pure hypercholesterolemia, unspecified; E11.40 Type 2 diabetes mellitus with diabetic neuropathy, unspecified; I25.10 Atherosclerotic heart disease of native coronary artery without angina pectoris; K21.9 Gastro-esophageal reflux disease without esophagitis; I87.2 Venous insufficiency (chronic) (peripheral); I89.0 Lymphedema, not elsewhere classified; F01.A0 Vascular dementia, mild, without behavioral disturbance, psychotic disturbance, mood disturbance, and anxiety; L89.311 Pressure ulcer of right buttock, stage 1; I87.8 Other specified disorders of veins; E87.5 Hyperkalemia; D64.89 Other specified anemias; D69.6 Thrombocytopenia, unspecified; R19.7 Diarrhea, unspecified; L89.321 Pressure ulcer of left buttock, stage 1; Z95.810 Presence of automatic (implantable) cardiac defibrillator; Z86.73 Personal history of transient ischemic attack (TIA), and cerebral infarction without residual deficits; Z87.891 Personal history of nicotine dependence; Z79.82 Long term (current) use of aspirin; Z79.02 Long term (current) use of antithrombotics/antiplatelets; Z79.4 Long term (current) use of insulin; Z79.899 Other long term (current) drug therapy; Z95.1 Presence of aortocoronary bypass graft; Z95.5 Presence of coronary angioplasty implant and graft
CPT/HCPCS: 36415; 71046; 76775; 80048; 80053; 81003; 81015; 81099; 82570; 82962; 83516; 83735; 83880; 84155; 84156; 84165; 84300; 85025; 85027; 86038; 86063; 86160; 87070; 97116; 97163; 97167; 97530; 97535; 99285

== ENCOUNTER → 2024-07-15 11:11 | Outpatient (REF) | payer OTHER, MEDICARE, SELFPAY ==
[2024-07-15 15:14] LABS: ALT (SGPT) 22 U/L (0-50); AST (SGOT) 26 U/L (17-59); Albumin 3.2 g/dl (3.5-5.0); Alkaline Phosphatase 112 U/L (38-126); Blood Urea Nitrogen 70 mg/dl (9-20); Calcium 8.5 mg/dl (8.4-10.2); Carbon Dioxide 25 mmol/L (22-30); Chloride 101 mmol/L (98-107); Glucose 167 mg/dl (70-99); HDL Cholesterol 46 mg/dl; LDL Cholesterol, Calculated 35 mg/dl; Magnesium 2.4 mg/dl (1.6-2.3); Potassium 3.9 mmol/L (3.5-5.1); Sodium 134 mmol/L (135-145); Total Bilirubin 0.8 mg/dl (0.2-1.3); Total Cholesterol 96 mg/dl (50-199); Total Protein 5.6 g/dl (6.3-8.2); Triglyceride 76 mg/dl (10-149); Very Low Density Lipoprotein 15 mg/dl (0-30); eGFR 17.35
[2024-07-15 15:19] LABS: % Basophils 0.6 % (0-2); % Eosinophils 2.9 % (0-6); % Immature Granulocytes 0.3 % (0-0.5); % Lymphocytes 13.2 % (20.5-51.1); % Monocytes 7.8 % (1.7-9.3); % Neutrophils 75.2 % (42.2-75.2); Absolute Eosinophils 0.2 10^3/uL (0-0.7); Absolute Lymphocytes 0.9 10^3/uL (1.2-3.4); Absolute Monocytes 0.5 10^3/uL (0.1-0.6); Absolute Neutrophils 4.9 10^3/uL (1.4-6.5); Hemoglobin 9.6 g/dL (13.0-18.0); Mean Corpuscular Hgb 29.1 pg (27.0-31.0); Mean Corpuscular Volume 90.9 fL (80.0-94.0); Mean Platelet Volume 10.8 fL (7.4-10.4); Nucleated Red Blood Cells % 0 % (-); Platelet Count 124 10^3/uL (130-400); Red Cell Dist. Width 14.6 % (11.5-14.5); White Blood Cell Count 6.6 10^3/uL (4.8-10.8)
[2024-07-15 15:22] LABS: NT-proBNP 7510 pg/ml
[2024-07-16 10:35] LABS: Glycohemoglobin (HgbA1c) 7.2 % (4.0-5.6)
== END ==
LOC: OLABN 11:11
PROVIDERS: ATTENDING PHYSICIAN Student in an Organized Health Care Education/Training Program
DX: I50.30 Unspecified diastolic (congestive) heart failure (principal); I10 Essential (primary) hypertension; N18.30 Chronic kidney disease, stage 3 unspecified; E11.40 Type 2 diabetes mellitus with diabetic neuropathy, unspecified; E78.5 Hyperlipidemia, unspecified; I50.22 Chronic systolic (congestive) heart failure
CPT/HCPCS: 36415; 80053; 80061; 83036; 83735; 83880; 85025

== ENCOUNTER → 2024-07-17 17:00 | Outpatient (REF) | payer OTHER, MEDICARE, SELFPAY ==
[2024-07-18 10:33] LABS: Urine Albumin 2+ (Neg - Trace); Urine Bilirubin Negative (Negative); Urine Character Very Cloudy (Clear); Urine Color Yellow; Urine Glucose Negative (Negative); Urine Ketone Negative (Negative); Urine Leukocyte 2+ (Negative); Urine Nitrite Positive (Negative); Urine Occult Blood 1+ (Negative); Urine Urobilinogen Negative (Neg - 1+)
[2024-07-18 12:00] LABS: Urine Amorphous Seen; Urine Squamous Cell 0-2 /LPF (Few); Urine Triple Phosphate Crystal Seen
[2024-07-18 12:01] LABS: Urine Bacteria Many (Negative); Urine White Cell 40-50 /HPF (0-5)
== END ==
LOC: OLABN 17:00
PROVIDERS: ATTENDING PHYSICIAN Student in an Organized Health Care Education/Training Program
DX: R30.9 Painful micturition, unspecified (principal)
CPT/HCPCS: 81003; 81015; 87077; 87086

== ENCOUNTER → 2024-07-27 10:05 | Outpatient (REF) | payer OTHER, MEDICARE, SELFPAY ==
[2024-07-27 11:13] LABS: % Basophils 0.9 % (0-2); % Eosinophils 4.8 % (0-6); % Immature Granulocytes 0.4 % (0-0.5); % Lymphocytes 11.8 % (20.5-51.1); % Monocytes 10.1 % (1.7-9.3); Absolute Basophils 0.1 10^3/uL (0-0.2); Absolute Eosinophils 0.3 10^3/uL (0-0.7); Absolute Lymphocytes 0.8 10^3/uL (1.2-3.4); Absolute Monocytes 0.7 10^3/uL (0.1-0.6); Absolute Neutrophils 4.8 10^3/uL (1.4-6.5); Mean Corp Hgb Conc. 32.1 g/dL (33.0-37.0); Mean Corpuscular Hgb 29.5 pg (27.0-31.0); Mean Corpuscular Volume 91.8 fL (80.0-94.0); Mean Platelet Volume 11.2 fL (7.4-10.4); Nucleated Red Blood Cells % 0 % (-); Platelet Count 124 10^3/uL (130-400); Red Blood Cell Count 3.05 10^6/uL (4.70-6.10); Red Cell Dist. Width 15.6 % (11.5-14.5); White Blood Cell Count 6.7 10^3/uL (4.8-10.8)
[2024-07-27 11:43] LABS: NT-proBNP 8650 pg/ml
[2024-07-27 11:50] LABS: ALT (SGPT) 64 U/L (0-50); AST (SGOT) 59 U/L (17-59); Albumin 2.8 g/dl (3.5-5.0); Alkaline Phosphatase 234 U/L (38-126); Blood Urea Nitrogen 57 mg/dl (9-20); Carbon Dioxide 24 mmol/L (22-30); Chloride 103 mmol/L (98-107); Glucose 235 mg/dl (70-99); Magnesium 2.3 mg/dl (1.6-2.3); Potassium 4.5 mmol/L (3.5-5.1); Sodium 135 mmol/L (135-145); Total Bilirubin 0.7 mg/dl (0.2-1.3); Total Protein 5.3 g/dl (6.3-8.2); eGFR 20.87
== END ==
LOC: OLABN 10:05
PROVIDERS: ATTENDING PHYSICIAN Student in an Organized Health Care Education/Training Program
DX: I50.30 Unspecified diastolic (congestive) heart failure (principal); N18.30 Chronic kidney disease, stage 3 unspecified; I50.22 Chronic systolic (congestive) heart failure
CPT/HCPCS: 36415; 80053; 83735; 83880; 85025

== ENCOUNTER → 2024-07-29 08:44 | Outpatient (REF) | payer OTHER, MEDICARE, SELFPAY ==
[2024-07-29 10:03] LABS: ALT (SGPT) 71 U/L (0-50); AST (SGOT) 55 U/L (17-59); Alkaline Phosphatase 259 U/L (38-126); Blood Urea Nitrogen 57 mg/dl (9-20); Calcium 8.4 mg/dl (8.4-10.2); Carbon Dioxide 26 mmol/L (22-30); Chloride 104 mmol/L (98-107); Glucose 99 mg/dl (70-99); Potassium 4.3 mmol/L (3.5-5.1); Sodium 138 mmol/L (135-145); Total Bilirubin 1.1 mg/dl (0.2-1.3); Total Protein 5.8 g/dl (6.3-8.2); eGFR 20.87
[2024-07-29 10:05] LABS: % Basophils 0.4 % (0-2); % Eosinophils 4.6 % (0-6); % Immature Granulocytes 0.4 % (0-0.5); % Lymphocytes 13.8 % (20.5-51.1); % Monocytes 10.4 % (1.7-9.3); % Neutrophils 70.4 % (42.2-75.2); Absolute Eosinophils 0.3 10^3/uL (0-0.7); Absolute Lymphocytes 0.9 10^3/uL (1.2-3.4); Absolute Monocytes 0.7 10^3/uL (0.1-0.6); Absolute Neutrophils 4.7 10^3/uL (1.4-6.5); Hematocrit 27.5 % (39.0-52.0); Hemoglobin 8.7 g/dL (13.0-18.0); Mean Corp Hgb Conc. 31.6 g/dL (33.0-37.0); Mean Corpuscular Hgb 29.1 pg (27.0-31.0); Nucleated Red Blood Cells % 0 % (-); Platelet Count 116 10^3/uL (130-400); Red Blood Cell Count 2.99 10^6/uL (4.70-6.10); Red Cell Dist. Width 15.8 % (11.5-14.5); White Blood Cell Count 6.7 10^3/uL (4.8-10.8)
[2024-07-29 10:11] LABS: NT-proBNP 8910 pg/ml
[2024-07-29 10:38] LABS: Urine Albumin 2+ (Neg - Trace); Urine Bilirubin Negative (Negative); Urine Character Clear (Clear); Urine Color Yellow; Urine Glucose Trace (Negative); Urine Ketone Negative (Negative); Urine Leukocyte Negative (Negative); Urine Nitrite Negative (Negative); Urine Occult Blood 1+ (Negative); Urine Specific Gravity 1.015 (<1.030); Urine Urobilinogen Negative (Neg - 1+)
[2024-07-29 11:05] LABS: Urine Amorphous Seen; Urine Squamous Cell 16-20 /LPF (Few)
[2024-07-29 11:06] LABS: Urine Bacteria Few (Negative); Urine White Cell 0-2 /HPF (0-5)
== END ==
LOC: OLABN 08:44
PROVIDERS: ATTENDING PHYSICIAN Student in an Organized Health Care Education/Training Program
DX: R30.9 Painful micturition, unspecified (principal)
CPT/HCPCS: 36415; 80053; 81003; 81015; 83880; 85025; 87086

== ENCOUNTER → 2024-10-09 12:48 | Outpatient (REF) | payer MEDICARE, SELFPAY ==
[2024-10-09 13:46] LABS: HDL Cholesterol 38 mg/dl; LDL Cholesterol, Calculated 43 mg/dl; Total Cholesterol 99 mg/dl (50-199); Triglyceride 90 mg/dl (10-149); Very Low Density Lipoprotein 18 mg/dl (0-30)
== END ==
LOC: OLABN 12:48
PROVIDERS: ATTENDING PHYSICIAN Student in an Organized Health Care Education/Training Program
DX: E78.5 Hyperlipidemia, unspecified (principal)
CPT/HCPCS: 36415; 80061

== ENCOUNTER → 2024-11-03 12:56 | Outpatient (REF) | payer MEDICARE, SELFPAY ==
[2024-11-03 13:53] LABS: % Eosinophils 5.2 % (0-6); % Immature Granulocytes 0.2 % (0-0.5); % Lymphocytes 15.7 % (20.5-51.1); % Monocytes 9.3 % (1.7-9.3); % Neutrophils 68.6 % (42.2-75.2); Absolute Basophils 0.1 10^3/uL (0-0.2); Absolute Eosinophils 0.3 10^3/uL (0-0.7); Absolute Lymphocytes 0.8 10^3/uL (1.2-3.4); Absolute Monocytes 0.5 10^3/uL (0.1-0.6); Absolute Neutrophils 3.5 10^3/uL (1.4-6.5); Hematocrit 24.8 % (39.0-52.0); Hemoglobin 8.4 g/dL (13.0-18.0); Mean Corp Hgb Conc. 33.9 g/dL (33.0-37.0); Mean Corpuscular Hgb 31.8 pg (27.0-31.0); Mean Corpuscular Volume 93.9 fL (80.0-94.0); Mean Platelet Volume 11.1 fL (7.4-10.4); Nucleated Red Blood Cells % 0 % (-); Platelet Count 108 10^3/uL (130-400); Red Blood Cell Count 2.64 10^6/uL (4.70-6.10); Red Cell Dist. Width 12.8 % (11.5-14.5)
[2024-11-03 13:57] LABS: ALT (SGPT) 16 U/L (0-50); AST (SGOT) 22 U/L (17-59); Alkaline Phosphatase 95 U/L (38-126); Blood Urea Nitrogen 31 mg/dl (9-20); Calcium 8.7 mg/dl (8.4-10.2); Carbon Dioxide 28 mmol/L (22-30); Chloride 107 mmol/L (98-107); Glucose 76 mg/dl (70-99); Potassium 4.3 mmol/L (3.5-5.1); Sodium 141 mmol/L (135-145); Total Bilirubin 0.8 mg/dl (0.2-1.3); Total Protein 5.4 g/dl (6.3-8.2); eGFR 21.74
[2024-11-03 14:06] LABS: NT-proBNP 6040 pg/ml
[2024-11-03 14:15] LABS: Vitamin D, 25-OH*** < 12.8 ng/mL (30-80)
[2024-11-03 14:19] LABS: Glycohemoglobin (HgbA1c) 5.3 % (4.0-5.6)
[2024-11-03 14:28] LABS: TSH 3.67 uIU/ml (0.47-4.68)
[2024-11-03 14:45] LABS: Hepatitis C Antibody Negative (Negative)
== END ==
LOC: OLABN 12:56
PROVIDERS: ATTENDING PHYSICIAN Student in an Organized Health Care Education/Training Program
DX: I50.32 Chronic diastolic (congestive) heart failure (principal); R94.6 Abnormal results of thyroid function studies; E55.9 Vitamin D deficiency, unspecified; E11.21 Type 2 diabetes mellitus with diabetic nephropathy
CPT/HCPCS: 36415; 80053; 82306; 83036; 83735; 83880; 84443; 85025; 86803

== ENCOUNTER → 2024-12-06 09:10 | Outpatient (REF) | payer MEDICARE, SELFPAY | LOC: RCS 09:10 | PROVIDERS: ATTENDING PHYSICIAN Physician Assistant; FAMILY PHYSICIAN Internal Medicine | DX: I48.0 Paroxysmal atrial fibrillation (principal); I25.10 Atherosclerotic heart disease of native coronary artery without angina pectoris; I42.9 Cardiomyopathy, unspecified | CPT/HCPCS: 93306 ==

== ENCOUNTER 2025-01-29 23:28 | Inpatient (IN) | payer MEDICARE, SELFPAY ==
[2025-01-29] VITALS (7 sets, daily range): BP systolic 125–154; BP diastolic 53–64; BMI 21.1
[2025-01-29 15:27] LABS: Hematocrit 23.5 % (39.0-52.0); Hemoglobin 7.7 g/dL (13.0-18.0); Mean Corp Hgb Conc. 32.8 g/dL (33.0-37.0); Mean Corpuscular Volume 94.4 fL (80.0-94.0); Nucleated Red Blood Cells % 0 % (-); Platelet Count 145 10^3/uL (130-400); Red Cell Dist. Width 14.1 % (11.5-14.5)
[2025-01-29 15:38] LABS: ALT (SGPT) 32 U/L (0-50); AST (SGOT) 28 U/L (17-59); Albumin 3.7 g/dl (3.5-5.0); Alkaline Phosphatase 106 U/L (38-126); Blood Urea Nitrogen 40 mg/dl (9-20); Calcium 8.5 mg/dl (8.4-10.2); Carbon Dioxide 22 mmol/L (22-30); Chloride 110 mmol/L (98-107); Glucose 167 mg/dl (70-99); Potassium 4.8 mmol/L (3.5-5.1); Sodium 139 mmol/L (135-145); Total Protein 6.4 g/dl (6.3-8.2); eGFR 24.78
--- NOTE | 2025-01-29 22:09 | ED.GENMED ---
History of Present Illness
General
Chief Complaint: Abnormal Lab Value
Source: patient and family
Exam Limitations: dementia
Time Seen by Provider: 01/29/25 17:27
History of Present Illness
History of Present Illness:
Note:
CHIEF COMPLAINT(S)
Low hemoglobin levels.
HISTORY OF PRESENT ILLNESS
The patient is a 74-year-old male with a history of coronary artery disease, transient ischemic attack, and kidney disease, presenting for evaluation of low hemoglobin levels. The patient was discovered to have a hemoglobin level of 7.7, which is a
slight decrease from his baseline levels around 8.0. He has experienced a significant weight loss of approximately 50 pounds since , which is being attributed to a combination of malnutrition and kidney disease. The patient's
daughter reports no black or bloody stools and denies any chest pain or difficulty breathing. He follows with a branch lending manager for his kidney disease. hx by marivel.
PHYSICAL EXAM
- General: Patient is awake and alert but confused.
- Cardiovascular: Trace edema noted in lower extremities.
- Abdominal: No distension present.
- Rectal Exam: Negative for blood.
- Respiratory: No respiratory distress.
-NEuro: no focal motor deficits
- Vital Signs: Blood pressure 127/54 mmHg, pulse oximetry 98% on room air.
- Nursing notes reviewed and vital signs reviewed.
PLAN
- Perform testing to check stool for occult blood.
- Coordinate with nephrology to evaluate the need for treatment such as erythropoietin for anemia management.
- Consideration for a non-contrast CT scan of the abdomen to rule out any significant abdominal pathology if clinically indicated.
- Discuss plan and potential follow-up with nephrology.
DIFFERENTIAL DIAGNOSIS
The Differential Diagnosis includes, in no particular order and is not limited to:
1. Anemia of chronic kidney disease.
2. Nutritional deficiency anemia.
3. Gastrointestinal bleeding.
4. Malignancy-induced anemia.
5. Anemia due to chronic disease.
6. Hemolytic anemia.
7. Drug-induced anemia (consider medications such as Plavix and aspirin).
8. Myelodysplastic syndrome.
9. Heart failure-related anemia.
10. Anemia due to chronic inflammation or infection.
Disposition:
SUMMARY OF ENCOUNTER
The patient is a 74-year-old male presenting with progressive weakness and failure to thrive, complicated by underlying dementia limiting the exam and history. He has a medical history of chronic kidney disease and congestive heart failure. His
baseline creatinine is at 2.6, and current hemoglobin is 7.7, which is an improvement from 6.9 earlier in the day, but still lower than his baseline in the mid-8s to 9. The rectal exam is negative for blood. Despite the anemia, a transfusion is
currently being withheld. Given his anasarca and anemia, along with some urinary retention, he will be admitted for further evaluation and management. A urinary catheter is placed due to his history of urinary retention. Pancolitis reading noted
but patient did not have contrast and question whether this is underdistention as he has no diarrhea or other abdominal symptoms currently. May need follow-up. Admit for serial hemoglobin measurements
DISPOSITION
Admit.
ASSESSMENT
The patient presents with anemia, anasarca, and urinary retention with a background of chronic kidney disease and congestive heart failure.
PLAN
Admit the patient for further evaluation and management. Monitor his hemoglobin levels with a repeat measurement in the morning. Consider consultation with nephrology for further assessment and management of his kidney disease and anemia.
INDEPENDENT REVIEW OF LABS AND INTERPRETATION OF TESTS
My independent review of the patients hemoglobin shows it is currently 7.7, up from 6.9 earlier in the day. The patients baseline is typically in the mid-8s to 9.
MEDICATION RECONCILIATION
A urinary catheter was placed due to urinary retention.
MEDICAL DECISION MAKING
- Number and Complexity of Problems Addressed: Chronic conditions affecting care include dementia, chronic kidney disease, and congestive heart failure. Differential Diagnosis includes anemia of chronic kidney disease, nutritional deficiency anemia,
gastrointestinal bleeding, malignancy-induced anemia, and anemia due to chronic disease, among others.
- Data:
Category 1: Lab tests reviewed include creatinine and hemoglobin levels.
- Risk:
Escalation of care including admission was considered due to the complexity and risk associated with the patients presenting conditions and underlying comorbidities.
DIAGNOSIS
- Anemia due to chronic disease (ICD-10: D63.8)
- Chronic kidney disease (ICD-10: N18.9)
- Congestive heart failure (ICD-10: I50.9)
- Dementia (ICD-10: F03.90)
Past History
Past History
ED Past Medical History: CAD, CHF, HTN, Hypercholesterolemia, IDDM and Other (CKD, spinal stenosis)
ED Past Surgical History: Appendectomy and Cardiac (01/2017 pacemaker, cardiac stents, CABG)
Social History
Tobacco: Former smoker
Alcohol: Occasional
Drug: None
Personal:
Living: with roommate
Family History
Family History: Other (reviewed and non-contributory)
Phy Exam
Physical Exam
Physical Exam:
.
Course
Orders/Labs/Results
Orders:
Orders
01/29/25 15:16
Type+Screen Urgent
Complete Blood Count/With Diff Urgent
Comprehensive Metabolic Panel Urgent
01/29/25 18:47
CT Abd/pel Without Iv Or Oral Urgent
Comment:
Reason For Exam: weight loss, weakness, anemia
01/29/25 22:04
Straight cath- Treatment ONCE
01/29/25 22:33
NT-proBNP Urgent
CR Chest - 2 Views Urgent
Comment:
Reason For Exam: anasarca
Abnormal Lab Results
01/29/25
15:16
RBC 2.49 L 10^6/uL
(4.70-6.10)
Hgb 7.7 L g/dL
(13.0-18.0)
Hct 23.5 L %
(39.0-52.0)
MCV 94.4 H fL
(80.0-94.0)
MCHC 32.8 L g/dL
(33.0-37.0)
Eosinophils % 7.7 H %
(0-6)
Chloride 110 H mmol/L
(98-107)
BUN 40 H mg/dl
(9-20)
Creatinine 2.6 H mg/dL
(0.7-1.3)
Glucose 167 H mg/dl
(70-99)
01/29/25 15:16
01/29/25 15:16
Vital Signs
Initial and Last Documented VS:
Initial Vital Signs
Temp Pulse Resp BP Pulse Ox
98.3 F 75 18 125/64 98
01/29/25 15:08 01/29/25 15:08 01/29/25 15:08 01/29/25 15:08 01/29/25 15:08
Last Documented Vital Signs
Temp Pulse Resp BP Pulse Ox
98.3 F 63 15 153/60 99
01/29/25 15:08 01/29/25 22:00 01/29/25 22:00 01/29/25 22:00 01/29/25 22:11
*Pulse Oximetry
SaO2: 99
Oxygen Mode of Delivery: Room air
Patient hypoxic: no
*Critical Care Note
Total Time (30-74mins, 75-104mins- exclusive of procedures): Not Applicable
ED Attending Note
-
Portions of this chart may have been created with voice recognition software.� Occasional wrong word or��sound alike� substitutions may have occurred due to the inherent limitations of voice recognition software.
Discharge Plan
Departure
Patient Disposition: Admit
Date of Disposition: 01/29/25
Time of Disposition: 22:09
Admit to: Telemetry
Presentation/result/management discussed w/ accepting MD/DO: Hospitalist
Discharge Problem:
Anemia, Chronic kidney disease, Anasarca, Acute on chronic urinary retention
Prescriptions:
No Action
metoprolol succinate 50 mg tablet extended release 24 hr
50 mg PO DAILY
Rx Instructions:
Hold for sbp<100/hr<60
isosorbide mononitrate 30 mg Tablet Extended Release 24 Hr
30 mg PO DAILY Qty: 30 0RF
acetaminophen 325 mg Tablet
650 mg PO Q6HPRN PRN (Reason: mild pain/temp>100)
magnesium hydroxide [Milk of Magnesia] 400 mg/5 mL Suspension
30 ml PO [id number] PRN (Reason: no bm 2 days)
Fleet Enema 19-7 gram/118 mL Enema
118 ml SC DAILYPRN PRN (Reason: no bm 4 days)
atorvastatin 80 MG tablet
80 mg PO HS
bisacodyl 10 mg Suppository
10 mg SC [id number] PRN (Reason: constipation) Qty: 12 0RF
polyethylene glycol 3350 17 gram Powder In Packet
17 g PO DAILYPRN PRN (Reason: constipation) Qty: 14 0RF
tamsulosin 0.4 mg Capsule
0.4 mg PO BID Qty: 60 0RF
furosemide 20 mg Tablet
20 mg PO DAILY Qty: 30 0RF
sodium bicarbonate 650 mg Tablet
325 mg PO BID Qty: 60 0RF
finasteride 5 mg Tablet
5 mg PO DAILY Qty: 30 0RF
hydralazine 25 mg Tablet
50 mg PO TID Qty: 90 0RF
insulin glargine [Lantus Solostar U-100 Insulin] 100 unit/mL (3 mL) Insulin Pen
5 unit SC HS Qty: 0 0RF
amlodipine 10 mg Tablet
10 mg PO HS Qty: 30 0RF
clopidogrel 75 mg Tablet
75 mg PO DAILY Qty: 30 0RF
aspirin 81 MG tablet,delayed release (DR/EC)
81 mg PO DAILY Qty: 5 0RF
pantoprazole 40 MG tablet,delayed release (DR/EC)
40 mg PO DAILY Qty: 30 0RF
ezetimibe 10 MG tablet
10 mg PO DAILY Qty: 30 0RF
Referrals:
Ryan White I., DO [Family Provider, Internal Medicine]
Interventions
Interventions:
*Risk Screen - Suicide Last Done: 01/29/25 15:08
*General Assessment Last Done: 01/29/25 15:08
*Neglect/Abuse Screening Last Done: 01/29/25 15:11
*ED- Fall Risk Assessment Last Done: 01/29/25 18:18
*ED COVID-19 Vaccine History Last Done: 01/29/25 18:18
Discharge Date and Time
Print Language: LUX[place]BOURGISH
--- NOTE | 2025-01-29 22:24 | HPS.HSE ---
Family Physician
-
Family Physician: Ryan White
Chief Complaint
-
abnormal out patient labs
History of Present Illness
Patient is a 74-year-old male with past medical history significant for coronary artery disease s/p CABG and stents, paroxysmal atrial fibrillation, chronic HFpEF, hypertension, hyperlipidemia, DM II, CKD III, chronic lower extremity lymphedema and
GERD who presented to [facility] ED for evaluation of abnormal out patient labs. Patient had lab work completed this morning with a hgb 6.9. HPI obtained from review of ED chart. Patient with ED evaluation hgb 7.7 up from 6.9 this morning with out patient
labs. Baseline hgb 8.0. Patient has experienced a significant weight loss of approximately 35pounds since 06/2024, which is being attributed to malnutrition and kidney disease. Patient daughter denies any black or bloody stools and dencies any chest
pain or shortness of breath.
Medical History
Past Medical History
Past Medical History: Reports Other
Additional Past Medical History:
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
Coronary Artery Disease s/p CABG and stents
Paroxysmal atrial fibrillation
Chronic HFpEF
Essential Hypertension
Hyperlipidemia
Diabetes Mellitus, Type II
CKD Stage III
Chronic Lower Extremity Lymphedema
Spinal Stenosis
GERD
Mild Cognitive Impairment
Past Surgical History: Reports Other
Additional Past Surgical History:
CABG
Cardiac Stents
Permanent Pacemaker
Appendectomy
Social History
Tobacco: Former Smoker
Alcohol: Occasional
Drug: None
Personal:
Living: With Roomate
Family History
Family History: Not pertinent
Allergies / Home Medications
Allergies reflects when Allergies were last updated in [employer].
Home Medications with original date entered in [employer]
Allergy/Medication List:
Allergies
Allergy/AdvReac Type Severity Reaction Status Date / Time
No Known Allergies Allergy Verified 06/13/24 18:10
Home Medications
amlodipine 10 mg tablet 10 mg PO HS #30 tabs 03/18/23
aspirin 81 mg tablet,delayed release 81 mg PO DAILY #5 tabs 03/18/23
clopidogrel 75 mg tablet 75 mg PO DAILY #30 tabs 03/18/23
ezetimibe 10 mg tablet 10 mg PO DAILY High Cholesterol #30 tabs 03/18/23
pantoprazole 40 mg tablet,delayed release 40 mg PO DAILY Gastrointestinal Issue #30 tabs 03/18/23
metoprolol succinate 50 mg tablet,extended release 24 hr 50 mg PO DAILY Blood Pressure 06/04/24
isosorbide mononitrate 30 mg tablet,extended release 24 hr 30 mg PO DAILY #30 tabs 06/09/24
acetaminophen 325 mg tablet 650 mg PO Q4HPRN PRN mild pain/temp>100 06/13/24
atorvastatin 80 mg tablet 80 mg PO HS High Cholesterol 06/13/24
magnesium hydroxide 400 mg/5 mL oral suspension (Milk of Magnesia) 30 ml PO [id number] PRN no bm 2 days 06/13/24
sodium phosphates 19 gram-7 gram/118 mL enema (Fleet Enema) 118 ml OR DAILYPRN PRN no bm 4 days 06/13/24
bisacodyl 10 mg rectal suppository 10 mg OR [id number] PRN constipation #12 ea 07/06/24
finasteride 5 mg tablet 5 mg PO DAILY #30 tabs 07/06/24
furosemide 20 mg tablet 20 mg PO DAILY #30 tabs 07/06/24
hydralazine 25 mg tablet 50 mg (2 x 25 mg) PO TID #90 tabs 07/06/24
insulin glargine 100 unit/mL (3 mL) subcutaneous pen (Lantus Solostar U-100 Insulin) 5 unit (0.05 mL) SC HS Diabetes #0 mL 07/06/24
polyethylene glycol 3350 17 gram oral powder packet 17 g PO DAILYPRN PRN constipation #14 ea 07/06/24
sodium bicarbonate 650 mg tablet 325 mg (1/2 x 650 mg) PO BID #60 tabs 07/06/24
insulin lispro 100 unit/mL subcutaneous pen 2 unit SC DAILY@0701/29/25
mirtazapine 15 mg tablet (Remeron) 15 mg PO HS 01/29/25
tamsulosin 0.4 mg capsule 0.4 mg PO HS 01/29/25
Review of Systems
-
Unable to obtain full review of systems at this time due to: Dementia
Physical Exam
Vital Signs
Vital Signs
Temp Pulse Resp BP Pulse Ox
98.3 F 63 15 153/60 99
01/29/25 15:08 01/29/25 22:00 01/29/25 22:00 01/29/25 22:00 01/29/25 22:11
Physical Exam
General: Well Developed, Well Nourished, No Apparent Distress and Appears Chronically Ill
HEENT: NormoCephalic, Moist mucous membranes, Atraumatic, Nose Appears Normal and Ears Appear Normal
Respiratory: Clear and Decreased Breath Sounds
Cardiac: S1/S2 and Regular Rhythm; No Murmur, Rub or Gallop
Breast: Deferred by me
GI: Soft, Non Tender, Non Distended and Normal Bowel Sounds; No Organomegaly
Rectal: Hem Negative
Genito-urinary: Deferred by me
Musculoskeletal: No Clubbing, No Cyanosis and No Edema
Skin: Warm and IV/Catheter Site
Neuro: Awake
Psych: Apparent Dementia
Laboratory Results
-
01/29/25 15:16
01/29/25 15:16
Laboratory Results
Total Bilirubin 0.9 mg/dl (0.2-1.3) 01/29/25 15:16
AST 28 U/L (17-59) 01/29/25 15:16
ALT 32 U/L (0-50) 01/29/25 15:16
Alkaline Phosphatase 106 U/L (38-126) 01/29/25 15:16
Data Reviewed
-
CT Scan: Report Reviewed by me (Abd/Pel: 1. Moderate-sized left and small right pleural effusions. 2. Mild cardiomegaly. 3. Moderate chronic bilateral renal disease. 4. Severe calcific atherosclerotic plaque in the abdominal aorta and renal
arteries. 5. Mild pancolitis (either infectious or inflammatory in etiology). 6. )
Lab Data: Labs Reviewed by me (hgb 7.7, hct 23.5, BUN 40, Creat 2.6, eGFR 24.78, )
Impression/Plan
-
IMPRESSION/PLAN:
#Anemia
hgb 7.7, hct 23.5
baseline hgb 8.0
stool heme negative
- Monitor H/H
- check iron studies, B2 and Folate
- blood consent obtained and scanned to chart
#unintentional weight loss
approximate 3-35pounds in 7 months
albumin 3.7
- check TSH
#Acute on chronic urinary retention
- Haas placed in ED
- continue finasteride and tamsulosin
#Anasarca
#moderate lt pleural effusion and small rt pleural effusion
#Chronic kidney disease
#CKD Stage III
BUN 40, Creat 2.6, eGFR 24.78
CXR: pending
Abd/Pel CT: 1. Moderate-sized left and small right pleural effusions.
2. Mild cardiomegaly.
3. Moderate chronic bilateral renal disease.
4. Severe calcific atherosclerotic plaque in the abdominal aorta and renal arteries.
5. Mild pancolitis (either infectious or inflammatory in etiology).
6. Moderately enlarged prostate gland causing chronic urinary bladder outlet obstruction.
7. Mild ascites in the paracolic gutters.
8. Severe multilevel lumbar discogenic degenerative disease.
9. Moderate to severe diffuse anasarca.
- appears to be baseline
- monitor BMP
- continue furosemide
#Coronary Artery Disease
#Hyperlipidemia
s/p CABG and stents
- continue atorvastatin and ezetimibe
#Chronic HFpEF
BNP pending
ECHO (12/06/24): Normal left ventricular size. Mildly reduced systolic function. LVEF 45% by visual estimate. Marked paradoxical septal motion consistent with paced rhythm. Mild concentric left ventricular
hypertrophy. Stage I diastolic dysfunction suggestive of abnormal relaxation.
Normal right ventricular size and function. Pacer wire seen in right ventricle.
Mildly dilated left atrium.
Mitral annular calcification. Mild to moderate mitral regurgitation.
Moderate to severe tricuspid regurgitation. Estimated pulmonary artery pressure of 28 mmHg assuming a right atrial pressure of 3 mmHg.
Compared to the previous echo 06/05/24, there is no significant change.
- daily weights
- I & Os
- continue aspirin, Imdur,
#Paroxysmal atrial fibrillation
- continue metoprolol
#Essential Hypertension
- continue amlodipine and hydralazine
#Diabetes Mellitus, Type II
- AccuCheck AC & HS
- SSI
- continue insulin glargine
#Chronic Lower Extremity Lymphedema
#GERD
- continue pantoprazole
#Mild Cognitive Impairment
- continue mirtazapine
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
- continue atorvastatin and clopidogrel
#Spinal Stenosis
Code status: full code
DVT prophylaxis: SCDs
--- NOTE | 2025-01-29 22:50 | W.PN.UPDATE ---
Update Note
Progress Note Update
I could not get any information from the patient as
Information gathered by chart review and speaking with the ER staff.
This note serves as an addendum to the H&P by cutting and creasing press operator MARIYA
Eliane Martinez
HPI
74F Dementia HX chr HFrEF, CKD4, Nephrotic ranhe proteinuria, Anasarca, ACDz , CAD, Prx AF, not on thinners, CVA
seen at ER:
- evaluation of low hemoglobin levels
- repeate Hgb 7.7, which is a slight decrease from his baseline levels around 8.0.
- significant weight loss about 50 pounds since , -attributed to malnutrition and CKD
- daughter reports no black or bloody stools
- denies any chest pain or difficulty breathing.
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
PHX
Relevant VS; unremarkable
Wt
84. 9 kg( 07/21/24 ) --> 70.5 (01/29/25)
PE
Gen: pale complexion, not orthopneic, limited cogntion
HEENT: anicteric
Neck: supple
Lungs: limited exam
Cor: RRR S1 S2
Abdomen: soft , benign
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
Relevant data
CT Abd/pel Without Iv Or Oral for Weight loss. Weakness. Anemia (hemoglobin 6.9).
1. Moderate-sized left and small right pleural effusions.
2. Mild cardiomegaly.
3. Moderate chronic bilateral renal disease.
4. Severe calcific atherosclerotic plaque in the abdominal aorta and renal arteries.
5. Mild pancolitis (either infectious or inflammatory in etiology).
6. Moderately enlarged prostate gland causing chronic urinary bladder outlet obstruction.
7. Mild ascites in the paracolic gutters.
8. Severe multilevel lumbar discogenic degenerative disease.
9. Moderate to severe diffuse anasarca.
Last hospitalist admission: 06/13/2024 - 07/11/2024
DICTATED BY: Matthew Palomares MD
DISCHARGE DIAGNOSES:
1. Acute kidney injury.
2. Chronic kidney disease stage 4 with proteinuria.
3. Acute urinary retention requiring Haas catheter.
OTHER CONDITIONS:
1. Chronic congestive heart failure with reduced ejection fraction,
with left ventricular ejection fraction of 40-45%.
2. Essential hypertension.
3. Paroxysmal atrial fibrillation.
4. History of cerebrovascular accident in 2022.
5. Insulin-requiring diabetes.
6. Dyslipidemia.
7. Chronic lower extremity edema/lymphedema.
8. Dementia, likely vascular type.
9. Bilateral buttock pressure ulcer stage I, present on admission.
ASSESSMENT & PLAN
Pending Rx reconciliation
ACDz likely due to CKD4
- current Hgb 7.7
- baseline Hgb 8s
- NEG HoB stool
- Ferritin , B2 and Folate
- T & S and blood consent
- Hold off on Blood Tx for now - case dw Dr Mcgrath ( PCP) daughter and she agrees
- Heme consult
CKD4 at baseline HX nephrotic range proteinuria
- baseline eGFR low 20s
- baseline Cr low 3s
30lbs ( 14 - 15kg) unintentional wt loss
Albumin 3.7
- check TSH
- Ferritin
HX intermittent urinary retention
- Bladder scan protocol. Haas catheter
Mod Lt pleural effusion, small Lt pleural effusion
Moderate to severe diffuse anasarca.
Chronic HFrEF , LVEF 40-45%.: No evidence for decompensation.
HX AICD
Stable respiratory status.
Chronic Alok edema/lymphedema.
CAD HX
- Pro BNP
- CXR
- cont. metoprolol, Imdur, hydralazine, aspirin/Plavix
Essential hypertension.
- cont. metoprolol, Imdur, hydralazine, Lipitor, Norvasc
Paroxysmal AF
- on Metoprolol
IRDMT2
- cont PIPEFITTER basal bolus insulin
Dyslipidemia
- on Stain
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
HX CVA 2022.
DVT Px: SCD
Full code per daughter Dr Mcgrath
IP TLM
Case discussed in length with Daughter Dr Mcgrath on
[2025-01-30] VITALS (14 sets, daily range): BP systolic 136–170; BP diastolic 45–68; BMI 21.1
[2025-01-30] MEDS: FLUSH (NSS) 1 FLUSH IV (01:34)
[2025-01-30 06:24] LABS: Hematocrit 22.7 % (39.0-52.0); Hemoglobin 7.5 g/dL (13.0-18.0); Mean Corp Hgb Conc. 33.0 g/dL (33.0-37.0); Mean Corpuscular Volume 92.7 fL (80.0-94.0); Platelet Count 124 10^3/uL (130-400); Red Cell Dist. Width 13.9 % (11.5-14.5)
[2025-01-30 06:51] LABS: Blood Urea Nitrogen 40 mg/dl (9-20); Calcium 9.0 mg/dl (8.4-10.2); Carbon Dioxide 23 mmol/L (22-30); Chloride 112 mmol/L (98-107); Estimated Creatinine Clearance 23 ml/min; Glucose 100 mg/dl (70-99); Iron 74 ug/dl (49-181); Potassium 4.4 mmol/L (3.5-5.1); Sodium 140 mmol/L (135-145); eGFR 23.68
[2025-01-30 07:00] LABS: Total Iron Binding Capacity 212 ug/dl (261-462)
[2025-01-30 07:20] LABS: Ferritin 276.0 ng/ml (17.9-464.0)
[2025-01-30 07:51] LABS: Folate 7.0 ng/ml (2.76-20); Vitamin B12 363 pg/ml (239-931)
[2025-01-30] MEDS: PROTONIX 40 MG PO (08:07)
[2025-01-30] MEDS: ASPIR LOW (ENTERIC COATED) 81 MG PO (08:07)
[2025-01-30] MEDS: PLAVIX 75 MG PO (08:07)
[2025-01-30] MEDS: TOPROL XL 50 MG PO (08:07)
[2025-01-30] MEDS: ZETIA 10 MG PO (08:08)
[2025-01-30] MEDS: APRESOLINE 50 MG PO ×3 (08:08→22:35)
[2025-01-30] MEDS: LASIX 20 MG PO (08:08)
[2025-01-30] MEDS: SODIUM BICARBONATE 325 MG PO ×2 (08:09→19:56)
[2025-01-30] MEDS: IMDUR (EXTENDED RELEASE) 30 MG PO (08:10)
[2025-01-30] MEDS: PROSCAR 5 MG PO (08:10)
--- NOTE | 2025-01-30 10:03 | CON.ONC ---
Addendum entered and electronically signed by Jacque Escamilla MD 01/30/25 11:54:
case d/w patient's daughter, Dr. Dina Mcgrath, who agrees w/ starting JEET
Will give a dose here and arrange office f/u with me in the next couple weeks
Original Note:
Consultation
-
Date Consultation Requested: 01/30/25
Date Consultation Performed: 01/30/25
Requesting Provider: WAYNE Diehl
Performing Provider: Jacque Escamilla MD
Reason for Consultation: anemia
Impression
Impression
anemia
CKD
chronic HFpEF
dementia
Plan
Plan
He'd likely benefit from outpatient JEET for treatment of anemia in CKD
Will check w/ daughter, Dr. Dina Mcgarth, regarding logistics
For now, transfuse as clinically indicated
Patient History
History of Present Illness
Asked to see patient re: anemia. He was sent to the ER yesterday after outpatient labs showed hgb of 6.9, was 7.7 and then 7.5 in the ER, with WBC of 5.6 and platelet count of 124. It appears that he's had chronic anemia since late 2023, when he was
hospitalized with acute CHF. He's had chronic kidney disease, with creatinine of 2.7 currently, GFR 24. Iron studies show no iron deficiency. SPEP in late 2023 without Mspike. Per records, no bleeding.
He's a poor historian, history lists dementia. He gives me an incorrect address, tells me he lives in a townhouse with his brother. (demographics sheet states that he lives in [facility])
Past-Medical/Surgical History
Past Medical History
Past Medical History: Reports Other
Additional Past Medical History:
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
Coronary Artery Disease s/p CABG and stents
Paroxysmal atrial fibrillation
Chronic HFpEF
Essential Hypertension
Hyperlipidemia
Diabetes Mellitus, Type II
CKD Stage III
Chronic Lower Extremity Lymphedema
Spinal Stenosis
GERD
Mild Cognitive Impairment
Past Surgical History: Reports Other
Additional Past Surgical History:
CABG
Cardiac Stents
Permanent Pacemaker
Appendectomy
Social History
Tobacco: Former Smoker
Alcohol: Occasional
Drug: None
Personal:
Living: With Roomate
Family History
Family History: Not pertinent
Patient Medication
�Medication �Instructions �Recorded �Confirmed �Last Taken �Type
amlodipine 10 mg tablet 10 mg PO HS #30 tabs 03/18/23 01/30/25 6 Months Ago Rx
~12/03/23
aspirin 81 mg tablet,delayed 81 mg PO DAILY #5 tabs 03/18/23 01/30/25 6 Months Ago Rx
release ~12/03/23
clopidogrel 75 mg tablet 75 mg PO DAILY #30 tabs 03/18/23 01/30/25 6 Months Ago Rx
~12/03/23
ezetimibe 10 mg tablet 10 mg PO DAILY High Cholesterol 03/18/23 01/30/25 6 Months Ago Rx
#30 tabs ~12/03/23
metoprolol succinate 50 mg 50 mg PO DAILY Blood Pressure 06/04/24 01/30/25 6 Months Ago History
tablet,extended release 24 hr ~12/03/23
isosorbide mononitrate 30 mg 30 mg PO DAILY #30 tabs 06/09/24 01/30/25 Unknown Rx
tablet,extended release 24 hr
acetaminophen 325 mg tablet 650 mg PO Q4HPRN PRN mild 06/13/24 01/30/25 Unknown History
pain/temp>100
atorvastatin 80 mg tablet 80 mg PO HS High Cholesterol 06/13/24 01/30/25 Unknown History
magnesium hydroxide 400 mg/5 mL 30 ml PO HSPRN PRN Constipation 06/13/24 01/30/25 Unknown History
oral suspension (Milk of Magnesia)
sodium phosphates 19 gram-7 118 ml WI DAILYPRN PRN no bm 4 days 06/13/24 01/30/25 Unknown History
gram/118 mL enema (Fleet Enema)
finasteride 5 mg tablet 5 mg PO DAILY #30 tabs 07/06/24 01/30/25 Unknown Rx
furosemide 20 mg tablet 20 mg PO DAILY #30 tabs 07/06/24 01/30/25 Unknown Rx
hydralazine 25 mg tablet 50 mg (2 x 25 mg) PO TID #90 tabs 07/06/24 01/30/25 Unknown Rx
insulin glargine 100 unit/mL (3 5 unit (0.05 mL) SC HS Diabetes #0 07/06/24 01/30/25 Unknown Rx
mL) subcutaneous pen (Lantus mL
Solostar U-100 Insulin)
polyethylene glycol 3350 17 gram 17 g PO DAILYPRN PRN constipation 07/06/24 01/30/25 Unknown Rx
oral powder packet #14 ea
sodium bicarbonate 650 mg tablet 325 mg (1/2 x 650 mg) PO BID #60 07/06/24 01/30/25 Unknown Rx
tabs
insulin lispro 100 unit/mL 2 unit SC DAILY@0730 01/29/25 01/30/25 Unknown History
subcutaneous pen
mirtazapine 15 mg tablet (Remeron) 7.5 mg PO HS 01/29/25 01/30/25 Unknown History
tamsulosin 0.4 mg capsule 0.8 mg PO HS 01/29/25 01/30/25 Unknown History
bisacodyl 10 mg rectal suppository 10 mg WI [id number] PRN no BM after 01/30/25 01/30/25 Unknown History
MOM and/or lactulose
insulin lispro 100 unit/mL 1 sliding scale dose SC AC 01/30/25 01/30/25 Unknown History
subcutaneous pen (Humalog KwikPen
(U-100) Insulin)
pantoprazole 20 mg tablet,delayed 20 mg PO DAILY 01/30/25 01/30/25 Unknown History
release
Active Medications
Generic Name Dose Route Start Last Admin
Trade Name Denita CHÁVEZ Reason Stop Dose Admin
Amlodipine Besylate 10 mg 01/30/25 22:00
Amlodipine 10 Mg Tablet PO 02/27/25 21:59
HS NUBIA
Aspirin 81 mg 01/30/25 08:00 01/30/25 08:07
Aspirin 81 Mg (Enteric Coated) Tablet PO 02/27/25 07:59 81 mg
DAILY NUBIA Administration
Atorvastatin Calcium 80 mg 01/30/25 22:00
Atorvastatin (Lipitor) 80 Mg Tablet PO 02/27/25 21:59
HS NUBIA
Clopidogrel Bisulfate 75 mg 01/30/25 08:00 01/30/25 08:07
Clopidogrel 75 Mg Tablet PO 02/27/25 07:59 75 mg
DAILY NBUIA Administration
Ezetimibe 10 mg 01/30/25 08:00 01/30/25 08:08
Ezetimibe (Zetia) 10 Mg Tablet PO 02/27/25 07:59 10 mg
DAILY NUBIA Administration
Finasteride 5 mg 01/30/25 08:00 01/30/25 08:10
Finasteride 5 Mg Tablet PO 02/27/25 07:59 5 mg
DAILY NUBIA Administration
Furosemide 20 mg 01/30/25 08:00 01/30/25 08:08
Furosemide 20 Mg Tablet PO 02/27/25 07:59 20 mg
DAILY NUBIA Administration
Hydralazine HCl 50 mg 01/30/25 08:00 01/30/25 08:08
Hydralazine 50 Mg Tablet PO 02/27/25 07:59 50 mg
TID NUBIA Administration
Insulin Glargine 5 units/ 0.05 mls @ 0 mls/hr 01/30/25 22:00
Device SC 02/27/25 21:59
HS NUBIA
As Directed
Isosorbide Mononitrate 30 mg 01/30/25 08:00 01/30/25 08:10
Isosorbide Mononitrate 30 Mg Extended Release Tablet PO 02/27/25 07:59 30 mg
DAILY NUBIA Administration
Metoprolol Succinate 50 mg 01/30/25 08:00 01/30/25 08:07
Metoprolol 50 Mg Extended Release Tablet PO 02/27/25 07:59 50 mg
DAILY NUBIA Administration
Mirtazapine 15 mg 01/30/25 22:00
Mirtazapine 15 Mg Regular Release Tablet PO 02/27/25 21:59
HS NUBIA
Pantoprazole Sodium 40 mg 01/30/25 08:00 01/30/25 08:07
Pantoprazole 40 Mg Delayed Release Tablet PO 02/27/25 07:59 40 mg
DAILY NUBIA Administration
Sodium Bicarbonate 325 mg 01/30/25 08:00 01/30/25 08:09
Sodium Bicarbonate 650 Mg Tablet PO 02/27/25 07:59 325 mg
BID NUBIA Administration
Sodium Chloride 0 flush 01/30/25 02:00 01/30/25 01:34
Sodium Chloride 0.9% (Flush) Syringe IV 02/27/25 01:59 1 flush
PER PROTOCOL NUBIA Administration
Tamsulosin HCl 0.4 mg 01/30/25 22:00
Tamsulosin 0.4 Mg Capsule PO 02/27/25 21:59
HS NUBIA
Review of Systems
-
Unable to obtain full review of systems at this time due to: Dementia
Physical Exam
-
General: No Apparent Distress
HEENT: Negative Jaundice
Cardiology: Normal Sinus Rhythm
Pulmonary: Clear
GI: Soft
Musculoskeletal: No Clubbing, No Cyanosis and No Edema
Neurology: Other (poor recall, ?dementia)
Skin: Warm and Dry
Psych: Calm and Confused; Negative Intact Judgement/Insight
Labs
Lab Results
WBC 5.6 10^3/uL (4.8-10.8) 01/30/25 06:02
RBC 2.45 10^6/uL (4.70-6.10) L 01/30/25 06:02
Hgb 7.5 g/dL (13.0-18.0) L 01/30/25 06:02
Hct 22.7 % (39.0-52.0) L 01/30/25 06:02
MCV 92.7 fL (80.0-94.0) 01/30/25 06:02
MCH 30.6 pg (27.0-31.0) 01/30/25 06:02
MCHC 33.0 g/dL (33.0-37.0) 01/30/25 06:02
RDW 13.9 % (11.5-14.5) 01/30/25 06:02
Plt Count 124 10^3/uL (130-400) L 01/30/25 06:02
MPV 10.0 fL (7.4-10.4) 01/30/25 06:02
Abs Immat Gran (auto) 0.0 10^3/uL (0-0.05) 01/29/25 15:16
Absolute Neuts (auto) 3.8 10^3/uL (1.4-6.5) 01/29/25 15:16
Absolute Lymphs (auto) 1.3 10^3/uL (1.2-3.4) 01/29/25 15:16
Absolute Monos (auto) 0.4 10^3/uL (0.1-0.6) 01/29/25 15:16
Absolute Eos (auto) 0.5 10^3/uL (0-0.7) 01/29/25 15:16
Absolute Basos (auto) 0.0 10^3/uL (0-0.2) 01/29/25 15:16
Immature Gran % 0.3 % (0-0.5) 01/29/25 15:16
Neutrophils % 63.2 % (42.2-75.2) 01/29/25 15:16
Lymphocytes % 22.3 % (20.5-51.1) 01/29/25 15:16
Monocytes % 6.0 % (1.7-9.3) 01/29/25 15:16
Eosinophils % 7.7 % (0-6) H 01/29/25 15:16
Basophils % 0.5 % (0-2) 01/29/25 15:16
Creatinine 2.7 mg/dL (0.7-1.3) H 01/30/25 06:02
Vital Signs
Vital Signs
Temp Pulse Resp BP Pulse Ox
98.1 F 61 15 170/67 99
01/30/25 07:13 01/30/25 08:08 01/30/25 07:13 01/30/25 08:08 01/30/25 07:16
--- NOTE | 2025-01-30 10:53 | CM ---
CM reviewed chart and met with pt bedside in ED. Pt is confused, answers some questions correctly.
Has been at [facility] since 06/2024, Needs assistance with ADLs and personal care.
Pt states he ambulates short distances with walker, per ED RN pt required assistance of 2 to ambulate to BR.
PCP: Bob Gao
Pharmacy: [facility] provides meds
CM will continue to follow for discharge planning needs.
--- NOTE | 2025-01-30 11:35 | W.PN.HOSP.TC ---
Today's Communication/Plan
-
Will transfuse 1 unit of PRBC once permission obtained from the daughter and consider discharge
Assessment / Plan
Assessment / Plan
ACDz likely due to CKD4
- current Hgb 7.7
- baseline Hgb 8s
- NEG HoB stool
- Iron studies suggest anemia of chronic disease
- T & S and blood consent
- Appreciate heme consult. Epogen as an outpatient.
- In view of persistent low hemoglobin in sevens , this being anemia of chronic disease and the logistics of getting EPO as an outpatient I would consider transfusion. Will discuss with daughter.
CKD4 at baseline HX nephrotic range proteinuria
- baseline eGFR low 20s
- baseline Cr low 3s
30lbs ( 14 - 15kg) unintentional wt loss
Albumin 3.7
- TSH ok
Pancolitis-mild in nature based on CT. Patient without any symptoms. There is mild ascites in paracolic gutters which could be just because of anasarca. Follow-up for any GI symptoms. Await family call back to see if any recent colonoscopy.
HX intermittent urinary retention
- Bladder scan protocol.
Mod Lt pleural effusion, small Lt pleural effusion
Moderate to severe diffuse anasarca.
Chronic HFrEF , LVEF 40-45%.: No evidence for decompensation.
HX AICD
Stable respiratory status.
Chronic Alok edema/lymphedema.
CAD HX
- Clinically denies symptoms of shortness of breath and not hypoxic. Clinically seems compensated
- cont. metoprolol, Imdur, hydralazine, aspirin/Plavix
Essential hypertension.
- cont. metoprolol, Imdur, hydralazine, Lipitor, Norvasc
Paroxysmal AF
- on Metoprolol
IRDMT2
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
Dyslipidemia
- on Stain
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
HX CVA 2022.
DVT Px: SCD
Full code per daughter Dr Mcgrath
IP TLM
Anticipated Discharge: 24 - 48 hours
Subjective/Interval History
-
Date of Service: January 30, 2025
Voicing no specific complaints to me today.
Denies any fatigue or weakness.
Denies any shortness of breath or chest pain.
Denies any nausea vomiting. He says his appetite is generally low. Denies constipation.
Objective Data
-
Labs:
Laboratory Results
01/30/25
06:02
WBC 5.6
Hgb 7.5 L
Hct 22.7 L
Plt Count 124 L
Sodium 140
Potassium 4.4
Chloride 112 H
Carbon Dioxide 23
BUN 40 H
Creatinine 2.7 H
Glucose 100 H
Calcium 9.0
Vital Signs:
Vital Signs
Temp Pulse Resp BP Pulse Ox
97.7 F 60 15 138/54 99
01/30/25 11:33 01/30/25 11:33 01/30/25 11:33 01/30/25 11:33 01/30/25 11:33
I&O
01/29/25 01/30/25 01/31/25
06:59 06:59 06:59
Output Total 550 / 550
Balance -550 / -550
Physical Exam
-
General: Comfortable
HEENT: Moist Mucous Membranes
Respiratory: Clear to Auscultation
Cardiac: Regular Rhythm and S1/S2
GI: Soft and Nontender
Neuro: AO x 3
Psych: Calm
Data Reviewed
-
Labs: Labs Reviewed by me
--- NOTE | 2025-01-30 17:00 | PTCARENOTE ---
Received pt as admit from ED. AAOx2. Disoriented to time. Pt with hx of dementia. AV paced on tele, HRs 60s. SpO2 99% on room air. Haas intact. Active type & screen. Assessment documented. Pt resting in bed, bed alarm in place. Awaiting further
orders at this time.
[2025-01-30 18:03] LABS: Glucose - Point of Care 275 mg/dl (70-99)
[2025-01-30] MEDS: NOVOLOG FLEXPEN-LOW RESISTANCE 3 UNITS SC (18:28)
[2025-01-30 22:22] LABS: Glucose - Point of Care 180 mg/dl (70-99)
[2025-01-30] MEDS: LANTUS 0.05 UNITS SC (22:27)
[2025-01-30] MEDS: FLOMAX 0.4 MG PO (22:28)
[2025-01-30] MEDS: LIPITOR 80 MG PO (22:28)
[2025-01-30] MEDS: REMERON 15 MG PO (22:28)
[2025-01-30] MEDS: NORVASC 10 MG PO (22:28)
[2025-01-31 03:00] VITALS: BP 143/52
[2025-01-31 07:26] LABS: Glucose - Point of Care 93 mg/dl (70-99)
[2025-01-31 07:45] VITALS: BP 138/31
--- NOTE | 2025-01-31 08:06 | W.PN.ONC2 ---
Today's Communication / Plan
-
Retacrit 10,000 u SQ today then prob okay for D/C without PRBC transfusion with HgB 7.5
Impression
Impression
anemia
CKD
chronic HFpEF
dementia
Plan
Plan
He'd likely benefit from outpatient JEET for treatment of anemia in CKD
SG spoke w daughter, Dr. Dina Mcgrath, regarding logistics. She agreeable.
Subjective/Objective
Chief Complaint
ACS Heme Follow up
Subjective
Confused. States he's 'not feeling well' but unable to give more details.
Vital Signs:
Vital Signs
Temp Pulse Resp BP Pulse Ox
97.4 F 61 16 143/52 99
01/31/25 03:00 01/31/25 03:00 01/31/25 03:00 01/31/25 03:00 01/31/25 03:00
Lab Results:
Laboratory Data
WBC 5.6 10^3/uL (4.8-10.8) 01/30/25 06:02
Hgb 7.5 g/dL (13.0-18.0) L 01/30/25 06:02
Plt Count 124 10^3/uL (130-400) L 01/30/25 06:02
eGFR 23.68 01/30/25 06:02
Physical Exam
HEENT: No Jaundice
Cardiology: S1 and S2
Pulmonary: Clear
Orders
Orders
Orders From Last 24 Hours
01/31/25 08:05
Epoetin Jeffrey-Epbx [Retacrit] 10,000 units SC ONCE ONE
[2025-01-31 08:09] LABS: Hematocrit 23.8 % (39.0-52.0); Hemoglobin 8.0 g/dL (13.0-18.0); Mean Corp Hgb Conc. 33.6 g/dL (33.0-37.0); Mean Corpuscular Volume 92.6 fL (80.0-94.0); Platelet Count 138 10^3/uL (130-400); Red Cell Dist. Width 13.7 % (11.5-14.5)
[2025-01-31 08:32] LABS: Blood Urea Nitrogen 37 mg/dl (9-20); Calcium 8.8 mg/dl (8.4-10.2); Carbon Dioxide 21 mmol/L (22-30); Chloride 107 mmol/L (98-107); Estimated Creatinine Clearance 24 ml/min; Glucose 77 mg/dl (70-99); Potassium 4.4 mmol/L (3.5-5.1); Sodium 136 mmol/L (135-145); eGFR 24.78
--- NOTE | 2025-01-31 09:58 | CM ---
Patient seen at bedside on . Patient confirmed that he lives at [facility] and plan is to return when medically appropriate. Patient engrossed in choosing menu items. CM will send updated clinical information to SNF and continue to follow for
discharge planning needs.
Plan; return to SNF; when medically appropriate.
[2025-01-31 10:05] LABS: Glycohemoglobin (HgbA1c) 5.7 % (4.0-5.6)
[2025-01-31] MEDS: PROTONIX 40 MG PO (10:17)
[2025-01-31] MEDS: SODIUM BICARBONATE 325 MG PO ×2 (10:17→19:59)
[2025-01-31] MEDS: ASPIR LOW (ENTERIC COATED) 81 MG PO (10:18)
[2025-01-31] MEDS: PLAVIX 75 MG PO (10:18)
[2025-01-31] MEDS: PROSCAR 5 MG PO (10:18)
[2025-01-31] MEDS: APRESOLINE 50 MG PO ×3 (10:19→22:12)
[2025-01-31] MEDS: TOPROL XL 50 MG PO (10:25)
[2025-01-31] MEDS: LASIX 20 MG PO (10:27)
[2025-01-31] MEDS: IMDUR (EXTENDED RELEASE) 30 MG PO (10:27)
[2025-01-31] MEDS: ZETIA 10 MG PO (10:36)
[2025-01-31] MEDS: NOVOLOG FLEXPEN-LOW RESISTANCE SC ×2 (11:11→12:16)
[2025-01-31 11:15] VITALS: BP 152/57
[2025-01-31 11:35] LABS: Glucose - Point of Care 133 mg/dl (70-99)
[2025-01-31 11:53] VITALS: BMI 21.1
[2025-01-31] MEDS: RETACRIT 10000 UNITS SC (12:15)
--- NOTE | 2025-01-31 13:32 | W.PN.HOSP.TC ---
Today's Communication/Plan
-
Consult nephrology and cardiology
Assessment / Plan
Assessment / Plan
ACDz likely due to CKD4
- current Hgb 8.0
- baseline Hgb 8s
- NEG HoB stool
- Iron studies suggest anemia of chronic disease
- T & S and blood consent
- Appreciate heme consult. Epogen as an outpatient.
- Hold transfusion as HH is 8.0 and no acute coronary syndromes.
CKD4 at baseline HX nephrotic range proteinuria
- baseline eGFR low 20s
- baseline Cr low 3s
30lbs ( 14 - 15kg) unintentional wt loss
Albumin 3.7
- TSH ok
Pancolitis-mild in nature based on CT. Patient without any symptoms. There is mild ascites in paracolic gutters which could be just because of anasarca. Follow-up for any GI symptoms. No GI symptoms. Follow up as OP if symptomatic with GI
symptoms
HX intermittent urinary retention
- Bladder scan protocol.
Mod Lt pleural effusion, small Lt pleural effusion
Moderate to severe diffuse anasarca.
Unclear if cardiac or sec to hx of nephropathy
Consult Cards/Renal
Chronic HFrEF , LVEF 40-45%.: No evidence for decompensation.
HX AICD
Stable respiratory status.
Chronic Alok edema/lymphedema.
CAD HX
- Clinically denies symptoms of shortness of breath and not hypoxic. Clinically seems compensated
- cont. metoprolol, Imdur, hydralazine, aspirin/Plavix
Essential hypertension.
- cont. metoprolol, Imdur, hydralazine, Lipitor, Norvasc
Paroxysmal AF
- on Metoprolol
IRDMT2
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
Dyslipidemia
- on Stain
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
HX CVA 2022.
DVT Px: SCD
Full code per daughter Dr Mcgrath
IP TLM
Anticipated Discharge: Within 24 hours
Subjective/Interval History
-
Date of Service: January 31, 2025
Pleasantly confused
Voicing no specific complaints.
Denies nausea vomiting. No diarrhea per RN.
Denies any shortness of breath or chest pain.
Objective Data
-
Labs:
Laboratory Results
01/31/25
07:10
WBC 7.1
Hgb 8.0 L
Hct 23.8 L
Plt Count 138
Sodium 136
Potassium 4.4
Chloride 107
Carbon Dioxide 21 L
BUN 37 H
Creatinine 2.6 H
Glucose 77
Calcium 8.8
Vital Signs:
Vital Signs
Temp Pulse Resp BP Pulse Ox
97.6 F 61 18 152/57 99
01/31/25 11:15 01/31/25 11:15 01/31/25 11:15 01/31/25 11:15 01/31/25 11:15
I&O
01/30/25 01/31/25 02/01/25
06:59 06:59 06:59
Intake Total 720 / 720 300 / 300
Output Total 550 / 550 1575 / 1575 100 / 100
Balance -550 / -550 -855 / -855 200 / 200
Physical Exam
-
Respiratory: Non Labored Respirations; Negative Accessory Resp Muscle Use
Cardiac: Regular Rhythm and S1/S2
GI: Soft and Nontender
Musculoskeletal: Other (Trace BL LE edema)
Neuro: AO x 3
Psych: Calm
Data Reviewed
-
Labs: Labs Reviewed by me
--- NOTE | 2025-01-31 14:26 | CON.CAR ---
Addendum entered and electronically signed by Miguel Godinez MD 01/31/25 15:26:
I saw and examined the patient.
The MANAGER COMPLETIONS or PA's note was reviewed and I agree with the note.
Comment: General: Well developed, well nourished in NAD.
Neck: Supple, no JVD, HJR, carotids +2 B/L, no bruits bilaterally.
Heart: Non displaced PMI, RRR, no murmurs, No S3, S4, no rubs.
Lungs: Scattered rhonchi
Extremities: No clubbing, cyanosis or edema bilaterally.
Neuro: Grossly nonfocal, awake, alert and oriented x3.
Isma has a history of cardiomyopathy ejection fraction 45%, CAD status post CABG in 2017, status post Medtronic pacemaker with postop A-fib without known recurrence by device check, CVA, chronic diastolic CHF, renal sufficiency, medical
noncompliance, dementia, chronic lower extremity lymphedema. He presented for evaluation of an abnormal blood work with hemoglobin of 6.9 that was 7.7 in the ER. He has had weight loss of 30 pounds since June 2024. He is a poor historian
unable to give history. Cardiology is consulted for bilateral pleural effusions as well as ascites and proBNP of 5990 consistent with acute diastolic CHF.
Will assess response to IV Lasix. Creatinine 2.6 will need to follow closely with IV diuresis. Will check device.
Original Note:
Consultation
Consultation Request
Date/Time Consultation Performed: 01/31/25
Requesting Provider: Dr. Avila
Performing Provider: Vianney Morales PA-C for Dr. Godinez
Reason for Consultation: anasarca
Medical History
-
Chief Complaint: anemia
History of Present Illness:
Patient is a 74-year-old male resident of [facility] with past medical history of CAD status post CABG in 2017 as well as Medtronic pacemaker placement that admission, postop A-fib without known recurrence by device check, history of stroke,
chronic heart failure with preserved EF, CKD, medication noncompliance, dementia, chronic lower extremity lymphedema who presented to the [facility] emergency room for evaluation of abnormal outpatient blood work. Reportedly hemoglobin was low at 6.9.
In ED was 7.7. Baseline hemoglobin reported to be 8. He is on aspirin and Plavix. Patient also with weight loss of 30+ pounds since June 2024. He is a poor historian and cannot tell me why he is hospitalized. Imaging shows moderate left and
small right pleural effusions, mild ascites in paracolic gutters and moderate to severe diffuse anasarca. proBNP elevated at 5990, resulting in cardiology consultation for eval for CHF. He is chronically on Lasix 20 mg daily as OP
PMH:
Chronic HFpEF
CKD 3b
h/o HTN
CAD s/p CABG with NESBITT-LAD and SVG-OM 2016
s/p Medtronic dual chamber PPM for 7 second conversion pause 2016
Paroxysmal Afib
seen post-CABG, but no documented recurrence on device checks since 2016
h/o CVA 04/2023
Hyperlipidemia
DM 2
Dementia
h/o proteinuria
h/o venous insufficiency/lymphedema
h/o medication noncompliance
Past Medical History
Past Medical History: Other (in HPI)
Past Surgical History: Appendectomy, Cardiac (CABG and OOM 2016) and Orthopedic
Social History
Tobacco: Former Smoker
Alcohol: Occasional
Drug: None
Personal:
Living: [facility] (lives with his brother)
Employment: Retired
Family History
Family History: Other (dementia)
Allergies / Home Medications
Allergy/AdvReac Type Severity Reaction Status Date / Time
No Known Allergies Allergy Verified 06/13/24 18:10
�Medication �Instructions �Recorded �Confirmed �Type
amlodipine 10 mg tablet 10 mg PO HS #30 tabs 03/18/23 01/30/25 Rx
aspirin 81 mg tablet,delayed 81 mg PO DAILY #5 tabs 03/18/23 01/30/25 Rx
release
clopidogrel 75 mg tablet 75 mg PO DAILY #30 tabs 03/18/23 01/30/25 Rx
ezetimibe 10 mg tablet 10 mg PO DAILY High Cholesterol 03/18/23 01/30/25 Rx
#30 tabs
metoprolol succinate 50 mg 50 mg PO DAILY Blood Pressure 06/04/24 01/30/25 History
tablet,extended release 24 hr
isosorbide mononitrate 30 mg 30 mg PO DAILY #30 tabs 06/09/24 01/30/25 Rx
tablet,extended release 24 hr
acetaminophen 325 mg tablet 650 mg PO Q4HPRN PRN mild 06/13/24 01/30/25 History
pain/temp>100
atorvastatin 80 mg tablet 80 mg PO HS High Cholesterol 06/13/24 01/30/25 History
magnesium hydroxide 400 mg/5 mL 30 ml PO HSPRN PRN Constipation 06/13/24 01/30/25 History
oral suspension (Milk of Magnesia)
sodium phosphates 19 gram-7 118 ml IN DAILYPRN PRN no bm 4 days 06/13/24 01/30/25 History
gram/118 mL enema (Fleet Enema)
finasteride 5 mg tablet 5 mg PO DAILY #30 tabs 07/06/24 01/30/25 Rx
furosemide 20 mg tablet 20 mg PO DAILY #30 tabs 07/06/24 01/30/25 Rx
hydralazine 25 mg tablet 50 mg (2 x 25 mg) PO TID #90 tabs 07/06/24 01/30/25 Rx
insulin glargine 100 unit/mL (3 5 unit (0.05 mL) SC HS Diabetes #0 07/06/24 01/30/25 Rx
mL) subcutaneous pen (Lantus mL
Solostar U-100 Insulin)
polyethylene glycol 3350 17 gram 17 g PO DAILYPRN PRN constipation 07/06/24 01/30/25 Rx
oral powder packet #14 ea
sodium bicarbonate 650 mg tablet 325 mg (1/2 x 650 mg) PO BID #60 07/06/24 01/30/25 Rx
tabs
insulin lispro 100 unit/mL 2 unit SC DAILY@0730 Diabetes 01/29/25 01/30/25 History
subcutaneous pen
mirtazapine 15 mg tablet (Remeron) 7.5 mg PO HS Mental Health/Anxiety 01/29/25 01/30/25 History
tamsulosin 0.4 mg capsule 0.8 mg PO HS Urinary Issue 01/29/25 01/30/25 History
bisacodyl 10 mg rectal suppository 10 mg IN [id number] PRN no BM after 01/30/25 01/30/25 History
MOM and/or lactulose
insulin lispro 100 unit/mL 1 sliding scale dose SC AC Diabetes 01/30/25 01/30/25 History
subcutaneous pen (Humalog KwikPen
(U-100) Insulin)
pantoprazole 20 mg tablet,delayed 20 mg PO DAILY Gastrointestinal 01/30/25 01/30/25 History
release Issue
Review of Systems
-
Unable to obtain full review of systems at this time due to: Dementia
History Source: Patient
All other systems: Negative unless noted
Physical Exam
Vital Signs
Temp Pulse Resp BP Pulse Ox
97.6 F 61 18 152/57 99
01/31/25 11:15 01/31/25 11:15 01/31/25 11:15 01/31/25 11:15 01/31/25 11:15
Lab Results
01/31/25 07:10
01/31/25 07:10
Qpf-U-Sqoafpxmirz Pept 5990 pg/ml 01/29/25 22:56
Physical Exam
General: No Apparent Distress and Comfortable
HEENT: Normocephalic, Anicteric and Moist Mucous Membranes
Respiratory: Non Labored Respirations and Other (decreased BS at bases)
Cardiac: S1/S2 and Regular Rhythm
GI: Soft, Non Tender, Non Distended and Normal Bowel Sounds
Musculoskeletal: No Clubbing, No Cyanosis and No Edema
Skin: Warm and Dry
Neuro: Awake, Alert and Oriented (to self)
Impression / Plan
-
Primary Emt Basic: Dr. Ortiz
Assessment:
Presentation with acute on chronic anemia, likely of chronic disease
Anasarca by CT imaging
B/L pleural effusions by CT imaging
Concern for acute on chronic HFpEF
CKD 3b
h/o HTN
CAD s/p CABG with NESBITT-LAD and SVG-OM 2016
s/p Medtronic dual chamber PPM for 7 second conversion pause 2016
Paroxysmal Afib
seen post-CABG, but no documented recurrence on device checks since 2016
h/o CVA 04/2023
Hyperlipidemia
DM 2
Dementia
h/o proteinuria
h/o venous insufficiency/lymphedema
h/o medication noncompliance
Echo 12/06/2024: EF 45%, marked paradoxical septal motion consistent with paced rhythm, mild concentric LVH, stage I diastolic dysfunction, pacer wire in RV, MAC, mild to moderate MR, moderate to severe TR with PAP 28 mmHg
Plan:
- Patient presents with acute on chronic anemia, felt to be most likely of chronic disease in setting of CKD. Heme-onc following. Hemoglobin up to 8.0
- With history of bypass in 2016 and no recent stents, would consider stopping Plavix and continuing aspirin if also ok per neurology (history of CVA 2022)
- Cardiology consulted as noted by CT imaging to have bilateral pleural effusions as well as evidence of anasarca. He does not examine grossly volume overloaded. proBNP 5990. He is chronically on p.o. Lasix 20 mg daily as an outpatient. Would
trial IV Lasix 20 mg today and assess response. Creatinine 2.6 on 01/31. May require nephrology evaluation. May consider thoracentesis to evaluate fluid
- Consider device interrogation
- Last echo from 11/2024 with EF 45% with moderate to severe TR, could consider follow-up study to reevaluate EF
- Continue outpatient hypertensive regimen of Toprol 50 mg daily, Imdur 30 mg daily, hydralazine 50 mg 3 times daily, Norvasc 10 mg nightly
- check EKG. in av paced rhythm on review of tele
Data Reviewed
-
CT Scan: Report Reviewed by me
Medical Tests (Nuc Med, Echo etc): Report Reviewed by me
Labs: Labs Reviewed by me
Old Records: Reviewed
[2025-01-31 15:25] VITALS: BP 139/57
[2025-01-31] MEDS: LASIX 20 MG IV (15:40)
--- NOTE | 2025-01-31 16:24 | W.CON.NEPH ---
Consultation
-
Date/Time Consultation Requested: 01/31/2025 1 PM
Date/Time Consultation Performed: 01/31/2025 4 PM
Requesting Provider: Dr. Avila
Performing Provider: Dr. Preciado
Reason for Consultation: CKD4, anemia
Medical History
-
Chief Complaint: Anemia
History of Present Illness:
This is a 74-year-old gentleman [facility] and was sent to the emergency room because of abnormal blood work. Hemoglobin was noted to be 6.9. He does report fatigue but no chest pain or shortness of breath. His hemoglobin is
typically low this is certainly lower than his baseline. He has baseline chronic kidney disease stage IV with creatinine around 2.6 up to 3.0. This has been stable. He does have heart failure with reduced ejection fraction stable on diuretic
therapy, hypertension stable on a multidrug regimen, coronary disease stable on antiplatelet therapy.
Past Medical History
CKD 4, heart failure reduced ejection fraction, coronary artery disease, bypass grafting, pacemaker, paroxysmal atrial fibrillation, stroke, hyperlipidemia, diabetes mellitus type II, venous insufficiency, appendectomy, nephrotic range proteinuria
Social History
Tobacco: Non-Smoker and Former Smoker
Alcohol: None
Family History
Family History: Not Pertinent
Allergies / Home Medications
Allergy/AdvReac Type Severity Reaction Status Date / Time
No Known Allergies Allergy Verified 06/13/24 18:10
�Medication �Instructions �Recorded �Confirmed �Type
amlodipine 10 mg tablet 10 mg PO HS #30 tabs 03/18/23 01/30/25 Rx
aspirin 81 mg tablet,delayed 81 mg PO DAILY #5 tabs 03/18/23 01/30/25 Rx
release
clopidogrel 75 mg tablet 75 mg PO DAILY #30 tabs 03/18/23 01/30/25 Rx
ezetimibe 10 mg tablet 10 mg PO DAILY High Cholesterol 03/18/23 01/30/25 Rx
#30 tabs
metoprolol succinate 50 mg 50 mg PO DAILY Blood Pressure 06/04/24 01/30/25 History
tablet,extended release 24 hr
isosorbide mononitrate 30 mg 30 mg PO DAILY #30 tabs 06/09/24 01/30/25 Rx
tablet,extended release 24 hr
acetaminophen 325 mg tablet 650 mg PO Q4HPRN PRN mild 06/13/24 01/30/25 History
pain/temp>100
atorvastatin 80 mg tablet 80 mg PO HS High Cholesterol 06/13/24 01/30/25 History
magnesium hydroxide 400 mg/5 mL 30 ml PO HSPRN PRN Constipation 06/13/24 01/30/25 History
oral suspension (Milk of Magnesia)
sodium phosphates 19 gram-7 118 ml MT DAILYPRN PRN no bm 4 days 06/13/24 01/30/25 History
gram/118 mL enema (Fleet Enema)
finasteride 5 mg tablet 5 mg PO DAILY #30 tabs 07/06/24 01/30/25 Rx
furosemide 20 mg tablet 20 mg PO DAILY #30 tabs 07/06/24 01/30/25 Rx
hydralazine 25 mg tablet 50 mg (2 x 25 mg) PO TID #90 tabs 07/06/24 01/30/25 Rx
insulin glargine 100 unit/mL (3 5 unit (0.05 mL) SC HS Diabetes #0 07/06/24 01/30/25 Rx
mL) subcutaneous pen (Lantus mL
Solostar U-100 Insulin)
polyethylene glycol 3350 17 gram 17 g PO DAILYPRN PRN constipation 07/06/24 01/30/25 Rx
oral powder packet #14 ea
sodium bicarbonate 650 mg tablet 325 mg (1/2 x 650 mg) PO BID #60 07/06/24 01/30/25 Rx
tabs
insulin lispro 100 unit/mL 2 unit SC DAILY@0730 Diabetes 01/29/25 01/30/25 History
subcutaneous pen
mirtazapine 15 mg tablet (Remeron) 7.5 mg PO HS Mental Health/Anxiety 01/29/25 01/30/25 History
tamsulosin 0.4 mg capsule 0.8 mg PO HS Urinary Issue 01/29/25 01/30/25 History
bisacodyl 10 mg rectal suppository 10 mg MT [id number] PRN no BM after 01/30/25 01/30/25 History
MOM and/or lactulose
insulin lispro 100 unit/mL 1 sliding scale dose SC AC Diabetes 01/30/25 01/30/25 History
subcutaneous pen (Humalog KwikPen
(U-100) Insulin)
pantoprazole 20 mg tablet,delayed 20 mg PO DAILY Gastrointestinal 01/30/25 01/30/25 History
release Issue
Review of Systems
-
Fatigue
All other systems: Negative unless noted
Physical Exam
Vital Signs
Vital Signs
Temp Pulse Resp BP Pulse Ox
97.5 F 61 18 139/57 99
01/31/25 15:25 01/31/25 15:41 01/31/25 15:25 01/31/25 15:41 01/31/25 15:25
Lab Results
WBC 7.1 10^3/uL (4.8-10.8) 01/31/25 07:10
RBC 2.57 10^6/uL (4.70-6.10) L 01/31/25 07:10
Hgb 8.0 g/dL (13.0-18.0) L 01/31/25 07:10
Hct 23.8 % (39.0-52.0) L 01/31/25 07:10
Plt Count 138 10^3/uL (130-400) 01/31/25 07:10
Sodium 136 mmol/L (135-145) 01/31/25 07:10
Potassium 4.4 mmol/L (3.5-5.1) 01/31/25 07:10
Chloride 107 mmol/L (98-107) 01/31/25 07:10
Carbon Dioxide 21 mmol/L (22-30) L 01/31/25 07:10
BUN 37 mg/dl (9-20) H 01/31/25 07:10
Creatinine 2.6 mg/dL (0.7-1.3) H 01/31/25 07:10
eGFR 24.78 01/31/25 07:10
Glucose 77 mg/dl (70-99) 01/31/25 07:10
Calcium 8.8 mg/dl (8.4-10.2) 01/31/25 07:10
Fbl-T-Csiadahkzot Pept 5990 pg/ml 01/29/25 22:56
Albumin 3.7 g/dl (3.5-5.0) 01/29/25 15:16
Laboratory Tests
06/14/24 11/03/24 01/29/25
11:53 05:30 05:33
Hgb 6.9 L*
Creatinine 2.9 H
Iron
TIBC
% Saturation
Ferritin
Protein/Creatinin Ratio 4.9
01/30/25
06:02
Hgb
Creatinine
Iron 74
TIBC 212 L
% Saturation 34
Ferritin 276.0
Protein/Creatinin Ratio
CT abdomen pelvis without IV contrast 01/29/2025
IMPRESSION:
1. Moderate-sized left and small right pleural effusions.
2. Mild cardiomegaly.
3. Moderate chronic bilateral renal disease.
4. Severe calcific atherosclerotic plaque in the abdominal aorta and renal arteries.
5. Mild pancolitis (either infectious or inflammatory in etiology).
6. Moderately enlarged prostate gland causing chronic urinary bladder outlet obstruction.
7. Mild ascites in the paracolic gutters.
8. Severe multilevel lumbar discogenic degenerative disease.
9. Moderate to severe diffuse anasarca.
Physical Exam
Patient is awake alert oriented and in no distress. Mood and affect were pleasant, insight and judgment were good. Pupils are equal round and reactive to light, extraocular movements are intact, sclera were anicteric. Hearing was normal, ears and
nose are intact. Oropharynx was clear. Neck was supple with trachea midline and no thyromegaly. Heart was regular rate and rhythm without rubs. Lower extremities with 2+ edema. Lungs were clear to auscultation bilaterally and with normal
excursion. Abdomen was soft, nontender, with normal active bowel sounds, and no hepatosplenomegaly. Skin was without rash and with normal turgor.
Data Reviewed
-
Radiology: Image Personally Visualized and interpreted (Chest x-ray 01/29/2025 by my reading left effusion)
CT Scan: Report Reviewed by me
Labs: Labs Reviewed by me
Old Records: Reviewed
Assessment/Plan
-
Assessment
CKD4
Coronary artery disease with bypass
Paroxysmal atrial fibrillation
Hypertension
Edema/venous stasis diabetes mellitus type 2
Cognitive impairment
HFmrEF
Plan
IV Lasix
Follow BMP
Will initiate JEET therapy
Continue bicarbonate therapy
He has been lost to follow-up in our office since 2022
[2025-01-31 17:02] LABS: Glucose - Point of Care 152 mg/dl (70-99)
[2025-01-31] MEDS: NOVOLOG FLEXPEN-LOW RESISTANCE 1 UNITS SC (18:04)
[2025-01-31 19:59] VITALS: BP 127/54
[2025-01-31] MEDS: FLOMAX 0.4 MG PO (20:00)
[2025-01-31] MEDS: LIPITOR 80 MG PO (20:00)
[2025-01-31 21:42] LABS: Glucose - Point of Care 117 mg/dl (70-99)
[2025-01-31] MEDS: LANTUS 0.05 UNITS SC (22:12)
[2025-01-31] MEDS: REMERON 15 MG PO (22:12)
[2025-01-31] MEDS: NORVASC 10 MG PO (22:12)
[2025-01-31 23:08] VITALS: BP 153/60
[2025-02-01 03:00] VITALS: BP 131/48
[2025-02-01 07:32] VITALS: BP 147/60
[2025-02-01 07:45] LABS: Glucose - Point of Care 78 mg/dl (70-99)
[2025-02-01] MEDS: ASPIR LOW (ENTERIC COATED) 81 MG PO (09:47)
[2025-02-01] MEDS: PROTONIX 40 MG PO (09:47)
[2025-02-01] MEDS: NOVOLOG FLEXPEN-LOW RESISTANCE SC ×3 (09:47→18:06)
[2025-02-01] MEDS: PLAVIX 75 MG PO (09:48)
[2025-02-01] MEDS: TOPROL XL 50 MG PO (09:48)
[2025-02-01] MEDS: APRESOLINE 50 MG PO ×3 (09:48→22:29)
[2025-02-01] MEDS: IMDUR (EXTENDED RELEASE) 30 MG PO (09:48)
[2025-02-01] MEDS: ZETIA 10 MG PO (09:48)
[2025-02-01] MEDS: PROSCAR 5 MG PO (09:49)
[2025-02-01] MEDS: SODIUM BICARBONATE 325 MG PO ×2 (09:49→20:05)
--- NOTE | 2025-02-01 10:36 | W.PN.ONC ---
Today's Communication / Plan
-
JEET initiated
Monitor CBC
Monitor B12 if persistently less than 400 check methylmalonic acid
Impression
Impression
anemia
CKD
chronic HFpEF
dementia
Subjective/Objective
Subjective/Objective
Patient without new complaints
Vital Signs:
Vital Signs
Temp Pulse Resp BP Pulse Ox
97.4 F 61 16 147/60 99
02/01/25 07:32 02/01/25 09:48 02/01/25 07:32 02/01/25 09:48 02/01/25 07:32
Sclera nonicteric
Heart regular
Lungs without rales rhonchi decreased in the bases
Abdomen without palpable splenomegaly, mildly protuberant
Extremities with trace edema
Lab Results:
Laboratory Data
WBC 7.1 10^3/uL (4.8-10.8) 01/31/25 07:10
Hgb 8.0 g/dL (13.0-18.0) L 01/31/25 07:10
Plt Count 138 10^3/uL (130-400) 01/31/25 07:10
eGFR 24.78 01/31/25 07:10
--- NOTE | 2025-02-01 10:52 | W.PN.NEPH.PH ---
Today's Communication / Plan
-
Follow BMP
Assessment/Plan
-
Assessment
CKD4
Coronary artery disease with bypass
Paroxysmal atrial fibrillation
Hypertension
Edema/venous stasis diabetes mellitus type 2
Cognitive impairment
HFmrEF
Plan
P.o. Lasix given excellent response to IV Lasix yesterday
Follow BMP
JEET therapy per oncology will likely need as an outpatient
Continue bicarbonate therapy
He has been lost to follow-up in our office since 2022
-
-
Date of Service: February 01, 2025
CC / HPI / ROS
-
Chief Complaint:
CKD
History of Present Illness:
BP stable
CKD stable with creatinine 2.6 yesterday
No labs yet today
Received Retacrit 10,000 units 01/31/2025 from oncology
Review of Systems:
No chest pain or shortness of breath
Labs
-
Labs:
eGFR 24.78 01/31/25 07:10
Vmb-M-Clwnukapfss Pept 5990 pg/ml 01/29/25 22:56
Albumin 3.7 g/dl (3.5-5.0) 01/29/25 15:16
Physical Exam
-
Vital Signs:
Vital Signs
Temp Pulse Resp BP Pulse Ox
97.4 F 61 16 147/60 99
02/01/25 07:32 02/01/25 09:48 02/01/25 07:32 02/01/25 09:48 02/01/25 07:32
Cardiovascular:: Regular rate and rhythm
Respiratory:: Bilateral: Coarse
Lung Excursion:: Normal
Abdomen:: Nontender and Soft
Bowel Sounds:: Normal
Extremity Edema:: None: Bilateral:
[2025-02-01 11:33] LABS: Glucose - Point of Care 116 mg/dl (70-99)
[2025-02-01 11:36] VITALS: BP 120/53
--- NOTE | 2025-02-01 12:58 | W.PN.HOSP.TC ---
Addendum entered and electronically signed by Austen Avila MD 02/04/25 16:06:
Acute on chronic heart failure with preserved EF
Original Note:
Today's Communication/Plan
-
DC planning
Assessment / Plan
Assessment / Plan
ACDz likely due to CKD4
- current Hgb 8.0
- baseline Hgb 8s
- NEG HoB stool
- Iron studies suggest anemia of chronic disease
- T & S and blood consent
- Appreciate heme consult. Epogen as an outpatient.
- Hold transfusion as HH is 8.0 and no acute coronary syndromes.
CKD4 at baseline HX nephrotic range proteinuria
- baseline eGFR low 20s
- baseline Cr low 3s
30lbs ( 14 - 15kg) unintentional wt loss
Albumin 3.7
- TSH ok
Pancolitis-mild in nature based on CT. Patient without any symptoms. There is mild ascites in paracolic gutters which could be just because of anasarca. Follow-up for any GI symptoms. No GI symptoms. Follow up as OP if symptomatic with GI
symptoms
HX intermittent urinary retention
- Bladder scan protocol.
Mod Lt pleural effusion, small Lt pleural effusion
Moderate to severe diffuse anasarca.
Unclear if cardiac or sec to hx of nephropathy
Appt Cards/Renal input
Pt got IV lasix yesterday -wt is down and lowest recorded in the system
Chronic HFrEF , LVEF 40-45%.: No evidence for decompensation.
HX AICD
Stable respiratory status.
Chronic Alok edema/lymphedema.
CAD HX
- Clinically denies symptoms of shortness of breath and not hypoxic. Clinically seems compensated
- cont. metoprolol, Imdur, hydralazine, aspirin/Plavix
Essential hypertension.
- cont. metoprolol, Imdur, hydralazine, Lipitor, Norvasc
Paroxysmal AF
- on Metoprolol
IRDMT2
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
Dyslipidemia
- on Stain
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
HX CVA 2022.
DVT Px: SCD
Full code per daughter Dr Mcgrath
IP TLM
DC if ok from cardiology standpoint
Anticipated Discharge: Today
Subjective/Interval History
-
Date of Service: February 01, 2025
Voices no specific complaints. Pleasantly confused.
No overnight events per RN.
Denies shortness of breath or chest pain. No nausea vomiting. Tolerating diet.
Objective Data
-
Vital Signs:
Vital Signs
Temp Pulse Resp BP Pulse Ox
97.6 F 61 18 120/53 99
02/01/25 11:36 02/01/25 11:36 02/01/25 11:36 02/01/25 11:36 02/01/25 11:36
I&O
01/31/25 02/01/25 02/02/25
06:59 06:59 06:59
Intake Total 720 / 720 780 / 780
Output Total 1575 / 1575 1400 / 1400
Balance -855 / -855 -620 / -620
Physical Exam
-
General: Comfortable
Respiratory: Clear to Auscultation and Non Labored Respirations; Negative Accessory Resp Muscle Use
Cardiac: Regular Rhythm and S1/S2
GI: Soft
Neuro: Awake, Alert and Oriented (SELF)
Psych: Calm and Confused; Negative Agitated
Data Reviewed
-
Labs: Labs Reviewed by me
--- NOTE | 2025-02-01 13:21 | PN.CDI ---
CDI
- -
CDI:
Physician Documentation Request
Admit Date: 01/29/25 23:28
Dear Doctor Austin,
Clinical Indicators:
Patient admitted with anemia, likely due to CKD 4.
01/31 Cardiology PN, 'Cardiology is consulted for bilateral pleural effusions as well as ascites and proBNP of 5990 consistent with acute diastolic CHF'
01/31 Lasix 20 mg IV x 1.
02/01 PN, 'Chronic HFrEF , LVEF 40-45%.: No evidence for decompensation.'
Due to potentially conflicting documentation, please clarify the most likely acuity of CHF you are evaluating, treating or monitoring.
Acute on chronic HFrEF
Chronic HFrEF (documentation complete)
Other, please specify
Use of terms such as suspected, likely, concern for, or probable (associated with a specific diagnosis that is being evaluated, monitored, or treated as if it exists) are acceptable and can be coded in the inpatient setting, when documented at the
time of discharge.
Thank you,
SAMIR Teixeira RN
CDI Specialist
available via tiger text
Please use your independent medical judgment in providing your response.
--- NOTE | 2025-02-01 14:42 | W.PN.CARDCBS ---
Addendum entered and electronically signed by Miguel Godinez MD 02/01/25 16:28:
I saw and examined the patient.
The TIME CLERK or PA's note was reviewed and I agree with the note.
Comment: General: Well developed, well nourished in NAD.
Discussed with patient in detail. Changed to Lasix 20 mg daily. Volume status adequate. Will check device and sign off if okay. Will stop aspirin and treat with Plavix alone for prior CVA given risk of bleeding/worsening anemia.
Original Note:
Today's Communication / Plan
-
transitioned to po lasix 20mg daily
consider consolidating DAPT to monotherapy to reduce risk of bleeding/worsening anemia
check device
arrange OP cardiac follow up
will plan to sign off if device check ok
Impression / Plan
-
Primary Casting Plug Assembler: Dr. Ortiz
Assessment:
Presentation with acute on chronic anemia, likely of chronic disease
Anasarca by CT imaging
B/L pleural effusions by CT imaging
Concern for acute on chronic HFpEF
CKD 3b
h/o HTN
CAD s/p CABG with NESBITT-LAD and SVG-OM 2016
s/p Medtronic dual chamber PPM for 7 second conversion pause 2016
Paroxysmal Afib
seen post-CABG, but no documented recurrence on device checks since 2016
h/o CVA 04/2023
Hyperlipidemia
DM 2
Dementia
h/o proteinuria
h/o venous insufficiency/lymphedema
h/o medication noncompliance
Echo 12/06/2024: EF 45%, marked paradoxical septal motion consistent with paced rhythm, mild concentric LVH, stage I diastolic dysfunction, pacer wire in RV, MAC, mild to moderate MR, moderate to severe TR with PAP 28 mmHg
Plan:
- He responded well to IV Lasix 20 mg on 01/31. Creatinine pending. Transitioned back to 20 mg p.o. Lasix daily per nephrology
- Hemoglobin also pending 02/01. Anemia of felt to be most likely of chronic disease in setting of CKD. Epoetin initiated per hematology
- With history of bypass in 2016 and stroke in 2022, is presently on dual antiplatelet therapy, however would consider consolidating to monotherapy to reduce risk of bleeding/worsening anemia
- Continue outpatient hypertensive regimen of Toprol 50 mg daily, Imdur 30 mg daily, hydralazine 50 mg 3 times daily, Norvasc 10 mg nightly
- in av paced rhythm on review of tele. check device
- will arrange OP cardiac follow up
-will plan to sign off if device check ok
Progress Note - Casting Plug Assembler
Subjective
Date of Service: February 01, 2025
no complaints.
Objective
Labs:
Labs
Hgb 8.0 g/dL (13.0-18.0) L 01/31/25 07:10
Hct 23.8 % (39.0-52.0) L 01/31/25 07:10
Plt Count 138 10^3/uL (130-400) 01/31/25 07:10
Sodium 136 mmol/L (135-145) 01/31/25 07:10
Potassium 4.4 mmol/L (3.5-5.1) 01/31/25 07:10
BUN 37 mg/dl (9-20) H 01/31/25 07:10
Creatinine 2.6 mg/dL (0.7-1.3) H 01/31/25 07:10
Glucose 77 mg/dl (70-99) 01/31/25 07:10
Vital Signs and I&O:
Vital Signs
Temp Pulse Resp BP Pulse Ox
97.6 F 61 18 120/53 99
02/01/25 11:36 02/01/25 11:36 02/01/25 11:36 02/01/25 11:36 02/01/25 11:36
Vital Signs
Temp Pulse Resp BP Pulse Ox
97.6 F 61 18 120/53 99
02/01/25 11:36 02/01/25 11:36 02/01/25 11:36 02/01/25 11:36 02/01/25 11:36
Intake & Output
01/30/25 01/31/25 02/01/25 02/02/25
07:59 07:59 07:59 07:59
Intake Total 720 / 720 780 / 780
Output Total 550 / 550 1575 / 1575 1400 / 1400
Balance -550 / -550 -855 / -855 -620 / -620
Physical Exam
Physical Exam
GEN: No distress, awake, alert, oriented x3
HEENT: supple, anicteric, mmm, eomi
LUNGS: Decreased at B/L bases, no wheezes
CV: Reg, S1/S2, 1/6 murmur
ABD: soft, BS+, NT/ND
EXT: No cyanosis, clubbing, edema
NEURO: Gross non-focal
SKIN: Warm, pink, dry. No rash
[2025-02-01 15:11] VITALS: BP 128/40
--- NOTE | 2025-02-01 16:16 | CM ---
MD indicated pt ready for discharge.
Spoke with Boom at [facility] accepted back.
said device check at 5 pm then dc to [facility] truss assembler .
Spoke with karen Baker she agrees with dc to [facility] and [facility].
Medical [facility].
[facility]
report [phone]
fax [phone]
PLAN Return to [facility]
[2025-02-01 17:29] LABS: Glucose - Point of Care 136 mg/dl (70-99)
[2025-02-01 22:05] LABS: Glucose - Point of Care 168 mg/dl (70-99)
[2025-02-01 22:22] VITALS: BP 144/54
[2025-02-01] MEDS: FLOMAX 0.4 MG PO (22:29)
[2025-02-01] MEDS: REMERON 15 MG PO (22:29)
[2025-02-01] MEDS: LIPITOR 80 MG PO (22:29)
[2025-02-01] MEDS: NORVASC 10 MG PO (22:30)
[2025-02-01] MEDS: LANTUS 0.05 UNITS SC (22:30)
[2025-02-02 06:00] VITALS: BMI 19.5
[2025-02-02 07:05] VITALS: BP 145/60
[2025-02-02 08:08] LABS: Glucose - Point of Care 91 mg/dl (70-99)
[2025-02-02] MEDS: SODIUM BICARBONATE 325 MG PO ×2 (08:40→20:15)
[2025-02-02] MEDS: NOVOLOG FLEXPEN-LOW RESISTANCE SC ×3 (08:40→17:14)
[2025-02-02] MEDS: PLAVIX 75 MG PO (08:41)
[2025-02-02] MEDS: PROTONIX 40 MG PO (08:41)
[2025-02-02] MEDS: ZETIA 10 MG PO (08:41)
[2025-02-02] MEDS: PROSCAR 5 MG PO (08:41)
[2025-02-02] MEDS: ASPIR LOW (ENTERIC COATED) 81 MG PO (08:41)
[2025-02-02] MEDS: IMDUR (EXTENDED RELEASE) 30 MG PO (08:41)
[2025-02-02] MEDS: LASIX 20 MG PO (08:41)
[2025-02-02] MEDS: TOPROL XL 50 MG PO (08:42)
[2025-02-02] MEDS: APRESOLINE 50 MG PO ×2 (08:43→15:16)
--- NOTE | 2025-02-02 09:26 | CM ---
Patient seen at bedside
Spoke with Kamaljit at [facility] & updated
Referral entered in [facility].
IMM in chart
PLAN: [facility]
report [phone]
fax [phone]
transportation forms in chart
--- NOTE | 2025-02-02 11:12 | W.CARD.DEVCH ---
Cardiac Device Check
-
Device: Pacemaker
Coremaker: Medtronic
The patient's device was interrogated with assistance of the device payable representative. The device had normal function. AV paced 75% of the time, no arrhythmias noted. Battery longevity 1.5 years
[2025-02-02 12:08] LABS: Glucose - Point of Care 149 mg/dl (70-99)
[2025-02-02 15:11] VITALS: BP 147/54
--- NOTE | 2025-02-02 15:40 | PTCARENOTE ---
Pt retaining urine, no void and bladder scanned for 636. Haas ordered, 16fr placed, 450 ml initial output.
--- NOTE | 2025-02-02 15:57 | W.PN.NEPH.PH ---
Today's Communication / Plan
-
f/u labs
Assessment/Plan
-
Assessment
CKD4
Coronary artery disease with bypass
Paroxysmal atrial fibrillation
Hypertension
Edema/venous stasis diabetes mellitus type 2
Cognitive impairment
HFmrEF
Plan
stable vol status with po lasix
check labs in am, so far stable CKD
sin reinserted for failing VT today
JEET therapy per oncology will likely need as an outpatient
Continue bicarbonate therapy
He has been lost to follow-up in our office since 2022
d/w nursing
-
-
Date of Service: February 02, 2025
CC / HPI / ROS
-
Chief Complaint:
CKD
History of Present Illness:
BP stable
CKD stable with creatinine 2.6 01/31
No labs yet today
Received Retacrit 10,000 units 01/31/2025 from oncology
sin back today
Review of Systems:
No chest pain or shortness of breath
no n/v
Labs
-
Labs:
WBC Cancelled 02/01/25 06:00
RBC Cancelled 02/01/25 06:00
Hgb Cancelled 02/01/25 06:00
Hct Cancelled 02/01/25 06:00
Plt Count Cancelled 02/01/25 06:00
Sodium Cancelled 02/01/25 06:00
Potassium Cancelled 02/01/25 06:00
Chloride Cancelled 02/01/25 06:00
Carbon Dioxide Cancelled 02/01/25 06:00
BUN Cancelled 02/01/25 06:00
Creatinine Cancelled 02/01/25 06:00
eGFR Cancelled 02/01/25 06:00
Glucose Cancelled 02/01/25 06:00
Calcium Cancelled 02/01/25 06:00
Tpe-O-Ltkfeeaibwk Pept 5990 pg/ml 01/29/25 22:56
Albumin 3.7 g/dl (3.5-5.0) 01/29/25 15:16
Physical Exam
-
Vital Signs:
Vital Signs
Temp Pulse Resp BP Pulse Ox
98 F 72 16 145/60 99
02/02/25 07:05 02/02/25 08:43 02/02/25 07:05 02/02/25 08:43 02/02/25 07:05
Cardiovascular:: Regular rate and rhythm
Respiratory:: Bilateral: Coarse
Lung Excursion:: Normal
Abdomen:: Nontender and Soft
Bowel Sounds:: Normal
Extremity Edema:: None: Bilateral:
Sin Catheter: Yes
--- NOTE | 2025-02-02 16:15 | W.DCSUMMARY ---
Discharge Summary
Discharge Data
Date of Admission: 01/29/25
Date of Discharge: 02/02/25
-
Pending Results: No
Hospital Course
Primary diagnosis:
Anemia of chronic disease likely secondary to renal disease
Chronic kidney disease stage IV
Acute on chronic heart failure with midrange EF
Urinary outlet obstruction
Secondary diagnosis:
Essential hypertension
History of paroxysmal A-fib-seen postop CABG and no documented recurrence on device checks
Permanent pacemaker in [id number]
CAD s/p CABG
Diabetes mellitus type 2
Dyslipidemia
Dementia
Hospital course:
The patient was sent in because of low hemoglobin of 6.9 noted in the routine labs at the intermediate. Upon presentation here he was asymptomatic but also difficult historian because of dementia. His repeat hemoglobin here was 7.7 which was
stable. No evidence of active GI bleed. He was heme-negative. Iron studies suggest more anemia of chronic disease. His GERD chronic kidney disease stage IV felt to may be the reason for his chronic kidney disease. Was seen by hematology as
well. Was given the first dose of Epogen here 10,000 units. Family advised to follow-up with the hematology for subsequent Epogen injections.
There was unintentional weight loss apparently so and a CT of the abdomen pelvis was obtained which showed bilateral pleural effusion and diffuse anasarca. Was seen by cardiology and renal. He had a recent echocardiogram in November which showed a
mildly reduced systolic function EF of 45% stage I diastolic dysfunction, moderate to severe tricuspid regurgitation with estimated pulmonary artery pressures of 28. The echo found no changes compared to normal 2023. His BNP was elevated as well
at 5990 and cardiology felt there may be an element of acute on chronic heart failure was given IV diuretics with improvement in his weight to 147lbs which is lower than in the past years for him. He was resumed back on his home Lasix dose of 20
mg. Cardiology also recommended that he does not need DAPT anymore and recommended to continue with Plavix moving forward.
Today he was deemed stable for discharge. He was afebrile, pulse was 61, blood pressure 147/54. On room air. Voiced no specific complaints but is Dementia. Chest was clear heart sinus and pulses are regular abdomen was benign.
On the day of discharge we tried a voiding trial. He had a catheter placed because of retention on this admission. He is known to have BPH on Proscar and Flomax. He failed a voiding trial and needing catheter back in. Upon discussions with
daughter who is a family practice physician he apparently had retention issues a year ago and was able to come off Ahas catheter but then his mobility was better than than now. The plan is to have Haas catheter in place and voiding trial while at
the rehab. If he fails, daughter would obtain a urology evaluation.
Consultants on board:
Cardiology Kassie Sanchez
Renal Willi Stanley
Discharge Plan
-
Patient Disposition: Intermediate/SNF
Discharge Diagnosis/Procedures: Severe anemia of chronic disease; Acute on CHF with midrange EF; CKD4
Diet: 2 Gram Sodium and Restrict fluids to 64 oz
Activity: As tolerated
Driving Restrictions: No driving
Specialty Instructions: Weigh Daily- Call MD for wt gain/loss 3 lbs overnight/5 lbs in 1 week
Activity Restrictions/Additional Instructions:
Voiding trail in a week.
Referrals:
Ryan White I., [Family Provider, Internal Medicine] - in less than 1 week
Martine Gutiérrez PA-C [Specified Professional Personl, Cardiology] - 03/08/25 2:00 pm
Referral Note: You have a cardiology follow-up appointment at the [place] office with Dr. Ortiz's physician regulatory affairs assistant, Martine. Please call with questions
Jacque Escamilla MD [Active, Oncology] - in three to four weeks
Referral Note: Call for an appointment
Prescriptions:
Continued
metoprolol succinate 50 mg tablet extended release 24 hr
50 mg PO DAILY
Rx Instructions:
Hold for sbp<100/hr<60
isosorbide mononitrate 30 mg Tablet Extended Release 24 Hr
30 mg PO DAILY Qty: 30 0RF
acetaminophen 325 mg Tablet
650 mg PO Q4HPRN PRN (Reason: mild pain/temp>100)
magnesium hydroxide [Milk of Magnesia] 400 mg/5 mL Suspension
30 ml PO HSPRN PRN (Reason: Constipation)
Fleet Enema 19-7 gram/118 mL Enema
118 ml NV DAILYPRN PRN (Reason: no bm 4 days)
atorvastatin 80 MG tablet
80 mg PO HS
polyethylene glycol 3350 17 gram Powder In Packet
17 g PO DAILYPRN PRN (Reason: constipation) Qty: 14 0RF
furosemide 20 mg Tablet
20 mg PO DAILY Qty: 30 0RF
sodium bicarbonate 650 mg Tablet
325 mg PO BID Qty: 60 0RF
finasteride 5 mg Tablet
5 mg PO DAILY Qty: 30 0RF
hydralazine 25 mg Tablet
50 mg PO TID Qty: 90 0RF
insulin glargine [Lantus Solostar U-100 Insulin] 100 unit/mL (3 mL) Insulin Pen
5 unit SC HS Qty: 0 0RF
tamsulosin 0.4 mg capsule
0.8 mg PO HS
mirtazapine [Remeron] 15 mg Tablet
7.5 mg PO HS
insulin lispro 100 unit/mL Insulin Pen
2 unit SC DAILY@0730
bisacodyl 10 mg Suppository
10 mg NV [id number] PRN (Reason: no BM after MOM and/or lactulose)
insulin lispro [Humalog KwikPen Insulin] 100 unit/mL Insulin Pen
1 sliding scale dose SC AC
Rx Instructions:
<70 = initiate hypoglycemic protocol; 71-150 = 0 units; 151-200 = 2 units; 201-250 = 4 units; 251-300 = 6 units; 301-350 = 8 units; 351-400 = 10 units; >400 = 12 units and call MD
pantoprazole 20 mg Tablet,Delayed Release (Dr/Ec)
20 mg PO DAILY
amlodipine 10 mg Tablet
10 mg PO HS Qty: 30 0RF
clopidogrel 75 mg Tablet
75 mg PO DAILY Qty: 30 0RF
ezetimibe 10 MG tablet
10 mg PO DAILY Qty: 30 0RF
Discontinued
aspirin 81 MG tablet,delayed release (DR/EC)
81 mg PO DAILY Qty: 5 0RF
Discharge Orders:
Discharge Patient (As Directed); Ordered 02/02/25
Ordered By: Austen Avila
Discharge Date and Time
Print Language: CROATIAN
[2025-02-02 17:07] LABS: Glucose - Point of Care 141 mg/dl (70-99)
[2025-02-02 20:24] VITALS: BP 145/56
--- NOTE | 2025-02-02 20:44 | PTCARENOTE ---
Patient picked up by ambulance company for transport to [facility]. Patient sent with personal belongings and updated med list.
== END 2025-02-02 20:42 | DRG 682 ==
LOC: 4 WEST ACU 23:28
PROVIDERS: Internal Medicine Cardiovascular Disease; Nurse Practitioner Family; ADMITTING PHYSICIAN Internal Medicine; ATTENDING PHYSICIAN Internal Medicine; CONSULT PHYSICIAN Internal Medicine Cardiovascular Disease; CONSULT PHYSICIAN Specialist; EMERGENCY PHYSICIAN Emergency Medicine; FAMILY PHYSICIAN Internal Medicine; OTHER PHYSICIAN Internal Medicine Hematology & Oncology
PROC: 4B02XSZ Measurement of Cardiac Pacemaker, External Approach (ICD-10-PCS; 2025-02-02)
DX: N18.4 Chronic kidney disease, stage 4 (severe) (principal); I50.33 Acute on chronic diastolic (congestive) heart failure; I13.0 Hypertensive heart and chronic kidney disease with heart failure and stage 1 through stage 4 chronic kidney disease, or unspecified chronic kidney disease; R18.8 Other ascites; D63.1 Anemia in chronic kidney disease; F01.50 Vascular dementia, unspecified severity, without behavioral disturbance, psychotic disturbance, mood disturbance, and anxiety; Z87.891 Personal history of nicotine dependence; E11.22 Type 2 diabetes mellitus with diabetic chronic kidney disease; I48.0 Paroxysmal atrial fibrillation; L89.311 Pressure ulcer of right buttock, stage 1; L89.321 Pressure ulcer of left buttock, stage 1; N17.9 Acute kidney failure, unspecified; Z79.02 Long term (current) use of antithrombotics/antiplatelets; Z79.4 Long term (current) use of insulin; Z79.82 Long term (current) use of aspirin; Z79.899 Other long term (current) drug therapy; Z86.73 Personal history of transient ischemic attack (TIA), and cerebral infarction without residual deficits; Z91.148 Patient's other noncompliance with medication regimen for other reason; Z95.0 Presence of cardiac pacemaker
CPT/HCPCS: 36415; 71046; 74176; 80048; 80053; 82607; 82728; 82746; 82962; 83036; 83540; 83550; 83735; 83880; 84443; 85025; 85027; 86850; 86900; 86901; 87070; Q5106

== ENCOUNTER → 2025-02-15 17:02 | Outpatient (REF) | payer MEDICARE, SELFPAY ==
[2025-02-15 17:39] LABS: Hematocrit 23.6 % (39.0-52.0); Hemoglobin 7.8 g/dL (13.0-18.0); Mean Corp Hgb Conc. 33.1 g/dL (33.0-37.0); Mean Corpuscular Volume 96.3 fL (80.0-94.0); Nucleated Red Blood Cells % 0 % (-); Platelet Count 173 10^3/uL (130-400); Red Cell Dist. Width 13.8 % (11.5-14.5)
[2025-02-15 17:47] LABS: ALT (SGPT) 26 U/L (0-50); AST (SGOT) 28 U/L (17-59); Albumin 3.5 g/dl (3.5-5.0); Alkaline Phosphatase 83 U/L (38-126); Blood Urea Nitrogen 57 mg/dl (9-20); Calcium 8.5 mg/dl (8.4-10.2); Carbon Dioxide 26 mmol/L (22-30); Chloride 112 mmol/L (98-107); Glucose 129 mg/dl (70-99); Iron 50 ug/dl (49-181); Potassium 4.3 mmol/L (3.5-5.1); Sodium 144 mmol/L (135-145); Total Protein 6.0 g/dl (6.3-8.2); eGFR 16.67
[2025-02-15 17:56] LABS: Total Iron Binding Capacity 199 ug/dl (261-462)
== END ==
LOC: OLABN 17:02
PROVIDERS: ATTENDING PHYSICIAN Student in an Organized Health Care Education/Training Program
DX: D69.6 Thrombocytopenia, unspecified (principal)
CPT/HCPCS: 36415; 80053; 83540; 83550; 85025

== ENCOUNTER 2025-02-16 09:52 | Emergency (ER) | payer MEDICARE, SELFPAY ==
[2025-02-16 09:55] VITALS: BP 139/46; BMI 19.9
[2025-02-16 09:58] VITALS: BP 139/46
--- NOTE | 2025-02-16 10:20 | ED.GENMED ---
History of Present Illness
<Violet Perez REFINERY TECHNICIAN - Last Filed: 02/16/25 15:55>
General
Chief Complaint: Abnormal Lab Value
Source: ambulance crew, [facility]
Exam Limitations: dementia
Time Seen by Provider: 02/16/25 10:07
History of Present Illness
History of Present Illness:
75-year-old male sent here for low hemoglobin of 7.8. With history of A-fib on clopidogrel, CABG, permanent pacemaker, IDDM, HLD, BPH, admitted 01/29 to 02/02 for anemia of chronic disease, chronic kidney disease stage IV, acute on chronic heart
failure, urinary outlet obstruction. He was started on Epogen 10,000 units at that time and told to follow-up with hematology for subsequent injections and DAPT was discontinued at that time. Patient denies pain. States he is here for 'my blood.'
I spoke with nurse at [facility]. She states he is not here for the Hgb, rather for worsening of his BUN and creatinine
Past History
<Violet Perez, REFINERY TECHNICIAN - Last Filed: 02/16/25 15:55>
Past History
ED Past Medical History: CAD, CHF, HTN, Hypercholesterolemia, IDDM and Other (CKD, spinal stenosis)
ED Past Surgical History: Appendectomy and Cardiac (01/2017 pacemaker, cardiac stents, CABG)
Social History
Tobacco: Former smoker
Alcohol: Occasional
Drug: None
Personal:
Living: with roommate
Family History
Family History: Other (reviewed and non-contributory)
Review of Systems
<Violet Perez, REFINERY TECHNICIAN - Last Filed: 02/16/25 15:55>
Review of Systems
Allergies reviewed?: Yes
All Other Systems: ROS reviewed and negative except as documented in HPI and ROS
Constitutional: Denies fever
ABD/GI: Denies vomiting or diarrhea
Psychiatric: Reports other (dementia)
Phy Exam
<Violet Perez, REFINERY TECHNICIAN - Last Filed: 02/16/25 15:55>
Physical Exam
Physical Exam:
GENERAL: No acute distress. Alert, pleasant, demented
CONSTITUTIONAL: Afebrile.
EYES: clear, conjunctivae normal
ENMT: dry moist mucus membranes
RESPIRATORY: Regular respirations, nonlabored, lungs clear.
CARDIOVASCULAR: Regular rate and rhythm, no murmurs, no rubs.
GI: Soft, nontender, normal BS
MUSCULOSKELETAL: Well perfused.
SKIN: Warm, dry, pale
PSYCH: Depressed mood and affect. Well kept, interactive and appropriate
NEUROLOGIC: Awake, alert and oriented to name and 'Elliston' but not year or month. No focal neurological deficits
Course
<Violet Perez, REFINERY TECHNICIAN - Last Filed: 02/16/25 15:55>
Orders/Labs/Results
Orders:
Orders
02/16/25 10:34
Type+Screen Urgent
Complete Blood Count/With Diff Urgent
Comprehensive Metabolic Panel Urgent
02/16/25 11:29
0.9% Sodium Chloride 500 ml [Nss] 500 ml IV BOLUS
02/16/25 11:40
Bladder Scan- Treatment ONCE
02/16/25 12:12
Urinalysis Reflex To Culture Urgent
Date Specimen was Collected: 02/16/25
Time Specimen was Collected: 12:11
Urine Microscopic Reflex Cult Urgent
Urine Culture Urgent
JUANY Source: U
Specimen Description:
Date Specimen was Collected: 02/16/25
Time Specimen was Collected: 12:11
Abnormal Lab Results
02/16/25 02/16/25
10:34 12:12
RBC 2.77 L 10^6/uL
(4.70-6.10)
Hgb 8.6 L g/dL
(13.0-18.0)
Hct 26.2 L %
(39.0-52.0)
MCV 94.6 H fL
(80.0-94.0)
MCHC 32.8 L g/dL
(33.0-37.0)
Lymphocytes % 16.0 L %
(20.5-51.1)
Chloride 111 H mmol/L
(98-107)
BUN 59 H mg/dl
(9-20)
Creatinine 3.4 H mg/dL
(0.7-1.3)
Glucose 204 H mg/dl
(70-99)
Total Protein 6.2 L g/dl
(6.3-8.2)
Albumin 3.4 L g/dl
(3.5-5.0)
Ur Occult Blood Reflex 1+ A
(Negative)
Leukocyte Esterase Rfl 3+ A
(Negative)
Urine WBC (Reflex) 50-60 A /HPF
(0-5)
Urine Bacteria (Reflex) Many A
(Negative)
Urine Albumin (Reflex) 3+ A
(Neg - Trace)
02/16/25 10:34
02/16/25 10:34
Vital Signs
Initial and Last Documented VS:
Initial Vital Signs
Temp Pulse Resp BP Pulse Ox
98.7 F 74 16 139/46 98
02/16/25 09:55 02/16/25 09:55 02/16/25 09:55 02/16/25 09:55 02/16/25 09:55
Last Documented Vital Signs
Temp Pulse Resp BP Pulse Ox
98.7 F 63 14 146/54 100
02/16/25 09:55 02/16/25 11:00 02/16/25 10:00 02/16/25 11:00 02/16/25 11:00
<WAYNE Simpson - Last Filed: 02/20/25 09:56>
Orders/Labs/Results
Orders:
Orders
02/16/25 10:34
Type+Screen Urgent
Complete Blood Count/With Diff Urgent
Comprehensive Metabolic Panel Urgent
02/16/25 11:29
0.9% Sodium Chloride 500 ml [Nss] 500 ml IV BOLUS
02/16/25 11:40
Bladder Scan- Treatment ONCE
02/16/25 12:12
Urinalysis Reflex To Culture Urgent
Date Specimen was Collected: 02/16/25
Time Specimen was Collected: 12:11
Urine Microscopic Reflex Cult Urgent
Urine Culture Urgent
JUANY Source: U
Specimen Description:
Date Specimen was Collected: 02/16/25
Time Specimen was Collected: 12:11
Abnormal Lab Results
02/16/25 02/16/25
10:34 12:12
RBC 2.77 L 10^6/uL
(4.70-6.10)
Hgb 8.6 L g/dL
(13.0-18.0)
Hct 26.2 L %
(39.0-52.0)
MCV 94.6 H fL
(80.0-94.0)
MCHC 32.8 L g/dL
(33.0-37.0)
Lymphocytes % 16.0 L %
(20.5-51.1)
Chloride 111 H mmol/L
(98-107)
BUN 59 H mg/dl
(9-20)
Creatinine 3.4 H mg/dL
(0.7-1.3)
Glucose 204 H mg/dl
(70-99)
Total Protein 6.2 L g/dl
(6.3-8.2)
Albumin 3.4 L g/dl
(3.5-5.0)
Ur Occult Blood Reflex 1+ A
(Negative)
Leukocyte Esterase Rfl 3+ A
(Negative)
Urine WBC (Reflex) 50-60 A /HPF
(0-5)
Urine Bacteria (Reflex) Many A
(Negative)
Urine Albumin (Reflex) 3+ A
(Neg - Trace)
02/16/25 10:34
02/16/25 10:34
Vital Signs
Initial and Last Documented VS:
Initial Vital Signs
Temp Pulse Resp BP Pulse Ox
98.7 F 74 16 139/46 98
02/16/25 09:55 02/16/25 09:55 02/16/25 09:55 02/16/25 09:55 02/16/25 09:55
Last Documented Vital Signs
Temp Pulse Resp BP Pulse Ox
98.7 F 63 14 146/54 100
02/16/25 09:55 02/16/25 11:00 02/16/25 10:00 02/16/25 11:00 02/16/25 11:00
<Violet Perez, REFINERY TECHNICIAN - Last Filed: 02/16/25 15:55>
MDM/Problems Addressed
Differential Diagnosis Includes:
Urinary retention, UTI
Acute on chronic kidney insufficiency, dehydration
MDM/Problems Addressed:
75-year-old male sent here for low hemoglobin of 7.8. With history of A-fib on clopidogrel, CABG, permanent pacemaker, IDDM, HLD, BPH, admitted 01/29 to 02/02 for anemia of chronic disease, chronic kidney disease stage IV, acute on chronic heart
failure, urinary outlet obstruction. He was started on Epogen 10,000 units at that time and told to follow-up with hematology for subsequent injections and DAPT was discontinued at that time. Patient denies pain. States he is here for 'my blood.'
I spoke with nurse at [facility]. She states he is not here for the HGB, rather, for worsening of his BUN and creatinine
Afebrile, NAD
CBC no clinically significant abnormality CMP:
BUN/creat 59/3.4 up from discharge on 01/31 of 32/2.6
Bladder scan reveals 550 mL urine in the bladder
Haas catheter replaced (it was DC'd at [facility] on 02/[facility])
NSS 500 ml IV administered
UA showing 50-60 WBCs but with many bacteria and squamous cells, will hold off on treating pending culture results
Consulted nephrology Dr. Chicas who agrees with plan to keep Haas in, DC back to [facility] and recheck labs on Wednesday, [address] Arroyo Irish updated
Chronic conditions affecting care: Kidney disease and Other (nonambulatory)
Acute Exacerbation and/or Progression of Chronic Illness: Kidney disease
<Violet Perez REFINERY TECHNICIAN - Last Filed: 02/16/25 15:55>
*Pulse Oximetry
SaO2: 97
Oxygen Mode of Delivery: Room air
Patient hypoxic: no
*Critical Care Note
Total Time (30-74mins, 75-104mins- exclusive of procedures): Not Applicable
<WAYNE Simpson - Last Filed: 02/20/25 09:56>
Update Note
Update Note:
Patient's urine culture and sensitivities reviewed. Patient will need to be switched to Cipro however I did speak with his nurse at [facility] and the on-call physician at [facility] received culture results yesterday and already switched
him to Cipro.
ED Attending Note
<Violet Perez REFINERY TECHNICIAN - Last Filed: 02/16/25 15:55>
-
Portions of this chart may have been created with voice recognition software.� Occasional wrong word or��sound alike� substitutions may have occurred due to the inherent limitations of voice recognition software.
Discharge Plan
Departure
Patient Disposition: Fdc/SNF
Date of Disposition: 02/16/25
Time of Disposition: 13:50
Patient with high blood pressure during this ER visit?: No
Condition: Fair
Discharge Problem:
Acute retention of urine, Acute on chronic renal insufficiency
Instructions: Chronic kidney disease, Urinary retention - Discharge instructions
Prescriptions:
No Action
metoprolol succinate 50 mg tablet extended release 24 hr
50 mg PO DAILY
isosorbide mononitrate 30 mg Tablet Extended Release 24 Hr
30 mg PO DAILY Qty: 30 0RF
acetaminophen 325 mg Tablet
650 mg PO Q4HPRN PRN (Reason: mild pain/temp>100)
magnesium hydroxide [Milk of Magnesia] 400 mg/5 mL Suspension
30 ml PO HSPRN PRN (Reason: Constipation)
Fleet Enema 19-7 gram/118 mL Enema
118 ml KS DAILYPRN PRN (Reason: no bm 4 days)
atorvastatin 80 MG tablet
80 mg PO HS
polyethylene glycol 3350 17 gram Powder In Packet
17 g PO DAILYPRN PRN (Reason: constipation) Qty: 14 0RF
furosemide 20 mg Tablet
20 mg PO DAILY Qty: 30 0RF
sodium bicarbonate 650 mg Tablet
325 mg PO BID Qty: 60 0RF
finasteride 5 mg Tablet
5 mg PO DAILY Qty: 30 0RF
hydralazine 25 mg Tablet
50 mg PO TID Qty: 90 0RF
insulin glargine [Lantus Solostar U-100 Insulin] 100 unit/mL (3 mL) Insulin Pen
5 unit SC HS Qty: 0 0RF
tamsulosin 0.4 mg capsule
0.8 mg PO HS
mirtazapine [Remeron] 15 mg Tablet
7.5 mg PO HS
bisacodyl 10 mg Suppository
10 mg KS [id number] PRN (Reason: no BM after MOM )
insulin lispro [Humalog KwikPen Insulin] 100 unit/mL Insulin Pen
2 sliding scale dose SC AC
Rx Instructions:
<70 = initiate hypoglycemic protocol; 71-150 = 0 units; 151-200 = 2 units; 201-250 = 4 units; 251-300 = 6 units; 301-350 = 8 units; 351-400 = 10 units; >400 = 12 units and call MD
pantoprazole 20 mg Tablet,Delayed Release (Dr/Ec)
20 mg PO DAILY
amlodipine 10 mg Tablet
10 mg PO HS Qty: 30 0RF
clopidogrel 75 mg Tablet
75 mg PO DAILY Qty: 30 0RF
ezetimibe 10 MG tablet
10 mg PO DAILY Qty: 30 0RF
Referrals:
Bob Gao DO [Family Provider, [facility]] - Follow up in 5-7 days
Activity Restrictions/Additional Instructions:
Mr. Mcgrath needed the Haas catheter replaced due to retention of urine of 550 mL.
His urine showed some white blood cells with many bacteria and squamous cells so we are not treating it at this time, due to contamination. Urine culture results are pending
Encourage fluids
Have the BMP rechecked on Monday 02/19 and inform PCP a result
Ashok Bakersh, patient's daughter was updated on the entire visit and plan of care
Interventions
Interventions:
*Risk Screen - Suicide Last Done: 02/16/25 10:08
*General Assessment Last Done: 02/16/25 09:55
*Neglect/Abuse Screening Last Done: 02/16/25 09:55
*ED- Fall Risk Assessment Last Done: 02/16/25 09:55
*ED COVID-19 Vaccine History Last Done: 02/16/25 09:55
*Nursing Disposition Last Done: 02/16/25 17:18
Discharge Date and Time
Discharge Date/Time: 02/16/25 17:20
Print Language: ICELANDIC
[2025-02-16 10:52] LABS: Hematocrit 26.2 % (39.0-52.0); Hemoglobin 8.6 g/dL (13.0-18.0); Mean Corp Hgb Conc. 32.8 g/dL (33.0-37.0); Mean Corpuscular Volume 94.6 fL (80.0-94.0); Nucleated Red Blood Cells % 0 % (-); Platelet Count 181 10^3/uL (130-400); Red Cell Dist. Width 13.6 % (11.5-14.5)
[2025-02-16 11:00] VITALS: BP 146/54
[2025-02-16 11:09] LABS: ALT (SGPT) 28 U/L (0-50); AST (SGOT) 32 U/L (17-59); Albumin 3.4 g/dl (3.5-5.0); Alkaline Phosphatase 89 U/L (38-126); Blood Urea Nitrogen 59 mg/dl (9-20); Calcium 8.6 mg/dl (8.4-10.2); Carbon Dioxide 26 mmol/L (22-30); Chloride 111 mmol/L (98-107); Estimated Creatinine Clearance 16 ml/min; Glucose 204 mg/dl (70-99); Potassium 4.2 mmol/L (3.5-5.1); Sodium 145 mmol/L (135-145); Total Protein 6.2 g/dl (6.3-8.2); eGFR 17.85
[2025-02-16] MEDS: NSS 500 IV (11:41)
[2025-02-16 12:24] LABS: Urine Character Cloudy (Clear)
[2025-02-16 12:45] LABS: Urine Squamous Cell 21-25 /LPF (Few)
[2025-02-16 12:46] LABS: Urine Red Blood Cell 0-2 /HPF (0-2); Urine White Cell 50-60 /HPF (0-5)
== END 2025-02-16 17:20 ==
LOC: EMR 09:52
PROVIDERS: Registered Nurse; EMERGENCY PHYSICIAN Emergency Medicine; FAMILY PHYSICIAN Student in an Organized Health Care Education/Training Program
DX: N40.1 Benign prostatic hyperplasia with lower urinary tract symptoms (principal); R33.9 Retention of urine, unspecified; N28.9 Disorder of kidney and ureter, unspecified; N18.4 Chronic kidney disease, stage 4 (severe); I50.9 Heart failure, unspecified; Z95.0 Presence of cardiac pacemaker; E11.22 Type 2 diabetes mellitus with diabetic chronic kidney disease; D63.1 Anemia in chronic kidney disease; F03.90 Unspecified dementia, unspecified severity, without behavioral disturbance, psychotic disturbance, mood disturbance, and anxiety; I13.0 Hypertensive heart and chronic kidney disease with heart failure and stage 1 through stage 4 chronic kidney disease, or unspecified chronic kidney disease; I48.91 Unspecified atrial fibrillation; Z87.891 Personal history of nicotine dependence
CPT/HCPCS: 99284; 96360; 51798; 51702; 80053; 81003; 81015; 85025; 86850; 86900; 86901; 87077; 87086; 87186

== ENCOUNTER → 2025-02-19 10:51 | Outpatient (REF) | payer MEDICARE, SELFPAY ==
[2025-02-19 11:37] LABS: Hematocrit 26.8 % (39.0-52.0); Hemoglobin 8.6 g/dL (13.0-18.0); Mean Corp Hgb Conc. 32.1 g/dL (33.0-37.0); Mean Corpuscular Volume 96.1 fL (80.0-94.0); Platelet Count 204 10^3/uL (130-400); Red Cell Dist. Width 13.7 % (11.5-14.5)
[2025-02-19 12:00] LABS: Blood Urea Nitrogen 53 mg/dl (9-20); Calcium 8.8 mg/dl (8.4-10.2); Carbon Dioxide 25 mmol/L (22-30); Chloride 114 mmol/L (98-107); Glucose 76 mg/dl (70-99); Potassium 4.4 mmol/L (3.5-5.1); Sodium 147 mmol/L (135-145); eGFR 19.20
== END ==
LOC: OLABN 10:51
PROVIDERS: ATTENDING PHYSICIAN Student in an Organized Health Care Education/Training Program
DX: N18.4 Chronic kidney disease, stage 4 (severe) (principal); D69.6 Thrombocytopenia, unspecified
CPT/HCPCS: 36415; 80048; 85027

== ENCOUNTER → 2025-02-26 10:20 | Outpatient (REF) | payer OTHER, MEDICARE, SELFPAY ==
[2025-02-26 12:32] LABS: Blood Urea Nitrogen 42 mg/dl (9-20); Calcium 8.3 mg/dl (8.4-10.2); Carbon Dioxide 24 mmol/L (22-30); Chloride 110 mmol/L (98-107); Glucose 123 mg/dl (70-99); Potassium 4.9 mmol/L (3.5-5.1); Sodium 141 mmol/L (135-145); eGFR 21.60
== END ==
LOC: OLABN 10:20
PROVIDERS: ATTENDING PHYSICIAN Student in an Organized Health Care Education/Training Program
DX: N18.4 Chronic kidney disease, stage 4 (severe) (principal)
CPT/HCPCS: 36415; 80048

== ENCOUNTER → 2025-03-08 11:23 | Outpatient (REF) | payer MEDICARE, SELFPAY ==
[2025-03-08 12:38] LABS: Hematocrit 24.5 % (39.0-52.0); Hemoglobin 8.1 g/dL (13.0-18.0); Mean Corp Hgb Conc. 33.1 g/dL (33.0-37.0); Mean Corpuscular Volume 91.8 fL (80.0-94.0); Nucleated Red Blood Cells % 0 % (-); Platelet Count 158 10^3/uL (130-400); Red Cell Dist. Width 13.2 % (11.5-14.5)
[2025-03-08 13:28] LABS: ALT (SGPT) 66 U/L (0-50); AST (SGOT) 42 U/L (17-59); Albumin 3.2 g/dl (3.5-5.0); Alkaline Phosphatase 95 U/L (38-126); Blood Urea Nitrogen 46 mg/dl (9-20); Calcium 8.4 mg/dl (8.4-10.2); Carbon Dioxide 24 mmol/L (22-30); Chloride 107 mmol/L (98-107); Glucose 68 mg/dl (70-99); Potassium 4.6 mmol/L (3.5-5.1); Sodium 137 mmol/L (135-145); Total Protein 5.6 g/dl (6.3-8.2); eGFR 24.63
== END ==
LOC: OLABN 11:23
PROVIDERS: ATTENDING PHYSICIAN Student in an Organized Health Care Education/Training Program
DX: I13.0 Hypertensive heart and chronic kidney disease with heart failure and stage 1 through stage 4 chronic kidney disease, or unspecified chronic kidney disease (principal)
CPT/HCPCS: 36415; 80053; 85025